=== PATIENT | female | born 1960 | race American Indian/Alaskan Native ===

== ENCOUNTER 2018-12-03 19:56 | Emergency (ER) | payer MEDICAID ==
--- NOTE | 2018-12-03 20:32 | Emergency Department Report ---
ED General Adult HPI - General Chief complaint: Wound/Laceration Stated complaint: RT BIG TOE INFECTION Time Seen by Provider: 12/03/18 20:26 Source: patient, EMS (ems notes not available at time of chart dictation), RN notes reviewed Mode of arrival: Stretcher Limitations: Physical Limitation - History of Present Illness Initial comments: This is a pleasant 58-year-old female, not known to this provider previously, history of postoperative stroke, functional lower extremity paraplegia, bedbound, on home hospice, with a home visiting nurse, presented to the emergency room with discoloration, bloody discharge to the right great toe. This has been present for a few months. It is slightly worsening. Symptoms are constant, do not radiate anywhere, discomfort worsens with palpation, and decreases with rest. Patient does not complain of headache, neck pain, chest pain, abdominal pain, shortness of breath, or urinary symptoms. \ The patient has no other complaints at this time. -: Gradual, month(s) Location: right, lower extremity Radiation: non-radiation Severity scale (0 -10): 4 Quality: aching Consistency: constant Improves with: rest Worsens with: movement - Related Data Previous Rx's Medication Instructions Recorded Last Taken Type Doxycycline [Vibramycin CAP] 100 mg PO Q12HR #14 capsule 12/03/18 Unknown Rx Allergies Allergy/AdvReac Type Severity Reaction Status Date / Time Penicillins Allergy Hives Verified 12/03/18 20:53 meperidine [From Demerol] AdvReac Anaphylaxis Verified 12/03/18 20:53 morphine AdvReac Unknown Verified 12/03/18 20:53 ED Review of Systems ROS: Stated complaint: RT BIG TOE INFECTION Other details as noted in HPI Constitutional: denies: fever, malaise Eyes: denies: vision change ENT: denies: epistaxis Respiratory: denies: cough Cardiovascular: denies: chest pain Gastrointestinal: denies: abdominal pain Genitourinary: denies: urgency, dysuria Musculoskeletal: arthralgia, myalgia Skin: other (right great toe discoloration, bloody) Neurological: weakness (chronic lower extremity weakness) ED Past Medical Hx - Past Medical History Previous Medical History?: Yes Hx Hypertension: Yes Hx CVA: Yes (1 year ago) Hx Diabetes: Yes Additional medical history: 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 - Social History Smoking Status: Unknown if ever smoked Substance Use Type: None - Medications Home Medications: Home Medications Medication Instructions Recorded Confirmed Last Taken Type Doxycycline [Vibramycin CAP] 100 mg PO Q12HR #14 capsule 12/03/18 Unknown Rx ED Physical Exam - General Limitations: Physical Limitation General appearance: alert, in no apparent distress, obese - Head Head exam: Present: atraumatic, normocephalic - Eye Eye exam: Present: normal appearance, EOMI. Absent: nystagmus - ENT ENT exam: Present: normal exam, normal orophraynx, mucous membranes moist, normal external ear exam - Neck Neck exam: Present: normal inspection, full ROM. Absent: tenderness, meningismus - Respiratory Respiratory exam: Present: normal lung sounds bilaterally. Absent: respiratory distress - Cardiovascular Cardiovascular Exam: Present: regular rate, normal rhythm, normal heart sounds. Absent: bradycardia, tachycardia, irregular rhythm, systolic murmur, diastolic murmur, rubs, gallop - GI/Abdominal GI/Abdominal exam: Present: soft. Absent: distended, tenderness, guarding, rebound, rigid, pulsatile mass - Extremities Exam Extremities exam: Present: normal inspection (moving the bilateral upper extremities. No redness, pus or streaking in the bilateral upper extremities or left lower extremity), tenderness (right great toe shows minimal medial distal dorsal erythema, bloody discharge, ingrown toenail is noted.), pedal edema, other (2+ pulses noted in the bilateral upper, lower extremities. Compartments soft. No long bony tenderness. The pelvis is stable.). Absent: calf tenderness - Back Exam Back exam: Present: normal inspection. Absent: tenderness, CVA tenderness (R), paraspinal tenderness, vertebral tenderness - Neurological Exam Neurological exam: Present: alert, motor sensory deficit (chronic weakness in the bilateral lower extremities. Moving the bilateral upper extremities spontaneously.), other (there is no facial droop. The tongue is midline. Extraocular movements are intact bilaterally. Speaking in full sentences.) - Psychiatric Psychiatric exam: Present: normal affect, normal mood - Skin Skin exam: Present: warm ED Course Vital Signs 12/03/18 12/03/18 20:08 20:36 Temperature 98.7 F 98.3 F Pulse Rate 87 87 Respiratory 14 18 Rate Blood Pressure 138/85 [Right] O2 Sat by Pulse 100 99 Oximetry ED Medical Decision Making - Lab Data Vital Signs 12/03/18 12/03/18 20:08 20:36 Temperature 98.7 F 98.3 F Pulse Rate 87 87 Respiratory 14 18 Rate Blood Pressure 138/85 [Right] O2 Sat by Pulse 100 99 Oximetry - Medical Decision Making Differential diagnosis, including but not limited to: Ingrown toenail, cellulitis Assessment and plan: 58-year-old female with right great toe ingrown toenail, minimal discharge, no evidence of systemic toxicity or illness, she and family indicate that discoloration present for a few months. The patient is afebrile, with reassuring vital signs, without evidence of systemic or toxic illness. The patient is suitable for a trial of oral outpatient antibiotics, and she is counseled to follow up with an outpatient estate planner. Patient and family verbalized understanding. Critical care attestation.: If time is entered above; I have spent that time in minutes in the direct care of this critically ill patient, excluding procedure time. ED Disposition Clinical Impression: Ingrown toenail of right foot with infection Disposition: TO HOME OR SELFCARE Is pt being admited?: No Does the pt Need Aspirin: No Condition: Stable Additional Instructions: Apply warm compresses to the right great toe every 12-24 hours. Otherwise, keep the toe dry. Inspect the toe at least once a day to determine how the infection is progressing. Follow up with a estate planner, within the next 5-7 days. For the patient's convenience, numerous podiatry specialists have been listed in the discharge paperwork. Please return to the emergency room right away with fevers, chills, lethargy, irritability, projectile vomiting, change in mental status, confusion, new, worsening or different symptoms. [facility] [Primary Care Provider] - 3-5 Days ARIE JAMES DPM [Staff Physician] - 3-5 Days JOSE ARMANDO LANDRY DPM [Referring] - 3-5 Days PATRICIA CHAVIS DPM [Referring] - 3-5 Days YASIR PAULINO DPM [Referring] - 3-5 Days LASHAY PANG DPM [Referring] - 3-5 Days ILSA SHOOK DPM [Referring] - 3-5 Days DEL VALLE,ADOLPH, DPM [Referring] - 3-5 Days JAYESH VAN I, DPM [Referring] - 3-5 Days COLON,LALITO Garcia, DPM [Referring] - 3-5 Days COLON,SAW Land, DPM [Referring] - 3-5 Days SERGIO VICTORIA, DPM [Referring] - 3-5 Days NYLA,YOLANDA Danielle, DPM [Referring] - 3-5 Days IRON SCOTT, DPM [Referring] - 3-5 Days
[2018-12-03 21:44] VITALS: BP 131/70
== END 2018-12-04 01:39 | disposition home or self-care (01) ==
LOC: ED 19:56
DX: L60.0 Ingrowing nail (principal); I10 Essential (primary) hypertension; E11.9 Type 2 diabetes mellitus without complications; Z88.0 Allergy status to penicillin; Z88.5 Allergy status to narcotic agent
CPT/HCPCS: 82962; 99284

== ENCOUNTER 2020-11-29 19:00 | Emergency (ER) | payer MEDICAID ==
--- NOTE | 2020-11-29 19:25 | Emergency Department Report ---
ED General Adult HPI - General Chief complaint: Pain General Stated complaint: SACRAL WOUND PUI?: No Time Seen by Provider: 11/29/20 19:20 Source: patient, EMS Mode of arrival: Stretcher Limitations: Physical Limitation - History of Present Illness Initial comments: Patient is a 60-year-old female that presents emergency room with complaints of sacral pain. Patient states her sacral pain started this morning. Patient states her sickle pain is worsening. Patient states her pain is severe. Patient states she believes she has an open wound to the area. Patient states that her family called her primary care and sent her to the emergency room for evaluation of the wound. Patient states the pain is better with rest and worse with movement and palpation. Patient denies recent travel. Patient denies recent international travel. Patient denies exposure to the novel coronavirus. Patient denies sick contacts. Patient denies fever and chills. Patient denies cough. Patient denies diarrhea. Patient denies coming in contact with anybody with symptoms of the novel coronavirus. Patient is answering questions appropriately. -: Gradual Quality: aching Consistency: constant Improves with: rest Worsens with: movement Associated Symptoms: denies other symptoms Treatments Prior to Arrival: other (Description medications) - Related Data Previous Rx's Medication Instructions Recorded Last Taken Type DOXYCYCLINE Hyclate [Vibramycin 100 mg PO Q12HR #14 capsule 12/03/18 Unknown Rx CAP] Allergies Allergy/AdvReac Type Severity Reaction Status Date / Time Penicillins Allergy Hives Verified 12/03/18 20:53 meperidine [From Demerol] AdvReac Anaphylaxis Verified 12/03/18 20:53 morphine AdvReac Unknown Verified 12/03/18 20:53 ED Review of Systems ROS: Stated complaint: SACRAL WOUND Other details as noted in HPI Constitutional: denies: chills, fever Eyes: denies: eye pain, eye discharge, vision change ENT: denies: ear pain, throat pain Respiratory: denies: cough, shortness of breath, wheezing Cardiovascular: denies: chest pain, palpitations Endocrine: no symptoms reported Gastrointestinal: denies: abdominal pain, nausea, diarrhea Genitourinary: denies: urgency, dysuria, discharge Musculoskeletal: denies: back pain, joint swelling, arthralgia Skin: denies: rash, lesions Neurological: denies: headache, weakness, paresthesias Psychiatric: denies: anxiety, depression Hematological/Lymphatic: denies: easy bleeding, easy bruising ED Past Medical Hx - Past Medical History Previous Medical History?: Yes Hx Hypertension: Yes Hx CVA: Yes (1 year ago) Hx Diabetes: Yes Additional medical history: 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 - Surgical History Past Surgical History?: No - Family History Family history: no significant - Social History Smoking Status: Current Some Day Smoker Substance Use Type: None - Medications Home Medications: Home Medications Medication Instructions Recorded Confirmed Last Taken Type DOXYCYCLINE Hyclate [Vibramycin 100 mg PO Q12HR #14 capsule 12/03/18 Unknown Rx CAP] ED Physical Exam - General Limitations: Physical Limitation General appearance: alert, in no apparent distress - Head Head exam: Present: atraumatic, normocephalic - Eye Eye exam: Present: normal appearance - ENT ENT exam: Present: mucous membranes moist - Neck Neck exam: Present: normal inspection - Respiratory Respiratory exam: Present: normal lung sounds bilaterally. Absent: respiratory distress - Cardiovascular Cardiovascular Exam: Present: regular rate, normal rhythm. Absent: systolic murmur, diastolic murmur, rubs, gallop - GI/Abdominal GI/Abdominal exam: Present: soft, normal bowel sounds - Extremities Exam Extremities exam: Present: normal inspection - Back Exam Back exam: Present: normal inspection - Neurological Exam Neurological exam: Present: alert, oriented X3 - Psychiatric Psychiatric exam: Present: normal affect, normal mood - Skin Skin exam: Present: warm, dry, normal color, other (Stage I sacral decubitus ulcer noted. Minimal skin breakdown. No signs of infection. No redness noted. No purulent discharge noted.). Absent: rash ED Course Vital Signs 11/29/20 19:15 Temperature 98 F Pulse Rate 72 Respiratory 19 Rate Blood Pressure 134/80 [Right] O2 Sat by Pulse 100 Oximetry - Reevaluation(s) Reevaluation #1: I discussed all clinical findings with patient. I discussed plan of care with patient. Patient agrees with plan of care. Patient is stable for discharge. Patient will be discharged home. Patient given discharge instructions. Patient voiced understanding of discharge instructions. 11/29/20 19:29 ED Medical Decision Making - Medical Decision Making Patient is a 60-year-old female who presents for a wound check. Patient was sent here to have an evaluation done of her sacral region. Patient's exam done. Patient is medically clear for discharge. Patient's physical exam was positive for a minimal breakdown in the sacral region consistent with a decubitus ulcer at stage I. No signs of infection noted at the site. No redness noted at the site. Patient is stable and can be followed as an outpatient with outpatient wound care or even home health. Patient will be referred back to her primary care for management of this minimal decubitus ulcer noted. - Differential Diagnosis Wound check, decubitus ulcer, cellulitis, Critical care attestation.: If time is entered above; I have spent that time in minutes in the direct care of this critically ill patient, excluding procedure time. ED Disposition Clinical Impression: Sacral decubitus ulcer Qualifiers: Pressure injury stage: stage 1 Qualified Code(s): L89.151 - Pressure ulcer of sacral region, stage 1 Disposition: TO HOME OR SELFCARE Is pt being admited?: No Does the pt Need Aspirin: No Condition: Stable Instructions: Preventing Pressure Injuries, Negative Pressure Wound Therapy Home Guide, Pressure Injury Additional Instructions: Patient to follow-up with primary care in 2 to 3 days. Patient to follow-up with wound care in 2 to 3 days. Patient to be turned from side to side to offload the pressure areas. Patient to be turned every hour. Patient to rest. Patient to increase water. . Patient to take Tylenol as needed for pain. Patient to continue all medications.. Patient to return to the ER if condition worsens, changes or new symptoms arise. Referrals: PRIMARY CARE [Primary Care Provider] - 2-3 Days Time of Disposition: 19:31
[2020-11-29 22:52] VITALS: BP 130/72
== END 2020-11-29 23:59 | disposition home or self-care (01) ==
LOC: ED 19:00
DX: L89.151 Pressure ulcer of sacral region, stage 1 (principal); I10 Essential (primary) hypertension; E11.9 Type 2 diabetes mellitus without complications; F17.200 Nicotine dependence, unspecified, uncomplicated; Z86.73 Personal history of transient ischemic attack (TIA), and cerebral infarction without residual deficits; Z79.899 Other long term (current) drug therapy; Z88.0 Allergy status to penicillin; Z88.6 Allergy status to analgesic agent; Z88.8 Allergy status to other drugs, medicaments and biological substances
CPT/HCPCS: 99283

== ENCOUNTER 2021-04-20 07:37 | Inpatient (IN) | payer MEDICAID ==
[2021-04-20] MEDS ORDERED: SODIUM CHLORIDE 0.9% 500 ML 500 ML IV ONE (08:42)
[2021-04-20] MEDS ORDERED: CEFEPIME/NS 2 GM/100 ML 2 GM/100 ML BAG IV ONE (08:52)
[2021-04-20] MEDS ORDERED: SODIUM CHLORIDE 0.9% 1000 ML IV SOLN IV ONE (08:52)
[2021-04-20] MEDS ORDERED: VANCOMYCIN PHARMACY TO DOSE IV SCH (09:00)
[2021-04-20] MEDS ORDERED: ACETAMINOPHEN 650 MG RECT SUPP PR ONE ×2 (09:00→09:25)
[2021-04-20] MEDS ORDERED: VANCOMYCIN 1,000 MG in SODIUM CHLORIDE 0.9% 500 ML 500 ML IV ONE (09:30)
[2021-04-20] MEDS ORDERED: VANCOMYCIN/NS 1 GM/250 ML 1 GM/250 ML BAG IV ONE (09:30)
--- NOTE | 2021-04-20 09:32 | Emergency Department Report ---
ED Altered Mental Status HPI - General Chief Complaint: Altered Mental Status Stated Complaint: AMS Time Seen by Provider: 04/20/21 08:50 Source: EMS Mode of arrival: Stretcher Limitations: Altered Mental Status - History of Present Illness Initial Comments: Chief complaint: Altered mental status, low oxygen, fever HPI: This is a 60-year-old female with history of CVA, CHF, hypertension, type 2 diabetes mellitus, sacral decubitus ulcer who presents with fever decreased responsiveness for the last 2 days. Caregiver reported fever 103 the hospice [facility]. Patient was not eating or drinking. Had been treated with Tylenol suppositories. Caregiver called 911 today because it appeared that she was not breathing. Oxygen 65% room air according to EMS report. Required nonrebreather. I spoke with Alana Castro on-call hospice nurse Jesusita in [facility] who came to the department to assist with medical care. Phone #[phone]. I obtain additional history from daughter per phone. Patient received 1 dose either COVID-19 vaccine on Friday. Health appeared to have declined since that time. No reported falls or trauma. Daughter stated that home oxygen saturation was 50% on nasal cannula. She normally is conversant. She normally is clearh eaded. Today she was not responsive. Daughter is the very more phone #[phone] Home medications include aspirin biscodyl cyproheptadine Docusate Lantus Lorazepam Metformin Metoprolol Torsemide Zofran Spironolactone Oxycodone Maira ARZOLA Complaint: altered mental status, decreased responsiveness -: Gradual, days(s) (2 days) Severity: severe Consistency of Symptoms: constant Context: recent fever - Related Data Previous Rx's Medication Instructions Recorded Last Taken Type DOXYCYCLINE Hyclate [Vibramycin 100 mg PO Q12HR #14 capsule 12/03/18 Unknown Rx CAP] Allergies Allergy/AdvReac Type Severity Reaction Status Date / Time Penicillins Allergy Hives Verified 12/03/18 20:53 meperidine [From Demerol] AdvReac Anaphylaxis Verified 12/03/18 20:53 morphine AdvReac Unknown Verified 12/03/18 20:53 ED Review of Systems ROS: Stated complaint: AMS Other details as noted in HPI Comment: Unobtainable due to pts medical conditions (Altered mental status) ED Past Medical Hx - Past Medical History Previous Medical History?: Yes Hx Hypertension: Yes Hx CVA: Yes (1 year ago) Hx Congestive Heart Failure: Yes Hx Diabetes: Yes Additional medical history: 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 - Surgical History Past Surgical History?: Yes Hx Open Heart Surgery: Yes (CABG x3) - Family History Family history: other (Family history noncontributory to today's presentation) - Social History Smoking Status: Unknown if ever smoked Substance Use Type: None - Medications Home Medications: Home Medications Medication Instructions Recorded Confirmed Last Taken Type DOXYCYCLINE Hyclate [Vibramycin 100 mg PO Q12HR #14 capsule 12/03/18 Unknown Rx CAP] ED Physical Exam - General Limitations: Altered Mental Status General appearance: lethargic, cachectic, other (Protecting airway) - Head Head exam: Present: atraumatic, normocephalic - Eye Eye exam: Present: normal appearance - ENT ENT exam: Present: mucous membranes dry - Neck Neck exam: Present: normal inspection, tenderness. Absent: meningismus - Respiratory Respiratory exam: Present: rales, rhonchi, decreased breath sounds, other (Increased respiratory rate with loud rales rhonchi throughout thorax) - Cardiovascular Cardiovascular Exam: Present: normal rhythm, tachycardia, normal heart sounds. Absent: systolic murmur, diastolic murmur, rubs, gallop - GI/Abdominal GI/Abdominal exam: Present: soft. Absent: distended, tenderness, guarding, rebound - Extremities Exam Extremities exam: Present: other (Cachectic extremities) - Neurological Exam Neurological exam: Present: altered - Psychiatric Psychiatric exam: Present: flat affect - Skin Skin exam: Present: other (Large sacral decubitus ulcer with subcutaneous tissue exposed areas of necrosis, purulent malodorous drainage) ED Course Vital Signs 04/20/21 04/20/21 04/20/21 08:00 08:36 08:42 Temperature 99.7 F H 104 F H Pulse Rate 134 H Respiratory 31 H Rate Blood Pressure 114/74 O2 Sat by Pulse 95 95 Oximetry 04/20/21 04/20/21 04/20/21 08:45 09:01 09:15 Temperature Pulse Rate 134 H 137 H 132 H Respiratory 31 H 33 H 30 H Rate Blood Pressure 114/74 116/77 116/77 O2 Sat by Pulse 96 96 95 Oximetry 04/20/21 04/20/21 04/20/21 09:31 09:42 09:45 Temperature Pulse Rate 136 H 124 H Respiratory 35 H 33 H Rate Blood Pressure 97/62 116/77 O2 Sat by Pulse 93 91 Oximetry 04/20/21 04/20/21 04/20/21 09:51 10:01 10:15 Temperature Pulse Rate 124 H 122 H Respiratory 31 H 29 H Rate Blood Pressure 123/74 123/74 O2 Sat by Pulse 93 90 92 Oximetry 04/20/21 04/20/21 04/20/21 10:31 10:45 11:01 Temperature Pulse Rate 120 H 118 H 117 H Respiratory 23 23 20 Rate Blood Pressure 130/70 130/70 120/64 O2 Sat by Pulse 92 89 91 Oximetry 04/20/21 04/20/21 04/20/21 11:15 11:31 11:45 Temperature Pulse Rate 115 H 116 H 113 H Respiratory 25 H 27 H 20 Rate Blood Pressure 120/64 138/56 138/56 O2 Sat by Pulse 85 93 97 Oximetry 04/20/21 04/20/21 04/20/21 12:01 12:15 12:31 Temperature Pulse Rate 112 H 108 H 107 H Respiratory 19 20 18 Rate Blood Pressure 111/63 111/63 125/67 O2 Sat by Pulse 98 99 99 Oximetry 04/20/21 04/20/21 12:45 13:01 Temperature Pulse Rate 108 H 110 H Respiratory 18 20 Rate Blood Pressure 125/67 130/69 O2 Sat by Pulse 98 99 Oximetry - Chest Tube Chest Tube Location: Fifth interspace Chest Tube Procedure: betadine prep Anesthesia: 1% Lidocaine Volume Anesthetic (ccs): 5 Estrella of Air [place]: No Number of Attempts: 1 Tube Sutured to Skin: Yes Post Procedure CXR?: Yes Progress: Smallbore catheter inserted. RN witness phone consent obtained from caregiver Ms. Corado. - Lab Data Result diagrams: 04/20/21 08:54 04/20/21 08:54 Lab Results 04/20/21 04/20/21 04/20/21 Range/Units 08:54 08:54 08:54 WBC 6.6 (4.5-11.0) K/mm3 RBC 4.42 (3.65-5.03) M/mm3 Hgb 11.0 (10.1-14.3) gm/dl Hct 34.8 (30.3-42.9) % MCV 79 (79-97) fl MCH 25 L (28-32) pg MCHC 32 (30-34) % RDW 18.2 H (13.2-15.2) % Plt Count 309 (140-440) K/mm3 Add Manual Diff Complete Total Counted 100 Seg Neuts % (Manual) 81.0 H (40.0-70.0) % Band Neutrophils % 2.0 % Lymphocytes % (Manual) 12.0 L (13.4-35.0) % Monocytes % (Manual) 5.0 (0.0-7.3) % Nucleated RBC % Not Reportable Seg Neutrophils # Man 5.3 (1.8-7.7) K/mm3 Band Neutrophils # 0.1 K/mm3 Lymphocytes # (Manual) 0.8 L (1.2-5.4) K/mm3 Abs React Lymphs (Man) 0.0 K/mm3 Monocytes # (Manual) 0.3 (0.0-0.8) K/mm3 Eosinophils # (Manual) 0.0 (0.0-0.4) K/mm3 Basophils # (Manual) 0.0 (0.0-0.1) K/mm3 Metamyelocytes # 0.0 K/mm3 Myelocytes # 0.0 K/mm3 Promyelocytes # 0.0 K/mm3 Blast Cells # 0.0 K/mm3 WBC Morphology Not Reportable Hypersegmented Neuts Not Reportable Hyposegmented Neuts Not Reportable Hypogranular Neuts Not Reportable Smudge Cells Not Reportable Toxic Granulation Not Reportable Toxic Vacuolation Not Reportable Dohle Bodies Not Reportable Pelger-Huet Anomaly Not Reportable Gabe Rods Not Reportable Platelet Estimate Consistent w auto Clumped Platelets Not Reportable Plt Clumps, EDTA Not Reportable Large Platelets Not Reportable Giant Platelets Not Reportable Platelet Satelliting Not Reportable Plt Morphology Comment Not Reportable RBC Morphology Not Reportable Dimorphic RBCs Not Reportable Polychromasia Not Reportable Hypochromasia 1+ Poikilocytosis Not Reportable Anisocytosis 1+ Microcytosis Not Reportable Macrocytosis Not Reportable Spherocytes Not Reportable Pappenheimer Bodies Not Reportable Sickle Cells Not Reportable Target Cells Not Reportable Tear Drop Cells Not Reportable Ovalocytes Not Reportable Helmet Cells Not Reportable [place] Bodies Not Reportable [place] Rings Not Reportable [place] Cells Not Reportable Bite Cells Not Reportable Crenated Cell Not Reportable Elliptocytes Not Reportable Acanthocytes (Spur) Not Reportable Rouleaux Not Reportable Hemoglobin C Crystals Not Reportable Schistocytes Not Reportable Malaria parasites Not Reportable Chris Bodies Not Reportable Hem Pathologist Commnt No PT 15.6 H (12.2-14.9) Sec. INR 1.19 H (0.87-1.13) VBG pH (7.320-7.420) Sodium 163 H* (137-145) mmol/L Potassium 2.8 L* (3.6-5.0) mmol/L Chloride 118.6 H (98-107) mmol/L Carbon Dioxide 25 (22-30) mmol/L Anion Gap 21 mmol/L BUN 152 H (7-17) mg/dL Creatinine 2.0 H (0.6-1.2) mg/dL Estimated GFR 31 ml/min BUN/Creatinine Ratio 76 % Glucose 147 H (65-100) mg/dL Lactic Acid (0.7-2.0) mmol/L Calcium 10.8 H (8.4-10.2) mg/dL Total Bilirubin 0.40 (0.1-1.2) mg/dL AST 12 (5-40) units/L ALT 9 (7-56) units/L Alkaline Phosphatase 61 (35-129) units/L Total Protein 8.5 H (6.3-8.2) g/dL Albumin 3.4 L (3.9-5) g/dL Albumin/Globulin Ratio 0.7 % 04/20/21 04/20/21 04/20/21 Range/Units 08:54 08:54 10:25 WBC (4.5-11.0) K/mm3 RBC (3.65-5.03) M/mm3 Hgb (10.1-14.3) gm/dl Hct (30.3-42.9) % MCV (79-97) fl MCH (28-32) pg MCHC (30-34) % RDW (13.2-15.2) % Plt Count (140-440) K/mm3 Add Manual Diff Total Counted Seg Neuts % (Manual) (40.0-70.0) % Band Neutrophils % % Lymphocytes % (Manual) (13.4-35.0) % Monocytes % (Manual) (0.0-7.3) % Nucleated RBC % Seg Neutrophils # Man (1.8-7.7) K/mm3 Band Neutrophils # K/mm3 Lymphocytes # (Manual) (1.2-5.4) K/mm3 Abs React Lymphs (Man) K/mm3 Monocytes # (Manual) (0.0-0.8) K/mm3 Eosinophils # (Manual) (0.0-0.4) K/mm3 Basophils # (Manual) (0.0-0.1) K/mm3 Metamyelocytes # K/mm3 Myelocytes # K/mm3 Promyelocytes # K/mm3 Blast Cells # K/mm3 WBC Morphology Hypersegmented Neuts Hyposegmented Neuts Hypogranular Neuts Smudge Cells Toxic Granulation Toxic Vacuolation Dohle Bodies Pelger-Huet Anomaly Gabe Rods Platelet Estimate Clumped Platelets Plt Clumps, EDTA Large Platelets Giant Platelets Platelet Satelliting Plt Morphology Comment RBC Morphology Dimorphic RBCs Polychromasia Hypochromasia Poikilocytosis Anisocytosis Microcytosis Macrocytosis Spherocytes Pappenheimer Bodies Sickle Cells Target Cells Tear Drop Cells Ovalocytes Helmet Cells Downing-[place] Bodies [place] Rings [place] Cells Bite Cells Crenated Cell Elliptocytes Acanthocytes (Spur) Rouleaux Hemoglobin C Crystals Schistocytes Malaria parasites Chris Bodies Hem Pathologist Commnt PT (12.2-14.9) Sec. INR (0.87-1.13) VBG pH 7.382 (7.320-7.420) Sodium (137-145) mmol/L Potassium (3.6-5.0) mmol/L Chloride (98-107) mmol/L Carbon Dioxide (22-30) mmol/L Anion Gap mmol/L BUN (7-17) mg/dL Creatinine (0.6-1.2) mg/dL Estimated GFR ml/min BUN/Creatinine Ratio % Glucose (65-100) mg/dL Lactic Acid 2.60 H* 2.00 (0.7-2.0) mmol/L Calcium (8.4-10.2) mg/dL Total Bilirubin (0.1-1.2) mg/dL AST (5-40) units/L ALT (7-56) units/L Alkaline Phosphatase (35-129) units/L Total Protein (6.3-8.2) g/dL Albumin (3.9-5) g/dL Albumin/Globulin Ratio % - Radiology Data Radiology results: report reviewed Patient Name: LONG CABA Gender: Female Date of : 1960 Referring Provider: MARY PARRY Organization: [facility] Accession Number: [id number] Requested Date: April 20, 2021 08:42 Report Status: Final Requested Procedure: 1 Procedure Description: XR chest 1V ap Modality: XR Findings Reporting MD: King Cruz Dictation Time: April 20, 2021 08:42 School Health Assistant: Not available Ballet Soloist Date: XR chest 1V ap INDICATION / CLINICAL INFORMATION: possible Sepsis. COMPARISON: None available. FINDINGS: SUPPORT DEVICES: None HEART /PULMONARY VASCULATURE: No significant abnormality LUNGS / PLEURA: Moderate left pneumothorax. No evidence of tension. Right basilar airspace opacity. Additional findings: No acute displaced rib fracture seen. IMPRESSION: 1. Moderate left pneumothorax without evidence of tension. 2. Right basilar airspace opacity, suspicious for infiltrate. Findings were discussed with Dr. Parry by phone on 04/20/2021 8:41 AM Signer Name: King Cruz MD Signed: 04/20/2021 8:42 AM Workstation Name: [id number] Patient: LONG CABA MR#: [id number] : 1960 Acct:[id number] Age/Sex: 60 / F ADM Date: 04/20/21 Loc: ED Attending Dr: Ordering Physician: Mary Jerez MD Date of Service: 04/20/21 Procedure(s): XR chest 1V ap Accession Number(s): [id number] cc: Mary Jerez MD Fluoro Time In Minutes: CHEST 1 VIEW 04/20/2021 11:46 AM INDICATION / CLINICAL INFORMATION: thoracostomy pneumothorax. COMPARISON: Chest radiograph from earlier in the day FINDINGS: SUPPORT DEVICES: There is a pleural drain catheter noted within the left chest. HEART / MEDIASTINUM: No significant abnormality. LUNGS / PLEURA: Redemonstrated right basilar opacities. Previously seen pneumothorax is redemonstrated and less prominent ADDITIONAL FINDINGS: No significant additional findings. IMPRESSION: 1. Status post pleural catheter placement with decreased prominence of a left- sided pneumothorax. 2. Right basilar opacity concerning for infectious process. Signer Name: Santos Dill DO Signed: 04/20/2021 11:56 AM Workstation Name: [id number] Transcribed By: VIRGIL Dictated By: SANTOS DILL DO Electronically Authenticated By: SANTOS DILL DO Signed Date/Time: 04/20/21 1156 - Medical Decision Making 1. Sepsis: right-sided pneumonia, infected sacral decubitus ulcer. Broad- spectrum antibiotics, 30 mil/kg normal saline bolus initiated. 2. Acute kidney injury: Vasomotor nephropathy due to volume contraction and sepsis, With corresponding metabolic derangement, hypovolemic hyponatremia. 3. spontaneous Left-sided pneumothorax with small bore catheter in place, oxy gen saturation increased to 90% from 88% on Ventimask after thoracostomy, I have consulted surgeon Dr. Keane who recommended suction pressure increased to 40 cm from 30 cm of H2O. 4. suspected COVID-19 infection: CBC normal WBC with lymphopenia. IV Decadron initiated in the emergency department. Contact droplet precautions. Critical Care Time: Yes Critical care time in (mins) excluding proc time.: 40 Critical care attestation.: If time is entered above; I have spent that time in minutes in the direct care of this critically ill patient, excluding procedure time. 40 minutes of critical care time excluding procedures were used in the care of the patient. I came immediately to the bedside upon patient's arrival. I obtained history from EMS at the bedside. I discussed treatment plan with the nursing team members. I reviewed electronic record. I kept the family member informed. Patient required multiple interventions and reassessments. I obtained history from hospice nurse at the bedside. Spoke with radiologist who gave him verbal report of left moderate sized pneumothorax. ED Disposition Clinical Impression: Sepsis, Infected decubitus ulcer, Healthcare-associated pneumonia, Acute kidney injury, Suspected COVID-19 virus infection, Spontaneous pneumothorax Disposition: OP ADMIT IP TO THIS HOSP Is pt being admited?: Yes Does the pt Need Aspirin: No Condition: Fair Instructions: Bacterial Pneumonia (ED)
[2021-04-20 09:46] LABS: Hematocrit 34.8 % (30.3-42.9); Mean Corpuscular HGB Conc 32 % (30-34); Mean Corpuscular Volume 79 fl (79-97); Platelet Count 309 K/mm3 (140-440); Red Blood Count 4.42 M/mm3 (3.65-5.03); Red Cell Distribution Width 18.2 % (13.2-15.2)
--- NOTE | 2021-04-20 09:46 | XRay Report ---
XR chest 1V ap INDICATION / CLINICAL INFORMATION: possible Sepsis. COMPARISON: None available. FINDINGS: SUPPORT DEVICES: None HEART /PULMONARY VASCULATURE: No significant abnormality LUNGS / PLEURA: Moderate left pneumothorax. No evidence of tension. Right basilar airspace opacity. Additional findings: No acute displaced rib fracture seen. IMPRESSION: 1. Moderate left pneumothorax without evidence of tension. 2. Right basilar airspace opacity, suspicious for infiltrate. Findings were discussed with Dr. Mancini by phone on 04/20/2021 8:41 AM Signer Name: King Cruz MD Signed: 04/20/2021 9:42 AM Workstation Name: [id number]
[2021-04-20 10:01] LABS: INR 1.19 (0.87-1.13)
[2021-04-20 10:09] LABS: Albumin 3.4 g/dL (3.9-5); Calcium 10.8 mg/dL (8.4-10.2)
[2021-04-20 10:20] LABS: Anisocytosis 1+; Band Neutrophils # (Manual) 0.1 K/mm3; Hypochromasia 1+; Platelet Estimate Consistent w Auto; Total Cells Counted 100
[2021-04-20] MEDS ORDERED: LIDOCAINE (1%) 10 MG/1 ML VIAL 20 ML MDV INFILTRATI ONE (10:25)
--- NOTE | 2021-04-20 12:01 | XRay Report ---
CHEST 1 VIEW 04/20/2021 11:46 AM INDICATION / CLINICAL INFORMATION: thoracostomy pneumothorax. COMPARISON: Chest radiograph from earlier in the day FINDINGS: SUPPORT DEVICES: There is a pleural drain catheter noted within the left chest. HEART / MEDIASTINUM: No significant abnormality. LUNGS / PLEURA: Redemonstrated right basilar opacities. Previously seen pneumothorax is redemonstrate d and less prominent ADDITIONAL FINDINGS: No significant additional findings. IMPRESSION: 1. Status post pleural catheter placement with decreased prominence of a left-sided pneumothorax. 2. Right basilar opacity concerning for infectious process. Signer Name: Santos Gibson DO Signed: 04/20/2021 11:56 AM Workstation Name: [email or web address]
[2021-04-20] MEDS ORDERED: dexAMETHasone 20 MG/5 ML VIAL IV ONE (13:10)
[2021-04-20] MEDS ORDERED: ONDANSETRON 4 MG/2 ML INJ IV PRN (14:09)
[2021-04-20] MEDS ORDERED: ALBUTEROL 2.5 MG/3 ML NEBU IH PRN (14:09)
--- NOTE | 2021-04-20 14:18 | History and Physical Report ---
History of Present Illness Chief complaint: She is confused and weak History of present illness: 60 YO Female with 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 Patient is confused and lethargic the time my evaluation and is unable to provide history. Patient also has diminished cognition which is her baseline. Patient is unable to provide history. Patient history provided by EMS staff, ED staff, as well as the patient's daughter who was contacted via telephone for interview. As per daughter the patient is currently a patient receiving hospice care from [facility]. Patient daughter elects to revoke hospice benefit and seek aggressive medical therapy. [facility] notified and acknowledge patient revocation. Patient daughter reports that patient experience fever 103 F today, and has experienced decreased oral intake and decreased responsiveness over the past 2 days with progressively worsening symptoms over the same timeframe. EMS was notified and upon arrival the patient was found to be in distress with a pulse oximetry of 65% on room air. The patient was placed on submental oxygen and transported to [facility] for further care and evaluation of the aforementioned symptoms. The patient was seen and evaluated in the emergency department. All lab and imaging studies reviewed. The patient was found to have a pulse oximetry of 82% on submental oxygen which is consistent with acute hypoxemic respiratory failure. Chest x-ray revealed pneumonia as well as left pneumothorax. The patient was also found to have acute kidney injury, systemic inflammatory response syndrome, hypokalemia. The patient underwent chest tube placement in the emergency department with improvement in symptoms. Surgery team consulted in ED. Patient admitted to medical floor due to increased risk of worsening symptoms. Patient initiated on pneumonia protocol as well as coronavirus protocol. The patient has diminished cognition but has a positive gag reflex and is able to protect her airway without difficulty at this time. No reported history of chest pain, palpitation, productive cough, skin rash, recent ill contacts, or known exposure to COVID-19. No prior admission for review. No medication listed at time of admission for reconciliation. Advanced care planning conducted in ED. Past History Past Medical History: CAD, diabetes, heart failure, hypertension, other (See HPI) Past Surgical History: CABG Social history: single. denies: smoking, alcohol abuse Family history: diabetes, hypertension Medications and Allergies Allergies Allergy/AdvReac Type Severity Reaction Status Date / Time Penicillins Allergy Hives Verified 12/03/18 20:53 meperidine [From Demerol] AdvReac Anaphylaxis Verified 12/03/18 20:53 morphine AdvReac Unknown Verified 12/03/18 20:53 Home Medications Medication Instructions Recorded Confirmed Last Taken Type DOXYCYCLINE Hyclate [Vibramycin 100 mg PO Q12HR #14 capsule 12/03/18 Unknown Rx CAP] Active Meds: Active Medications Acetaminophen (Acetaminophen 325 Mg Tab) 650 mg PO Q4H PRN PRN Reason: Pain MILD(1-3)/Fever >100.5/WEST Albuterol (Albuterol 2.5 Mg/3 Ml Nebu) 2.5 mg IH Q4HRT PRN PRN Reason: Shortness Of Breath Hydromorphone HCl (Hydromorphone 1 Mg/1 Ml Inj) 0.5 mg IV Q3H PRN PRN Reason: Pain , Severe (7-10) Ondansetron HCl (Ondansetron 4 Mg/2 Ml Inj) 4 mg IV Q8H PRN PRN Reason: Nausea And Vomiting Oxycodone/Acetaminophen (Oxycodone /Acetaminophen 5-325mg Tab) 1 tab PO Q12H PRN PRN Reason: Pain, Moderate (4-6) Sodium Chloride (Sodium Chloride 0.9% 10 Ml Flush Syringe) 10 ml IV BID [facility] Sodium Chloride (Sodium Chloride 0.9% 10 Ml Flush Syringe) 10 ml IV PRN PRN PRN Reason: LINE FLUSH Review of Systems ROS unobtainable: due to mental status Exam - Constitutional Vitals: Temp Pulse Resp BP Pulse Ox 104 F H 110 H 20 130/69 99 04/20/21 08:42 04/20/21 13:01 04/20/21 13:01 04/20/21 13:01 04/20/21 13:01 General appearance: Present: mild distress, cachectic - EENT Eyes: Present: PERRL ENT: clear oral mucosa, hearing decreased - Neck Neck: Present: supple - Respiratory Respiratory effort: labored, accessory muscle use Respiratory: bilateral: diminished, rhonchi - Cardiovascular Heart Sounds: Present: S1 & S2. Absent: rub, click - Extremities Extremities: abnormal (Sacral decubitus ulcer) Peripheral Pulses: within normal limits - Abdominal General gastrointestinal: Present: soft, non-tender, non-distended, normal bowel sounds Female genitourinary: Present: normal - Integumentary Integumentary: Present: clear, dry, clammy, decreased turgor - Musculoskeletal Musculoskeletal: generalized weakness - Psychiatric Psychiatric: no appropriate mood/affect, no intact judgment & insight, no memory intact - Neurologic Neurologic: CNII-XII intact, focal deficits, no moves all extremities, no gait normal Results - Labs CBC & Chem 7: 04/20/21 08:54 04/20/21 15:17 Labs: Abnormal lab results 04/20/21 04/20/21 04/20/21 Range/Units 08:54 08:54 08:54 MCH 25 L (28-32) pg RDW 18.2 H (13.2-15.2) % Seg Neuts % (Manual) 81.0 H (40.0-70.0) % Lymphocytes % (Manual) 12.0 L (13.4-35.0) % Lymphocytes # (Manual) 0.8 L (1.2-5.4) K/mm3 PT 15.6 H (12.2-14.9) Sec. INR 1.19 H (0.87-1.13) Sodium 163 H* (137-145) mmol/L Potassium 2.8 L* (3.6-5.0) mmol/L Chloride 118.6 H (98-107) mmol/L BUN 152 H (7-17) mg/dL Creatinine 2.0 H (0.6-1.2) mg/dL Glucose 147 H (65-100) mg/dL Lactic Acid (0.7-2.0) mmol/L Calcium 10.8 H (8.4-10.2) mg/dL Total Protein 8.5 H (6.3-8.2) g/dL Albumin 3.4 L (3.9-5) g/dL 04/20/21 Range/Units 08:54 MCH (28-32) pg RDW (13.2-15.2) % Seg Neuts % (Manual) (40.0-70.0) % Lymphocytes % (Manual) (13.4-35.0) % Lymphocytes # (Manual) (1.2-5.4) K/mm3 PT (12.2-14.9) Sec. INR (0.87-1.13) Sodium (137-145) mmol/L Potassium (3.6-5.0) mmol/L Chloride (98-107) mmol/L BUN (7-17) mg/dL Creatinine (0.6-1.2) mg/dL Glucose (65-100) mg/dL Lactic Acid 2.60 H* (0.7-2.0) mmol/L Calcium (8.4-10.2) mg/dL Total Protein (6.3-8.2) g/dL Albumin (3.9-5) g/dL Assessment and Plan - Patient Problems (1) Acute hypoxemic respiratory failure Current Visit: Yes Status: Acute Plan to address problem: Chest x-ray, supplemental oxygen, pulse oximetry, chest tube placed in the emergency department. Repeat chest x-ray in a.m. (2) Pneumonia Current Visit: Yes Status: Acute Plan to address problem: Pneumonia protocol: Chest x-ray, CBC, CMP, supplemental oxygen, pulse oximetry, nebulizer therapy, blood culture. (3) Acute kidney injury (ODILON) with acute tubular necrosis (ATN) Current Visit: Yes Status: Acute Plan to address problem: BMP, IV fluid resuscitation therapy, repeat BMP in a.m. to monitor serum creatinine as well as GFR (4) Hypokalemia Current Visit: Yes Status: Acute Plan to address problem: Repleted in ED, repeat BMP (5) Vascular dementia Current Visit: Yes Status: Acute Qualifiers: Dementia behavioral disturbance: without behavioral disturbance Qualified Code(s): F01.50 - Vascular dementia without behavioral disturbance Plan to address problem: Verbal prompting, verbal redirection, benzodiazepine therapy as clinically indicated (6) Cerebral atherosclerosis Current Visit: Yes Status: Acute Plan to address problem: Antiplatelet therapy, supportive care, risk factor reduction. (7) Dysphagia as late effect of cerebrovascular accident (CVA) Current Visit: Yes Status: Acute Plan to address problem: Pured diet, assistance with meals, supportive care. (8) Spontaneous pneumothorax Current Visit: Yes Status: Acute Plan to address problem: Chest tube placed in the emergency department, chest x-ray, postoperative chest x-ray, surgery team consulted, repeat chest x-ray in a.m. (9) Suspected COVID-19 virus infection Current Visit: Yes Status: Acute Plan to address problem: Coronavirus protocol: IV steroid therapy, IV antibiotic therapy, supplemental oxygen,, pulse oximetry, vitamin C therapy, vitamin D therapy, zinc therapy, prophylactic anticoagulation, coronavirus PCR ordered and is pending at time of admission. (10) DVT prophylaxis Current Visit: Yes Status: Acute Plan to address problem: SCD to bilateral lower extremities while in bed, prophylactic anticoagulation (11) Advance care planning Current Visit: Yes Status: Acute Plan to address problem: Disease education conducted, care plan discussed, diagnoses discussed, prognosis discussed, patient daughter knowledges understanding and agreement with care plan. Patient daughter elects to revoke hospice benefit and treat patient with aggressive medical therapy. Patient daughter knowledges understanding of prognosis. Patient is full code, +30 minutes.
[2021-04-20] MEDS ORDERED: LACTATED RINGERS 2,000 ML IV ONE (14:30)
[2021-04-20 14:49] LABS: Bilirubin,Urine NEG (Negative); Blood,Urine MOD (Negative); Color,Urine Yellow (Yellow); Urobilinogen,Urine < 2.0 mg/dL (<2.0)
[2021-04-20 14:51] LABS: RBC,Urine > 182.0 /HPF (0.0-6.0); WBC,Urine > 182.0 /HPF (0.0-6.0)
[2021-04-20] MEDS ORDERED: SODIUM CHLORIDE 0.45% 500 ML IV SCH (15:00)
[2021-04-20] MEDS ORDERED: ACETAMINOPHEN 325 MG TAB PO PRN (15:30)
[2021-04-20 15:56] LABS: C-Reactive Protein 19.1 mg/dL (0.00-1.30)
[2021-04-20] MEDS ORDERED: dexAMETHasone 20 MG/5 ML VIAL IV SCH (16:00)
[2021-04-20] MEDS: AZITHROMYCIN/NS 500 MG/250 ML 500 MG/250 ML BAG IV SCH (16:08)
--- NOTE | 2021-04-20 17:08 | Cat Scan Report ---
CT head without contrast HISTORY: altered mental status. TECHNIQUE: Axial imaging performed from the skull apex through the skull base without the use of con trast. All CT scans at this location are performed using CT dose reduction for ALARA by means of aut omated exposure control. COMPARISON: None FINDINGS: Parenchyma: No acute intracranial hemorrhage or parenchymal abnormality. Periventricular and deep wh ite matter hypodensities are most likely in keeping with microangiopathy. Ventricles: There is mild diffuse brain atrophy with commensurate ventricular enlargement which is l ikely age appropriate. Soft tissues: Soft tissues including the orbits appear normal. Bones: No acute osseous abnormality. Sinuses: Sinuses and mastoid air cells are clear. IMPRESSION: No acute abnormality. Signer Name: Chandrakant Medina MD Signed: 04/20/2021 5:04 PM Workstation Name: [id number]
[2021-04-20] MEDS: POTASSIUM CHLORIDE 10 MEQ 10 MEQ/100 ML BAG IV SCH ×2 (21:16→23:23)
[2021-04-20] MEDS: ASCORBIC ACID 500 MG TAB PO SCH (23:20)
[2021-04-20] MEDS: HEPARIN 5,000 UNIT/1 ML VIAL SUB-Q SCH (23:20)
[2021-04-20] MEDS: methylPREDNISolone Sod Succinate 40 MG/1 ML INJ IV SCH (23:20)
[2021-04-20] MEDS: ZINC SULFATE 220 MG CAP PO SCH (23:21)
[2021-04-21] MEDS: POTASSIUM CHLORIDE 10 MEQ 10 MEQ/100 ML BAG IV SCH ×5 (00:19→19:03)
[2021-04-21] MEDS: ZINC SULFATE 220 MG CAP PO SCH ×3 (00:20→22:45)
[2021-04-21] MEDS: ASCORBIC ACID 500 MG TAB PO SCH ×3 (00:21→22:45)
[2021-04-21] MEDS: methylPREDNISolone Sod Succinate 40 MG/1 ML INJ IV SCH ×3 (05:47→22:45)
[2021-04-21 06:46] LABS: Basophils % (Auto) 0.4 % (0.0-1.8); Hematocrit 29.1 % (30.3-42.9); Lymphocytes # (Auto) 1.5 K/mm3 (1.2-5.4); Mean Corpuscular HGB Conc 31 % (30-34); Mean Corpuscular Volume 81 fl (79-97); Monocytes # (Auto) 0.2 K/mm3 (0.0-0.8); Monocytes % (Auto) 2.7 % (0.0-7.3); Platelet Count 224 K/mm3 (140-440); Red Blood Count 3.59 M/mm3 (3.65-5.03); Red Cell Distribution Width 18.6 % (13.2-15.2)
[2021-04-21 06:54] LABS: Hemolysis Index 221
[2021-04-21 06:58] LABS: BUN/Creatinine Ratio TNR; Blood Urea Nitrogen TNR mg/dL (7-17); Calcium TNR mg/dL (8.4-10.2)
--- NOTE | 2021-04-21 07:36 | XRay Report ---
CHEST - 1 VIEW INDICATION: pneumothorax COMPARISON: Yesterday FINDINGS: SUPPORT DEVICES: Stable support device positioning. HEART: Stable cardiomediastinal silhouette. LUNGS/PLEURA: Persistent mild patchy multifocal airspace disease. No appreciable pneumothorax identi fied ADDITIONAL FINDINGS: None. IMPRESSION: No appreciable pneumothorax identified. Unchanged lung findings otherwise. Signer Name: Chandrakant Medina MD Signed: 04/21/2021 7:31 AM Workstation Name: [id number]
--- NOTE | 2021-04-21 09:21 | Consultation ---
History of Present Illness Reason for consult: COPD, pneumothorax History of present illness: This is a 60 yo AAF w hx of cva,copd decubitus ulcer who was on hospice now not as per daughter's request. She had recently recd covid 19 vaccination. She has had decreased responsiveness, w resultant decreased oral intake. She was noted to be hypoxic at home. EMS called started on supplemental o2 noted be be inlow 80s in ER. She had cxr done that showed evidence of infiltrate and PTX. She is sp ct placement. She is awake and responsive. Appears to be oriented to person. She is in no distress Past History Past Medical History: CAD, diabetes, heart failure, hypertension, other (de cubitus ulcer) Past Surgical History: CABG Social history: single. denies: smoking, alcohol abuse Family history: diabetes, hypertension Medications and Allergies Allergies Allergy/AdvReac Type Severity Reaction Status Date / Time Penicillins Allergy Hives Verified 12/03/18 20:53 meperidine [From Demerol] AdvReac Anaphylaxis Verified 12/03/18 20:53 morphine AdvReac Unknown Verified 12/03/18 20:53 Home Medications Medication Instructions Recorded Confirmed Last Taken Type DOXYCYCLINE Hyclate [Vibramycin 100 mg PO Q12HR #14 capsule 12/03/18 Unknown Rx CAP] Active Meds: Active Medications Acetaminophen (Acetaminophen 325 Mg Tab) 650 mg PO Q4H PRN PRN Reason: Pain MILD(1-3)/Fever >100.5/WEST Albuterol (Albuterol 2.5 Mg/3 Ml Nebu) 2.5 mg IH Q4HRT PRN PRN Reason: Shortness Of Breath Ascorbic Acid (Ascorbic Acid 500 Mg Tab) 500 mg PO BID [facility] Last Admin: 04/21/21 00:21 Dose: Not Given Documented by: Cholecalciferol (Cholecalciferol (Vit D3) 1000 Unit (25 Mcg) Tab) 1,000 unit PO DAILY [facility] Heparin Sodium (Porcine) (Heparin 5,000 Unit/1 Ml Vial) 5,000 unit SUB-Q Q12HR [facility] Last Admin: 04/20/21 23:20 Dose: 5,000 unit Documented by: Hydromorphone HCl (Hydromorphone 1 Mg/1 Ml Inj) 0.5 mg IV Q3H PRN PRN Reason: Pain , Severe (7-10) Azithromycin (Zithromax/Ns) 500 mg in 250 mls @ 250 mls/hr IV Q24H [facility] Stop: 04/24/21 16:59 Last Admin: 04/20/21 16:08 Dose: 250 mls/hr Documented by: Sodium Chloride (Nacl 0.45%) 500 mls @ 50 mls/hr IV DIRECT [facility] Last Admin: 04/20/21 19:00 Dose: 50 mls/hr Documented by: Cefepime HCl (Cefepime/Ns 2 Gm/100 Ml) 2 gm in 100 mls @ 200 mls/hr IV Q24HR [facility]; Protocol Stop: 04/27/21 09:59 Methylprednisolone Sodium Succinate (Methylprednisolone Sod Succinate 40 Mg/1 Ml Inj) 40 mg IV Q8HR [facility] Last Admin: 04/21/21 05:47 Dose: 40 mg Documented by: Ondansetron HCl (Ondansetron 4 Mg/2 Ml Inj) 4 mg IV Q8H PRN PRN Reason: Nausea And Vomiting Oxycodone/Acetaminophen (Oxycodone /Acetaminophen 5-325mg Tab) 1 tab PO Q12H PRN PRN Reason: Pain, Moderate (4-6) Sodium Chloride (Sodium Chloride 0.9% 10 Ml Flush Syringe) 10 ml IV BID [facility] Last Admin: 04/20/21 23:21 Dose: 10 ml Documented by: Sodium Chloride (Sodium Chloride 0.9% 10 Ml Flush Syringe) 10 ml IV PRN PRN PRN Reason: LINE FLUSH Zinc Sulfate (Zinc Sulfate 220 Mg Cap) 220 mg PO BID [facility] Last Admin: 04/21/21 00:20 Dose: Not Given Documented by: Review of Systems Constitutional: poor appetite, chronic pain Respiratory: shortness of breath Integumentary: other (decubitus ulcer as per hx) Neurological: other (hx of cva) Physical Examination Vital signs: Vital Signs Temp Pulse Resp BP Pulse Ox 99.7 F H 134 H 31 H 114/74 95 04/20/21 08:00 04/20/21 08:00 04/20/21 08:00 04/20/21 08:00 04/20/21 08:00 General appearance: no acute distress, alert Eyes: non-icteric ENT: oropharynx dry Neck: supple Effort: normal Ascultation: Bilateral: diminished breath sounds Cardiovascular: regular rate and rhythm Gastrointestinal: normoactive bowel sounds, soft, non-tender Results - Laboratory Findings CBC and BMP: 04/21/21 06:12 04/21/21 06:12 PT/INR, D-dimer PT 15.6 Sec. (12.2-14.9) H 04/20/21 08:54 INR 1.19 (0.87-1.13) H 04/20/21 08:54 D-Dimer 840.47 ng/mlDDU (0-234) H 04/20/21 15:17 Abnormal lab findings: Abnormal Labs 04/20/21 04/20/21 04/20/21 08:54 08:54 08:54 RBC Hgb Hct MCH 25 L RDW 18.2 H Seg Neutrophils % Seg Neuts % (Manual) 81.0 H Lymphocytes % (Manual) 12.0 L Lymphocytes # (Manual) 0.8 L PT 15.6 H INR 1.19 H D-Dimer Sodium 163 H* Potassium 2.8 L* Chloride 118.6 H BUN 152 H Creatinine 2.0 H Glucose 147 H POC Glucose Lactic Acid Calcium 10.8 H Ferritin Lactate Dehydrogenase C-Reactive Protein Total Protein 8.5 H Albumin 3.4 L Urine WBC (Auto) 04/20/21 04/20/21 04/20/21 08:54 14:29 15:17 RBC Hgb Hct MCH RDW Seg Neutrophils % Seg Neuts % (Manual) Lymphocytes % (Manual) Lymphocytes # (Manual) PT INR D-Dimer Sodium Potassium Chloride BUN Creatinine Glucose POC Glucose Lactic Acid 2.60 H* 2.60 H* Calcium Ferritin Lactate Dehydrogenase C-Reactive Protein Total Protein Albumin Urine WBC (Auto) > 182.0 H 04/20/21 04/20/21 04/20/21 15:17 15:17 15:17 RBC Hgb Hct MCH RDW Seg Neutrophils % Seg Neuts % (Manual) Lymphocytes % (Manual) Lymphocytes # (Manual) PT INR D-Dimer 840.47 H Sodium Potassium Chloride BUN Creatinine Glucose 135 H POC Glucose Lactic Acid Calcium Ferritin 508.5 H Lactate Dehydrogenase 189 H C-Reactive Protein 19.10 H Total Protein Albumin Urine WBC (Auto) 04/21/21 04/21/21 06:12 07:51 RBC 3.59 L Hgb 9.0 L Hct 29.1 L MCH 25 L RDW 18.6 H Seg Neutrophils % 75.9 H Seg Neuts % (Manual) Lymphocytes % (Manual) Lymphocytes # (Manual) PT INR D-Dimer Sodium Potassium Chloride BUN Creatinine Glucose POC Glucose 166 H Lactic Acid Calcium Ferritin Lactate Dehydrogenase C-Reactive Protein Total Protein Albumin Urine WBC (Auto) - Diagnostic Findings Chest x-ray: report reviewed, image reviewed Assessment and Plan - Patient Problems (1) Acute hypoxemic respiratory failure Current Visit: Yes Status: Acute (2) Acute kidney injury Current Visit: Yes Status: Acute (3) Acute kidney injury (ODILON) with acute tubular necrosis (ATN) Current Visit: Yes Status: Acute (4) Infected decubitus ulcer Current Visit: Yes Status: Acute (5) Pneumonia Current Visit: Yes Status: Acute (6) Sepsis Current Visit: Yes Status: Acute (7) Spontaneous pneumothorax Current Visit: Yes Status: Acute (8) Suspected COVID-19 virus infection Current Visit: Yes Status: Acute
[2021-04-21] MEDS ORDERED: CHOLECALCIFEROL (VIT D3) 400 UNIT TAB PO SCH (10:00)
--- NOTE | 2021-04-21 10:25 | Consultation ---
History of Present Illness Consult date: 04/21/21 Reason for consult: chest tube - History of present illness History of present illness: This is a 60 year old female with a hx of DM,previously in Hospice care, with a hx of CVA/strokes in the past who become less responsive at home and was brouht to the [facility] and found to have deranged electrolytes and a large left pneumothorax, CT placed by ER physician in ER, CXR this am reveals re-expansion of right lung with good chest tube placement. The pleurovac at bedside does not demonstrate any air leak. The patient is unable to give any reliable hx and the hx is taken from the chart. She has an active decubitus ulcer which was present at the time of admission. She is hemodyn stable and afebrile. Her covid test has been ordered but is still pending.She has a hx of CAD and HTN. Past History Past Medical History: CAD, diabetes, heart failure, hypertension, other (decubitus ulcer) Past Surgical History: CABG Social history: single. denies: smoking, alcohol abuse Family history: diabetes, hypertension Medications and Allergies Allergies Allergy/AdvReac Type Severity Reaction Status Date / Time Penicillins Allergy Hives Verified 12/03/18 20:53 meperidine [From Demerol] AdvReac Anaphylaxis Verified 12/03/18 20:53 morphine AdvReac Unknown Verified 12/03/18 20:53 Home Medications Medication Instructions Recorded Confirmed Last Taken Type DOXYCYCLINE Hyclate [Vibramycin 100 mg PO Q12HR #14 capsule 12/03/18 Unknown Rx CAP] Active Meds: Active Medications Acetaminophen (Acetaminophen 325 Mg Tab) 650 mg PO Q4H PRN PRN Reason: Pain MILD(1-3)/Fever >100.5/WEST Albuterol (Albuterol 2.5 Mg/3 Ml Nebu) 2.5 mg IH Q4HRT PRN PRN Reason: Shortness Of Breath Ascorbic Acid (Ascorbic Acid 500 Mg Tab) 500 mg PO BID COUNTS INCLUDE 234 BEDS AT THE [facility] Last Admin: 04/21/21 00:21 Dose: Not Given Documented by: Cholecalciferol (Cholecalciferol (Vit D3) 1000 Unit (25 Mcg) Tab) 1,000 unit PO DAILY COUNTS INCLUDE 234 BEDS AT THE [facility] Heparin Sodium (Porcine) (Heparin 5,000 Unit/1 Ml Vial) 5,000 unit SUB-Q Q12HR WENDY Last Admin: 04/20/21 23:20 Dose: 5,000 unit Documented by: Hydromorphone HCl (Hydromorphone 1 Mg/1 Ml Inj) 0.5 mg IV Q3H PRN PRN Reason: Pain , Severe (7-10) Azithromycin (Zithromax/Ns) 500 mg in 250 mls @ 250 mls/hr IV Q24H COUNTS INCLUDE 234 BEDS AT THE [facility] Stop: 04/24/21 16:59 Last Admin: 04/20/21 16:08 Dose: 250 mls/hr Documented by: Sodium Chloride (Nacl 0.45%) 500 mls @ 50 mls/hr IV DIRECT COUNTS INCLUDE 234 BEDS AT THE [facility] Last Admin: 04/20/21 19:00 Dose: 50 mls/hr Documented by: Cefepime HCl (Cefepime/Ns 2 Gm/100 Ml) 2 gm in 100 mls @ 200 mls/hr IV Q24HR COUNTS INCLUDE 234 BEDS AT THE [facility]; Protocol Stop: 04/27/21 09:59 Methylprednisolone Sodium Succinate (Methylprednisolone Sod Succinate 40 Mg/1 Ml Inj) 40 mg IV Q8HR COUNTS INCLUDE 234 BEDS AT THE [facility] Last Admin: 04/21/21 05:47 Dose: 40 mg Documented by: Ondansetron HCl (Ondansetron 4 Mg/2 Ml Inj) 4 mg IV Q8H PRN PRN Reason: Nausea And Vomiting Oxycodone/Acetaminophen (Oxycodone /Acetaminophen 5-325mg Tab) 1 tab PO Q12H PRN PRN Reason: Pain, Moderate (4-6) Sodium Chloride (Sodium Chloride 0.9% 10 Ml Flush Syringe) 10 ml IV BID COUNTS INCLUDE 234 BEDS AT THE [facility] Last Admin: 04/20/21 23:21 Dose: 10 ml Documented by: Sodium Chloride (Sodium Chloride 0.9% 10 Ml Flush Syringe) 10 ml IV PRN PRN PRN Reason: LINE FLUSH Zinc Sulfate (Zinc Sulfate 220 Mg Cap) 220 mg PO BID COUNTS INCLUDE 234 BEDS AT THE [facility] Last Admin: 04/21/21 00:20 Dose: Not Given Documented by: Review of Systems ROS unobtainable: due to mental status Exam Vital Signs Temp Pulse Resp BP Pulse Ox 99.7 F H 134 H 31 H 114/74 95 04/20/21 08:00 04/20/21 08:00 04/20/21 08:00 04/20/21 08:00 04/20/21 08:00 - General physical appearance Positive: no distress - Eyes Positive: PERRL, normal occular movement - ENT Positive: normal pinna - Neck Positive: no masses, no bruits, trachea midline, no venous distension - Respiratory Positive: normal expansion, other (left CT in position, no air leak in p leurovac, minimal drainage.) - Cardiovascular Rhythm: regular Heart Sounds: Present: S1 & S2. Absent: rub, click - Extremities Extremities: no ischemia - Breasts Breasts: deferred - Abdomen Abdomen: Present: soft, bowel sounds normal. Absent: tender, distended Hernia: none - Musculoskeletal other (bedridden) - Additional Findings unstageable decubitus ulcer Results - Labs 04/21/21 06:12 04/21/21 06:12 Abnormal lab results 04/20/21 04/20/21 04/20/21 Range/Units 08:54 08:54 14:29 RBC (3.65-5.03) M/mm3 Hgb (10.1-14.3) gm/dl Hct (30.3-42.9) % MCH (28-32) pg RDW (13.2-15.2) % Seg Neutrophils % (40.0-70.0) % Seg Neuts % (Manual) 81.0 H (40.0-70.0) % Lymphocytes % (Manual) 12.0 L (13.4-35.0) % Lymphocytes # (Manual) 0.8 L (1.2-5.4) K/mm3 D-Dimer (0-234) ng/mlDDU Sodium 163 H* (137-145) mmol/L Potassium 2.8 L* (3.6-5.0) mmol/L BUN 152 H (7-17) mg/dL Glucose (65-100) mg/dL POC Glucose (70-105) mg/dL Lactic Acid (0.7-2.0) mmol/L Ferritin (10.0-200.0) ng/mL Lactate Dehydrogenase (91-180) units/L C-Reactive Protein (0.00-1.30) mg/dL Urine WBC (Auto) > 182.0 H (0.0-6.0) /HPF 04/20/21 04/20/21 04/20/21 Range/Units 15:17 15:17 15:17 RBC (3.65-5.03) M/mm3 Hgb (10.1-14.3) gm/dl Hct (30.3-42.9) % MCH (28-32) pg RDW (13.2-15.2) % Seg Neutrophils % (40.0-70.0) % Seg Neuts % (Manual) (40.0-70.0) % Lymphocytes % (Manual) (13.4-35.0) % Lymphocytes # (Manual) (1.2-5.4) K/mm3 D-Dimer 840.47 H (0-234) ng/mlDDU Sodium (137-145) mmol/L Potassium (3.6-5.0) mmol/L BUN (7-17) mg/dL Glucose 135 H (65-100) mg/dL POC Glucose (70-105) mg/dL Lactic Acid 2.60 H* (0.7-2.0) mmol/L Ferritin (10.0-200.0) ng/mL Lactate Dehydrogenase 189 H (91-180) units/L C-Reactive Protein 19.10 H (0.00-1.30) mg/dL Urine WBC (Auto) (0.0-6.0) /HPF 04/20/21 04/21/21 04/21/21 Range/Units 15:17 06:12 07:51 RBC 3.59 L (3.65-5.03) M/mm3 Hgb 9.0 L (10.1-14.3) gm/dl Hct 29.1 L (30.3-42.9) % MCH 25 L (28-32) pg RDW 18.6 H (13.2-15.2) % Seg Neutrophils % 75.9 H (40.0-70.0) % Seg Neuts % (Manual) (40.0-70.0) % Lymphocytes % (Manual) (13.4-35.0) % Lymphocytes # (Manual) (1.2-5.4) K/mm3 D-Dimer (0-234) ng/mlDDU Sodium (137-145) mmol/L Potassium (3.6-5.0) mmol/L BUN (7-17) mg/dL Glucose (65-100) mg/dL POC Glucose 166 H (70-105) mg/dL Lactic Acid (0.7-2.0) mmol/L Ferritin 508.5 H (10.0-200.0) ng/mL Lactate Dehydrogenase (91-180) units/L C-Reactive Protein (0.00-1.30) mg/dL Urine WBC (Auto) (0.0-6.0) /HPF Diabetes panel 04/20/21 04/20/21 04/21/21 Range/Units 08:54 15:17 06:12 Sodium 163 H* TNR (137-145) mmol/L Potassium 2.8 L* TNR (3.6-5.0) mmol/L Chloride TNR Carbon Dioxide TNR BUN 152 H TNR (7-17) mg/dL Creatinine TNR Glucose 135 H TNR (65-100) mg/dL Calcium TNR Calcium panel 04/21/21 Range/Units 06:12 Calcium TNR Pituitary panel 04/20/21 04/20/21 04/21/21 Range/Units 08:54 15:17 06:12 Sodium 163 H* TNR (137-145) mmol/L Potassium 2.8 L* TNR (3.6-5.0) mmol/L Chloride TNR Carbon Dioxide TNR BUN 152 H TNR (7-17) mg/dL Creatinine TNR Glucose 135 H TNR (65-100) mg/dL Calcium TNR Adrenal panel 04/20/21 04/20/21 04/21/21 Range/Units 08:54 15:17 06:12 Sodium 163 H* TNR (137-145) mmol/L Potassium 2.8 L* TNR (3.6-5.0) mmol/L Chloride TNR Carbon Dioxide TNR BUN 152 H TNR (7-17) mg/dL Creatinine TNR Glucose 135 H TNR (65-100) mg/dL Calcium TNR Assessment and Plan Complex case, recc chest tube to suction x 24 hours then trial of water seal. Rule out Covid Wound nurse on board. Will follow chest tube.
[2021-04-21 11:20] LABS: Calcium 9.7 mg/dL (8.4-10.2)
[2021-04-21] MEDS: HEPARIN 5,000 UNIT/1 ML VIAL SUB-Q SCH ×2 (11:27→22:45)
[2021-04-21] MEDS: CEFEPIME/NS 2 GM/100 ML 2 GM/100 ML BAG IV SCH (11:27)
--- NOTE | 2021-04-21 11:27 | Progress Note ---
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 Patient is confused and lethargic the time my evaluation and is unable to provide history. Patient also has diminished cognition which is her baseline. Patient is unable to provide history. Patient history provided by EMS staff, ED staff, as well as the patient's daughter who was contacted via telephone for interview. As per daughter the patient is currently a patient receiving hospice care from [facility]. Patient daughter elects to revoke hospice benefit and seek aggressive medical therapy. [facility] notified and acknowledge patient revocation. Patient daughter reports that patient experience fever 103 F today, and has experienced decreased oral intake and decreased responsiveness over the past 2 days with progressively worsening symptoms over the same time frame. EMS was notified and upon arrival the patient was found to be in distress with a pulse oximetry of 65% on room air. The patient was placed on submental oxygen and transported to [facility] for further care and evaluation of the aforementioned symptoms. The patient was seen and evaluated in the emergency department. All lab and imaging studies reviewed. The patient was found to have a pulse oximetry of 82% on submental oxygen which is consistent with acute hypoxemic respiratory failure. Chest x-ray revealed pneumonia as well as left pneumothorax. The patient was also found to have acute kidney injury, systemic inflammatory response syndrome, hypokalemia. The patient underwent chest tube placement in the emergency department with improvement in symptoms. Surgery team consulted in ED. Patient admitted to medical floor due to increased risk of worsening symptoms. Patient initiated on pneumonia protocol as well as coronavirus protocol. The patient has diminished cognition but has a positive gag reflex and is able to protect her airway without difficulty at this time. No reported history of chest pain, palpitation, productive cough, skin rash, recent ill contacts, or known exposure to COVID-19. No prior admission for review. No medication listed at time of admission for reconciliation. Advanced care planning conducted in ED. CT HEAD: Negative CT chest: Chest tube in place, noted opacities 04/21: Patient lethargic, chest tube remains in place, Wound care consult, asp iration precautions. Wean as tolerated. Await COVID 19. Monitor Sodium level, awaiting labs, check q8hr. (1) Acute hypoxemic respiratory failure Current Visit: Yes Status: Acute Plan to address problem: Chest x-ray, supplemental oxygen, pulse oximetry, chest tube placed in the emergency department. Repeat chest x-ray in a.m. (2) Pneumonia Current Visit: Yes Status: Acute Plan to address problem: Pneumonia protocol: Chest x-ray, CBC, CMP, supplemental oxygen, pulse oximetry, nebulizer therapy, blood culture. (3) Acute kidney injury (ODILON) with acute tubular necrosis (ATN) Current Visit: Yes Status: Acute Plan to address problem: BMP, IV fluid resuscitation therapy, repeat BMP in a.m. to monitor serum creat inine as well as GFR (4) Hypokalemia Current Visit: Yes Status: Acute Plan to address problem: Repleted in ED, repeat BMP (5) Vascular dementia Current Visit: Yes Status: Acute Qualifiers: Dementia behavioral disturbance: without behavioral disturbance Qualified Code(s): F01.50 - Vascular dementia without behavioral disturbance Plan to address problem: Verbal prompting, verbal redirection, benzodiazepine therapy as clinically indicated (6) Cerebral atherosclerosis Current Visit: Yes Status: Acute Plan to address problem: Antiplatelet therapy, supportive care, risk factor reduction. (7) Dysphagia as late effect of cerebrovascular accident (CVA) Current Visit: Yes Status: Acute Plan to address problem: Pured diet, assistance with meals, supportive care. (8) Spontaneous pneumothorax Current Visit: Yes Status: Acute Plan to address problem: Chest tube placed in the emergency department, chest x-ray, postoperative chest x-ray, surgery team consulted, repeat chest x-ray in a.m. (9) Suspected COVID-19 virus infection Current Visit: Yes Status: Acute Plan to address problem: Coronavirus protocol: IV steroid therapy, IV antibiotic therapy, supplemental oxygen,, pulse oximetry, vitamin C therapy, vitamin D therapy, zinc therapy, prophylactic anticoagulation, coronavirus PCR ordered and is pending at time of admission. (10) DVT prophylaxis Current Visit: Yes Status: Acute Plan to address problem: SCD to bilateral lower extremities while in bed, prophylactic anticoagulation (11) Advance care planning Current Visit: Yes Status: Acute Plan to address problem: Disease education conducted, care plan discussed, diagnoses discussed, prognosis discussed, patient daughter knowledges understanding and agreement with care plan. Patient daughter elects to revoke hospice benefit and treat patient with aggressive medical therapy. Patient daughter knowledges understanding of prognosis. Patient is full code, +30 minutes. The high probability of a clinically significant, sudden or life threatening deterioration of the [pulmonary, nephrology] system(s) required my full and direct attention, intervention and personal management. The aggregate critical care time was [35] minutes. This time is in addition to time spent performing reported procedures but includes the following: [x] Data Review and interpretation [x] Patient assessment and monitoring of vital signs [x] Documentation [x] Medication orders and management History Interval history: Patient seen and examined, still lethargic but in a weak voice, said she is doing better Hospitalist Physical - Physical exam Narrative exam: General appearance: Present: mild distress, chronically illl appearing, ventimask on cachectic - EENT Eyes: Present: PERRL ENT: clear oral mucosa, hearing decreased - Neck Neck: Present: supple - Respiratory Respiratory effort: labored, accessory muscle use Respiratory: bilateral: diminished, rhonchi Chest tube in place - Cardiovascular Heart Sounds: Present: S1 & S2. Absent: rub, click - Extremities Extremities: abnormal (Sacral decubitus ulcer) Peripheral Pulses: within normal limits - Abdominal General gastrointestinal: Present: soft, non-tender, non-distended, normal bowel sounds Female genitourinary: Present: normal - Integumentary Integumentary: Present: dry, clammy, decreased turgor - Musculoskeletal Musculoskeletal: generalized weakness - Psychiatric Psychiatric: no appropriate mood/affect, no intact judgment & insight, no memory intact - Neurologic Neurologic: CNII-XII intact, focal deficits, no moves all extremities, no gait sita - Constitutional Vitals: Temp Pulse Resp BP Pulse Ox 97.5 F L 83 18 134/69 100 04/21/21 09:09 04/21/21 09:09 04/21/21 09:09 04/21/21 09:09 04/21/21 09:09 General appearance: Present: mild distress, cachectic Results - Labs CBC & Chem 7: 04/21/21 06:12 04/21/21 10:34 Labs: Laboratory Last Values WBC 7.3 K/mm3 (4.5-11.0) 04/21/21 06:12 RBC 3.59 M/mm3 (3.65-5.03) L 04/21/21 06:12 Hgb 9.0 gm/dl (10.1-14.3) L 04/21/21 06:12 Hct 29.1 % (30.3-42.9) L 04/21/21 06:12 MCV 81 fl (79-97) 04/21/21 06:12 MCH 25 pg (28-32) L 04/21/21 06:12 MCHC 31 % (30-34) 04/21/21 06:12 RDW 18.6 % (13.2-15.2) H 04/21/21 06:12 Plt Count 224 K/mm3 (140-440) 04/21/21 06:12 Lymph % (Auto) 21.0 % (13.4-35.0) 04/21/21 06:12 [place] % (Auto) 2.7 % (0.0-7.3) 04/21/21 06:12 Eos % (Auto) 0.0 % (0.0-4.3) 04/21/21 06:12 Baso % (Auto) 0.4 % (0.0-1.8) 04/21/21 06:12 Lymph # (Auto) 1.5 K/mm3 (1.2-5.4) 04/21/21 06:12 [place] # (Auto) 0.2 K/mm3 (0.0-0.8) 04/21/21 06:12 Eos # (Auto) 0.0 K/mm3 (0.0-0.4) 04/21/21 06:12 Baso # (Auto) 0.0 K/mm3 (0.0-0.1) 04/21/21 06:12 Add Manual Diff Complete 04/20/21 08:54 Total Counted 100 04/20/21 08:54 Seg Neutrophils % 75.9 % (40.0-70.0) H 04/21/21 06:12 Seg Neuts % (Manual) 81.0 % (40.0-70.0) H 04/20/21 08:54 Band Neutrophils % 2.0 % 04/20/21 08:54 Lymphocytes % (Manual) 12.0 % (13.4-35.0) L 04/20/21 08:54 Monocytes % (Manual) 5.0 % (0.0-7.3) 04/20/21 08:54 Nucleated RBC % Not Reportable 04/20/21 08:54 Seg Neutrophils # 5.5 K/mm3 (1.8-7.7) 04/21/21 06:12 Seg Neutrophils # Man 5.3 K/mm3 (1.8-7.7) 04/20/21 08:54 Band Neutrophils # 0.1 K/mm3 04/20/21 08:54 Lymphocytes # (Manual) 0.8 K/mm3 (1.2-5.4) L 04/20/21 08:54 Abs React Lymphs (Man) 0.0 K/mm3 04/20/21 08:54 Monocytes # (Manual) 0.3 K/mm3 (0.0-0.8) 04/20/21 08:54 Eosinophils # (Manual) 0.0 K/mm3 (0.0-0.4) 04/20/21 08:54 Basophils # (Manual) 0.0 K/mm3 (0.0-0.1) 04/20/21 08:54 Metamyelocytes # 0.0 K/mm3 04/20/21 08:54 Myelocytes # 0.0 K/mm3 04/20/21 08:54 Promyelocytes # 0.0 K/mm3 04/20/21 08:54 Blast Cells # 0.0 K/mm3 04/20/21 08:54 WBC Morphology Not Reportable 04/20/21 08:54 Hypersegmented Neuts Not Reportable 04/20/21 08:54 Hyposegmented Neuts Not Reportable 04/20/21 08:54 Hypogranular Neuts Not Reportable 04/20/21 08:54 Smudge Cells Not Reportable 04/20/21 08:54 Toxic Granulation Not Reportable 04/20/21 08:54 Toxic Vacuolation Not Reportable 04/20/21 08:54 Dohle Bodies Not Reportable 04/20/21 08:54 Pelger-Huet Anomaly Not Reportable 04/20/21 08:54 Gabe Rods Not Reportable 04/20/21 08:54 Platelet Estimate Consistent w auto 04/20/21 08:54 Clumped Platelets Not Reportable 04/20/21 08:54 Plt Clumps, EDTA Not Reportable 04/20/21 08:54 Large Platelets Not Reportable 04/20/21 08:54 Giant Platelets Not Reportable 04/20/21 08:54 Platelet Satelliting Not Reportable 04/20/21 08:54 Plt Morphology Comment Not Reportable 04/20/21 08:54 RBC Morphology Not Reportable 04/20/21 08:54 Dimorphic RBCs Not Reportable 04/20/21 08:54 Polychromasia Not Reportable 04/20/21 08:54 Hypochromasia 1+ 04/20/21 08:54 Poikilocytosis Not Reportable 04/20/21 08:54 Anisocytosis 1+ 04/20/21 08:54 Microcytosis Not Reportable 04/20/21 08:54 Macrocytosis Not Reportable 04/20/21 08:54 Spherocytes Not Reportable 04/20/21 08:54 Pappenheimer Bodies Not Reportable 04/20/21 08:54 Sickle Cells Not Reportable 04/20/21 08:54 Target Cells Not Reportable 04/20/21 08:54 Tear Drop Cells Not Reportable 04/20/21 08:54 Ovalocytes Not Reportable 04/20/21 08:54 Helmet Cells Not Reportable 04/20/21 08:54 [place] Bodies Not Reportable 04/20/21 08:54 Hugo Rings Not Reportable 04/20/21 08:54 [place] Cells Not Reportable 04/20/21 08:54 Bite Cells Not Reportable 04/20/21 08:54 Crenated Cell Not Reportable 04/20/21 08:54 Elliptocytes Not Reportable 04/20/21 08:54 Acanthocytes (Spur) Not Reportable 04/20/21 08:54 Rouleaux Not Reportable 04/20/21 08:54 Hemoglobin C Crystals Not Reportable 04/20/21 08:54 Schistocytes Not Reportable 04/20/21 08:54 Malaria parasites Not Reportable 04/20/21 08:54 Chris Bodies Not Reportable 04/20/21 08:54 Hem Pathologist Commnt No 04/20/21 08:54 PT 15.6 Sec. (12.2-14.9) H 04/20/21 08:54 INR 1.19 (0.87-1.13) H 04/20/21 08:54 D-Dimer 840.47 ng/mlDDU (0-234) H 04/20/21 15:17 VBG pH 7.382 (7.320-7.420) 04/20/21 08:54 Sodium TNR 04/21/21 06:12 Potassium TNR 04/21/21 06:12 Chloride 124.9 mmol/L (98-107) H 04/21/21 10:34 Carbon Dioxide 21 mmol/L (22-30) L 04/21/21 10:34 Anion Gap 19 mmol/L 04/21/21 10:34 BUN TNR 04/21/21 06:12 Creatinine 1.4 mg/dL (0.6-1.2) H 04/21/21 10:34 Estimated GFR 46 ml/min 04/21/21 10:34 BUN/Creatinine Ratio TNR 04/21/21 06:12 Glucose 194 mg/dL (65-100) H 04/21/21 10:34 POC Glucose 166 mg/dL (70-105) H 04/21/21 07:51 Lactic Acid 2.60 mmol/L (0.7-2.0) H* 04/20/21 15:17 Calcium 9.7 mg/dL (8.4-10.2) 04/21/21 10:34 Ferritin 508.5 ng/mL (10.0-200.0) H 04/20/21 15:17 Total Bilirubin 0.40 mg/dL (0.1-1.2) 04/20/21 08:54 AST 12 units/L (5-40) 04/20/21 08:54 ALT 9 units/L (7-56) 04/20/21 08:54 Alkaline Phosphatase 61 units/L (35-129) 04/20/21 08:54 Lactate Dehydrogenase 189 units/L (91-180) H 04/20/21 15:17 C-Reactive Protein 19.10 mg/dL (0.00-1.30) H 04/20/21 15:17 Total Protein 8.5 g/dL (6.3-8.2) H 04/20/21 08:54 Albumin 3.4 g/dL (3.9-5) L 04/20/21 08:54 Albumin/Globulin Ratio 0.7 % 04/20/21 08:54 Procalcitonin 2.70 ng/mL (<0.15) 04/20/21 15:17 Urine Color Yellow (Yellow) 04/20/21 14:29 Urine Turbidity Turbid (Clear) 04/20/21 14:29 Urine pH 5.0 (5.0-7.0) 04/20/21 14:29 Ur Specific [place] 1.017 (1.003-1.030) 04/20/21 14:29 Urine Protein 100 mg/dl mg/dL (Negative) 04/20/21 14:29 Urine Glucose (UA) Neg mg/dL (Negative) 04/20/21 14:29 Urine Ketones Neg mg/dL (Negative) 04/20/21 14:29 Urine Blood Mod (Negative) 04/20/21 14:29 Urine Nitrite Neg (Negative) 04/20/21 14:29 Urine Bilirubin Neg (Negative) 04/20/21 14:29 Urine Urobilinogen < 2.0 mg/dL (<2.0) 04/20/21 14:29 Ur Leukocyte Esterase Lg (Negative) 04/20/21 14:29 Urine WBC (Auto) > 182.0 /HPF (0.0-6.0) H 04/20/21 14:29 Urine RBC (Auto) > 182.0 /HPF (0.0-6.0) 04/20/21 14:29 U Epithel Cells (Auto) 2.0 /HPF (0-13.0) 04/20/21 14:29 Urine WBC Clumps 2+ /HPF 04/20/21 14:29 Microbiology: Microbiology 04/20/21 08:54 Peripheral/Venous Blood Culture - Preliminary NO GROWTH AFTER 24 HOURS 04/20/21 08:54 Peripheral/Venous Blood Culture - Preliminary NO GROWTH AFTER 24 HOURS Nuno/IV: Voiding Method Incontinent Active Medications - Current Medications Current Medications: Generic Name Dose Route Start Last Admin Trade Name Freq PRN Reason Stop Dose Admin Acetaminophen 650 mg 04/20/21 15:30 Acetaminophen 325 Mg Tab PO Q4H PRN Pain MILD(1-3)/Fever >100.5/WEST Albuterol 2.5 mg 04/20/21 14:09 Albuterol 2.5 Mg/3 Ml Nebu IH Q4HRT PRN Shortness Of Breath Ascorbic Acid 500 mg 04/20/21 22:00 04/21/21 00:21 Ascorbic Acid 500 Mg Tab PO Not Given BID [facility] Cholecalciferol 1,000 unit 04/21/21 10:00 Cholecalciferol (Vit D3) 1000 Unit (25 Mcg) Tab PO DAILY WENDY Heparin Sodium (Porcine) 5,000 unit 04/20/21 22:00 04/20/21 23:20 Heparin 5,000 Unit/1 Ml Vial SUB-Q 5,000 unit Q12HR WENDY Administration Hydromorphone HCl 0.5 mg 04/20/21 14:09 Hydromorphone 1 Mg/1 Ml Inj IV Q3H PRN Pain , Severe (7-10) Azithromycin 500 mg in 250 mls @ 250 mls/hr 04/20/21 16:00 04/20/21 16:08 Zithromax/Ns IV 04/24/21 16:59 250 mls/hr Q24H WENDY Administration Sodium Chloride 500 mls @ 50 mls/hr 04/20/21 15:00 04/20/21 19:00 Nacl 0.45% IV 50 mls/hr DIRECT WENDY Administration Cefepime HCl 2 gm in 100 mls @ 200 mls/hr 04/21/21 10:00 Cefepime/Ns 2 Gm/100 Ml IV 04/27/21 09:59 Q24HR [facility] Protocol Methylprednisolone Sodium Succinate 40 mg 04/20/21 22:00 04/21/21 05:47 Methylprednisolone Sod Succinate 40 Mg/1 Ml Inj IV 40 mg Q8HR WENDY Administration Ondansetron HCl 4 mg 04/20/21 14:09 Ondansetron 4 Mg/2 Ml Inj IV Q8H PRN Nausea And Vomiting Oxycodone/Acetaminophen 1 tab 04/20/21 14:09 Oxycodone /Acetaminophen 5-325mg Tab PO Q12H PRN Pain, Moderate (4-6) Sodium Chloride 10 ml 04/20/21 22:00 04/20/21 23:21 Sodium Chloride 0.9% 10 Ml Flush Syringe IV 10 ml BID WENDY Administration Sodium Chloride 10 ml 04/20/21 14:09 Sodium Chloride 0.9% 10 Ml Flush Syringe IV PRN PRN LINE FLUSH Zinc Sulfate 220 mg 04/20/21 22:00 04/21/21 00:20 Zinc Sulfate 220 Mg Cap PO Not Given BID WENDY
--- NOTE | 2021-04-21 13:08 | Consultation ---
History of Present Illness - Reason for Consult Consult date: 04/21/21 acute renal failure, hypernatremia - History of Present Illness The patient is a 60 YO female with history significant for DM-2, HTN, CVA complicated by Dysphagia and Dysarthria, Sacral Decubitus Ulcer, CHF and CAD S/P CABG who presented to [facility] ED 04/20 for evaluation of AMS. Patient was unable to provide any history and there was no family member at the bedside. Patient was receiving hospice care from [facility] hospice at the time admission. Patient daughter elected to revoke hospice benefit and seek aggressive medical therapy. Patient daughter reported that patient experienced fever of 103 F, and has experienced decreased oral intake and decreased responsiveness of 2 days duration. EMS patient patient with a pulse oximetry of 65% on room air. In the ED her pulse oximetry was 82% on [place] oxygen. Chest x-ray revealed pneumonia as well as left pneumothorax. Labs significant for Creat 2, BUN 152, Sodium 163, K 2.8, Calcium 10.8 and Lactate 2.6. The patient underwent chest tube placement in the emergency department with improvement in symptoms. Nephrology was consulted for further evaluation and treatment of ODILON & hyeprnatremia. Past History Past Medical History: CAD, diabetes, heart failure, hypertension, other (decubitus ulcer) Past Surgical History: CABG Social history: single. denies: smoking, alcohol abuse Family history: diabetes, hypertension Medications and Allergies Allergies Allergy/AdvReac Type Severity Reaction Status Date / Time Penicillins Allergy Hives Verified 12/03/18 20:53 meperidine [From Demerol] AdvReac Anaphylaxis Verified 12/03/18 20:53 morphine AdvReac Unknown Verified 12/03/18 20:53 Home Medications Medication Instructions Recorded Confirmed Last Taken Type DOXYCYCLINE Hyclate [Vibramycin 100 mg PO Q12HR #14 capsule 12/03/18 Unknown Rx CAP] Active Meds: Active Medications Acetaminophen (Acetaminophen 325 Mg Tab) 650 mg PO Q4H PRN PRN Reason: Pain MILD(1-3)/Fever >100.5/WEST Albuterol (Albuterol 2.5 Mg/3 Ml Nebu) 2.5 mg IH Q4HRT PRN PRN Reason: Shortness Of Breath Ascorbic Acid (Ascorbic Acid 500 Mg Tab) 500 mg PO BID WENDY Last Admin: 04/21/21 00:21 Dose: Not Given Documented by: Cholecalciferol (Cholecalciferol (Vit D3) 1000 Unit (25 Mcg) Tab) 1,000 unit PO DAILY [facility] Heparin Sodium (Porcine) (Heparin 5,000 Unit/1 Ml Vial) 5,000 unit SUB-Q Q12HR [facility] Last Admin: 04/21/21 11:27 Dose: 5,000 unit Documented by: Hydromorphone HCl (Hydromorphone 1 Mg/1 Ml Inj) 0.5 mg IV Q3H PRN PRN Reason: Pain , Severe (7-10) Azithromycin (Zithromax/Ns) 500 mg in 250 mls @ 250 mls/hr IV Q24H [facility] Stop: 04/24/21 16:59 Last Admin: 04/20/21 16:08 Dose: 250 mls/hr Documented by: Cefepime HCl (Cefepime/Ns 2 Gm/100 Ml) 2 gm in 100 mls @ 200 mls/hr IV Q24HR [facility]; Protocol Stop: 04/27/21 09:59 Last Admin: 04/21/21 11:27 Dose: 200 mls/hr Documented by: Dextrose (D5w) 1,000 mls @ 75 mls/hr IV DIRECT [facility] Methylprednisolone Sodium Succinate (Methylprednisolone Sod Succinate 40 Mg/1 Ml Inj) 40 mg IV Q8HR [facility] Last Admin: 04/21/21 05:47 Dose: 40 mg Documented by: Ondansetron HCl (Ondansetron 4 Mg/2 Ml Inj) 4 mg IV Q8H PRN PRN Reason: Nausea And Vomiting Oxycodone/Acetaminophen (Oxycodone /Acetaminophen 5-325mg Tab) 1 tab PO Q12H PRN PRN Reason: Pain, Moderate (4-6) Sodium Chloride (Sodium Chloride 0.9% 10 Ml Flush Syringe) 10 ml IV BID [facility] Last Admin: 04/21/21 11:27 Dose: 10 ml Documented by: Sodium Chloride (Sodium Chloride 0.9% 10 Ml Flush Syringe) 10 ml IV PRN PRN PRN Reason: LINE FLUSH Zinc Sulfate (Zinc Sulfate 220 Mg Cap) 220 mg PO BID [facility] Last Admin: 04/21/21 00:20 Dose: Not Given Documented by: Review of Systems ROS unobtainable: due to mental status Exam - Vital Signs Vital signs: Vital Signs Temp Pulse Resp BP Pulse Ox 99.7 F H 134 H 31 H 114/74 95 04/20/21 08:00 04/20/21 08:00 04/20/21 08:00 04/20/21 08:00 04/20/21 08:00 Results - Lab Results 04/21/21 06:12 04/21/21 19:35 Most recent lab results Calcium 9.7 mg/dL (8.4-10.2) 04/21/21 10:34 Assessment and Plan 1. Acute kidney injury: Vasomotor ODILON in the setting of volume depletion +/- hypotension. Urine studies ordered. Continue IV fluids. Monitor renal function. Creatinine leveled off. Avoid nephrotoxic agents. Meds dosage based on GFR. 2. FEN: Hypernatremia, 2/2 dehydration, started on IV D5W, monitor. Hyperchloremic metabolic acidosis, monitor. Hypokalemia, replete K. Monitor lytes and volume status. 3. Bilateral Pneumonia, POA: Covid test negative. Continue Abx. 4. L Pneumothorax, POA: S/p chest tube. 5. Acute hypoxemic respiratory failure, POA: 2/2 PNA and pneumothorax. Supplemental oxygen. Monitor. 6. DM type 2, uncontrolled: Monitor. 7. Anemia, not POA: Monitor. 8. Hypertension. Follow BP. 9. Dementia. Subjective: Patient was seen and examined at the bedside. Examination: General appearance: well-developed, appears stated age, emaciated, not in distress, appears chronically ill HEENT: atraumatic, SHAR Neck: trachea midline Respiratory: bilateral decreased breath sounds, L sided chest tube noted Heart: S1S2, regular, no murmur Abdomen: soft, bowel sounds heard, NT Integumentary: no obvious rash Neurologic: somnolent, barely able to move extremities Ext: no edema
[2021-04-21] MEDS: CHOLECALCIFEROL (VIT D3) 1000 UNIT (25 mcg) TAB PO SCH (13:36)
[2021-04-21] MEDS: DEXTROSE 5% IN WATER 1,000 ML IV SCH (14:36)
[2021-04-21 15:28] LABS: Calcium 8.9 mg/dL (8.4-10.2)
[2021-04-21] MEDS: AZITHROMYCIN/NS 500 MG/250 ML 500 MG/250 ML BAG IV SCH (16:05)
[2021-04-21 20:06] LABS: Calcium 8.9 mg/dL (8.4-10.2)
[2021-04-21] MEDS: HYDROmorphone 1 MG/1 ML INJ IV PRN (22:56)
[2021-04-22] MEDS: methylPREDNISolone Sod Succinate 40 MG/1 ML INJ IV SCH ×3 (05:05→22:49)
--- NOTE | 2021-04-22 09:32 | Progress Note ---
Assessment and Plan - Patient Problems (1) Acute hypoxemic respiratory failure Current Visit: Yes Status: Acute (2) Acute kidney injury Current Visit: Yes Status: Acute (3) Acute kidney injury (ODILON) with acute tubular necrosis (ATN) Current Visit: Yes Status: Acute (4) Infected decubitus ulcer Current Visit: Yes Status: Acute (5) Pneumonia Current Visit: Yes Status: Acute (6) Sepsis Current Visit: Yes Status: Acute (7) Spontaneous pneumothorax Current Visit: Yes Status: Acute (8) Suspected COVID-19 virus infection Current Visit: Yes Status: Acute (9) Hypernatremia Current Visit: Yes Status: Acute Subjective Interval history: awake. more responsive Objective Vital Signs - 12hr 04/21/21 04/22/21 04/22/21 22:19 03:00 05:22 Temperature 98.0 F 98.3 F Pulse Rate 79 69 Pulse Rate [ 79 Right Brachial] Respiratory 18 18 18 Rate Blood Pressure 129/55 118/52 O2 Sat by Pulse 100 100 100 Oximetry 04/22/21 08:48 Temperature Pulse Rate Pulse Rate [ Right Brachial] Respiratory Rate Blood Pressure O2 Sat by Pulse 99 Oximetry Constitutional: no acute distress, alert Eyes: non-icteric ENT: oropharynx moist Neck: supple Effort: normal Ascultation: Bilateral: diminished breath sounds Cardiovascular: regular rate and rhythm Gastrointestinal: normoactive bowel sounds, soft, non-tender CBC and BMP: 04/21/21 06:12 04/21/21 19:35 ABG, PT/INR, D-dimer: PT/INR, D-dimer PT 15.6 Sec. (12.2-14.9) H 04/20/21 08:54 INR 1.19 (0.87-1.13) H 04/20/21 08:54 D-Dimer 840.47 ng/mlDDU (0-234) H 04/20/21 15:17 Abnormal lab findings: Abnormal Labs 04/20/21 04/20/21 04/20/21 08:54 08:54 08:54 RBC Hgb Hct MCH 25 L RDW 18.2 H Seg Neutrophils % Seg Neuts % (Manual) 81.0 H Lymphocytes % (Manual) 12.0 L Lymphocytes # (Manual) 0.8 L PT 15.6 H INR 1.19 H D-Dimer Sodium 163 H* Potassium 2.8 L* Chloride 118.6 H Carbon Dioxide BUN 152 H Creatinine 2.0 H Glucose 147 H POC Glucose Lactic Acid Calcium 10.8 H Ferritin Lactate Dehydrogenase C-Reactive Protein Total Protein 8.5 H Albumin 3.4 L Urine WBC (Auto) 04/20/21 04/20/21 04/20/21 08:54 14:29 15:17 RBC Hgb Hct MCH RDW Seg Neutrophils % Seg Neuts % (Manual) Lymphocytes % (Manual) Lymphocytes # (Manual) PT INR D-Dimer Sodium Potassium Chloride Carbon Dioxide BUN Creatinine Glucose POC Glucose Lactic Acid 2.60 H* 2.60 H* Calcium Ferritin Lactate Dehydrogenase C-Reactive Protein Total Protein Albumin Urine WBC (Auto) > 182.0 H 04/20/21 04/20/21 04/20/21 15:17 15:17 15:17 RBC Hgb Hct MCH RDW Seg Neutrophils % Seg Neuts % (Manual) Lymphocytes % (Manual) Lymphocytes # (Manual) PT INR D-Dimer 840.47 H Sodium Potassium Chloride Carbon Dioxide BUN Creatinine Glucose 135 H POC Glucose Lactic Acid Calcium Ferritin 508.5 H Lactate Dehydrogenase 189 H C-Reactive Protein 19.10 H Total Protein Albumin Urine WBC (Auto) 04/21/21 04/21/21 04/21/21 06:12 07:51 10:34 RBC 3.59 L Hgb 9.0 L Hct 29.1 L MCH 25 L RDW 18.6 H Seg Neutrophils % 75.9 H Seg Neuts % (Manual) Lymphocytes % (Manual) Lymphocytes # (Manual) PT INR D-Dimer Sodium 161 H* Potassium 3.4 L D Chloride 124.9 H Carbon Dioxide 21 L BUN 123 H Creatinine 1.4 H Glucose 194 H POC Glucose 166 H Lactic Acid Calcium Ferritin Lactate Dehydrogenase C-Reactive Protein Total Protein Albumin Urine WBC (Auto) 04/21/21 04/21/21 04/21/21 12:32 14:57 16:25 RBC Hgb Hct MCH RDW Seg Neutrophils % Seg Neuts % (Manual) Lymphocytes % (Manual) Lymphocytes # (Manual) PT INR D-Dimer Sodium 160 H Potassium 3.0 L Chloride 127.1 H Carbon Dioxide 18 L BUN 121 H Creatinine 1.6 H Glucose 199 H POC Glucose 178 H 187 H Lactic Acid Calcium Ferritin Lactate Dehydrogenase C-Reactive Protein Total Protein Albumin Urine WBC (Auto) 04/21/21 04/21/2121 19:35 22:17 08:33 RBC Hgb Hct MCH RDW Seg Neutrophils % Seg Neuts % (Manual) Lymphocytes % (Manual) Lymphocytes # (Manual) PT INR D-Dimer Sodium 157 H Potassium 5.3 H D Chloride 127.2 H Carbon Dioxide 15 L BUN 121 H Creatinine 1.5 H Glucose 221 H POC Glucose 205 H 312 H Lactic Acid Calcium Ferritin Lactate Dehydrogenase C-Reactive Protein Total Protein Albumin Urine WBC (Auto)
[2021-04-22] MEDS ORDERED: INSULIN REGULAR, HUMAN 100 UNITS/1 ML SUB-Q ONE (10:20)
--- NOTE | 2021-04-22 11:05 | XRay Report ---
CHEST 1 VIEW 04/22/2021 10:27 AM INDICATION / CLINICAL INFORMATION: ptx ct in place. COMPARISON: Previous day. FINDINGS: SUPPORT DEVICES: Unchanged. No pneumothorax. HEART / MEDIASTINUM: No significant abnormality. LUNGS / PLEURA: Increased interstitial markings with mild patchy opacity remains with mild improvemen t. No significant pleural fluid. ADDITIONAL FINDINGS: No significant additional findings. IMPRESSION: Mild improvement. Signer Name: Luis Mobley MD Signed: 04/22/2021 11:01 AM Workstation Name: [id number]
--- NOTE | 2021-04-22 11:11 | Progress Note ---
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 Patient is confused and lethargic the time my evaluation and is unable to provide history. Patient also has diminished cognition which is her baseline. Patient is unable to provide history. Patient history provided by EMS staff, ED staff, as well as the patient's daughter who was contacted via telephone for interview. As per daughter the patient is currently a patient receiving hospice care from [facility]. Patient daughter elects to revoke hospice benefit and seek aggressive medical therapy. [facility] notified and acknowledge patient revocation. Patient daughter reports that patient experience fever 103 F today, and has experienced decreased oral intake and decreased responsiveness over the past 2 days with progressively worsening symptoms over the same time frame. EMS was notified and upon arrival the patient was found to be in distress with a pulse oximetry of 65% on room air. The patient was placed on submental oxygen and transported to [facility] for further care and evaluation of the aforementioned symptoms. The patient was seen and evaluated in the emergency department. All lab and imaging studies reviewed. The patient was found to have a pulse oximetry of 82% on submental oxygen which is consistent with acute hypoxemic respiratory failure. Chest x-ray revealed pneumonia as well as left pneumothorax. The patient was also found to have acute kidney injury, systemic inflammatory response syndrome, hypokalemia. The patient underwent chest tube placement in the emergency department with improvement in symptoms. Surgery team consulted in ED. Patient admitted to medical floor due to increased risk of worsening symptoms. Patient initiated on pneumonia protocol as well as coronavirus protocol. The patient has diminished cognition but has a positive gag reflex and is able to protect her airway without difficulty at this time. No reported history of chest pain, palpitation, productive cough, skin rash, recent ill contacts, or known exposure to COVID-19. No prior admission for review. No medication listed at time of admission for reconciliation. Advanced care planning conducted in ED. CT HEAD: Negative CT chest: Chest tube in place, noted opacities 04/21: Patient lethargic, chest tube remains in place, Wound care consult, asp iration precautions. Wean as tolerated. Await COVID 19. Monitor Sodium level, awaiting labs, check q8hr. 04/22: Chest tube still positive air leak. Patient still hypoxic, while sodium level is improving metabolic acidosis has been noted. Patient's Covid test was negative. We will continue current management and adjust insulin for better blood sugar management. May require some Kayexalate due to hyper kalemia but considering severe hypokalemia just the day before we will monitor closely. Renal function showing some improvement continue management pulmonary and nephrology input noted. Urine culture positive for fungal Judith will monitor closely.. (1) Acute hypoxemic respiratory failure Current Visit: Yes Status: Acute Plan to address problem: Chest x-ray, supplemental oxygen, pulse oximetry, chest tube placed in the emergency department. Repeat chest x-ray in a.m. (2) Pneumonia Current Visit: Yes Status: Acute Plan to address problem: Pneumonia protocol: Chest x-ray, CBC, CMP, supplemental oxygen, pulse oximetry, nebulizer therapy, blood culture. (3) Acute kidney injury (ODILON) with acute tubular necrosis (ATN) Current Visit: Yes Status: Acute Plan to address problem: BMP, IV fluid resuscitation therapy, repeat BMP in a.m. to monitor serum creatinine as well as GFR (4) Hypokalemia Current Visit: Yes Status: Acute Plan to address problem: Repleted in ED, repeat BMP (5) Vascular dementia Current Visit: Yes Status: Acute Qualifiers: Dementia behavioral disturbance: without behavioral disturbance Qualified Code(s): F01.50 - Vascular dementia without behavioral disturbance Plan to address problem: Verbal prompting, verbal redirection, benzodiazepine therapy as clinically indicated (6) Cerebral atherosclerosis Current Visit: Yes Status: Acute Plan to address problem: Antiplatelet therapy, supportive care, risk factor reduction. (7) Dysphagia as late effect of cerebrovascular accident (CVA) Current Visit: Yes Status: Acute Plan to address problem: Pured diet, assistance with meals, supportive care. (8) Spontaneous pneumothorax Current Visit: Yes Status: Acute Plan to address problem: Chest tube placed in the emergency department, chest x-ray, postoperative chest x-ray, surgery team consulted, repeat chest x-ray in a.m. (9) Suspected COVID-19 virus infection Current Visit: Yes Status: Acute Plan to address problem: Coronavirus protocol: IV steroid therapy, IV antibiotic therapy, supplemental oxygen,, pulse oximetry, vitamin C therapy, vitamin D therapy, zinc therapy, prophylactic anticoagulation, coronavirus PCR ordered and is pending at time of admission. (10) DVT prophylaxis Current Visit: Yes Status: Acute Plan to address problem: SCD to bilateral lower extremities while in bed, prophylactic anticoagulation (11) Advance care planning Current Visit: Yes Status: Acute Plan to address problem: Disease education conducted, care plan discussed, diagnoses discussed, prognosis discussed, patient daughter knowledges understanding and agreement with care plan. Patient daughter elects to revoke hospice benefit and treat patient with aggressive medical therapy. Patient daughter knowledges understanding of prognosis. Patient is full code, +30 minutes. The high probability of a clinically significant, sudden or life threatening deterioration of the [pulmonary, nephrology] system(s) required my full and direct attention, intervention and personal management. The aggregate critical care time was [35] minutes. This time is in addition to time spent performing reported procedures but includes the following: [x] Data Review and interpretation [x] Patient assessment and monitoring of vital signs [x] Documentation [x] Medication orders and management History Interval history: Patient seen and examined, still lethargic but in a weak voice, remains on Venturi mask Hospitalist Physical - Physical exam Narrative exam: General appearance: Present: mild distress, chronically illl appearing, ventimask on cachectic - EENT Eyes: Present: PERRL ENT: clear oral mucosa, hearing decreased - Neck Neck: Present: supple - Respiratory Respiratory effort: labored, accessory muscle use Respiratory: bilateral: diminished, rhonchi Chest tube in place - Cardiovascular Heart Sounds: Present: S1 & S2. Absent: rub, click - Extremities Extremities: abnormal (Sacral decubitus ulcer) Peripheral Pulses: within normal limits - Abdominal General gastrointestinal: Present: soft, non-tender, non-distended, normal bowel sounds Female genitourinary: Present: normal - Integumentary Integumentary: Present: dry, clammy, decreased turgor - Musculoskeletal Musculoskeletal: generalized weakness - Psychiatric Psychiatric: no appropriate mood/affect, no intact judgment & insight, no memory intact - Neurologic Neurologic: CNII-XII intact, focal deficits, no moves all extremities, no gait sita - Constitutional Vitals: Temp Pulse Resp BP Pulse Ox 98.3 F 69 18 118/52 99 04/22/21 05:22 04/22/21 05:22 04/22/21 05:22 04/22/21 05:22 04/22/21 08:48 General appearance: Present: mild distress, cachectic Results - Labs CBC & Chem 7: 04/21/21 06:12 04/21/21 19:35 Labs: Laboratory Last Values WBC 7.3 K/mm3 (4.5-11.0) 04/21/21 06:12 RBC 3.59 M/mm3 (3.65-5.03) L 04/21/21 06:12 Hgb 9.0 gm/dl (10.1-14.3) L 04/21/21 06:12 Hct 29.1 % (30.3-42.9) L 04/21/21 06:12 MCV 81 fl (79-97) 04/21/21 06:12 MCH 25 pg (28-32) L 04/21/21 06:12 MCHC 31 % (30-34) 04/21/21 06:12 RDW 18.6 % (13.2-15.2) H 04/21/21 06:12 Plt Count 224 K/mm3 (140-440) 04/21/21 06:12 Lymph % (Auto) 21.0 % (13.4-35.0) 04/21/21 06:12 [place]ion % (Auto) 2.7 % (0.0-7.3) 04/21/21 06:12 Eos % (Auto) 0.0 % (0.0-4.3) 04/21/21 06:12 Baso % (Auto) 0.4 % (0.0-1.8) 04/21/21 06:12 Lymph # (Auto) 1.5 K/mm3 (1.2-5.4) 04/21/21 06:12 [place] # (Auto) 0.2 K/mm3 (0.0-0.8) 04/21/21 06:12 Eos # (Auto) 0.0 K/mm3 (0.0-0.4) 04/21/21 06:12 Baso # (Auto) 0.0 K/mm3 (0.0-0.1) 04/21/21 06:12 Add Manual Diff Complete 04/20/21 08:54 Total Counted 100 04/20/21 08:54 Seg Neutrophils % 75.9 % (40.0-70.0) H 04/21/21 06:12 Seg Neuts % (Manual) 81.0 % (40.0-70.0) H 04/20/21 08:54 Band Neutrophils % 2.0 % 04/20/21 08:54 Lymphocytes % (Manual) 12.0 % (13.4-35.0) L 04/20/21 08:54 Monocytes % (Manual) 5.0 % (0.0-7.3) 04/20/21 08:54 Nucleated RBC % Not Reportable 04/20/21 08:54 Seg Neutrophils # 5.5 K/mm3 (1.8-7.7) 04/21/21 06:12 Seg Neutrophils # Man 5.3 K/mm3 (1.8-7.7) 04/20/21 08:54 Band Neutrophils # 0.1 K/mm3 04/20/21 08:54 Lymphocytes # (Manual) 0.8 K/mm3 (1.2-5.4) L 04/20/21 08:54 Abs React Lymphs (Man) 0.0 K/mm3 04/20/21 08:54 Monocytes # (Manual) 0.3 K/mm3 (0.0-0.8) 04/20/21 08:54 Eosinophils # (Manual) 0.0 K/mm3 (0.0-0.4) 04/20/21 08:54 Basophils # (Manual) 0.0 K/mm3 (0.0-0.1) 04/20/21 08:54 Metamyelocytes # 0.0 K/mm3 04/20/21 08:54 Myelocytes # 0.0 K/mm3 04/20/21 08:54 Promyelocytes # 0.0 K/mm3 04/20/21 08:54 Blast Cells # 0.0 K/mm3 04/20/21 08:54 WBC Morphology Not Reportable 04/20/21 08:54 Hypersegmented Neuts Not Reportable 04/20/21 08:54 Hyposegmented Neuts Not Reportable 04/20/21 08:54 Hypogranular Neuts Not Reportable 04/20/21 08:54 Smudge Cells Not Reportable 04/20/21 08:54 Toxic Granulation Not Reportable 04/20/21 08:54 Toxic Vacuolation Not Reportable 04/20/21 08:54 Dohle Bodies Not Reportable 04/20/21 08:54 Pelger-Huet Anomaly Not Reportable 04/20/21 08:54 Gabe Rods Not Reportable 04/20/21 08:54 Platelet Estimate Consistent w auto 04/20/21 08:54 Clumped Platelets Not Reportable 04/20/21 08:54 Plt Clumps, EDTA Not Reportable 04/20/21 08:54 Large Platelets Not Reportable 04/20/21 08:54 Giant Platelets Not Reportable 04/20/21 08:54 Platelet Satelliting Not Reportable 04/20/21 08:54 Plt Morphology Comment Not Reportable 04/20/21 08:54 RBC Morphology Not Reportable 04/20/21 08:54 Dimorphic RBCs Not Reportable 04/20/21 08:54 Polychromasia Not Reportable 04/20/21 08:54 Hypochromasia 1+ 04/20/21 08:54 Poikilocytosis Not Reportable 04/20/21 08:54 Anisocytosis 1+ 04/20/21 08:54 Microcytosis Not Reportable 04/20/21 08:54 Macrocytosis Not Reportable 04/20/21 08:54 Spherocytes Not Reportable 04/20/21 08:54 Pappenheimer Bodies Not Reportable 04/20/21 08:54 Sickle Cells Not Reportable 04/20/21 08:54 Target Cells Not Reportable 04/20/21 08:54 Tear Drop Cells Not Reportable 04/20/21 08:54 Ovalocytes Not Reportable 04/20/21 08:54 Helmet Cells Not Reportable 04/20/21 08:54 [place] Bodies Not Reportable 04/20/21 08:54 [place] Rings Not Reportable 04/20/21 08:54 [place] Cells Not Reportable 04/20/21 08:54 Bite Cells Not Reportable 04/20/21 08:54 Crenated Cell Not Reportable 04/20/21 08:54 Elliptocytes Not Reportable 04/20/21 08:54 Acanthocytes (Spur) Not Reportable 04/20/21 08:54 Rouleaux Not Reportable 04/20/21 08:54 Hemoglobin C Crystals Not Reportable 04/20/21 08:54 Schistocytes Not Reportable 04/20/21 08:54 Malaria parasites Not Reportable 04/20/21 08:54 Chris Bodies Not Reportable 04/20/21 08:54 Hem Pathologist Commnt No 04/20/21 08:54 PT 15.6 Sec. (12.2-14.9) H 04/20/21 08:54 INR 1.19 (0.87-1.13) H 04/20/21 08:54 D-Dimer 840.47 ng/mlDDU (0-234) H 04/20/21 15:17 VBG pH 7.382 (7.320-7.420) 04/20/21 08:54 Sodium 157 mmol/L (137-145) H 04/21/21 19:35 Potassium 5.3 mmol/L (3.6-5.0) H D 04/21/21 19:35 Chloride 127.2 mmol/L (98-107) H 04/21/21 19:35 Carbon Dioxide 15 mmol/L (22-30) L 04/21/21 19:35 Anion Gap 20 mmol/L 04/21/21 19:35 BUN 121 mg/dL (7-17) H 04/21/21 19:35 Creatinine 1.5 mg/dL (0.6-1.2) H 04/21/21 19:35 Estimated GFR 43 ml/min 04/21/21 19:35 BUN/Creatinine Ratio 81 % 04/21/21 19:35 Glucose 221 mg/dL (65-100) H 04/21/21 19:35 POC Glucose 312 mg/dL (70-105) H 04/22/21 08:33 Lactic Acid 2.60 mmol/L (0.7-2.0) H* 04/20/21 15:17 Calcium 8.9 mg/dL (8.4-10.2) 04/21/21 19:35 Ferritin 508.5 ng/mL (10.0-200.0) H 04/20/21 15:17 Total Bilirubin 0.40 mg/dL (0.1-1.2) 04/20/21 08:54 AST 12 units/L (5-40) 04/20/21 08:54 ALT 9 units/L (7-56) 04/20/21 08:54 Alkaline Phosphatase 61 units/L (35-129) 04/20/21 08:54 Lactate Dehydrogenase 189 units/L (91-180) H 04/20/21 15:17 C-Reactive Protein 19.10 mg/dL (0.00-1.30) H 04/20/21 15:17 Total Protein 8.5 g/dL (6.3-8.2) H 04/20/21 08:54 Albumin 3.4 g/dL (3.9-5) L 04/20/21 08:54 Albumin/Globulin Ratio 0.7 % 04/20/21 08:54 Procalcitonin 2.70 ng/mL (<0.15) 04/20/21 15:17 Urine Color Yellow (Yellow) 04/20/21 14:29 Urine Turbidity Turbid (Clear) 04/20/21 14:29 Urine pH 5.0 (5.0-7.0) 04/20/21 14:29 Ur Specific [place] 1.017 (1.003-1.030) 04/20/21 14:29 Urine Protein 100 mg/dl mg/dL (Negative) 04/20/21 14:29 Urine Glucose (UA) Neg mg/dL (Negative) 04/20/21 14:29 Urine Ketones Neg mg/dL (Negative) 04/20/21 14:29 Urine Blood Mod (Negative) 04/20/21 14:29 Urine Nitrite Neg (Negative) 04/20/21 14:29 Urine Bilirubin Neg (Negative) 04/20/21 14:29 Urine Urobilinogen < 2.0 mg/dL (<2.0) 04/20/21 14:29 Ur Leukocyte Esterase Lg (Negative) 04/20/21 14:29 Urine WBC (Auto) > 182.0 /HPF (0.0-6.0) H 04/20/21 14:29 Urine RBC (Auto) > 182.0 /HPF (0.0-6.0) 04/20/21 14:29 U Epithel Cells (Auto) 2.0 /HPF (0-13.0) 04/20/21 14:29 Urine WBC Clumps 2+ /HPF 04/20/21 14:29 Nasal Screen MRSA (PCR) Positive (Negative) 04/21/21 Unknown Coronavirus (PCR) Negative (Negative) 04/20/21 09:30 Microbiology: Microbiology 04/20/21 14:54 Urine,Catheterized - Straight Catheter Urine Culture - Final Judith Albicans 04/20/21 08:54 Peripheral/Venous Blood Culture - Preliminary NO GROWTH AFTER 48 HOURS 04/20/21 08:54 Peripheral/Venous Blood Culture - Preliminary NO GROWTH AFTER 48 HOURS Nuno/IV: Voiding Method Incontinent Active Medications - Current Medications Current Medications: Generic Name Dose Route Start Last Admin Trade Name Freq PRN Reason Stop Dose Admin Acetaminophen 650 mg 04/20/21 15:30 Acetaminophen 325 Mg Tab PO Q4H PRN Pain MILD(1-3)/Fever >100.5/WEST Albuterol 2.5 mg 04/20/21 14:09 Albuterol 2.5 Mg/3 Ml Nebu IH Q4HRT PRN Shortness Of Breath Ascorbic Acid 500 mg 04/20/21 22:00 04/21/21 22:45 Ascorbic Acid 500 Mg Tab PO Not Given BID WENDY Cholecalciferol 1,000 unit 04/21/21 10:00 04/21/21 13:36 Cholecalciferol (Vit D3) 1000 Unit (25 Mcg) Tab PO Not Given DAILY WENYD Heparin Sodium (Porcine) 5,000 unit 04/20/21 22:00 04/21/21 22:45 Heparin 5,000 Unit/1 Ml Vial SUB-Q 5,000 unit Q12HR WENDY Administration Hydromorphone HCl 0.5 mg 04/20/21 14:09 04/21/21 22:56 Hydromorphone 1 Mg/1 Ml Inj IV 0.5 mg Q3H PRN Administration Pain , Severe (7-10) Azithromycin 500 mg in 250 mls @ 250 mls/hr 04/20/21 16:00 04/21/21 16:05 Zithromax/Ns IV 04/24/21 16:59 250 mls/hr Q24H WENDY Administration Cefepime HCl 2 gm in 100 mls @ 200 mls/hr 04/21/21 10:00 04/21/21 11:27 Cefepime/Ns 2 Gm/100 Ml IV 04/27/21 09:59 200 mls/hr Q24HR WENDY Administration Protocol Dextrose 1,000 mls @ 75 mls/hr 04/21/21 13:00 04/21/21 14:36 D5w IV 75 mls/hr DIRECT WENDY Administration Insulin Human Lispro 0 unit 04/22/21 11:00 Insulin Lispro 100 Unit/Ml SUB-Q Q6H [facility] Protocol Methylprednisolone Sodium Succinate 40 mg 04/20/21 22:00 04/22/21 05:05 Methylprednisolone Sod Succinate 40 Mg/1 Ml Inj IV 40 mg Q8HR WENDY Administration Ondansetron HCl 4 mg 04/20/21 14:09 Ondansetron 4 Mg/2 Ml Inj IV Q8H PRN Nausea And Vomiting Oxycodone/Acetaminophen 1 tab 04/20/21 14:09 Oxycodone /Acetaminophen 5-325mg Tab PO Q12H PRN Pain, Moderate (4-6) Sodium Chloride 10 ml 04/20/21 22:00 04/21/21 22:45 Sodium Chloride 0.9% 10 Ml Flush Syringe IV 10 ml BID WENDY Administration Sodium Chloride 10 ml 04/20/21 14:09 Sodium Chloride 0.9% 10 Ml Flush Syringe IV PRN PRN LINE FLUSH Zinc Sulfate 220 mg 04/20/21 22:00 04/21/21 22:45 Zinc Sulfate 220 Mg Cap PO Not Given BID WENDY Nutrition/Malnutrition Assess - Dietary Evaluation Nutrition/Malnutrition Findings: Nutrition Notes Start: 04/21/21 13:58 Freq: Status: Active Protocol: Document 04/21/21 13:58 CW (Rec: 04/21/21 14:11 CW [id number]) Nutrition Notes Need for Assessment generated from: MD Order,rate engineer,MST Initial or Follow up Assessment Current Diagnosis Acute Kidney Injury,Decubitus( Pressure Ulcer),Diabetes, Sepsis,Hypertension,Heart Failure,Respiratory Failure Other Pertinent Diagnosis PNA, r/o Covid19, dementia, dysphagia Current Diet NPO Labs/Tests Na 161 K 3.4 BUN 123 Cr 1.4 BG 194 Pertinent Medications sOLUMEDROL kcl 10 mEq 1/2NS - 50 ml Decadron LR - 1L Height 5 ft 5 in Weight 56.7 kg [place] Body Weight (kg) 56.81 BMI 20.7 Weight Status Appropriate Subjective/Other Information MD consult and RN screen for MST 3, hx chewing difficulty, skin risk, poor PO intake, and supplement. Pt previously a hospice pt. Pt evaluated by MANAGER SUPPORT and deemed to be NPO at this time. MANAGER SUPPORT places to reassess in 24 - 28 hours. If pt unabel to pass swallow eval after reassessment, recommend nutrition support. Pt unable to provide nutrition hx. Syed score of 10. Unstagable pressure ulcer present at sacrum. Burn Absent Trauma Absent GI Symptoms None Difficulty In Swallowing,Chewing Skin Integrity/Comment unstagable pressure wound present Current % PO Negligible Minimum of two criteria No Reduced Manager Appointment Strength Measurably Reduced (severe) #1 Nutrition Diagnosis Inadequate oral intake Etiology dysphagia As Evidenced by Signs and Symptoms Pt failed swallow eval by MANAGER SUPPORT Is patient on ventilator? No Is Patient Ambulatory and/or Out of Bed No REE-([facility]-confined to bed) 1364.994 Calculation Used for Recommendations [facility] Additional Notes protein needs:71 - 85g (1.25 - 1.5g/kgBW) fluid needs: 1 ml/kcal Nutrition Intervention Change Diet Order: Initiate nutrition support of PO diet per MANAGER SUPPORT Nutrition Support: Consider: Promote at 60 ml/hr. Free water flush of 175 q4h for hypernatremia Resume free water flush of 50 ml q4h once hypernatremia resolved Kcal 1,440 Protein (gm) 90 Fluid (mL) 1,208 Goal #1 diet advancement as medically feasible Goal #2 Meet at least 75% of EER whem medically feasible Anticipated Discharge Needs: unable to determine at this time Follow-Up By: 04/23/21 Additional Comments F/U diet per MANAGER SUPPORT
[2021-04-22] MEDS: CHOLECALCIFEROL (VIT D3) 1000 UNIT (25 mcg) TAB PO SCH ×2 (11:12→11:16)
[2021-04-22] MEDS: ASCORBIC ACID 500 MG TAB PO SCH ×3 (11:12→22:50)
[2021-04-22] MEDS: CEFEPIME/NS 2 GM/100 ML 2 GM/100 ML BAG IV SCH ×2 (11:12→19:14)
[2021-04-22] MEDS: HEPARIN 5,000 UNIT/1 ML VIAL SUB-Q SCH ×2 (11:12→22:49)
[2021-04-22] MEDS: ZINC SULFATE 220 MG CAP PO SCH ×2 (11:15→22:50)
[2021-04-22] MEDS ORDERED: INSULIN LISPRO 100 UNIT/ML SUB-Q SCH (11:30)
--- NOTE | 2021-04-22 11:48 | Progress Note ---
Assessment and Plan 1. Acute kidney injury: Vasomotor ODILON in the setting of volume depletion +/- hypotension. Urine studies ordered. Continue IV fluids. Monitor renal function. Creatinine leveled off. Avoid nephrotoxic agents. Meds dosage based on GFR. Labs not done today yet, spoke to RN. 2. FEN: Hypernatremia, 2/2 dehydration, on IV D5W, monitor. Hyperchloremic metabolic acidosis, monitor. Hyperkalemia, monitor. Monitor lytes and volume status. 3. Bilateral Pneumonia, POA: Covid test negative. Continue Abx. 4. L Pneumothorax, POA: S/p chest tube. 5. Acute hypoxemic respiratory failure, POA: 2/2 PNA and pneumothorax. Supplemental oxygen. Monitor. 6. DM type 2, uncontrolled: Monitor. 7. Anemia, not POA: Monitor. 8. Hypertension. Follow BP. 9. Dementia. Subjective: Patient was seen and examined at the bedside. Examination: General appearance: well-developed, appears stated age, emaciated, not in distress, appears chronically ill HEENT: atraumatic, SHAR Neck: trachea midline Respiratory: bilateral decreased breath sounds, L sided chest tube noted Heart: S1S2, regular, no murmur Abdomen: soft, bowel sounds heard, NT Integumentary: no obvious rash Neurologic: lethargic, opens eyes Ext: no edema Subjective Date of service: 04/22/21 Objective - Vital Signs Vital signs: Vital Signs - 12hr 04/22/21 04/22/21 04/22/21 03:00 05:22 08:48 Temperature 98.3 F Pulse Rate 69 Pulse Rate [ 79 Right Brachial] Respiratory 18 18 Rate Blood Pressure 118/52 O2 Sat by Pulse 100 100 99 Oximetry - Lab 04/21/21 06:12 04/21/21 19:35 Most recent lab results Calcium 8.9 mg/dL (8.4-10.2) 04/21/21 19:35 Medications & Allergies - Medications Allergies/Adverse Reactions: Allergies Penicillins Allergy (Verified 12/03/18 20:53) Hives meperidine [From Demerol] Adverse Reaction (Verified 12/03/18 20:53) Anaphylaxis morphine Adverse Reaction (Verified 12/03/18 20:53) Unknown Home Medications: Home Medications Medication Instructions Recorded Confirmed Last Taken Type DOXYCYCLINE Hyclate [Vibramycin 100 mg PO Q12HR #14 capsule 03/21/19 Unknown Rx CAP] Active Medications: Generic Name Dose Route Start Last Admin Trade Name Freq PRN Reason Stop Dose Admin Acetaminophen 650 mg 04/20/21 15:30 Acetaminophen 325 Mg Tab PO Q4H PRN Pain MILD(1-3)/Fever >100.5/WEST Albuterol 2.5 mg 04/20/21 14:09 Albuterol 2.5 Mg/3 Ml Nebu IH Q4HRT PRN Shortness Of Breath Ascorbic Acid 500 mg 04/20/21 22:00 04/22/21 11:16 Ascorbic Acid 500 Mg Tab PO Not Given BID WENDY Cholecalciferol 1,000 unit 04/21/21 10:00 04/22/21 11:16 Cholecalciferol (Vit D3) 1000 Unit (25 Mcg) Tab PO Not Given DAILY WENDY Heparin Sodium (Porcine) 5,000 unit 04/20/21 22:00 04/22/21 11:12 Heparin 5,000 Unit/1 Ml Vial SUB-Q 5,000 unit Q12HR WENDY Administration Hydromorphone HCl 0.5 mg 04/20/21 14:09 04/21/21 22:56 Hydromorphone 1 Mg/1 Ml Inj IV 0.5 mg Q3H PRN Administration Pain , Severe (7-10) Azithromycin 500 mg in 250 mls @ 250 mls/hr 04/20/21 16:00 04/21/21 16:05 Zithromax/Ns IV 04/24/21 16:59 250 mls/hr Q24H WENDY Administration Cefepime HCl 2 gm in 100 mls @ 200 mls/hr 04/21/21 10:00 04/22/21 11:12 Cefepime/Ns 2 Gm/100 Ml IV 04/27/21 09:59 200 mls/hr Q24HR WENDY Administration Protocol Dextrose 1,000 mls @ 75 mls/hr 04/21/21 13:00 04/21/21 14:36 D5w IV 75 mls/hr DIRECT WENDY Administration Insulin Human Lispro 0 unit 04/22/21 11:00 Insulin Lispro 100 Unit/Ml SUB-Q Q6H WENDY Protocol Methylprednisolone Sodium Succinate 40 mg 04/20/21 22:00 04/22/21 05:05 Methylprednisolone Sod Succinate 40 Mg/1 Ml Inj IV 40 mg Q8HR WENDY Administration Ondansetron HCl 4 mg 04/20/21 14:09 Ondansetron 4 Mg/2 Ml Inj IV Q8H PRN Nausea And Vomiting Oxycodone/Acetaminophen 1 tab 04/20/21 14:09 Oxycodone /Acetaminophen 5-325mg Tab PO Q12H PRN Pain, Moderate (4-6) Sodium Chloride 10 ml 04/20/21 22:00 04/22/21 11:12 Sodium Chloride 0.9% 10 Ml Flush Syringe IV Not Given BID WENDY Sodium Chloride 10 ml 04/20/21 14:09 Sodium Chloride 0.9% 10 Ml Flush Syringe IV PRN PRN LINE FLUSH Zinc Sulfate 220 mg 04/20/21 22:00 04/22/21 11:15 Zinc Sulfate 220 Mg Cap PO Not Given BID WENDY
[2021-04-22] MEDS: INSULIN LISPRO 100 UNIT/ML SUB-Q SCH ×3 (14:27→22:50)
[2021-04-22 17:12] LABS: Calcium 9.5 mg/dL (8.4-10.2)
[2021-04-22] MEDS: DEXTROSE 5% IN WATER 1,000 ML IV SCH (20:34)
[2021-04-22] MEDS: AZITHROMYCIN/NS 500 MG/250 ML 500 MG/250 ML BAG IV SCH (20:36)
[2021-04-22] MEDS: INSULIN GLARGINE 100 UNITS/ML SUB-Q SCH (22:49)
[2021-04-23] MEDS: methylPREDNISolone Sod Succinate 40 MG/1 ML INJ IV SCH ×3 (06:42→21:05)
[2021-04-23] MEDS: INSULIN LISPRO 100 UNIT/ML SUB-Q SCH ×3 (06:42→17:00)
--- NOTE | 2021-04-23 08:03 | Progress Note ---
Assessment and Plan - Patient Problems (1) Acute hypoxemic respiratory failure Current Visit: Yes Status: Acute (2) Acute kidney injury Current Visit: Yes Status: Acute (3) Acute kidney injury (ODILON) with acute tubular necrosis (ATN) Current Visit: Yes Status: Acute (4) Infected decubitus ulcer Current Visit: Yes Status: Acute (5) Pneumonia Current Visit: Yes Status: Acute (6) Sepsis Current Visit: Yes Status: Acute (7) Spontaneous pneumothorax Current Visit: Yes Status: Acute (8) Suspected COVID-19 virus infection Current Visit: Yes Status: Acute (9) Hypernatremia Current Visit: Yes Status: Acute Subjective Interval history: no change Objective Vital Signs - 12hr 04/22/21 04/22/21 04/23/21 20:18 22:16 03:00 Temperature 97.9 F Pulse Rate 85 Respiratory 18 Rate Blood Pressure 128/66 O2 Sat by Pulse 96 92 92 Oximetry 04/23/21 04:29 Temperature 97.9 F Pulse Rate 79 Respiratory 20 Rate Blood Pressure 124/59 O2 Sat by Pulse 97 Oximetry Constitutional: no acute distress Eyes: non-icteric ENT: oropharynx moist Neck: supple Effort: normal Ascultation: Bilateral: diminished breath sounds Cardiovascular: regular rate and rhythm Gastrointestinal: normoactive bowel sounds, soft, non-tender CBC and BMP: 04/21/21 06:12 04/22/21 16:44 ABG, PT/INR, D-dimer: PT/INR, D-dimer PT 15.6 Sec. (12.2-14.9) H 04/20/21 08:54 INR 1.19 (0.87-1.13) H 04/20/21 08:54 D-Dimer 840.47 ng/mlDDU (0-234) H 04/20/21 15:17 Abnormal lab findings: Abnormal Labs 04/20/21 04/20/21 04/20/21 08:54 08:54 08:54 RBC Hgb Hct MCH 25 L RDW 18.2 H Seg Neutrophils % Seg Neuts % (Manual) 81.0 H Lymphocytes % (Manual) 12.0 L Lymphocytes # (Manual) 0.8 L PT 15.6 H INR 1.19 H D-Dimer Sodium 163 H* Potassium 2.8 L* Chloride 118.6 H Carbon Dioxide BUN 152 H Creatinine 2.0 H Glucose 147 H POC Glucose Lactic Acid Calcium 10.8 H Magnesium Ferritin Lactate Dehydrogenase C-Reactive Protein Total Protein 8.5 H Albumin 3.4 L Urine WBC (Auto) 04/20/21 04/20/21 04/20/21 08:54 14:29 15:17 RBC Hgb Hct MCH RDW Seg Neutrophils % Seg Neuts % (Manual) Lymphocytes % (Manual) Lymphocytes # (Manual) PT INR D-Dimer Sodium Potassium Chloride Carbon Dioxide BUN Creatinine Glucose POC Glucose Lactic Acid 2.60 H* 2.60 H* Calcium Magnesium Ferritin Lactate Dehydrogenase C-Reactive Protein Total Protein Albumin Urine WBC (Auto) > 182.0 H 04/20/21 04/20/21 04/20/21 15:17 15:17 15:17 RBC Hgb Hct MCH RDW Seg Neutrophils % Seg Neuts % (Manual) Lymphocytes % (Manual) Lymphocytes # (Manual) PT INR D-Dimer 840.47 H Sodium Potassium Chloride Carbon Dioxide BUN Creatinine Glucose 135 H POC Glucose Lactic Acid Calcium Magnesium Ferritin 508.5 H Lactate Dehydrogenase 189 H C-Reactive Protein 19.10 H Total Protein Albumin Urine WBC (Auto) 04/21/21 04/21/21 04/21/21 06:12 07:51 10:34 RBC 3.59 L Hgb 9.0 L Hct 29.1 L MCH 25 L RDW 18.6 H Seg Neutrophils % 75.9 H Seg Neuts % (Manual) Lymphocytes % (Manual) Lymphocytes # (Manual) PT INR D-Dimer Sodium 161 H* Potassium 3.4 L D Chloride 124.9 H Carbon Dioxide 21 L BUN 123 H Creatinine 1.4 H Glucose 194 H POC Glucose 166 H Lactic Acid Calcium Magnesium Ferritin Lactate Dehydrogenase C-Reactive Protein Total Protein Albumin Urine WBC (Auto) 04/21/21 04/21/21 04/21/21 12:32 14:57 16:25 RBC Hgb Hct MCH RDW Seg Neutrophils % Seg Neuts % (Manual) Lymphocytes % (Manual) Lymphocytes # (Manual) PT INR D-Dimer Sodium 160 H Potassium 3.0 L Chloride 127.1 H Carbon Dioxide 18 L BUN 121 H Creatinine 1.6 H Glucose 199 H POC Glucose 178 H 187 H Lactic Acid Calcium Magnesium Ferritin Lactate Dehydrogenase C-Reactive Protein Total Protein Albumin Urine WBC (Auto) 04/21/21 04/21/21 04/22/21 19:35 22:17 08:33 RBC Hgb Hct MCH RDW Seg Neutrophils % Seg Neuts % (Manual) Lymphocytes % (Manual) Lymphocytes # (Manual) PT INR D-Dimer Sodium 157 H Potassium 5.3 H D Chloride 127.2 H Carbon Dioxide 15 L BUN 121 H Creatinine 1.5 H Glucose 221 H POC Glucose 205 H 312 H Lactic Acid Calcium Magnesium Ferritin Lactate Dehydrogenase C-Reactive Protein Total Protein Albumin Urine WBC (Auto) 04/22/21 04/22/21 04/22/21 13:26 16:44 16:44 RBC Hgb Hct MCH RDW Seg Neutrophils % Seg Neuts % (Manual) Lymphocytes % (Manual) Lymphocytes # (Manual) PT INR D-Dimer Sodium 158 H Potassium Chloride 126.9 H Carbon Dioxide 19 L BUN 112 H Creatinine 1.4 H Glucose 317 H POC Glucose 315 H Lactic Acid Calcium Magnesium 2.70 H Ferritin Lactate Dehydrogenase C-Reactive Protein Total Protein Albumin Urine WBC (Auto) 04/22/21 04/22/21 04/23/21 18:05 22:14 06:35 RBC Hgb Hct MCH RDW Seg Neutrophils % Seg Neuts % (Manual) Lymphocytes % (Manual) Lymphocytes # (Manual) PT INR D-Dimer Sodium Potassium Chloride Carbon Dioxide BUN Creatinine Glucose POC Glucose 236 H 153 H 170 H Lactic Acid Calcium Magnesium Ferritin Lactate Dehydrogenase C-Reactive Protein Total Protein Albumin Urine WBC (Auto)
[2021-04-23] MEDS ORDERED: SIMPLE SYRUP 15 ML FEEDTUBE PRN ×2 (08:37)
[2021-04-23] MEDS ORDERED: SODIUM BICARBONATE 325 MG TAB FEEDTUBE PRN (08:37)
[2021-04-23] MEDS ORDERED: LIPASE 10,500/PROTEASE 25,000/AMYLASE 43,750 (UNITS) DR CAP FEEDTUBE PRN (08:37)
[2021-04-23] MEDS: DEXTROSE 5% IN WATER 1,000 ML IV SCH (10:31)
[2021-04-23] MEDS: CEFEPIME/NS 2 GM/100 ML 2 GM/100 ML BAG IV SCH (10:33)
[2021-04-23] MEDS: HEPARIN 5,000 UNIT/1 ML VIAL SUB-Q SCH ×2 (10:36→21:04)
[2021-04-23] MEDS: CHOLECALCIFEROL (VIT D3) 1000 UNIT (25 mcg) TAB PO SCH (10:53)
[2021-04-23] MEDS: ZINC SULFATE 220 MG CAP PO SCH ×2 (10:53→21:06)
[2021-04-23] MEDS: ASCORBIC ACID 500 MG TAB PO SCH ×2 (10:53→21:06)
--- NOTE | 2021-04-23 12:44 | Progress Note ---
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 Patient is confused and lethargic the time my evaluation and is unable to provide history. Patient also has diminished cognition which is her baseline. Patient is unable to provide history. Patient history provided by EMS staff, ED staff, as well as the patient's daughter who was contacted via telephone for interview. As per daughter the patient is currently a patient receiving hospice care from [facility]. Patient daughter elects to revoke hospice benefit and seek aggressive medical therapy. [facility] notified and acknowledge patient revocation. Patient daughter reports that patient experience fever 103 F today, and has experienced decreased oral intake and decreased responsiveness over the past 2 days with progressively worsening symptoms over the same time frame. EMS was notified and upon arrival the patient was found to be in distress with a pulse oximetry of 65% on room air. The patient was placed on submental oxygen and transported to [facility] for further care and evaluation of the aforementioned symptoms. The patient was seen and evaluated in the emergency department. All lab and imaging studies reviewed. The patient was found to have a pulse oximetry of 82% on submental oxygen which is consistent with acute hypoxemic respiratory failure. Chest x-ray revealed pneumonia as well as left pneumothorax. The patient was also found to have acute kidney injury, systemic inflammatory response syndrome, hypokalemia. The patient underwent chest tube placement in the emergency department with improvement in symptoms. Surgery team consulted in ED. Patient admitted to medical floor due to increased risk of worsening symptoms. Patient initiated on pneumonia protocol as well as coronavirus protocol. The patient has diminished cognition but has a positive gag reflex and is able to protect her airway without difficulty at this time. No reported history of chest pain, palpitation, productive cough, skin rash, recent ill contacts, or known exposure to COVID-19. No prior admission for review. No medication listed at time of admission for reconciliation. Advanced care planning conducted in ED. CT HEAD: Negative CT chest: Chest tube in place, noted opacities 04/21: Patient lethargic, chest tube remains in place, Wound care consult, asp iration precautions. Wean as tolerated. Await COVID 19. Monitor Sodium level, awaiting labs, check q8hr. 04/22: Chest tube still positive air leak. Patient still hypoxic, while sodium level is improving metabolic acidosis has been noted. Patient's Covid test was negative. We will continue current management and adjust insulin for better blood sugar management. May require some Kayexalate due to hyper kalemia but considering severe hypokalemia just the day before we will monitor closely. Renal function showing some improvement continue management pulmonary and nephrology input noted. Urine culture positive for fungal Judiht will monitor closely. 04/23: Penumonthorax appears to have resolved, patient down to 3 liters of Oxygen via NC, tolerating. she is still very lethargic, failed swallow eval. awaiting to hear from family if to progress with PEG placement. Patient was recently on Hospice but that was rescinded. Overall poor prognosis. Continue monitoring Hypernatremia. Surgeon re-evaluating Chest tube today (1) Acute hypoxemic respiratory failure Current Visit: Yes Status: Acute Plan to address problem: Chest x-ray, supplemental oxygen, pulse oximetry, chest tube placed in the emergency department. Repeat chest x-ray in a.m. (2) Pneumonia Current Visit: Yes Status: Acute Plan to address problem: Pneumonia protocol: Chest x-ray, CBC, CMP, supplemental oxygen, pulse oximetry, nebulizer therapy, blood culture. (3) Acute kidney injury (ODILON) with acute tubular necrosis (ATN) Current Visit: Yes Status: Acute Plan to address problem: BMP, IV fluid resuscitation therapy, repeat BMP in a.m. to monitor serum creatinine as well as GFR (4) Hypokalemia Current Visit: Yes Status: Acute Plan to address problem: Repleted in ED, repeat BMP (5) Vascular dementia Current Visit: Yes Status: Acute Qualifiers: Dementia behavioral disturbance: without behavioral disturbance Qualified Code(s): F01.50 - Vascular dementia without behavioral disturbance Plan to address problem: Verbal prompting, verbal redirection, benzodiazepine therapy as clinically indic ated (6) Cerebral atherosclerosis Current Visit: Yes Status: Acute Plan to address problem: Antiplatelet therapy, supportive care, risk factor reduction. (7) Dysphagia as late effect of cerebrovascular accident (CVA) Current Visit: Yes Status: Acute Plan to address problem: Pured diet, assistance with meals, supportive care. (8) Spontaneous pneumothorax Current Visit: Yes Status: Acute Plan to address problem: Chest tube placed in the emergency department, chest x-ray, postoperative chest x-ray, surgery team consulted, repeat chest x-ray in a.m. (9) Suspected COVID-19 virus infection Current Visit: Yes Status: Acute Plan to address problem: Coronavirus protocol: IV steroid therapy, IV antibiotic therapy, supplemental oxygen,, pulse oximetry, vitamin C therapy, vitamin D therapy, zinc therapy, prophylactic anticoagulation, coronavirus PCR ordered and is pending at time of admission. (10) DVT prophylaxis Current Visit: Yes Status: Acute Plan to address problem: SCD to bilateral lower extremities while in bed, prophylactic anticoagulation (11) Advance care planning Current Visit: Yes Status: Acute Plan to address problem: Disease education conducted, care plan discussed, diagnoses discussed, prognosis discussed, patient daughter knowledges understanding and agreement with care plan. Patient daughter elects to revoke hospice benefit and treat patient with aggressive medical therapy. Patient daughter knowledges understanding of prognosis. Patient is full code, +30 minutes. History Interval history: Patient seen and examined, still lethargic but in a weak voice, Down to 3 liters NC Hospitalist Physical - Physical exam Narrative exam: General appearance: Present: mild distress, chronically illl appearing, ventimask on cachectic - EENT Eyes: Present: PERRL ENT: clear oral mucosa, hearing decreased - Neck Neck: Present: supple - Respiratory Respiratory effort: labored, accessory muscle use Respiratory: bilateral: diminished, rhonchi Chest tube in place - Cardiovascular Heart Sounds: Present: S1 & S2. Absent: rub, click - Extremities Extremities: abnormal (Sacral decubitus ulcer) Peripheral Pulses: within normal limits - Abdominal General gastrointestinal: Present: soft, non-tender, non-distended, normal bowel sounds Female genitourinary: Present: normal - Integumentary Integumentary: Present: dry, clammy, decreased turgor - Musculoskeletal Musculoskeletal: generalized weakness - Psychiatric Psychiatric: no appropriate mood/affect, no intact judgment & insight, no memory intact - Neurologic Neurologic: CNII-XII intact, focal deficits, no moves all extremities, no gait sita - Constitutional Vitals: Temp Pulse Resp BP Pulse Ox 97.9 F 79 20 124/59 97 04/23/21 04:29 04/23/21 04:29 04/23/21 04:29 04/23/21 04:29 04/23/21 04:29 General appearance: Present: mild distress, cachectic Results - Labs CBC & Chem 7: 04/21/21 06:12 04/22/21 16:44 Labs: Laboratory Last Values WBC 7.3 K/mm3 (4.5-11.0) 04/21/21 06:12 RBC 3.59 M/mm3 (3.65-5.03) L 04/21/21 06:12 Hgb 9.0 gm/dl (10.1-14.3) L 04/21/21 06:12 Hct 29.1 % (30.3-42.9) L 04/21/21 06:12 MCV 81 fl (79-97) 04/21/21 06:12 MCH 25 pg (28-32) L 04/21/21 06:12 MCHC 31 % (30-34) 04/21/21 06:12 RDW 18.6 % (13.2-15.2) H 04/21/21 06:12 Plt Count 224 K/mm3 (140-440) 04/21/21 06:12 Lymph % (Auto) 21.0 % (13.4-35.0) 04/21/21 06:12 [place] % (Auto) 2.7 % (0.0-7.3) 04/21/21 06:12 Eos % (Auto) 0.0 % (0.0-4.3) 04/21/21 06:12 Baso % (Auto) 0.4 % (0.0-1.8) 04/21/21 06:12 Lymph # (Auto) 1.5 K/mm3 (1.2-5.4) 04/21/21 06:12 [place] # (Auto) 0.2 K/mm3 (0.0-0.8) 04/21/21 06:12 Eos # (Auto) 0.0 K/mm3 (0.0-0.4) 04/21/21 06:12 Baso # (Auto) 0.0 K/mm3 (0.0-0.1) 04/21/21 06:12 Add Manual Diff Complete 04/20/21 08:54 Total Counted 100 04/20/21 08:54 Seg Neutrophils % 75.9 % (40.0-70.0) H 04/21/21 06:12 Seg Neuts % (Manual) 81.0 % (40.0-70.0) H 04/20/21 08:54 Band Neutrophils % 2.0 % 04/20/21 08:54 Lymphocytes % (Manual) 12.0 % (13.4-35.0) L 04/20/21 08:54 Monocytes % (Manual) 5.0 % (0.0-7.3) 04/20/21 08:54 Nucleated RBC % Not Reportable 04/20/21 08:54 Seg Neutrophils # 5.5 K/mm3 (1.8-7.7) 04/21/21 06:12 Seg Neutrophils # Man 5.3 K/mm3 (1.8-7.7) 04/20/21 08:54 Band Neutrophils # 0.1 K/mm3 04/20/21 08:54 Lymphocytes # (Manual) 0.8 K/mm3 (1.2-5.4) L 04/20/21 08:54 Abs React Lymphs (Man) 0.0 K/mm3 04/20/21 08:54 Monocytes # (Manual) 0.3 K/mm3 (0.0-0.8) 04/20/21 08:54 Eosinophils # (Manual) 0.0 K/mm3 (0.0-0.4) 04/20/21 08:54 Basophils # (Manual) 0.0 K/mm3 (0.0-0.1) 04/20/21 08:54 Metamyelocytes # 0.0 K/mm3 04/20/21 08:54 Myelocytes # 0.0 K/mm3 04/20/21 08:54 Promyelocytes # 0.0 K/mm3 04/20/21 08:54 Blast Cells # 0.0 K/mm3 04/20/21 08:54 WBC Morphology Not Reportable 04/20/21 08:54 Hypersegmented Neuts Not Reportable 04/20/21 08:54 Hyposegmented Neuts Not Reportable 04/20/21 08:54 Hypogranular Neuts Not Reportable 04/20/21 08:54 Smudge Cells Not Reportable 04/20/21 08:54 Toxic Granulation Not Reportable 04/20/21 08:54 Toxic Vacuolation Not Reportable 04/20/21 08:54 Dohle Bodies Not Reportable 04/20/21 08:54 Pelger-Huet Anomaly Not Reportable 04/20/21 08:54 Gabe Rods Not Reportable 04/20/21 08:54 Platelet Estimate Consistent w auto 04/20/21 08:54 Clumped Platelets Not Reportable 04/20/21 08:54 Plt Clumps, EDTA Not Reportable 04/20/21 08:54 Large Platelets Not Reportable 04/20/21 08:54 Giant Platelets Not Reportable 04/20/21 08:54 Platelet Satelliting Not Reportable 04/20/21 08:54 Plt Morphology Comment Not Reportable 04/20/21 08:54 RBC Morphology Not Reportable 04/20/21 08:54 Dimorphic RBCs Not Reportable 04/20/21 08:54 Polychromasia Not Reportable 04/20/21 08:54 Hypochromasia 1+ 04/20/21 08:54 Poikilocytosis Not Reportable 04/20/21 08:54 Anisocytosis 1+ 04/20/21 08:54 Microcytosis Not Reportable 04/20/21 08:54 Macrocytosis Not Reportable 04/20/21 08:54 Spherocytes Not Reportable 04/20/21 08:54 Pappenheimer Bodies Not Reportable 04/20/21 08:54 Sickle Cells Not Reportable 04/20/21 08:54 Target Cells Not Reportable 04/20/21 08:54 Tear Drop Cells Not Reportable 04/20/21 08:54 Ovalocytes Not Reportable 04/20/21 08:54 Helmet Cells Not Reportable 04/20/21 08:54 [place] Bodies Not Reportable 04/20/21 08:54 [place] Rings Not Reportable 04/20/21 08:54 [place] Cells Not Reportable 04/20/21 08:54 Bite Cells Not Reportable 04/20/21 08:54 Crenated Cell Not Reportable 04/20/21 08:54 Elliptocytes Not Reportable 04/20/21 08:54 Acanthocytes (Spur) Not Reportable 04/20/21 08:54 Rouleaux Not Reportable 04/20/21 08:54 Hemoglobin C Crystals Not Reportable 04/20/21 08:54 Schistocytes Not Reportable 04/20/21 08:54 Malaria parasites Not Reportable 04/20/21 08:54 Chris Bodies Not Reportable 04/20/21 08:54 Hem Pathologist Commnt No 04/20/21 08:54 PT 15.6 Sec. (12.2-14.9) H 04/20/21 08:54 INR 1.19 (0.87-1.13) H 04/20/21 08:54 D-Dimer 840.47 ng/mlDDU (0-234) H 04/20/21 15:17 VBG pH 7.382 (7.320-7.420) 04/20/21 08:54 Sodium 158 mmol/L (137-145) H 04/22/21 16:44 Potassium 3.8 mmol/L (3.6-5.0) D 04/22/21 16:44 Chloride 126.9 mmol/L (98-107) H 04/22/21 16:44 Carbon Dioxide 19 mmol/L (22-30) L 04/22/21 16:44 Anion Gap 16 mmol/L 04/22/21 16:44 BUN 112 mg/dL (7-17) H 04/22/21 16:44 Creatinine 1.4 mg/dL (0.6-1.2) H 04/22/21 16:44 Estimated GFR 46 ml/min 04/22/21 16:44 BUN/Creatinine Ratio 80 % 04/22/21 16:44 Glucose 317 mg/dL (65-100) H 04/22/21 16:44 POC Glucose 179 mg/dL (70-105) H 04/23/21 12:26 Lactic Acid 2.60 mmol/L (0.7-2.0) H* 04/20/21 15:17 Calcium 9.5 mg/dL (8.4-10.2) 04/22/21 16:44 Phosphorus 2.80 mg/dL (2.5-4.5) 04/22/21 16:44 Magnesium 2.70 mg/dL (1.7-2.3) H 04/22/21 16:44 Ferritin 508.5 ng/mL (10.0-200.0) H 04/20/21 15:17 Total Bilirubin 0.40 mg/dL (0.1-1.2) 04/20/21 08:54 AST 12 units/L (5-40) 04/20/21 08:54 ALT 9 units/L (7-56) 04/20/21 08:54 Alkaline Phosphatase 61 units/L (35-129) 04/20/21 08:54 Lactate Dehydrogenase 189 units/L (91-180) H 04/20/21 15:17 C-Reactive Protein 19.10 mg/dL (0.00-1.30) H 04/20/21 15:17 Total Protein 8.5 g/dL (6.3-8.2) H 04/20/21 08:54 Albumin 3.4 g/dL (3.9-5) L 04/20/21 08:54 Albumin/Globulin Ratio 0.7 % 04/20/21 08:54 Procalcitonin 2.70 ng/mL (<0.15) 04/20/21 15:17 PTH Intact 20.03 pg/mL (15-65) 04/22/21 16:44 Urine Color Yellow (Yellow) 04/20/21 14:29 Urine Turbidity Turbid (Clear) 04/20/21 14:29 Urine pH 5.0 (5.0-7.0) 04/20/21 14:29 Ur Specific [place] 1.017 (1.003-1.030) 04/20/21 14:29 Urine Protein 100 mg/dl mg/dL (Negative) 04/20/21 14:29 Urine Glucose (UA) Neg mg/dL (Negative) 04/20/21 14:29 Urine Ketones Neg mg/dL (Negative) 04/20/21 14:29 Urine Blood Mod (Negative) 04/20/21 14:29 Urine Nitrite Neg (Negative) 04/20/21 14:29 Urine Bilirubin Neg (Negative) 04/20/21 14:29 Urine Urobilinogen < 2.0 mg/dL (<2.0) 04/20/21 14:29 Ur Leukocyte Esterase Lg (Negative) 04/20/21 14:29 Urine WBC (Auto) > 182.0 /HPF (0.0-6.0) H 04/20/21 14:29 Urine RBC (Auto) > 182.0 /HPF (0.0-6.0) 04/20/21 14:29 U Epithel Cells (Auto) 2.0 /HPF (0-13.0) 04/20/21 14:29 Urine WBC Clumps 2+ /HPF 04/20/21 14:29 Nasal Screen MRSA (PCR) Positive (Negative) 04/21/21 Unknown Coronavirus (PCR) Negative (Negative) 04/20/21 09:30 Microbiology: Microbiology 04/20/21 08:54 Peripheral/Venous Blood Culture - Preliminary NO GROWTH AFTER 72 HOURS 04/20/21 08:54 Peripheral/Venous Blood Culture - Preliminary NO GROWTH AFTER 72 HOURS 04/20/21 14:54 Urine,Catheterized - Straight Catheter Urine Culture - Final Judith Albicans Nuno/IV: Voiding Method Incontinent Active Medications - Current Medications Current Medications: Generic Name Dose Route Start Last Admin Trade Name Freq PRN Reason Stop Dose Admin Acetaminophen 650 mg 04/20/21 15:30 Acetaminophen 325 Mg Tab PO Q4H PRN Pain MILD(1-3)/Fever >100.5/WEST Albuterol 2.5 mg 04/20/21 14:09 Albuterol 2.5 Mg/3 Ml Nebu IH Q4HRT PRN Shortness Of Breath Lipase/Protease/Amylase 1 each 04/23/21 08:37 Lipase 10,500/Protease 25,000/Amylase 43,750 (Units) Dr Cap FEEDTUBE PRN PRN For Clogged Feeding Tube Ascorbic Acid 500 mg 04/20/21 22:00 04/23/21 10:53 Ascorbic Acid 500 Mg Tab PO Not Given BID WENDY Cholecalciferol 1,000 unit 04/21/21 10:00 04/23/21 10:53 Cholecalciferol (Vit D3) 1000 Unit (25 Mcg) Tab PO Not Given DAILY WENDY Heparin Sodium (Porcine) 5,000 unit 04/20/21 22:00 04/23/21 10:36 Heparin 5,000 Unit/1 Ml Vial SUB-Q 5,000 unit Q12HR WENDY Administration Hydromorphone HCl 0.5 mg 04/20/21 14:09 04/21/21 22:56 Hydromorphone 1 Mg/1 Ml Inj IV 0.5 mg Q3H PRN Administration Pain , Severe (7-10) Azithromycin 500 mg in 250 mls @ 250 mls/hr 04/20/21 16:00 04/22/21 20:36 Zithromax/Ns IV 04/24/21 16:59 250 mls/hr Q24H WENDY Administration Cefepime HCl 2 gm in 100 mls @ 200 mls/hr 04/21/21 10:00 04/23/21 10:33 Cefepime/Ns 2 Gm/100 Ml IV 04/27/21 09:59 200 mls/hr Q24HR WENDY Administration Protocol Dextrose 1,000 mls @ 100 mls/hr 04/21/21 13:00 04/23/21 10:31 D5w IV 100 mls/hr DIRECT WENDY Administration Insulin Glargine 25 units 04/22/21 22:00 04/22/21 22:49 Insulin Glargine 100 Units/Ml SUB-Q 25 units QHS WENDY Administration Insulin Human Lispro 0 unit 04/22/21 11:00 04/23/21 06:42 Insulin Lispro 100 Unit/Ml SUB-Q 3 unit Q6H WENDY Administration Protocol Methylprednisolone Sodium Succinate 40 mg 04/20/21 22:00 04/23/21 06:42 Methylprednisolone Sod Succinate 40 Mg/1 Ml Inj IV 40 mg Q8HR WENDY Administration Ondansetron HCl 4 mg 04/20/21 14:09 Ondansetron 4 Mg/2 Ml Inj IV Q8H PRN Nausea And Vomiting Oxycodone/Acetaminophen 1 tab 04/20/21 14:09 Oxycodone /Acetaminophen 5-325mg Tab PO Q12H PRN Pain, Moderate (4-6) Simple Syrup 15 ml 04/23/21 08:37 Simple Syrup 15 Ml FEEDTUBE PRN PRN Hypoglycemia Simple Syrup 30 ml 04/23/21 08:37 Simple Syrup 15 Ml FEEDTUBE PRN PRN Hypoglycemia Sodium Bicarbonate 325 mg 04/23/21 08:37 Sodium Bicarbonate 325 Mg Tab FEEDTUBE PRN PRN For Clogged Feeding Tube Sodium Chloride 10 ml 04/20/21 22:00 04/23/21 10:37 Sodium Chloride 0.9% 10 Ml Flush Syringe IV 10 ml BID WENDY Administration Sodium Chloride 10 ml 04/20/21 14:09 Sodium Chloride 0.9% 10 Ml Flush Syringe IV PRN PRN LINE FLUSH Zinc Sulfate 220 mg 04/20/21 22:00 04/23/21 10:53 Zinc Sulfate 220 Mg Cap PO Not Given BID WENDY Nutrition/Malnutrition Assess - Dietary Evaluation Nutrition/Malnutrition Findings: Nutrition Notes Start: 04/21/21 13:58 Freq: Status: Active Protocol: Document 04/23/21 08:31 HOWIE (Rec: 04/23/21 08:37 HOWIE [id number]) Nutrition Notes Need for Assessment generated from: MD Order Initial or Follow up Reassessment Current Diagnosis Acute Kidney Injury,Decubitus( Pressure Ulcer),Diabetes, Sepsis,Hypertension,Heart Failure,Respiratory Failure Other Pertinent Diagnosis PNA, r/o Covid19, dementia, dysphagia Current Diet NPO Labs/Tests POC BG 153-315 Pertinent Medications Solu-Medrol Insulin Height 5 ft 5 in Weight 56.3 kg [place] Body Weight (kg) 56.81 BMI 20.6 Weight Status Appropriate Subjective/Other Information MD consult for TF. AUTO SERVICE ADVISOR has not yet reassessed pt. Burn Absent Trauma Absent GI Symptoms None Difficulty In Swallowing,Chewing Skin Integrity/Comment unstagable pressure wound present Current % PO Negligible Minimum of two criteria No Reduced Insole Bottom Filler Strength Measurably Reduced (severe) #1 Nutrition Diagnosis Inadequate oral intake Diagnosis Progress(for reassessment Continues documentation) Is patient on ventilator? No Is Patient Ambulatory and/or Out of Bed No REE-([facility]-confined to bed) 1359.828 Calculation Used for Recommendations [facility] Additional Notes protein needs:71 - 85g (1.25 - 1.5g/kgBW) fluid needs: 1 ml/kcal Nutrition Intervention Change Diet Order: Start TF as able or diet per AUTO SERVICE ADVISOR Nutrition Support: Glucerna 1.2 at 50 ml/hr Flush 200 ml q4h for hypernatremia. Resume free water flush of 100 ml q4h once hypernatremia resolved Kcal 1,440 Protein (gm) 72 Fluid (mL) 966 Goal #1 Meet at least 80% of protein and kcal needs via TF Anticipated Discharge Needs: unable to determine at this time Follow-Up By: 04/25/21 Additional Comments F/u: AUTO SERVICE ADVISOR recommendations, TF start and tolerance
--- NOTE | 2021-04-23 12:48 | Progress Note ---
Assessment and Plan CXR OK yesterday, CT patent, no air leak, CT removed, will order CXR.IF CXR ok patient can be discharged from my standpoint. Subjective Date of service: 04/23/21 Patient Reports: Positive: no new complaints Objective Vital Signs - 12hr 04/23/21 04/23/21 03:00 04:29 Temperature 97.9 F Pulse Rate 79 Respiratory 20 Rate Blood Pressure 124/59 O2 Sat by Pulse 92 97 Oximetry - General physical appearance no distress - Respiratory normal expansion, other (CT with no air leak, minimal drainage) - Labs 04/21/21 06:12 04/22/21 16:44 Diabetes panel 04/22/21 Range/Units 16:44 Sodium 158 H (137-145) mmol/L Potassium 3.8 D (3.6-5.0) mmol/L Chloride 126.9 H (98-107) mmol/L Carbon Dioxide 19 L (22-30) mmol/L BUN 112 H (7-17) mg/dL Creatinine 1.4 H (0.6-1.2) mg/dL Glucose 317 H (65-100) mg/dL Calcium 9.5 (8.4-10.2) mg/dL Calcium panel 04/22/21 04/22/21 Range/Units 16:44 16:44 Calcium 9.5 (8.4-10.2) mg/dL Phosphorus 2.80 (2.5-4.5) mg/dL Pituitary panel 04/22/21 Range/Units 16:44 Sodium 158 H (137-145) mmol/L Potassium 3.8 D (3.6-5.0) mmol/L Chloride 126.9 H (98-107) mmol/L Carbon Dioxide 19 L (22-30) mmol/L BUN 112 H (7-17) mg/dL Creatinine 1.4 H (0.6-1.2) mg/dL Glucose 317 H (65-100) mg/dL Calcium 9.5 (8.4-10.2) mg/dL Adrenal panel 04/22/21 Range/Units 16:44 Sodium 158 H (137-145) mmol/L Potassium 3.8 D (3.6-5.0) mmol/L Chloride 126.9 H (98-107) mmol/L Carbon Dioxide 19 L (22-30) mmol/L BUN 112 H (7-17) mg/dL Creatinine 1.4 H (0.6-1.2) mg/dL Glucose 317 H (65-100) mg/dL Calcium 9.5 (8.4-10.2) mg/dL
--- NOTE | 2021-04-23 13:04 | Progress Note ---
Assessment and Plan 1. Acute kidney injury: Vasomotor ODILON in the setting of volume depletion +/- hypotension. Urine studies ordered. Continue IV fluids. Monitor renal function. Creatinine level is improving. Avoid nephrotoxic agents. Meds dosage based on GFR. 2. FEN: Hypernatremia, 2/2 dehydration, on IV D5W, monitor. Hyperchloremic metabolic acidosis, monitor. Hypokalemia, replete K, monitor. Monitor lytes and volume status. 3. Bilateral Pneumonia, POA: Covid test negative. On Abx. 4. L Pneumothorax, POA: S/p chest tube removed. 5. Acute hypoxemic respiratory failure, POA: 2/2 PNA and pneumothorax. Supplemental oxygen. Monitor. 6. DM type 2, uncontrolled: Monitor. 7. Sacral decub. 8. Anemia, not POA: Monitor. 9. Hypertension. Follow BP. 10. Dementia. Subjective: Patient was seen and examined at the bedside. Examination: General appearance: well-developed, appears stated age, emaciated, not in distress, appears chronically ill HEENT: atraumatic, SHAR Neck: trachea midline Respiratory: bilateral decreased breath sounds Heart: S1S2, regular, no murmur Abdomen: soft, bowel sounds heard, NT Integumentary: no obvious rash Neurologic: lethargic, opens eyes Ext: no edema Subjective Date of service: 04/23/21 Objective - Vital Signs Vital signs: Vital Signs - 12hr 04/23/21 04/23/21 03:00 04:29 Temperature 97.9 F Pulse Rate 79 Respiratory 20 Rate Blood Pressure 124/59 O2 Sat by Pulse 92 97 Oximetry - Lab 04/23/21 14:47 04/23/21 14:47 Most recent lab results Calcium 9.5 mg/dL (8.4-10.2) 04/22/21 16:44 Phosphorus 2.80 mg/dL (2.5-4.5) 04/22/21 16:44 Magnesium 2.70 mg/dL (1.7-2.3) H 04/22/21 16:44 Medications & Allergies - Medications Allergies/Adverse Reactions: Allergies Penicillins Allergy (Verified 12/03/18 20:53) Hives meperidine [From Demerol] Adverse Reaction (Verified 12/03/18 20:53) Anaphylaxis morphine Adverse Reaction (Verified 12/03/18 20:53) Unknown Home Medications: Home Medications Medication Instructions Recorded Confirmed Last Taken Type DOXYCYCLINE Hyclate [Vibramycin 100 mg PO Q12HR #14 capsule 12/03/18 04/23/21 Unknown Rx CAP] Active Medications: Generic Name Dose Route Start Last Admin Trade Name Freq PRN Reason Stop Dose Admin Acetaminophen 650 mg 04/20/21 15:30 Acetaminophen 325 Mg Tab PO Q4H PRN Pain MILD(1-3)/Fever >100.5/WEST Albuterol 2.5 mg 04/20/21 14:09 Albuterol 2.5 Mg/3 Ml Nebu IH Q4HRT PRN Shortness Of Breath Lipase/Protease/Amylase 1 each 04/23/21 08:37 Lipase 10,500/Protease 25,000/Amylase 43,750 (Units) Dr Yates FEEDTUBE PRN PRN For Clogged Feeding Tube Ascorbic Acid 500 mg 04/20/21 22:00 04/23/21 10:53 Ascorbic Acid 500 Mg Tab PO Not Given BID WENDY Cholecalciferol 1,000 unit 04/21/21 10:00 04/23/21 10:53 Cholecalciferol (Vit D3) 1000 Unit (25 Mcg) Tab PO Not Given DAILY WENDY Heparin Sodium (Porcine) 5,000 unit 04/20/21 22:00 04/23/21 10:36 Heparin 5,000 Unit/1 Ml Vial SUB-Q 5,000 unit Q12HR WENDY Administration Hydromorphone HCl 0.5 mg 04/20/21 14:09 04/21/21 22:56 Hydromorphone 1 Mg/1 Ml Inj IV 0.5 mg Q3H PRN Administration Pain , Severe (7-10) Azithromycin 500 mg in 250 mls @ 250 mls/hr 04/20/21 16:00 04/22/21 20:36 Zithromax/Ns IV 04/24/21 16:59 250 mls/hr Q24H WENDY Administration Cefepime HCl 2 gm in 100 mls @ 200 mls/hr 04/21/21 10:00 04/23/21 10:33 Cefepime/Ns 2 Gm/100 Ml IV 04/27/21 09:59 200 mls/hr Q24HR WENDY Administration Protocol Dextrose 1,000 mls @ 100 mls/hr 04/21/21 13:00 04/23/21 10:31 D5w IV 100 mls/hr DIRECT WENDY Administration Insulin Glargine 25 units 04/22/21 22:00 04/22/21 22:49 Insulin Glargine 100 Units/Ml SUB-Q 25 units QHS WENDY Administration Insulin Human Lispro 0 unit 04/22/21 11:00 04/23/21 11:30 Insulin Lispro 100 Unit/Ml SUB-Q Not Given Q6H [facility] Protocol Methylprednisolone Sodium Succinate 40 mg 04/20/21 22:00 04/23/21 06:42 Methylprednisolone Sod Succinate 40 Mg/1 Ml Inj IV 40 mg Q8HR WENDY Administration Ondansetron HCl 4 mg 04/20/21 14:09 Ondansetron 4 Mg/2 Ml Inj IV Q8H PRN Nausea And Vomiting Oxycodone/Acetaminophen 1 tab 04/20/21 14:09 Oxycodone /Acetaminophen 5-325mg Tab PO Q12H PRN Pain, Moderate (4-6) Simple Syrup 15 ml 04/23/21 08:37 Simple Syrup 15 Ml FEEDTUBE PRN PRN Hypoglycemia Simple Syrup 30 ml 04/23/21 08:37 Simple Syrup 15 Ml FEEDTUBE PRN PRN Hypoglycemia Sodium Bicarbonate 325 mg 04/23/21 08:37 Sodium Bicarbonate 325 Mg Tab FEEDTUBE PRN PRN For Clogged Feeding Tube Sodium Chloride 10 ml 04/20/21 22:00 04/23/21 10:37 Sodium Chloride 0.9% 10 Ml Flush Syringe IV 10 ml BID WENDY Administration Sodium Chloride 10 ml 04/20/21 14:09 Sodium Chloride 0.9% 10 Ml Flush Syringe IV PRN PRN LINE FLUSH Zinc Sulfate 220 mg 04/20/21 22:00 04/23/21 10:53 Zinc Sulfate 220 Mg Cap PO Not Given BID [facility]
--- NOTE | 2021-04-23 14:16 | XRay Report ---
CHEST 1 VIEW INDICATION: chest tube removal. COMPARISON: None FINDINGS: Support devices: None. Left Heimlich chest tube has been removed. Heart: Within normal limits. CABG changes are noted. Lungs/Pleura: A large left pneumothorax has developed after left chest tube removal measuring up to 2 .7 cm in thickness from the left lateral wall. The right lung is clear. Additional findings: None. IMPRESSION: Large left pneumothorax after left chest tube removal. Left pneumothorax is estimated at 30-40%. CRITICAL RESULT: Time of Discovery (FISHER PURSE SEINE/CDT): 1307 Time of Communication (FISHER PURSE SEINE/CDT): 1309 Licensed Practitioner Receiving Report: EDMOND Galvez Read-Back Performed: Yes. Signer Name: Jose Dorman Jr, MD Signed: 04/23/2021 2:12 PM Workstation Name: [id number]
--- NOTE | 2021-04-23 14:23 | Event Note ---
CXR reveals ptx on left side following CT removal, no crepitance on chest wall, will repeat CXR in 2 hours, patient on oxygen.
--- NOTE | 2021-04-23 14:27 | Electrocardiograph Report ---
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
--- NOTE | 2021-04-23 15:23 | XRay Report ---
CHEST 1 VIEW, 1442 hours INDICATION / CLINICAL INFORMATION: follow up on pneumothorax. COMPARISON: 04/23/2021 at 1318 hours FINDINGS: SUPPORT DEVICES: Feeding tube has been placed. The tip is projecting within the mid to distal aspect of the stomach and appears to be in satisfactory position. HEART / MEDIASTINUM: No significant abnormality. LUNGS / PLEURA: Right lung remains grossly clear. A large pneumothorax persists on the left not appre ciably changed since the earlier chest radiograph. The transverse diameter is measuring 3 cm. There i s mild shift of the mediastinum to the right suggesting this pneumothorax may be entered some degree of tension. ADDITIONAL FINDINGS: Subcutaneous emphysema seen in the soft tissues of the lateral left chest wall. IMPRESSION: 1. Stable appearance of large left pneumothorax. However, I am concerned this may represent a tension pneumothorax based on minimal shift to the mediastinum to the right. 2. Satisfactory position of newly placed feeding tube. Signer Name: Krissy Ch MD Signed: 04/23/2021 3:18 PM Workstation Name: [id number]
[2021-04-23 15:31] LABS: Basophils # (Auto) 0.1 K/mm3 (0.0-0.1); Basophils % (Auto) 0.9 % (0.0-1.8); Eosinophils % (Auto) 0.1 % (0.0-4.3); Hematocrit 27.1 % (30.3-42.9); Hemoglobin 8.6 gm/dl (10.1-14.3); Lymphocytes # (Auto) 0.7 K/mm3 (1.2-5.4); Mean Corpuscular HGB Conc 32 % (30-34); Mean Corpuscular Volume 78 fl (79-97); Monocytes # (Auto) 0.2 K/mm3 (0.0-0.8); Monocytes % (Auto) 2.7 % (0.0-7.3); Platelet Count 251 K/mm3 (140-440); Red Blood Count 3.47 M/mm3 (3.65-5.03); Red Cell Distribution Width 18.7 % (13.2-15.2)
[2021-04-23] MEDS: AZITHROMYCIN/NS 500 MG/250 ML 500 MG/250 ML BAG IV SCH (15:35)
[2021-04-23 15:41] LABS: BUN/Creatinine Ratio 81; Blood Urea Nitrogen 81 mg/dL (7-17); Calcium 10.2 mg/dL (8.4-10.2); Hemolysis Index 8
--- NOTE | 2021-04-23 15:57 | Post Operative Note ---
Pre-op diagnosis: left ptx Post-op diagnosis: same Procedure: Left Chest tube insertion/ Heimlich CT Anesthesia: local Surgeon: TYLER VALENZUELA Estimated blood loss: none Pathology: none Condition: stable Disposition: floor
--- NOTE | 2021-04-23 16:04 | Event Note ---
Date: 04/23/21 I have been asked to evaluate patient's sacral decubitus for debridement, patient should have CT pelvis with iv contrast to fully evaluate sacral decubitus, nutritional indices are poor, wound present on admission. Pt was in Hospice care. I will need to discuss options with the patient's family.
--- NOTE | 2021-04-23 16:29 | XRay Report ---
CHEST 1 VIEW 04/23/2021 3:22 PM INDICATION / CLINICAL INFORMATION: left chest tube placement. COMPARISON: 04/23/2021 FINDINGS: SUPPORT DEVICES: Left pleural catheter has been placed. Feeding tube appears unchanged. HEART / MEDIASTINUM: Unchanged LUNGS / PLEURA: Significant reduction in size in left pneumothorax following pleural catheter placeme nt. There is a small residual left pneumothorax. No pneumothorax. ADDITIONAL FINDINGS: No significant additional findings. IMPRESSION: 1. Significant reduction in size in left pneumothorax following catheter placement. There is a small residual left pneumothorax. Signer Name: Aldair Dodson MD Signed: 04/23/2021 4:24 PM Workstation Name: [id number]
--- NOTE | 2021-04-23 16:47 | Event Note ---
Date: 04/23/21 CXR demonstrates good left CT placement, I spoke with JARRETT / oldest daughter and caregiver about all aspects of her Mom's care, she is interested in her mom being evaluated for MCC placement. The family wants to discuss possible debridement of sacral decubitus. I spoke with Dr. Pennington / Hospitalist about all of this.
--- NOTE | 2021-04-23 16:58 | XRay Report ---
CHEST 1 VIEW, 1628 hours INDICATION / CLINICAL INFORMATION: Interval chest tube placement for pneumothorax.. COMPARISON: 04/23/2021 at 1602 hours FINDINGS: SUPPORT DEVICES: Positioning of left chest tube and previously placed feeding tube are stable. HEART / MEDIASTINUM: No significant abnormality. LUNGS / PLEURA: Unfortunately there are several skin folds overlying the left lung. The previously no sujata left pneumothorax appears grossly unchanged compared with the chest radiograph obtained 30 minute s earlier. ADDITIONAL FINDINGS: No significant additional findings. IMPRESSION: 1. Stable appearance of small residual left pneumothorax. 2. No significant interval change in the appearance the chest radiograph since most recent prior exam . Signer Name: Krissy Ch MD Signed: 04/23/2021 4:53 PM Workstation Name: [id number]
--- NOTE | 2021-04-23 17:22 | Gastroenterology Consultation ---
History of Present Illness - Reason for Consult Consult date: 04/23/21 PEG tube Requesting physician: CLARA HARO - History of Present Illness This is a 60 yo female with pmh of CVA, vascular dementia, HTN, DM, sacral ulcer, CAD s/p CABG, [facility] admitted for worsening AMS and respiratory distress. She was on hospice but it has been revoked. Found to have pneumothorax and pneumonia s/p chest tube placement. GI consulted for PEG tube placement. Patient is nonverbal and confused. Unable to give history. Unclear if she has been eating much prior to admission. Speech evaluated swallow and failed swallow test. her initial chest tube was removed but had new chest tube placed on left for pneumothorax. Medication list reviewed. Past History Past Medical History: CAD, diabetes, heart failure, hypertension, other (decubitus ulcer) Past Surgical History: CABG Social history: single. denies: smoking, alcohol abuse Family history: diabetes, hypertension Medications and Allergies Allergies Allergy/AdvReac Type Severity Reaction Status Date / Time Penicillins Allergy Hives Verified 12/03/18 20:53 meperidine [From Demerol] AdvReac Anaphylaxis Verified 12/03/18 20:53 morphine AdvReac Unknown Verified 12/03/18 20:53 Home Medications Medication Instructions Recorded Confirmed Last Taken Type DOXYCYCLINE Hyclate [Vibramycin 100 mg PO Q12HR #14 capsule 12/03/18 04/23/21 Unknown Rx CAP] Active Meds: Active Medications Acetaminophen (Acetaminophen 325 Mg Tab) 650 mg PO Q4H PRN PRN Reason: Pain MILD(1-3)/Fever >100.5/WEST Albuterol (Albuterol 2.5 Mg/3 Ml Nebu) 2.5 mg IH Q4HRT PRN PRN Reason: Shortness Of Breath Lipase/Protease/Amylase (Lipase 10,500/Protease 25,000/Amylase 43,750 (Units) Dr Yates) 1 each FEEDTUBE PRN PRN PRN Reason: For Clogged Feeding Tube Ascorbic Acid (Ascorbic Acid 500 Mg Tab) 500 mg PO BID [facility] Last Admin: 04/23/21 10:53 Dose: Not Given Documented by: Cholecalciferol (Cholecalciferol (Vit D3) 1000 Unit (25 Mcg) Tab) 1,000 unit PO DAILY [facility] Last Admin: 04/23/21 10:53 Dose: Not Given Documented by: Heparin Sodium (Porcine) (Heparin 5,000 Unit/1 Ml Vial) 5,000 unit SUB-Q Q12HR [facility] Last Admin: 04/23/21 10:36 Dose: 5,000 unit Documented by: Hydromorphone HCl (Hydromorphone 1 Mg/1 Ml Inj) 0.5 mg IV Q3H PRN PRN Reason: Pain , Severe (7-10) Last Admin: 04/21/21 22:56 Dose: 0.5 mg Documented by: Azithromycin (Zithromax/Ns) 500 mg in 250 mls @ 250 mls/hr IV Q24H [facility] Stop: 04/24/21 16:59 Last Admin: 04/23/21 15:35 Dose: 250 mls/hr Documented by: Cefepime HCl (Cefepime/Ns 2 Gm/100 Ml) 2 gm in 100 mls @ 200 mls/hr IV Q24HR WENDY; Protocol Stop: 04/27/21 09:59 Last Admin: 04/23/21 10:33 Dose: 200 mls/hr Documented by: Dextrose (D5w) 1,000 mls @ 100 mls/hr IV DIRECT WENDY Last Admin: 04/23/21 10:31 Dose: 100 mls/hr Documented by: Insulin Glargine (Insulin Glargine 100 Units/Ml) 25 units SUB-Q QHS WENDY Last Admin: 04/22/21 22:49 Dose: 25 units Documented by: Insulin Human Lispro (Insulin Lispro 100 Unit/Ml) 0 unit SUB-Q Q6H WENDY; Protocol Last Admin: 04/23/21 11:30 Dose: Not Given Documented by: Methylprednisolone Sodium Succinate (Methylprednisolone Sod Succinate 40 Mg/1 Ml Inj) 40 mg IV Q8HR [facility] Last Admin: 04/23/21 14:00 Dose: 40 mg Documented by: Ondansetron HCl (Ondansetron 4 Mg/2 Ml Inj) 4 mg IV Q8H PRN PRN Reason: Nausea And Vomiting Oxycodone/Acetaminophen (Oxycodone /Acetaminophen 5-325mg Tab) 1 tab PO Q12H PRN PRN Reason: Pain, Moderate (4-6) Simple Syrup (Simple Syrup 15 Ml) 15 ml FEEDTUBE PRN PRN PRN Reason: Hypoglycemia Simple Syrup (Simple Syrup 15 Ml) 30 ml FEEDTUBE PRN PRN PRN Reason: Hypoglycemia Sodium Bicarbonate (Sodium Bicarbonate 325 Mg Tab) 325 mg FEEDTUBE PRN PRN PRN Reason: For Clogged Feeding Tube Sodium Chloride (Sodium Chloride 0.9% 10 Ml Flush Syringe) 10 ml IV BID [facility] Last Admin: 04/23/21 10:37 Dose: 10 ml Documented by: Sodium Chloride (Sodium Chloride 0.9% 10 Ml Flush Syringe) 10 ml IV PRN PRN PRN Reason: LINE FLUSH Zinc Sulfate (Zinc Sulfate 220 Mg Cap) 220 mg PO BID [facility] Last Admin: 04/23/21 10:53 Dose: Not Given Documented by: Review of Systems - Review of Systems ROS unobtainable: due to mental status Exam - Constitutional Vital Signs: Temp Pulse Resp BP Pulse Ox 97.9 F 79 20 124/59 97 04/23/21 04:29 04/23/21 04:29 04/23/21 04:29 04/23/21 04:29 04/23/21 10:00 General appearance: no acute distress - Cardiovascular Rhythm: regular Heart Sounds: Present: S1 & S2 - Gastrointestinal General gastrointestinal: Present: soft, non-tender, non-distended, other (surgical scar) - Integumentary Integumentary: Present: warm - Neurologic Neurological: other (nonverbal) - Labs CBC & Chem 7: 04/23/21 14:47 04/23/21 14:47 Lab Results: Laboratory Results - last 24 hr 04/22/21 04/22/21 04/22/21 16:44 16:44 16:44 WBC RBC Hgb Hct MCV MCH MCHC RDW Plt Count Lymph % (Auto) [place] % (Auto) Eos % (Auto) Baso % (Auto) Lymph # (Auto) [place] # (Auto) Eos # (Auto) Baso # (Auto) Seg Neutrophils % Seg Neutrophils # Sodium 158 H Potassium 3.8 D Chloride 126.9 H Carbon Dioxide 19 L Anion Gap 16 BUN 112 H Creatinine 1.4 H Estimated GFR BUN/Creatinine Ratio Glucose 317 H POC Glucose Calcium 9.5 Phosphorus 2.80 Magnesium 2.70 H PTH Intact 20.03 04/22/21 04/22/21 04/23/21 18:05 22:14 06:35 WBC RBC Hgb Hct MCV MCH MCHC RDW Plt Count Lymph % (Auto) [place] % (Auto) Eos % (Auto) Baso % (Auto) Lymph # (Auto) [place] # (Auto) Eos # (Auto) Baso # (Auto) Seg Neutrophils % Seg Neutrophils # Sodium Potassium Chloride Carbon Dioxide Anion Gap BUN Creatinine Estimated GFR BUN/Creatinine Ratio Glucose POC Glucose 236 H 153 H 170 H Calcium Phosphorus Magnesium PTH Intact 04/23/21 04/23/21 04/23/21 12:26 14:47 14:47 WBC 7.4 RBC 3.47 L Hgb 8.6 L Hct 27.1 L MCV 78 L MCH 25 L MCHC 32 RDW 18.7 H Plt Count 251 Lymph % (Auto) 10.0 L [place] % (Auto) 2.7 Eos % (Auto) 0.1 Baso % (Auto) 0.9 Lymph # (Auto) 0.7 L [place] # (Auto) 0.2 Eos # (Auto) 0.0 Baso # (Auto) 0.1 Seg Neutrophils % 86.3 H Seg Neutrophils # 6.4 Sodium 154 H Potassium 3.5 L Chloride 122.5 H Carbon Dioxide 20 L Anion Gap 15 BUN 81 H Creatinine 1.0 Estimated GFR > 60 BUN/Creatinine Ratio 81 Glucose 241 H POC Glucose 179 H Calcium 10.2 Phosphorus Magnesium PTH Intact Assessment and Plan This is a 60 yo female with pmh of CVA, vascular dementia, HTN, DM, sacral ulcer, CAD s/p CABG, [facility] admitted for worsening AMS and respiratory distress. She was on hospice but it has been revoked. Found to have pneumothorax and pneumonia s/p chest tube placement. GI consulted for PEG tube placement. # Dysphagia # Encephalopathy - spoke with Ms. Peraza, patient's daughter. patient has been taken care of at home with her and had recent decline in health over the past few months. Hospitalized 1 month ago at [facility] for pneumonia and since then, her mental status has been declining. Has not been eating much at all. - discussed PEG tube placement including nature and risks of potential complications. Also that PEG tube feeding may not reverse any underlying process. Patient had PEG tube in the past for about 2 years after her initial CVA post CABG. She is full code. She would like to proceed with PEG tube placement when clinically more stable to do so. - patient is not clinically stable for EGD/PEG at this time with respiratory status. new chest tube placed today. - please call us back when patient's more stable. Will also need cardiology evaluation given h/o CAD s/p CABG and CHF but no records or cardiac evaluation available. - recommend NG/dobhoff for feeding in the meantime. - management for sepsis/pneumonia per primary. - Patient Problems (1) Dysphagia as late effect of cerebrovascular accident (CVA) Current Visit: Yes Status: Acute
[2021-04-23] MEDS: POTASSIUM CHLORIDE 10 MEQ 10 MEQ/100 ML BAG IV SCH ×2 (20:54→23:31)
[2021-04-24] MEDS: POTASSIUM CHLORIDE 10 MEQ 10 MEQ/100 ML BAG IV SCH (00:56)
[2021-04-24] MEDS: INSULIN LISPRO 100 UNIT/ML SUB-Q SCH ×5 (00:59→23:47)
[2021-04-24] MEDS: INSULIN GLARGINE 100 UNITS/ML SUB-Q SCH ×2 (01:01→23:47)
[2021-04-24] MEDS: DEXTROSE 5% IN WATER 1,000 ML IV SCH ×3 (01:02→17:53)
[2021-04-24] MEDS: methylPREDNISolone Sod Succinate 40 MG/1 ML INJ IV SCH ×3 (06:24→23:46)
--- NOTE | 2021-04-24 08:48 | Event Note ---
Date: 04/24/21 Hemodyn stable, GI consult noted and appreciated. Continue CT to suction a minimum of 48 hours, will order CT pelvis to evaluate sacral decubitus. The family is still consideration whether to consent for possible debridement of sacral decubitus. This patient has advanced comorbid conditions following stroke after Open Heart surgery in remote past. Her baseline function is very poor.
--- NOTE | 2021-04-24 09:16 | Progress Note ---
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 Patient is confused and lethargic the time my evaluation and is unable to provide history. Patient also has diminished cognition which is her baseline. Patient is unable to provide history. Patient history provided by EMS staff, ED staff, as well as the patient's daughter who was contacted via telephone for interview. As per daughter the patient is currently a patient receiving hospice care from [facility]. Patient daughter elects to revoke hospice benefit and seek aggressive medical therapy. [facility] notified and acknowledge patient revocation. Patient daughter reports that patient experience fever 103 F today, and has experienced decreased oral intake and decreased responsiveness over the past 2 days with progressively worsening symptoms over the same alejo eframe. EMS was notified and upon arrival the patient was found to be in distress with a pulse oximetry of 65% on room air. The patient was placed on submental oxygen and transported to [facility] for further care and evaluation of the aforementioned symptoms. The patient was seen and evaluated in the emergency department. All lab and imaging studies reviewed. The patient was found to have a pulse oximetry of 82% on submental oxygen which is consistent with acute hypoxemic respiratory failure. Chest x-ray revealed pneumonia as well as left pneumothorax. The patient was also found to have acute kidney injury, systemic inflammatory response syndrome, hypokalemia. The patient underwent chest tube placement in the emergency department with improvement in symptoms. Surgery team consulted in ED. Patient admitted to medical floor due to increased risk of worsening symptoms. Patient initiated on pneumonia protocol as well as coronavirus protocol. The patient has diminished cognition but has a positive gag reflex and is able to protect her airway without difficulty at this time. No reported history of chest pain, palpitation, productive cough, skin rash, recent ill contacts, or known exposure to COVID-19. No prior admission for review. No medication listed at time of admission for reconciliation. Advanced care planning conducted in ED. CT HEAD: Negative CT chest: Chest tube in place, noted opacities 04/21: Patient lethargic, chest tube remains in place, Wound care consult, as piration precautions. Wean as tolerated. Await COVID 19. Monitor Sodium level, awaiting labs, check q8hr. 04/22: Chest tube still positive air leak. Patient still hypoxic, while sodium level is improving metabolic acidosis has been noted. Patient's Covid test was negative. We will continue current management and adjust insulin for better blood sugar management. May require some Kayexalate due to hyper kalemia but considering severe hypokalemia just the day before we will monitor closely. Renal function showing some improvement continue management pulmonary and nephrology input noted. Urine culture positive for fungal Judith will monitor closely. 04/23: Penumonthorax appears to have resolved, patient down to 3 liters of Oxygen via NC, tolerating. she is still very lethargic, failed swallow eval. awaiting to hear from family if to progress with PEG placement. Patient was recently on Hospice but that was rescinded. Overall poor prognosis. Continue monitoring Hypernatremia. Surgeon re-evaluating Chest tube today 04/24 -Patient is on chest tube for pnuemothorax. Surgery is following. Sacral decubitus ulcer. Patient was evaluated by GI for PEG tube placement and will place PEG tube once patient is stable. Wants to be reconsulted once stable. Patient was on 2 L of oxygen. (1) Acute hypoxemic respiratory failure Current Visit: Yes Status: Acute Plan to address problem: Chest x-ray, supplemental oxygen, pulse oximetry, chest tube placed in the emergency department. Repeat chest x-ray in a.m. (2) Pneumonia Current Visit: Yes Status: Acute Plan to address problem: Pneumonia protocol: Chest x-ray, CBC, CMP, supplemental oxygen, pulse oximetry, nebulizer therapy, blood culture. (3) Acute kidney injury (ODILON) with acute tubular necrosis (ATN) Current Visit: Yes Status: Acute Plan to address problem: BMP, IV fluid resuscitation therapy, repeat BMP in a.m. to monitor serum creatinine as well as GFR (4) Hypokalemia Current Visit: Yes Status: Acute Plan to address problem: Repleted in ED, repeat BMP (5) Vascular dementia Current Visit: Yes Status: Acute Qualifiers: Dementia behavioral disturbance: without behavioral disturbance Qualified Code(s): F01.50 - Vascular dementia without behavioral disturbance Plan to address problem: Verbal prompting, verbal redirection, benzodiazepine therapy as clinically indicated (6) Cerebral atherosclerosis Current Visit: Yes Status: Acute Plan to address problem: Antiplatelet therapy, supportive care, risk factor reduction. (7) Dysphagia as late effect of cerebrovascular accident (CVA) Current Visit: Yes Status: Acute Plan to address problem: Pured diet, assistance with meals, supportive care. (8) Spontaneous pneumothorax Current Visit: Yes Status: Acute Plan to address problem: Chest tube placed in the emergency department, chest x-ray, postoperative chest x-ray, surgery team consulted, repeat chest x-ray in a.m. (9) Suspected COVID-19 virus infection Current Visit: Yes Status: Acute Plan to address problem: Coronavirus protocol: IV steroid therapy, IV antibiotic therapy, supplemental oxygen,, pulse oximetry, vitamin C therapy, vitamin D therapy, zinc therapy, prophylactic anticoagulation, coronavirus PCR ordered and is pending at time of admission. (10) DVT prophylaxis Current Visit: Yes Status: Acute Plan to address problem: SCD to bilateral lower extremities while in bed, prophylactic anticoagulation (11) Advance care planning Current Visit: Yes Status: Acute Plan to address problem: Disease education conducted, care plan discussed, diagnoses discussed, prognosis discussed, patient daughter knowledges understanding and agreement with care plan. Patient daughter elects to revoke hospice benefit and treat patient with aggressive medical therapy. Patient daughter knowledges understanding of prognosis. Patient is full code, +30 minutes. History Interval history: Patient was seen and evaluated this morning Patient was weak, she was not communicative Hospitalist Physical - Physical exam Narrative exam: Not in cardiopulmonary distress. The patient appeared well nourished and normally developed. Vital signs as documented. Head exam is unremarkable. No scleral icterus . Neck is without jugular venous distension, thyromegaly, or carotid bruits. Lungs are clear to auscultation. Cardiac exam reveals regular rate and Rhythm. Abdominal exam reveals normal bowel sounds, nontender, no organomegaly. Extremities are nonedematous and both femoral and pedal pulses are normal. CARBURETOR SPECIALIST: confused, very weak and not talking. No focal weakness. - Constitutional Vitals: Temp Pulse Resp BP Pulse Ox 97.9 F 97 H 12 152/86 96 04/24/21 04:13 04/24/21 04:13 04/24/21 04:13 04/24/21 04:13 04/24/21 08:42 General appearance: Present: mild distress, cachectic Results - Labs CBC & Chem 7: 04/23/21 14:47 04/23/21 14:47 Labs: Laboratory Last Values WBC 7.4 K/mm3 (4.5-11.0) 04/23/21 14:47 RBC 3.47 M/mm3 (3.65-5.03) L 04/23/21 14:47 Hgb 8.6 gm/dl (10.1-14.3) L 04/23/21 14:47 Hct 27.1 % (30.3-42.9) L 04/23/21 14:47 MCV 78 fl (79-97) L 04/23/21 14:47 MCH 25 pg (28-32) L 04/23/21 14:47 MCHC 32 % (30-34) 04/23/21 14:47 RDW 18.7 % (13.2-15.2) H 04/23/21 14:47 Plt Count 251 K/mm3 (140-440) 04/23/21 14:47 Lymph % (Auto) 10.0 % (13.4-35.0) L 04/23/21 14:47 [place] % (Auto) 2.7 % (0.0-7.3) 04/23/21 14:47 Eos % (Auto) 0.1 % (0.0-4.3) 04/23/21 14:47 Baso % (Auto) 0.9 % (0.0-1.8) 04/23/21 14:47 Lymph # (Auto) 0.7 K/mm3 (1.2-5.4) L 04/23/21 14:47 [place] # (Auto) 0.2 K/mm3 (0.0-0.8) 04/23/21 14:47 Eos # (Auto) 0.0 K/mm3 (0.0-0.4) 04/23/21 14:47 Baso # (Auto) 0.1 K/mm3 (0.0-0.1) 04/23/21 14:47 Add Manual Diff Complete 04/20/21 08:54 Total Counted 100 04/20/21 08:54 Seg Neutrophils % 86.3 % (40.0-70.0) H 04/23/21 14:47 Seg Neuts % (Manual) 81.0 % (40.0-70.0) H 04/20/21 08:54 Band Neutrophils % 2.0 % 08/06/21 08:54 Lymphocytes % (Manual) 12.0 % (13.4-35.0) L 04/20/21 08:54 Monocytes % (Manual) 5.0 % (0.0-7.3) 04/20/21 08:54 Nucleated RBC % Not Reportable 04/20/21 08:54 Seg Neutrophils # 6.4 K/mm3 (1.8-7.7) 04/23/21 14:47 Seg Neutrophils # Man 5.3 K/mm3 (1.8-7.7) 04/20/21 08:54 Band Neutrophils # 0.1 K/mm3 04/20/21 08:54 Lymphocytes # (Manual) 0.8 K/mm3 (1.2-5.4) L 04/20/21 08:54 Abs React Lymphs (Man) 0.0 K/mm3 04/20/21 08:54 Monocytes # (Manual) 0.3 K/mm3 (0.0-0.8) 04/20/21 08:54 Eosinophils # (Manual) 0.0 K/mm3 (0.0-0.4) 04/20/21 08:54 Basophils # (Manual) 0.0 K/mm3 (0.0-0.1) 04/20/21 08:54 Metamyelocytes # 0.0 K/mm3 04/20/21 08:54 Myelocytes # 0.0 K/mm3 04/20/21 08:54 Promyelocytes # 0.0 K/mm3 04/20/21 08:54 Blast Cells # 0.0 K/mm3 04/20/21 08:54 WBC Morphology Not Reportable 04/20/21 08:54 Hypersegmented Neuts Not Reportable 04/20/21 08:54 Hyposegmented Neuts Not Reportable 04/20/21 08:54 Hypogranular Neuts Not Reportable 04/20/21 08:54 Smudge Cells Not Reportable 04/20/21 08:54 Toxic Granulation Not Reportable 04/20/21 08:54 Toxic Vacuolation Not Reportable 04/20/21 08:54 Dohle Bodies Not Reportable 04/20/21 08:54 Pelger-Huet Anomaly Not Reportable 04/20/21 08:54 Gabe Rods Not Reportable 04/20/21 08:54 Platelet Estimate Consistent w auto 04/20/21 08:54 Clumped Platelets Not Reportable 04/20/21 08:54 Plt Clumps, EDTA Not Reportable 04/20/21 08:54 Large Platelets Not Reportable 04/20/21 08:54 Giant Platelets Not Reportable 04/20/21 08:54 Platelet Satelliting Not Reportable 04/20/21 08:54 Plt Morphology Comment Not Reportable 04/20/21 08:54 RBC Morphology Not Reportable 04/20/21 08:54 Dimorphic RBCs Not Reportable 04/20/21 08:54 Polychromasia Not Reportable 04/20/21 08:54 Hypochromasia 1+ 04/20/21 08:54 Poikilocytosis Not Reportable 04/20/21 08:54 Anisocytosis 1+ 04/20/21 08:54 Microcytosis Not Reportable 04/20/21 08:54 Macrocytosis Not Reportable 04/20/21 08:54 Spherocytes Not Reportable 04/20/21 08:54 Pappenheimer Bodies Not Reportable 04/20/21 08:54 Sickle Cells Not Reportable 04/20/21 08:54 Target Cells Not Reportable 04/20/21 08:54 Tear Drop Cells Not Reportable 04/20/21 08:54 Ovalocytes Not Reportable 04/20/21 08:54 Helmet Cells Not Reportable 04/20/21 08:54 [place] Bodies Not Reportable 04/20/21 08:54 [place] Rings Not Reportable 04/20/21 08:54 [place] Cells Not Reportable 04/20/21 08:54 Bite Cells Not Reportable 04/20/21 08:54 Crenated Cell Not Reportable 04/20/21 08:54 Elliptocytes Not Reportable 04/20/21 08:54 Acanthocytes (Spur) Not Reportable 04/20/21 08:54 Rouleaux Not Reportable 04/20/21 08:54 Hemoglobin C Crystals Not Reportable 04/20/21 08:54 Schistocytes Not Reportable 04/20/21 08:54 Malaria parasites Not Reportable 04/20/21 08:54 Chris Bodies Not Reportable 04/20/21 08:54 Hem Pathologist Commnt No 04/20/21 08:54 PT 15.6 Sec. (12.2-14.9) H 04/20/21 08:54 INR 1.19 (0.87-1.13) H 04/20/21 08:54 D-Dimer 840.47 ng/mlDDU (0-234) H 04/20/21 15:17 VBG pH 7.382 (7.320-7.420) 04/20/21 08:54 Sodium 154 mmol/L (137-145) H 04/23/21 14:47 Potassium 3.5 mmol/L (3.6-5.0) L 04/23/21 14:47 Chloride 122.5 mmol/L (98-107) H 04/23/21 14:47 Carbon Dioxide 20 mmol/L (22-30) L 04/23/21 14:47 Anion Gap 15 mmol/L 04/23/21 14:47 BUN 81 mg/dL (7-17) H 04/23/21 14:47 Creatinine 1.0 mg/dL (0.6-1.2) 04/23/21 14:47 Estimated GFR > 60 ml/min 04/23/21 14:47 BUN/Creatinine Ratio 81 % 04/23/21 14:47 Glucose 241 mg/dL (65-100) H 04/23/21 14:47 POC Glucose 252 mg/dL (70-105) H 04/24/21 06:13 Lactic Acid 2.60 mmol/L (0.7-2.0) H* 04/20/21 15:17 Calcium 10.2 mg/dL (8.4-10.2) 04/23/21 14:47 Phosphorus 2.80 mg/dL (2.5-4.5) 04/22/21 16:44 Magnesium 2.70 mg/dL (1.7-2.3) H 04/22/21 16:44 Ferritin 508.5 ng/mL (10.0-200.0) H 04/20/21 15:17 Total Bilirubin 0.40 mg/dL (0.1-1.2) 04/20/21 08:54 AST 12 units/L (5-40) 04/20/21 08:54 ALT 9 units/L (7-56) 04/20/21 08:54 Alkaline Phosphatase 61 units/L (35-129) 04/20/21 08:54 Lactate Dehydrogenase 189 units/L (91-180) H 04/20/21 15:17 C-Reactive Protein 19.10 mg/dL (0.00-1.30) H 04/20/21 15:17 Total Protein 8.5 g/dL (6.3-8.2) H 04/20/21 08:54 Albumin 3.4 g/dL (3.9-5) L 04/20/21 08:54 Albumin/Globulin Ratio 0.7 % 04/20/21 08:54 Procalcitonin 2.70 ng/mL (<0.15) 04/20/21 15:17 PTH Intact 20.03 pg/mL (15-65) 04/22/21 16:44 Urine Color Yellow (Yellow) 04/20/21 14:29 Urine Turbidity Turbid (Clear) 04/20/21 14:29 Urine pH 5.0 (5.0-7.0) 04/20/21 14:29 Ur Specific [place] 1.017 (1.003-1.030) 04/20/21 14:29 Urine Protein 100 mg/dl mg/dL (Negative) 04/20/21 14:29 Urine Glucose (UA) Neg mg/dL (Negative) 04/20/21 14:29 Urine Ketones Neg mg/dL (Negative) 04/20/21 14:29 Urine Blood Mod (Negative) 04/20/21 14:29 Urine Nitrite Neg (Negative) 04/20/21 14:29 Urine Bilirubin Neg (Negative) 04/20/21 14:29 Urine Urobilinogen < 2.0 mg/dL (<2.0) 04/20/21 14:29 Ur Leukocyte Esterase Lg (Negative) 04/20/21 14:29 Urine WBC (Auto) > 182.0 /HPF (0.0-6.0) H 04/20/21 14:29 Urine RBC (Auto) > 182.0 /HPF (0.0-6.0) 04/20/21 14:29 U Epithel Cells (Auto) 2.0 /HPF (0-13.0) 04/20/21 14:29 Urine WBC Clumps 2+ /HPF 04/20/21 14:29 Nasal Screen MRSA (PCR) Positive (Negative) 04/21/21 Unknown Coronavirus (PCR) Negative (Negative) 04/20/21 09:30 Microbiology: Microbiology 04/20/21 08:54 Peripheral/Venous Blood Culture - Preliminary NO GROWTH AFTER 72 HOURS 04/20/21 08:54 Peripheral/Venous Blood Culture - Preliminary NO GROWTH AFTER 72 HOURS Nuno/IV: Voiding Method Incontinent Active Medications - Current Medications Current Medications: Generic Name Dose Route Start Last Admin Trade Name Freq PRN Reason Stop Dose Admin Acetaminophen 650 mg 04/20/21 15:30 Acetaminophen 325 Mg Tab PO Q4H PRN Pain MILD(1-3)/Fever >100.5/WEST Albuterol 2.5 mg 04/20/21 14:09 Albuterol 2.5 Mg/3 Ml Nebu IH Q4HRT PRN Shortness Of Breath Lipase/Protease/Amylase 1 each 04/23/21 08:37 Lipase 10,500/Protease 25,000/Amylase 43,750 (Units) Dr Yates FEEDTUBE PRN PRN For Clogged Feeding Tube Ascorbic Acid 500 mg 04/20/21 22:00 04/23/21 21:06 Ascorbic Acid 500 Mg Tab PO 500 mg BID WENDY Administration Cholecalciferol 1,000 unit 04/21/21 10:00 04/23/21 10:53 Cholecalciferol (Vit D3) 1000 Unit (25 Mcg) Tab PO Not Given DAILY WENDY Heparin Sodium (Porcine) 5,000 unit 04/20/21 22:00 04/23/21 21:04 Heparin 5,000 Unit/1 Ml Vial SUB-Q 5,000 unit Q12HR WENDY Administration Hydromorphone HCl 0.5 mg 04/20/21 14:09 04/21/21 22:56 Hydromorphone 1 Mg/1 Ml Inj IV 0.5 mg Q3H PRN Administration Pain , Severe (7-10) Azithromycin 500 mg in 250 mls @ 250 mls/hr 04/20/21 16:00 04/23/21 15:35 Zithromax/Ns IV 04/24/21 16:59 250 mls/hr Q24H WENDY Administration Cefepime HCl 2 gm in 100 mls @ 200 mls/hr 04/21/21 10:00 04/23/21 10:33 Cefepime/Ns 2 Gm/100 Ml IV 04/27/21 09:59 200 mls/hr Q24HR WENDY Administration Protocol Dextrose 1,000 mls @ 100 mls/hr 04/21/21 13:00 04/24/21 01:06 D5w IV 100 mls/hr DIRECT WENDY Administration Insulin Glargine 25 units 04/22/21 22:00 04/24/21 01:01 Insulin Glargine 100 Units/Ml SUB-Q 25 units QHS WENDY Administration Insulin Human Lispro 0 unit 04/22/21 11:00 04/24/21 06:23 Insulin Lispro 100 Unit/Ml SUB-Q 6 unit Q6H WENDY Administration Protocol Methylprednisolone Sodium Succinate 40 mg 04/20/21 22:00 04/24/21 06:24 Methylprednisolone Sod Succinate 40 Mg/1 Ml Inj IV 40 mg Q8HR WENDY Administration Ondansetron HCl 4 mg 04/20/21 14:09 Ondansetron 4 Mg/2 Ml Inj IV Q8H PRN Nausea And Vomiting Oxycodone/Acetaminophen 1 tab 04/20/21 14:09 Oxycodone /Acetaminophen 5-325mg Tab PO Q12H PRN Pain, Moderate (4-6) Potassium Chloride 40 meq 04/24/21 09:10 Potassium Chloride 20 Meq Packet FEEDTUBE 04/24/21 09:11 ONCE ONE Simple Syrup 15 ml 04/23/21 08:37 Simple Syrup 15 Ml FEEDTUBE PRN PRN Hypoglycemia Simple Syrup 30 ml 04/23/21 08:37 Simple Syrup 15 Ml FEEDTUBE PRN PRN Hypoglycemia Sodium Bicarbonate 325 mg 04/23/21 08:37 Sodium Bicarbonate 325 Mg Tab FEEDTUBE PRN PRN For Clogged Feeding Tube Sodium Chloride 10 ml 04/20/21 22:00 04/23/21 21:05 Sodium Chloride 0.9% 10 Ml Flush Syringe IV 10 ml BID WENDY Administration Sodium Chloride 10 ml 04/20/21 14:09 Sodium Chloride 0.9% 10 Ml Flush Syringe IV PRN PRN LINE FLUSH Zinc Sulfate 220 mg 04/20/21 22:00 04/23/21 21:06 Zinc Sulfate 220 Mg Cap PO 220 mg BID WENDY Administration Nutrition/Malnutrition Assess - Dietary Evaluation Nutrition/Malnutrition Findings: Nutrition Notes Start: 04/21/21 13:58 Freq: Status: Active Protocol: Document 04/23/21 08:31 HOWIE (Rec: 04/23/21 08:37 HOWIE [email or web address]) Nutrition Notes Need for Assessment generated from: MD Order Initial or Follow up Reassessment Current Diagnosis Acute Kidney Injury,Decubitus( Pressure Ulcer),Diabetes, Sepsis,Hypertension,Heart Failure,Respiratory Failure Other Pertinent Diagnosis PNA, r/o Covid19, dementia, dysphagia Current Diet NPO Labs/Tests POC BG 153-315 Pertinent Medications Solu-Medrol Insulin Height 5 ft 5 in Weight 56.3 kg [place] Body Weight (kg) 56.81 BMI 20.6 Weight Status Appropriate Subjective/Other Information MD consult for TF. ZONE SUPERVISOR FIREARMS has not yet reassessed pt. Burn Absent Trauma Absent GI Symptoms None Difficulty In Swallowing,Chewing Skin Integrity/Comment unstagable pressure wound present Current % PO Negligible Minimum of two criteria No Reduced Assembly Supervisor Strength Measurably Reduced (severe) #1 Nutrition Diagnosis Inadequate oral intake Diagnosis Progress(for reassessment Continues documentation) Is patient on ventilator? No Is Patient Ambulatory and/or Out of Bed No REE-([facility]-confined to bed) 1359.828 Calculation Used for Recommendations [facility] Additional Notes protein needs:71 - 85g (1.25 - 1.5g/kgBW) fluid needs: 1 ml/kcal Nutrition Intervention Change Diet Order: Start TF as able or diet per ZONE SUPERVISOR FIREARMS Nutrition Support: Glucerna 1.2 at 50 ml/hr Flush 200 ml q4h for hypernatremia. Resume free water flush of 100 ml q4h once hypernatremia resolved Kcal 1,440 Protein (gm) 72 Fluid (mL) 966 Goal #1 Meet at least 80% of protein and kcal needs via TF Anticipated Discharge Needs: unable to determine at this time Follow-Up By: 04/25/21 Additional Comments F/u: ZONE SUPERVISOR FIREARMS recommendations, TF start and tolerance
[2021-04-24] MEDS ORDERED: POTASSIUM CHLORIDE 20 MEQ PACKET FEEDTUBE NR (09:30)
[2021-04-24] MEDS: CEFEPIME/NS 2 GM/100 ML 2 GM/100 ML BAG IV SCH (10:00)
[2021-04-24] MEDS: ZINC SULFATE 220 MG CAP PO SCH ×2 (10:00→23:45)
[2021-04-24] MEDS: CHOLECALCIFEROL (VIT D3) 1000 UNIT (25 mcg) TAB PO SCH (10:00)
[2021-04-24] MEDS: ASCORBIC ACID 500 MG TAB PO SCH ×2 (10:00→23:48)
[2021-04-24] MEDS: HEPARIN 5,000 UNIT/1 ML VIAL SUB-Q SCH ×2 (11:06→23:46)
--- NOTE | 2021-04-24 11:53 | Progress Note ---
Assessment and Plan 60 y/o female with Recurrent PTX this admission, admitted with PTX s/p chest tube now times 2 and hypoxic respiraotry secondary to PTX 1. Chest tube per surgery 2. Would continue supplemental oxygen and should be discharged to home on this if she does not have it already. Subjective Date of service: 04/24/21 Interval history: Chest tube in place,managed by surgery. Remains on NC. Objective Vital Signs - 12hr 04/24/21 04/24/21 04/24/21 04:13 08:42 10:37 Temperature 97.9 F Pulse Rate 97 H Respiratory 12 Rate Blood Pressure 152/86 O2 Sat by Pulse 99 96 98 Oximetry Constitutional: no acute distress Eyes: non-icteric ENT: oropharynx moist Neck: supple Effort: normal Ascultation: Bilateral: diminished breath sounds Cardiovascular: regular rate and rhythm Gastrointestinal: normoactive bowel sounds, soft, non-tender CBC and BMP: 04/23/21 14:47 04/23/21 14:47 ABG, PT/INR, D-dimer: PT/INR, D-dimer PT 15.6 Sec. (12.2-14.9) H 04/20/21 08:54 INR 1.19 (0.87-1.13) H 04/20/21 08:54 D-Dimer 840.47 ng/mlDDU (0-234) H 04/20/21 15:17 Abnormal lab findings: Abnormal Labs 04/20/21 04/20/21 04/20/21 08:54 08:54 08:54 RBC Hgb Hct MCV MCH 25 L RDW 18.2 H Lymph % (Auto) Lymph # (Auto) Seg Neutrophils % Seg Neuts % (Manual) 81.0 H Lymphocytes % (Manual) 12.0 L Lymphocytes # (Manual) 0.8 L PT 15.6 H INR 1.19 H D-Dimer Sodium 163 H* Potassium 2.8 L* Chloride 118.6 H Carbon Dioxide BUN 152 H Creatinine 2.0 H Glucose 147 H POC Glucose Lactic Acid Calcium 10.8 H Magnesium Ferritin Lactate Dehydrogenase C-Reactive Protein Total Protein 8.5 H Albumin 3.4 L Urine WBC (Auto) 04/20/21 04/20/21 04/20/21 08:54 14:29 15:17 RBC Hgb Hct MCV MCH RDW Lymph % (Auto) Lymph # (Auto) Seg Neutrophils % Seg Neuts % (Manual) Lymphocytes % (Manual) Lymphocytes # (Manual) PT INR D-Dimer Sodium Potassium Chloride Carbon Dioxide BUN Creatinine Glucose POC Glucose Lactic Acid 2.60 H* 2.60 H* Calcium Magnesium Ferritin Lactate Dehydrogenase C-Reactive Protein Total Protein Albumin Urine WBC (Auto) > 182.0 H 04/20/21 04/20/21 04/20/21 15:17 15:17 15:17 RBC Hgb Hct MCV MCH RDW Lymph % (Auto) Lymph # (Auto) Seg Neutrophils % Seg Neuts % (Manual) Lymphocytes % (Manual) Lymphocytes # (Manual) PT INR D-Dimer 840.47 H Sodium Potassium Chloride Carbon Dioxide BUN Creatinine Glucose 135 H POC Glucose Lactic Acid Calcium Magnesium Ferritin 508.5 H Lactate Dehydrogenase 189 H C-Reactive Protein 19.10 H Total Protein Albumin Urine WBC (Auto) 04/21/21 04/21/21 04/21/21 06:12 07:51 10:34 RBC 3.59 L Hgb 9.0 L Hct 29.1 L MCV MCH 25 L RDW 18.6 H Lymph % (Auto) Lymph # (Auto) Seg Neutrophils % 75.9 H Seg Neuts % (Manual) Lymphocytes % (Manual) Lymphocytes # (Manual) PT INR D-Dimer Sodium 161 H* Potassium 3.4 L D Chloride 124.9 H Carbon Dioxide 21 L BUN 123 H Creatinine 1.4 H Glucose 194 H POC Glucose 166 H Lactic Acid Calcium Magnesium Ferritin Lactate Dehydrogenase C-Reactive Protein Total Protein Albumin Urine WBC (Auto) 04/21/21 04/21/21 04/21/21 12:32 14:57 16:25 RBC Hgb Hct MCV MCH RDW Lymph % (Auto) Lymph # (Auto) Seg Neutrophils % Seg Neuts % (Manual) Lymphocytes % (Manual) Lymphocytes # (Manual) PT INR D-Dimer Sodium 160 H Potassium 3.0 L Chloride 127.1 H Carbon Dioxide 18 L BUN 121 H Creatinine 1.6 H Glucose 199 H POC Glucose 178 H 187 H Lactic Acid Calcium Magnesium Ferritin Lactate Dehydrogenase C-Reactive Protein Total Protein Albumin Urine WBC (Auto) 04/21/21 04/21/21 04/22/21 19:35 22:17 08:33 RBC Hgb Hct MCV MCH RDW Lymph % (Auto) Lymph # (Auto) Seg Neutrophils % Seg Neuts % (Manual) Lymphocytes % (Manual) Lymphocytes # (Manual) PT INR D-Dimer Sodium 157 H Potassium 5.3 H D Chloride 127.2 H Carbon Dioxide 15 L BUN 121 H Creatinine 1.5 H Glucose 221 H POC Glucose 205 H 312 H Lactic Acid Calcium Magnesium Ferritin Lactate Dehydrogenase C-Reactive Protein Total Protein Albumin Urine WBC (Auto) 04/22/21 04/22/21 04/22/21 13:26 16:44 16:44 RBC Hgb Hct MCV MCH RDW Lymph % (Auto) Lymph # (Auto) Seg Neutrophils % Seg Neuts % (Manual) Lymphocytes % (Manual) Lymphocytes # (Manual) PT INR D-Dimer Sodium 158 H Potassium Chloride 126.9 H Carbon Dioxide 19 L BUN 112 H Creatinine 1.4 H Glucose 317 H POC Glucose 315 H Lactic Acid Calcium Magnesium 2.70 H Ferritin Lactate Dehydrogenase C-Reactive Protein Total Protein Albumin Urine WBC (Auto) 04/22/21 04/22/21 04/23/21 18:05 22:14 06:35 RBC Hgb Hct MCV MCH RDW Lymph % (Auto) Lymph # (Auto) Seg Neutrophils % Seg Neuts % (Manual) Lymphocytes % (Manual) Lymphocytes # (Manual) PT INR D-Dimer Sodium Potassium Chloride Carbon Dioxide BUN Creatinine Glucose POC Glucose 236 H 153 H 170 H Lactic Acid Calcium Magnesium Ferritin Lactate Dehydrogenase C-Reactive Protein Total Protein Albumin Urine WBC (Auto) 04/23/21 04/23/21 04/23/21 12:26 14:47 14:47 RBC 3.47 L Hgb 8.6 L Hct 27.1 L MCV 78 L MCH 25 L RDW 18.7 H Lymph % (Auto) 10.0 L Lymph # (Auto) 0.7 L Seg Neutrophils % 86.3 H Seg Neuts % (Manual) Lymphocytes % (Manual) Lymphocytes # (Manual) PT INR D-Dimer Sodium 154 H Potassium 3.5 L Chloride 122.5 H Carbon Dioxide 20 L BUN 81 H Creatinine Glucose 241 H POC Glucose 179 H Lactic Acid Calcium Magnesium Ferritin Lactate Dehydrogenase C-Reactive Protein Total Protein Albumin Urine WBC (Auto) 04/23/21 04/23/21 04/24/21 18:28 23:34 06:13 RBC Hgb Hct MCV MCH RDW Lymph % (Auto) Lymph # (Auto) Seg Neutrophils % Seg Neuts % (Manual) Lymphocytes % (Manual) Lymphocytes # (Manual) PT INR D-Dimer Sodium Potassium Chloride Carbon Dioxide BUN Creatinine Glucose POC Glucose 222 H 257 H 252 H Lactic Acid Calcium Magnesium Ferritin Lactate Dehydrogenase C-Reactive Protein Total Protein Albumin Urine WBC (Auto)
--- NOTE | 2021-04-24 13:32 | Gastroenterology Progress Note ---
Assessment and Plan This is a 60 yo female with pmh of CVA, vascular dementia, HTN, DM, sacral ulcer, CAD s/p CABG, [facility] admitted for worsening AMS and respiratory distress. She was on hospice but it has been revoked. Found to have pneumothorax and pneumonia s/p chest tube placement. GI consulted for PEG tube placement. # Dysphagia # Encephalopathy - spoke with Ms. Peraza, patient's daughter. patient has been taken care of at home with her and had recent decline in health over the past few months. Hospitalized 1 month ago at [place] for pneumonia and since then, her mental status has been declining. Has not been eating much at all. - discussed PEG tube placement including nature and risks of potential complications. Also that PEG tube feeding may not reverse any underlying process. Patient had PEG tube in the past for about 2 years after her initial CVA post CABG. She is full code. She would like to proceed with PEG tube placement when clinically more stable to do so. - patient is not clinically stable for EGD/PEG at this time with respiratory status and with chest tube in place. - please call us back when patient's more stable. Will also need cardiology evaluation given h/o CAD s/p CABG and CHF but no records or cardiac evaluation available. - recommend NG/dobhoff for feeding in the meantime. - management for sepsis/pneumonia per primary. - GI will sign off but call us back when patient's more clinically stable for EGD/PEG. - Patient Problems (1) Dysphagia as late effect of cerebrovascular accident (CVA) Current Visit: Yes Status: Acute Subjective Date of service: 04/24/21 Interval history: Patient alert but not able to follow commands. Tube feeds via NG tube. Chest tub e in place Objective - Constitutional Vitals: Temp Pulse Resp BP Pulse Ox 97.9 F 97 H 12 152/86 98 04/24/21 04:13 04/24/21 04:13 04/24/21 04:13 04/24/21 04:13 04/24/21 10:37 General appearance: no acute distress - Respiratory Respiratory effort: normal, other (on NC, chest tube in place) - Cardiovascular Rhythm: regular Heart Sounds: Present: S1 & S2 - Gastrointestinal General gastrointestinal: Present: soft, non-tender, non-distended - Neurologic Neurological: disoriented - Labs CBC & Chem 7: 04/23/21 14:47 08/09/21 14:47 Labs: Laboratory Results - last 24 hr 04/23/21 04/23/21 04/23/21 14:47 14:47 18:28 WBC 7.4 RBC 3.47 L Hgb 8.6 L Hct 27.1 L MCV 78 L MCH 25 L MCHC 32 RDW 18.7 H Plt Count 251 Lymph % (Auto) 10.0 L Mcminn % (Auto) 2.7 Eos % (Auto) 0.1 Baso % (Auto) 0.9 Lymph # (Auto) 0.7 L Mcminn # (Auto) 0.2 Eos # (Auto) 0.0 Baso # (Auto) 0.1 Seg Neutrophils % 86.3 H Seg Neutrophils # 6.4 Sodium 154 H Potassium 3.5 L Chloride 122.5 H Carbon Dioxide 20 L Anion Gap 15 BUN 81 H Creatinine 1.0 Estimated GFR > 60 BUN/Creatinine Ratio 81 Glucose 241 H POC Glucose 222 H Calcium 10.2 04/23/21 04/24/21 04/24/21 23:34 06:13 13:12 WBC RBC Hgb Hct MCV MCH MCHC RDW Plt Count Lymph % (Auto) Mcminn % (Auto) Eos % (Auto) Baso % (Auto) Lymph # (Auto) Mcminn # (Auto) Eos # (Auto) Baso # (Auto) Seg Neutrophils % Seg Neutrophils # Sodium Potassium Chloride Carbon Dioxide Anion Gap BUN Creatinine Estimated GFR BUN/Creatinine Ratio Glucose POC Glucose 257 H 252 H 300 H Calcium
--- NOTE | 2021-04-24 13:41 | Progress Note ---
Assessment and Plan 1. Acute kidney injury: Vasomotor ODILON in the setting of volume depletion +/- hypotension. Urine studies ordered. Continue IV fluids. Monitor renal function. Creatinine level is improving. Avoid nephrotoxic agents. Meds dosage based on GFR. Labs pending from today. 2. FEN: Hypernatremia, 2/2 dehydration, on IV D5W, monitor. Hyperchloremic metabolic acidosis, monitor. Hypokalemia, replete K as needed, monitor. Monitor lytes and volume status. 3. Bilateral Pneumonia, POA: Covid test negative. On Abx. 4. L Pneumothorax, POA: S/p chest tube re-inserted 04/23. 5. Acute hypoxemic respiratory failure, POA: 2/2 PNA and pneumothorax. Supplemental oxygen. Monitor. 6. DM type 2, uncontrolled: Monitor. 7. Sacral decub. 8. Anemia, not POA: Monitor. 9. Hypertension. Follow BP. 10. Dementia. Subjective: Patient was seen and examined at the bedside. Examination: General appearance: well-developed, appears stated age, emaciated, not in distress, appears chronically ill, NC oe, NG tube, on restrains HEENT: atraumatic, SHAR Neck: trachea midline Respiratory: bilateral decreased breath sounds, L chest tube noted Heart: S1S2, regular, no murmur Abdomen: soft, bowel sounds heard, NT Integumentary: no obvious rash Neurologic: lethargic, opens eyes Ext: no edema Subjective Date of service: 04/24/21 Objective - Vital Signs Vital signs: Vital Signs - 12hr 04/24/21 04/24/21 04/24/21 04:13 08:42 10:37 Temperature 97.9 F Pulse Rate 97 H Respiratory 12 Rate Blood Pressure 152/86 O2 Sat by Pulse 99 96 98 Oximetry - Lab 04/23/21 14:47 04/23/21 14:47 Most recent lab results Calcium 10.2 mg/dL (8.4-10.2) 04/23/21 14:47 Phosphorus 2.80 mg/dL (2.5-4.5) 04/22/21 16:44 Magnesium 2.70 mg/dL (1.7-2.3) H 04/22/21 16:44 Medications & Allergies - Medications Allergies/Adverse Reactions: Allergies Penicillins Allergy (Verified 12/03/18 20:53) Hives meperidine [From Demerol] Adverse Reaction (Verified 12/03/18 20:53) Anaphylaxis morphine Adverse Reaction (Verified 12/03/18 20:53) Unknown Home Medications: Home Medications Medication Instructions Recorded Confirmed Last Taken Type DOXYCYCLINE Hyclate [Vibramycin 100 mg PO Q12HR #14 capsule 12/03/18 04/23/21 Unknown Rx CAP] Active Medications: Generic Name Dose Route Start Last Admin Trade Name Freq PRN Reason Stop Dose Admin Acetaminophen 650 mg 04/20/21 15:30 Acetaminophen 325 Mg Tab PO Q4H PRN Pain MILD(1-3)/Fever >100.5/WEST Albuterol 2.5 mg 04/20/21 14:09 Albuterol 2.5 Mg/3 Ml Nebu IH Q4HRT PRN Shortness Of Breath Lipase/Protease/Amylase 1 each 04/23/21 08:37 Lipase 10,500/Protease 25,000/Amylase 43,750 (Units) Dr Yates FEEDTUBE PRN PRN For Clogged Feeding Tube Ascorbic Acid 500 mg 04/20/21 22:00 04/24/21 10:00 Ascorbic Acid 500 Mg Tab PO 500 mg BID WENDY Administration Cholecalciferol 1,000 unit 04/21/21 10:00 04/24/21 10:00 Cholecalciferol (Vit D3) 1000 Unit (25 Mcg) Tab PO 1,000 unit DAILY WENDY Administration Heparin Sodium (Porcine) 5,000 unit 04/20/21 22:00 04/24/21 11:06 Heparin 5,000 Unit/1 Ml Vial SUB-Q 5,000 unit Q12HR WENDY Administration Hydromorphone HCl 0.5 mg 04/20/21 14:09 04/21/21 22:56 Hydromorphone 1 Mg/1 Ml Inj IV 0.5 mg Q3H PRN Administration Pain , Severe (7-10) Azithromycin 500 mg in 250 mls @ 250 mls/hr 04/20/21 16:00 04/23/21 15:35 Zithromax/Ns IV 04/24/21 16:59 250 mls/hr Q24H WENDY Administration Cefepime HCl 2 gm in 100 mls @ 200 mls/hr 04/21/21 10:00 04/24/21 10:00 Cefepime/Ns 2 Gm/100 Ml IV 04/27/21 09:59 200 mls/hr Q24HR WENDY Administration Protocol Dextrose 1,000 mls @ 100 mls/hr 04/21/21 13:00 04/24/21 01:06 D5w IV 100 mls/hr DIRECT WENDY Administration Insulin Glargine 25 units 04/22/21 22:00 04/24/21 01:01 Insulin Glargine 100 Units/Ml SUB-Q 25 units QHS WENDY Administration Insulin Human Lispro 0 unit 04/22/21 11:00 04/24/21 06:23 Insulin Lispro 100 Unit/Ml SUB-Q 6 unit Q6H WENDY Administration Protocol Methylprednisolone Sodium Succinate 40 mg 04/20/21 22:00 04/24/21 06:24 Methylprednisolone Sod Succinate 40 Mg/1 Ml Inj IV 40 mg Q8HR WENDY Administration Ondansetron HCl 4 mg 04/20/21 14:09 Ondansetron 4 Mg/2 Ml Inj IV Q8H PRN Nausea And Vomiting Oxycodone/Acetaminophen 1 tab 04/20/21 14:09 Oxycodone /Acetaminophen 5-325mg Tab PO Q12H PRN Pain, Moderate (4-6) Simple Syrup 15 ml 04/23/21 08:37 Simple Syrup 15 Ml FEEDTUBE PRN PRN Hypoglycemia Simple Syrup 30 ml 04/23/21 08:37 Simple Syrup 15 Ml FEEDTUBE PRN PRN Hypoglycemia Sodium Bicarbonate 325 mg 04/23/21 08:37 Sodium Bicarbonate 325 Mg Tab FEEDTUBE PRN PRN For Clogged Feeding Tube Sodium Chloride 10 ml 04/20/21 22:00 04/24/21 10:05 Sodium Chloride 0.9% 10 Ml Flush Syringe IV 10 ml BID WENDY Administration Sodium Chloride 10 ml 04/20/21 14:09 Sodium Chloride 0.9% 10 Ml Flush Syringe IV PRN PRN LINE FLUSH Zinc Sulfate 220 mg 04/20/21 22:00 04/24/21 10:00 Zinc Sulfate 220 Mg Cap PO 220 mg BID WENDY Administration
[2021-04-24] MEDS: AZITHROMYCIN/NS 500 MG/250 ML 500 MG/250 ML BAG IV SCH (16:33)
[2021-04-24] MEDS: oxyCODONE /ACETAMINOPHEN 5-325MG TAB PO PRN (23:45)
[2021-04-25 00:27] LABS: BUN/Creatinine Ratio 59; Blood Urea Nitrogen 59 mg/dL (7-17); Calcium 9.4 mg/dL (8.4-10.2); Hemolysis Index 33
[2021-04-25] MEDS: DEXTROSE 5% IN WATER 1,000 ML IV SCH ×2 (05:43→16:43)
[2021-04-25 06:31] LABS: BUN/Creatinine Ratio 61; Blood Urea Nitrogen 55 mg/dL (7-17); Calcium 10.1 mg/dL (8.4-10.2); Hemolysis Index 29
[2021-04-25] MEDS: methylPREDNISolone Sod Succinate 40 MG/1 ML INJ IV SCH ×3 (06:31→23:34)
[2021-04-25] MEDS: INSULIN LISPRO 100 UNIT/ML SUB-Q SCH ×4 (06:31→23:44)
[2021-04-25] MEDS ORDERED: INSULIN REGULAR, HUMAN 100 UNITS/1 ML IV ONE (08:15)
--- NOTE | 2021-04-25 08:44 | Progress Note ---
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 Patient is confused and lethargic the time my evaluation and is unable to provide history. Patient also has diminished cognition which is her baseline. Patient is unable to provide history. Patient history provided by EMS staff, ED staff, as well as the patient's daughter who was contacted via telephone for interview. As per daughter the patient is currently a patient receiving hospice care from [facility]. Patient daughter elects to revoke hospice benefit and seek aggressive medical therapy. [facility] notified and acknowledge patient revocation. Patient daughter reports that patient experience fever 103 F today, and has experienced decreased oral intake and decreased responsiveness over the past 2 days with progressively worsening symptoms over the same alejo eframe. EMS was notified and upon arrival the patient was found to be in distress with a pulse oximetry of 65% on room air. The patient was placed on submental oxygen and transported to [facility] for further care and evaluation of the aforementioned symptoms. The patient was seen and evaluated in the emergency department. All lab and imaging studies reviewed. The patient was found to have a pulse oximetry of 82% on submental oxygen which is consistent with acute hypoxemic respiratory failure. Chest x-ray revealed pneumonia as well as left pneumothorax. The patient was also found to have acute kidney injury, systemic inflammatory response syndrome, hypokalemia. The patient underwent chest tube placement in the emergency department with improvement in symptoms. Surgery team consulted in ED. Patient admitted to medical floor due to increased risk of worsening symptoms. Patient initiated on pneumonia protocol as well as coronavirus protocol. The patient has diminished cognition but has a positive gag reflex and is able to protect her airway without difficulty at this time. No reported history of chest pain, palpitation, productive cough, skin rash, recent ill contacts, or known exposure to COVID-19. No prior admission for review. No medication listed at time of admission for reconciliation. Advanced care planning conducted in ED. CT HEAD: Negative CT chest: Chest tube in place, noted opacities 04/21: Patient lethargic, chest tube remains in place, Wound care consult, as piration precautions. Wean as tolerated. Await COVID 19. Monitor Sodium level, awaiting labs, check q8hr. 04/22: Chest tube still positive air leak. Patient still hypoxic, while sodium level is improving metabolic acidosis has been noted. Patient's Covid test was negative. We will continue current management and adjust insulin for better blood sugar management. May require some Kayexalate due to hyper kalemia but considering severe hypokalemia just the day before we will monitor closely. Renal function showing some improvement continue management pulmonary and nephrology input noted. Urine culture positive for fungal Judith will monitor closely. 04/23: Penumonthorax appears to have resolved, patient down to 3 liters of Oxygen via NC, tolerating. she is still very lethargic, failed swallow eval. awaiting to hear from family if to progress with PEG placement. Patient was recently on Hospice but that was rescinded. Overall poor prognosis. Continue monitoring Hypernatremia. Surgeon re-evaluating Chest tube today 04/24 -Patient is on chest tube for pnuemothorax. Surgery is following. Sacral decubitus ulcer. Patient was evaluated by GI for PEG tube placement and will place PEG tube once patient is stable. Wants to be reconsulted once stable. Patient was on 2 L of oxygen. 04/25; patient is being followed by surgery for chest tube. Sacral decubitus ulcer followed by surgery for possible debridement. Patient is on OG tube feeding, evaluated by GI for PEG tube placement and recommend to be reconsulted after patient is stable. (1) Acute hypoxemic respiratory failure Current Visit: Yes Status: Acute Plan to address problem: Chest x-ray, supplemental oxygen, pulse oximetry, chest tube placed in the emergency department. Repeat chest x-ray in a.m. (2) Pneumonia Current Visit: Yes Status: Acute Plan to address problem: Pneumonia protocol: Chest x-ray, CBC, CMP, supplemental oxygen, pulse oximetry, nebulizer therapy, blood culture. (3) Acute kidney injury (ODILON) with acute tubular necrosis (ATN) Current Visit: Yes Status: Acute Plan to address problem: BMP, IV fluid resuscitation therapy, repeat BMP in a.m. to monitor serum creatinine as well as GFR (4) Hypokalemia Current Visit: Yes Status: Acute Plan to address problem: Repleted in ED, repeat BMP (5) Vascular dementia Current Visit: Yes Status: Acute Qualifiers: Dementia behavioral disturbance: without behavioral disturbance Qualified Code(s): F01.50 - Vascular dementia without behavioral disturbance Plan to address problem: Verbal prompting, verbal redirection, benzodiazepine therapy as clinically indicated (6) Cerebral atherosclerosis Current Visit: Yes Status: Acute Plan to address problem: Antiplatelet therapy, supportive care, risk factor reduction. (7) Dysphagia as late effect of cerebrovascular accident (CVA) Current Visit: Yes Status: Acute Plan to address problem: Pured diet, assistance with meals, supportive care. (8) Spontaneous pneumothorax Current Visit: Yes Status: Acute Plan to address problem: Chest tube placed in the emergency department, chest x-ray, postoperative chest x-ray, surgery team consulted, repeat chest x-ray in a.m. (9) Suspected COVID-19 virus infection Current Visit: Yes Status: Acute Plan to address problem: Coronavirus protocol: IV steroid therapy, IV antibiotic therapy, supplemental oxygen,, pulse oximetry, vitamin C therapy, vitamin D therapy, zinc therapy, prophylactic anticoagulation, coronavirus PCR ordered and is pending at time of admission. (10) DVT prophylaxis Current Visit: Yes Status: Acute Plan to address problem: SCD to bilateral lower extremities while in bed, prophylactic anticoagulation (11) Advance care planning Current Visit: Yes Status: Acute Plan to address problem: Disease education conducted, care plan discussed, diagnoses discussed, prognosis discussed, patient daughter knowledges understanding and agreement with care plan. Patient daughter elects to revoke hospice benefit and treat patient with aggressive medical therapy. Patient daughter knowledges understanding of prognosis. Patient is full code, +30 minutes. History Interval history: Patient was seen and evaluated this morning Patient was weak, she was not communicative Hospitalist Physical - Physical exam Narrative exam: Not in cardiopulmonary distress. The patient appeared well nourished and normally developed. Vital signs as documented. Head exam is unremarkable. No scleral icterus . Neck is without jugular venous distension, thyromegaly, or carotid bruits. Lungs are clear to auscultation. Cardiac exam reveals regular rate and Rhythm. Abdominal exam reveals normal bowel sounds, nontender, no organomegaly. Extremities are nonedematous and both femoral and pedal pulses are normal. PRIMARY EDUCATION PROFESSOR: confused, very weak and not talking. No focal weakness. - Constitutional Vitals: Temp Pulse Resp BP Pulse Ox 99.0 F 86 16 148/77 99 04/25/21 04:55 04/25/21 04:55 04/25/21 04:55 04/25/21 04:55 04/25/21 04:55 General appearance: Present: mild distress, cachectic Results - Labs CBC & Chem 7: 04/23/21 14:47 04/25/21 05:50 Labs: Laboratory Last Values WBC 7.4 K/mm3 (4.5-11.0) 04/23/21 14:47 RBC 3.47 M/mm3 (3.65-5.03) L 04/23/21 14:47 Hgb 8.6 gm/dl (10.1-14.3) L 04/23/21 14:47 Hct 27.1 % (30.3-42.9) L 04/23/21 14:47 MCV 78 fl (79-97) L 04/23/21 14:47 MCH 25 pg (28-32) L 04/23/21 14:47 MCHC 32 % (30-34) 04/23/21 14:47 RDW 18.7 % (13.2-15.2) H 04/23/21 14:47 Plt Count 251 K/mm3 (140-440) 04/23/21 14:47 Lymph % (Auto) 10.0 % (13.4-35.0) L 04/23/21 14:47 [place] % (Auto) 2.7 % (0.0-7.3) 04/23/21 14:47 Eos % (Auto) 0.1 % (0.0-4.3) 04/23/21 14:47 Baso % (Auto) 0.9 % (0.0-1.8) 04/23/21 14:47 Lymph # (Auto) 0.7 K/mm3 (1.2-5.4) L 04/23/21 14:47 [place] # (Auto) 0.2 K/mm3 (0.0-0.8) 04/23/21 14:47 Eos # (Auto) 0.0 K/mm3 (0.0-0.4) 04/23/21 14:47 Baso # (Auto) 0.1 K/mm3 (0.0-0.1) 04/23/21 14:47 Add Manual Diff Complete 04/20/21 08:54 Total Counted 100 04/20/21 08:54 Seg Neutrophils % 86.3 % (40.0-70.0) H 04/23/21 14:47 Seg Neuts % (Manual) 81.0 % (40.0-70.0) H 04/20/21 08:54 Band Neutrophils % 2.0 % 04/20/21 08:54 Lymphocytes % (Manual) 12.0 % (13.4-35.0) L 04/20/21 08:54 Monocytes % (Manual) 5.0 % (0.0-7.3) 04/20/21 08:54 Nucleated RBC % Not Reportable 04/20/21 08:54 Seg Neutrophils # 6.4 K/mm3 (1.8-7.7) 04/23/21 14:47 Seg Neutrophils # Man 5.3 K/mm3 (1.8-7.7) 04/20/21 08:54 Band Neutrophils # 0.1 K/mm3 04/20/21 08:54 Lymphocytes # (Manual) 0.8 K/mm3 (1.2-5.4) L 04/20/21 08:54 Abs React Lymphs (Man) 0.0 K/mm3 04/20/21 08:54 Monocytes # (Manual) 0.3 K/mm3 (0.0-0.8) 04/20/21 08:54 Eosinophils # (Manual) 0.0 K/mm3 (0.0-0.4) 04/20/21 08:54 Basophils # (Manual) 0.0 K/mm3 (0.0-0.1) 04/20/21 08:54 Metamyelocytes # 0.0 K/mm3 04/20/21 08:54 Myelocytes # 0.0 K/mm3 04/20/21 08:54 Promyelocytes # 0.0 K/mm3 04/20/21 08:54 Blast Cells # 0.0 K/mm3 04/20/21 08:54 WBC Morphology Not Reportable 04/20/21 08:54 Hypersegmented Neuts Not Reportable 04/20/21 08:54 Hyposegmented Neuts Not Reportable 04/20/21 08:54 Hypogranular Neuts Not Reportable 04/20/21 08:54 Smudge Cells Not Reportable 04/20/21 08:54 Toxic Granulation Not Reportable 04/20/21 08:54 Toxic Vacuolation Not Reportable 04/20/21 08:54 Dohle Bodies Not Reportable 04/20/21 08:54 Pelger-Huet Anomaly Not Reportable 04/20/21 08:54 Gabe Rods Not Reportable 04/20/21 08:54 Platelet Estimate Consistent w auto 04/20/21 08:54 Clumped Platelets Not Reportable 04/20/21 08:54 Plt Clumps, EDTA Not Reportable 04/20/21 08:54 Large Platelets Not Reportable 04/20/21 08:54 Giant Platelets Not Reportable 04/20/21 08:54 Platelet Satelliting Not Reportable 04/20/21 08:54 Plt Morphology Comment Not Reportable 04/20/21 08:54 RBC Morphology Not Reportable 04/20/21 08:54 Dimorphic RBCs Not Reportable 04/20/21 08:54 Polychromasia Not Reportable 04/20/21 08:54 Hypochromasia 1+ 04/20/21 08:54 Poikilocytosis Not Reportable 04/20/21 08:54 Anisocytosis 1+ 04/20/21 08:54 Microcytosis Not Reportable 04/20/21 08:54 Macrocytosis Not Reportable 04/20/21 08:54 Spherocytes Not Reportable 04/20/21 08:54 Pappenheimer Bodies Not Reportable 04/20/21 08:54 Sickle Cells Not Reportable 04/20/21 08:54 Target Cells Not Reportable 04/20/21 08:54 Tear Drop Cells Not Reportable 04/20/21 08:54 Ovalocytes Not Reportable 04/20/21 08:54 Helmet Cells Not Reportable 04/20/21 08:54 [place] Bodies Not Reportable 04/20/21 08:54 [place] Rings Not Reportable 04/20/21 08:54 Geismar Cells Not Reportable 04/20/21 08:54 Bite Cells Not Reportable 04/20/21 08:54 Crenated Cell Not Reportable 04/20/21 08:54 Elliptocytes Not Reportable 04/20/21 08:54 Acanthocytes (Spur) Not Reportable 04/20/21 08:54 Rouleaux Not Reportable 04/20/21 08:54 Hemoglobin C Crystals Not Reportable 04/20/21 08:54 Schistocytes Not Reportable 04/20/21 08:54 Malaria parasites Not Reportable 04/20/21 08:54 Chris Bodies Not Reportable 04/20/21 08:54 Hem Pathologist Commnt No 04/20/21 08:54 PT 15.6 Sec. (12.2-14.9) H 04/20/21 08:54 INR 1.19 (0.87-1.13) H 04/20/21 08:54 D-Dimer 840.47 ng/mlDDU (0-234) H 04/20/21 15:17 VBG pH 7.382 (7.320-7.420) 04/20/21 08:54 Sodium 149 mmol/L (137-145) H 04/25/21 05:50 Potassium 5.1 mmol/L (3.6-5.0) H 04/25/21 05:50 Chloride 118.1 mmol/L (98-107) H 04/25/21 05:50 Carbon Dioxide 22 mmol/L (22-30) 04/25/21 05:50 Anion Gap 14 mmol/L 04/25/21 05:50 BUN 55 mg/dL (7-17) H 04/25/21 05:50 Creatinine 0.9 mg/dL (0.6-1.2) 04/25/21 05:50 Estimated GFR > 60 ml/min 04/25/21 05:50 BUN/Creatinine Ratio 61 % 04/25/21 05:50 Glucose 347 mg/dL (65-100) H 04/25/21 05:50 POC Glucose 311 mg/dL (70-105) H 04/25/21 05:48 Lactic Acid 2.60 mmol/L (0.7-2.0) H* 04/20/21 15:17 Calcium 10.1 mg/dL (8.4-10.2) 04/25/21 05:50 Phosphorus 1.90 mg/dL (2.5-4.5) L 04/25/21 05:50 Magnesium 2.70 mg/dL (1.7-2.3) H 04/22/21 16:44 Ferritin 508.5 ng/mL (10.0-200.0) H 04/20/21 15:17 Total Bilirubin 0.40 mg/dL (0.1-1.2) 04/20/21 08:54 AST 12 units/L (5-40) 04/20/21 08:54 ALT 9 units/L (7-56) 04/20/21 08:54 Alkaline Phosphatase 61 units/L (35-129) 04/20/21 08:54 Lactate Dehydrogenase 189 units/L (91-180) H 04/20/21 15:17 C-Reactive Protein 19.10 mg/dL (0.00-1.30) H 04/20/21 15:17 Total Protein 8.5 g/dL (6.3-8.2) H 04/20/21 08:54 Albumin 3.4 g/dL (3.9-5) L 04/20/21 08:54 Albumin/Globulin Ratio 0.7 % 04/20/21 08:54 Procalcitonin 2.70 ng/mL (<0.15) 04/20/21 15:17 PTH Intact 20.03 pg/mL (15-65) 04/22/21 16:44 Urine Color Yellow (Yellow) 04/20/21 14:29 Urine Turbidity Turbid (Clear) 04/20/21 14:29 Urine pH 5.0 (5.0-7.0) 04/20/21 14:29 Ur Specific Maud 1.017 (1.003-1.030) 04/20/21 14:29 Urine Protein 100 mg/dl mg/dL (Negative) 04/20/21 14:29 Urine Glucose (UA) Neg mg/dL (Negative) 04/20/21 14:29 Urine Ketones Neg mg/dL (Negative) 04/20/21 14:29 Urine Blood Mod (Negative) 04/20/21 14:29 Urine Nitrite Neg (Negative) 04/20/21 14:29 Urine Bilirubin Neg (Negative) 04/20/21 14:29 Urine Urobilinogen < 2.0 mg/dL (<2.0) 04/20/21 14:29 Ur Leukocyte Esterase Lg (Negative) 04/20/21 14:29 Urine WBC (Auto) > 182.0 /HPF (0.0-6.0) H 04/20/21 14:29 Urine RBC (Auto) > 182.0 /HPF (0.0-6.0) 04/20/21 14:29 U Epithel Cells (Auto) 2.0 /HPF (0-13.0) 04/20/21 14:29 Urine WBC Clumps 2+ /HPF 04/20/21 14:29 Nasal Screen MRSA (PCR) Positive (Negative) 04/21/21 Unknown Coronavirus (PCR) Negative (Negative) 04/20/21 09:30 Microbiology: Microbiology 04/20/21 08:54 Peripheral/Venous Blood Culture - Preliminary NO GROWTH AFTER 4 DAYS 04/20/21 08:54 Peripheral/Venous Blood Culture - Preliminary NO GROWTH AFTER 4 DAYS Nuno/IV: Voiding Method Incontinent Active Medications - Current Medications Current Medications: Generic Name Dose Route Start Last Admin Trade Name Freq PRN Reason Stop Dose Admin Acetaminophen 650 mg 04/20/21 15:30 Acetaminophen 325 Mg Tab PO Q4H PRN Pain MILD(1-3)/Fever >100.5/WEST Albuterol 2.5 mg 04/20/21 14:09 Albuterol 2.5 Mg/3 Ml Nebu IH Q4HRT PRN Shortness Of Breath Lipase/Protease/Amylase 1 each 04/23/21 08:37 Lipase 10,500/Protease 25,000/Amylase 43,750 (Units) Dr Yates FEEDTUBE PRN PRN For Clogged Feeding Tube Ascorbic Acid 500 mg 04/20/21 22:00 04/24/21 23:48 Ascorbic Acid 500 Mg Tab PO 500 mg BID WENDY Administration Cholecalciferol 1,000 unit 04/21/21 10:00 04/24/21 10:00 Cholecalciferol (Vit D3) 1000 Unit (25 Mcg) Tab PO 1,000 unit DAILY WENDY Administration Heparin Sodium (Porcine) 5,000 unit 04/20/21 22:00 04/24/21 23:46 Heparin 5,000 Unit/1 Ml Vial SUB-Q 5,000 unit Q12HR WENDY Administration Hydromorphone HCl 0.5 mg 04/20/21 14:09 04/21/21 22:56 Hydromorphone 1 Mg/1 Ml Inj IV 0.5 mg Q3H PRN Administration Pain , Severe (7-10) Cefepime HCl 2 gm in 100 mls @ 200 mls/hr 04/21/21 10:00 04/24/21 10:00 Cefepime/Ns 2 Gm/100 Ml IV 04/27/21 09:59 200 mls/hr Q24HR WENDY Administration Protocol Dextrose 1,000 mls @ 100 mls/hr 04/21/21 13:00 04/25/21 05:43 D5w IV 100 mls/hr DIRECT WENDY Administration Insulin Glargine 25 units 04/22/21 22:00 04/24/21 23:47 Insulin Glargine 100 Units/Ml SUB-Q 25 units QHS WENDY Administration Insulin Human Lispro 0 unit 04/22/21 11:00 04/25/21 06:31 Insulin Lispro 100 Unit/Ml SUB-Q 8 unit Q6H WENDY Administration Protocol Methylprednisolone Sodium Succinate 40 mg 04/20/21 22:00 04/25/21 06:31 Methylprednisolone Sod Succinate 40 Mg/1 Ml Inj IV 40 mg Q8HR WENDY Administration Ondansetron HCl 4 mg 04/20/21 14:09 Ondansetron 4 Mg/2 Ml Inj IV Q8H PRN Nausea And Vomiting Oxycodone/Acetaminophen 1 tab 04/20/21 14:09 04/24/21 23:45 Oxycodone /Acetaminophen 5-325mg Tab PO 1 tab Q12H PRN Administration Pain, Moderate (4-6) Simple Syrup 15 ml 04/23/21 08:37 Simple Syrup 15 Ml FEEDTUBE PRN PRN Hypoglycemia Simple Syrup 30 ml 04/23/21 08:37 Simple Syrup 15 Ml FEEDTUBE PRN PRN Hypoglycemia Sodium Bicarbonate 325 mg 04/23/21 08:37 Sodium Bicarbonate 325 Mg Tab FEEDTUBE PRN PRN For Clogged Feeding Tube Sodium Chloride 10 ml 04/20/21 22:00 04/24/21 23:49 Sodium Chloride 0.9% 10 Ml Flush Syringe IV 10 ml BID WENDY Administration Sodium Chloride 10 ml 04/20/21 14:09 Sodium Chloride 0.9% 10 Ml Flush Syringe IV PRN PRN LINE FLUSH Zinc Sulfate 220 mg 04/20/21 22:00 04/24/21 23:45 Zinc Sulfate 220 Mg Cap PO 220 mg BID WENDY Administration Nutrition/Malnutrition Assess - Dietary Evaluation Nutrition/Malnutrition Findings: Nutrition Notes Start: 04/21/21 13:58 Freq: Status: Active Protocol: Document 04/23/21 08:31 HOWIE (Rec: 04/23/21 08:37 HOWIE [id number]) Nutrition Notes Need for Assessment generated from: MD Order Initial or Follow up Reassessment Current Diagnosis Acute Kidney Injury,Decubitus( Pressure Ulcer),Diabetes, Sepsis,Hypertension,Heart Failure,Respiratory Failure Other Pertinent Diagnosis PNA, r/o Covid19, dementia, dysphagia Current Diet NPO Labs/Tests POC BG 153-315 Pertinent Medications Solu-Medrol Insulin Height 5 ft 5 in Weight 56.3 kg [place] Body Weight (kg) 56.81 BMI 20.6 Weight Status Appropriate Subjective/Other Information MD consult for TF. AG SERVICE MANAGER has not yet reassessed pt. Burn Absent Trauma Absent GI Symptoms None Difficulty In Swallowing,Chewing Skin Integrity/Comment unstagable pressure wound present Current % PO Negligible Minimum of two criteria No Reduced Managed Care Director Strength Measurably Reduced (severe) #1 Nutrition Diagnosis Inadequate oral intake Diagnosis Progress(for reassessment Continues documentation) Is patient on ventilator? No Is Patient Ambulatory and/or Out of Bed No REE-([facility]-confined to bed) 1359.828 Calculation Used for Recommendations [facility] Additional Notes protein needs:71 - 85g (1.25 - 1.5g/kgBW) fluid needs: 1 ml/kcal Nutrition Intervention Change Diet Order: Start TF as able or diet per AG SERVICE MANAGER Nutrition Support: Glucerna 1.2 at 50 ml/hr Flush 200 ml q4h for hypernatremia. Resume free water flush of 100 ml q4h once hypernatremia resolved Kcal 1,440 Protein (gm) 72 Fluid (mL) 966 Goal #1 Meet at least 80% of protein and kcal needs via TF Anticipated Discharge Needs: unable to determine at this time Follow-Up By: 04/25/21 Additional Comments F/u: AG SERVICE MANAGER recommendations, TF start and tolerance
[2021-04-25] MEDS: HEPARIN 5,000 UNIT/1 ML VIAL SUB-Q SCH ×2 (10:03→23:33)
[2021-04-25] MEDS: ASCORBIC ACID 500 MG TAB PO SCH ×2 (10:04→23:43)
[2021-04-25] MEDS: ZINC SULFATE 220 MG CAP PO SCH ×2 (10:04→23:44)
[2021-04-25] MEDS: CHOLECALCIFEROL (VIT D3) 1000 UNIT (25 mcg) TAB PO SCH (10:04)
[2021-04-25] MEDS: CEFEPIME/NS 2 GM/100 ML 2 GM/100 ML BAG IV SCH (10:07)
--- NOTE | 2021-04-25 11:33 | Progress Note ---
Assessment and Plan 1. Acute kidney injury: Vasomotor ODILON in the setting of volume depletion +/- hypotension. Urine studies ordered. Continue IV fluids. Monitor renal function. Creatinine level is improving. Avoid nephrotoxic agents. Meds dosage based on GFR. 2. FEN: Hypernatremia, 2/2 dehydration, on IV D5W, monitor. Hyperchloremic metabolic acidosis, monitor. Hyperkalemia, associated with hyperglycemia, additional dose of Insulin ordered, monitor. Monitor lytes and volume status. 3. Bilateral Pneumonia, POA: Covid test negative. On Abx. 4. L Pneumothorax, POA: S/p chest tube re-inserted 04/23. 5. Acute hypoxemic respiratory failure, POA: 2/2 PNA and pneumothorax. Supplemental oxygen. Monitor. 6. DM type 2, uncontrolled: Monitor. 7. Sacral decub. 8. Anemia, not POA: Monitor. 9. Hypertension. Follow BP. 10. Dementia. Subjective: Patient was seen and examined at the bedside. Examination: General appearance: well-developed, appears stated age, emaciated, not in distress, appears chronically ill, NC O2, NG tube, on restrains HEENT: atraumatic, SHAR Neck: trachea midline Respiratory: bilateral decreased breath sounds, L chest tube noted Heart: S1S2, regular, no murmur Abdomen: soft, bowel sounds heard, NT Integumentary: no obvious rash Neurologic: lethargic, opens eyes Ext: no edema Subjective Date of service: 04/25/21 Objective - Vital Signs Vital signs: Vital Signs - 12hr 04/25/21 04/25/21 04:55 09:42 Temperature 99.0 F Pulse Rate 86 Respiratory 16 Rate Blood Pressure 148/77 O2 Sat by Pulse 99 96 Oximetry - Lab 04/23/21 14:47 04/25/21 05:50 Most recent lab results Calcium 10.1 mg/dL (8.4-10.2) 04/25/21 05:50 Phosphorus 1.90 mg/dL (2.5-4.5) L 04/25/21 05:50 Magnesium 2.70 mg/dL (1.7-2.3) H 04/22/21 16:44 Medications & Allergies - Medications Allergies/Adverse Reactions: Allergies Penicillins Allergy (Verified 12/03/18 20:53) Hives meperidine [From Demerol] Adverse Reaction (Verified 12/03/18 20:53) Anaphylaxis morphine Adverse Reaction (Verified 12/03/18 20:53) Unknown Home Medications: Home Medications Medication Instructions Recorded Confirmed Last Taken Type DOXYCYCLINE Hyclate [Vibramycin 100 mg PO Q12HR #14 capsule 12/03/18 04/23/21 Unknown Rx CAP] Active Medications: Generic Name Dose Route Start Last Admin Trade Name Freq PRN Reason Stop Dose Admin Acetaminophen 650 mg 04/20/21 15:30 Acetaminophen 325 Mg Tab PO Q4H PRN Pain MILD(1-3)/Fever >100.5/WEST Albuterol 2.5 mg 04/20/21 14:09 Albuterol 2.5 Mg/3 Ml Nebu IH Q4HRT PRN Shortness Of Breath Lipase/Protease/Amylase 1 each 04/23/21 08:37 Lipase 10,500/Protease 25,000/Amylase 43,750 (Units) Dr Yates FEEDTUBE PRN PRN For Clogged Feeding Tube Ascorbic Acid 500 mg 04/20/21 22:00 04/25/21 10:04 Ascorbic Acid 500 Mg Tab PO 500 mg BID WENDY Administration Cholecalciferol 1,000 unit 04/21/21 10:00 04/25/21 10:04 Cholecalciferol (Vit D3) 1000 Unit (25 Mcg) Tab PO 1,000 unit DAILY WENDY Administration Heparin Sodium (Porcine) 5,000 unit 04/20/21 22:00 04/25/21 10:03 Heparin 5,000 Unit/1 Ml Vial SUB-Q 5,000 unit Q12HR WENDY Administration Hydromorphone HCl 0.5 mg 04/20/21 14:09 04/21/21 22:56 Hydromorphone 1 Mg/1 Ml Inj IV 0.5 mg Q3H PRN Administration Pain , Severe (7-10) Cefepime HCl 2 gm in 100 mls @ 200 mls/hr 04/21/21 10:00 04/25/21 10:07 Cefepime/Ns 2 Gm/100 Ml IV 04/27/21 09:59 200 mls/hr Q24HR WENDY Administration Protocol Dextrose 1,000 mls @ 100 mls/hr 04/21/21 13:00 04/25/21 05:43 D5w IV 100 mls/hr DIRECT WENDY Administration Insulin Glargine 25 units 04/22/21 22:00 04/24/21 23:47 Insulin Glargine 100 Units/Ml SUB-Q 25 units QHS WENDY Administration Insulin Human Lispro 0 unit 04/22/21 11:00 04/25/21 06:31 Insulin Lispro 100 Unit/Ml SUB-Q 8 unit Q6H WENDY Administration Protocol Methylprednisolone Sodium Succinate 40 mg 04/20/21 22:00 04/25/21 06:31 Methylprednisolone Sod Succinate 40 Mg/1 Ml Inj IV 40 mg Q8HR WENDY Administration Ondansetron HCl 4 mg 04/20/21 14:09 Ondansetron 4 Mg/2 Ml Inj IV Q8H PRN Nausea And Vomiting Oxycodone/Acetaminophen 1 tab 04/20/21 14:09 04/24/21 23:45 Oxycodone /Acetaminophen 5-325mg Tab PO 1 tab Q12H PRN Administration Pain, Moderate (4-6) Simple Syrup 15 ml 04/23/21 08:37 Simple Syrup 15 Ml FEEDTUBE PRN PRN Hypoglycemia Simple Syrup 30 ml 04/23/21 08:37 Simple Syrup 15 Ml FEEDTUBE PRN PRN Hypoglycemia Sodium Bicarbonate 325 mg 04/23/21 08:37 Sodium Bicarbonate 325 Mg Tab FEEDTUBE PRN PRN For Clogged Feeding Tube Sodium Chloride 10 ml 04/20/21 22:00 04/25/21 10:04 Sodium Chloride 0.9% 10 Ml Flush Syringe IV 10 ml BID WENDY Administration Sodium Chloride 10 ml 04/20/21 14:09 Sodium Chloride 0.9% 10 Ml Flush Syringe IV PRN PRN LINE FLUSH Zinc Sulfate 220 mg 04/20/21 22:00 04/25/21 10:04 Zinc Sulfate 220 Mg Cap PO 220 mg BID WENDY Administration
--- NOTE | 2021-04-25 13:23 | Progress Note ---
Assessment and Plan 60 y/o female with Recurrent PTX this admission, admitted with PTX s/p chest tube now times 2 and hypoxic respiraotry secondary to PTX 04/25/21: No new recs. Please see below. 1. Chest tube per surgery 2. Would continue supplemental oxygen and should be discharged to home on this if she does not have it already. Subjective Date of service: 04/25/21 Interval history: No acute events. Objective Vital Signs - 12hr 04/25/21 04/25/21 04:55 09:42 Temperature 99.0 F Pulse Rate 86 Respiratory 16 Rate Blood Pressure 148/77 O2 Sat by Pulse 99 96 Oximetry Constitutional: no acute distress Eyes: non-icteric ENT: oropharynx moist Neck: supple Effort: normal Ascultation: Bilateral: diminished breath sounds Cardiovascular: regular rate and rhythm Gastrointestinal: normoactive bowel sounds, soft, non-tender CBC and BMP: 04/23/21 14:47 04/25/21 05:50 ABG, PT/INR, D-dimer: PT/INR, D-dimer PT 15.6 Sec. (12.2-14.9) H 04/20/21 08:54 INR 1.19 (0.87-1.13) H 04/20/21 08:54 D-Dimer 840.47 ng/mlDDU (0-234) H 04/20/21 15:17 Abnormal lab findings: Abnormal Labs 04/20/21 04/20/21 04/20/21 08:54 08:54 08:54 RBC Hgb Hct MCV MCH 25 L RDW 18.2 H Lymph % (Auto) Lymph # (Auto) Seg Neutrophils % Seg Neuts % (Manual) 81.0 H Lymphocytes % (Manual) 12.0 L Lymphocytes # (Manual) 0.8 L PT 15.6 H INR 1.19 H D-Dimer Sodium 163 H* Potassium 2.8 L* Chloride 118.6 H Carbon Dioxide BUN 152 H Creatinine 2.0 H Glucose 147 H POC Glucose Lactic Acid Calcium 10.8 H Phosphorus Magnesium Ferritin Lactate Dehydrogenase C-Reactive Protein Total Protein 8.5 H Albumin 3.4 L Urine WBC (Auto) 04/20/21 04/20/21 04/20/21 08:54 14:29 15:17 RBC Hgb Hct MCV MCH RDW Lymph % (Auto) Lymph # (Auto) Seg Neutrophils % Seg Neuts % (Manual) Lymphocytes % (Manual) Lymphocytes # (Manual) PT INR D-Dimer Sodium Potassium Chloride Carbon Dioxide BUN Creatinine Glucose POC Glucose Lactic Acid 2.60 H* 2.60 H* Calcium Phosphorus Magnesium Ferritin Lactate Dehydrogenase C-Reactive Protein Total Protein Albumin Urine WBC (Auto) > 182.0 H 04/20/21 04/20/21 04/20/21 15:17 15:17 15:17 RBC Hgb Hct MCV MCH RDW Lymph % (Auto) Lymph # (Auto) Seg Neutrophils % Seg Neuts % (Manual) Lymphocytes % (Manual) Lymphocytes # (Manual) PT INR D-Dimer 840.47 H Sodium Potassium Chloride Carbon Dioxide BUN Creatinine Glucose 135 H POC Glucose Lactic Acid Calcium Phosphorus Magnesium Ferritin 508.5 H Lactate Dehydrogenase 189 H C-Reactive Protein 19.10 H Total Protein Albumin Urine WBC (Auto) 04/21/21 04/21/21 04/21/21 06:12 07:51 10:34 RBC 3.59 L Hgb 9.0 L Hct 29.1 L MCV MCH 25 L RDW 18.6 H Lymph % (Auto) Lymph # (Auto) Seg Neutrophils % 75.9 H Seg Neuts % (Manual) Lymphocytes % (Manual) Lymphocytes # (Manual) PT INR D-Dimer Sodium 161 H* Potassium 3.4 L D Chloride 124.9 H Carbon Dioxide 21 L BUN 123 H Creatinine 1.4 H Glucose 194 H POC Glucose 166 H Lactic Acid Calcium Phosphorus Magnesium Ferritin Lactate Dehydrogenase C-Reactive Protein Total Protein Albumin Urine WBC (Auto) 04/21/21 04/21/21 04/21/21 12:32 14:57 16:25 RBC Hgb Hct MCV MCH RDW Lymph % (Auto) Lymph # (Auto) Seg Neutrophils % Seg Neuts % (Manual) Lymphocytes % (Manual) Lymphocytes # (Manual) PT INR D-Dimer Sodium 160 H Potassium 3.0 L Chloride 127.1 H Carbon Dioxide 18 L BUN 121 H Creatinine 1.6 H Glucose 199 H POC Glucose 178 H 187 H Lactic Acid Calcium Phosphorus Magnesium Ferritin Lactate Dehydrogenase C-Reactive Protein Total Protein Albumin Urine WBC (Auto) 04/21/21 04/21/21 04/22/21 19:35 22:17 08:33 RBC Hgb Hct MCV MCH RDW Lymph % (Auto) Lymph # (Auto) Seg Neutrophils % Seg Neuts % (Manual) Lymphocytes % (Manual) Lymphocytes # (Manual) PT INR D-Dimer Sodium 157 H Potassium 5.3 H D Chloride 127.2 H Carbon Dioxide 15 L BUN 121 H Creatinine 1.5 H Glucose 221 H POC Glucose 205 H 312 H Lactic Acid Calcium Phosphorus Magnesium Ferritin Lactate Dehydrogenase C-Reactive Protein Total Protein Albumin Urine WBC (Auto) 04/22/21 04/22/21 04/22/21 13:26 16:44 16:44 RBC Hgb Hct MCV MCH RDW Lymph % (Auto) Lymph # (Auto) Seg Neutrophils % Seg Neuts % (Manual) Lymphocytes % (Manual) Lymphocytes # (Manual) PT INR D-Dimer Sodium 158 H Potassium Chloride 126.9 H Carbon Dioxide 19 L BUN 112 H Creatinine 1.4 H Glucose 317 H POC Glucose 315 H Lactic Acid Calcium Phosphorus Magnesium 2.70 H Ferritin Lactate Dehydrogenase C-Reactive Protein Total Protein Albumin Urine WBC (Auto) 04/22/21 04/22/21 04/23/21 18:05 22:14 06:35 RBC Hgb Hct MCV MCH RDW Lymph % (Auto) Lymph # (Auto) Seg Neutrophils % Seg Neuts % (Manual) Lymphocytes % (Manual) Lymphocytes # (Manual) PT INR D-Dimer Sodium Potassium Chloride Carbon Dioxide BUN Creatinine Glucose POC Glucose 236 H 153 H 170 H Lactic Acid Calcium Phosphorus Magnesium Ferritin Lactate Dehydrogenase C-Reactive Protein Total Protein Albumin Urine WBC (Auto) 04/23/21 04/23/21 04/23/21 12:26 14:47 14:47 RBC 3.47 L Hgb 8.6 L Hct 27.1 L MCV 78 L MCH 25 L RDW 18.7 H Lymph % (Auto) 10.0 L Lymph # (Auto) 0.7 L Seg Neutrophils % 86.3 H Seg Neuts % (Manual) Lymphocytes % (Manual) Lymphocytes # (Manual) PT INR D-Dimer Sodium 154 H Potassium 3.5 L Chloride 122.5 H Carbon Dioxide 20 L BUN 81 H Creatinine Glucose 241 H POC Glucose 179 H Lactic Acid Calcium Phosphorus Magnesium Ferritin Lactate Dehydrogenase C-Reactive Protein Total Protein Albumin Urine WBC (Auto) 04/23/21 04/23/21 04/24/21 18:28 23:34 06:13 RBC Hgb Hct MCV MCH RDW Lymph % (Auto) Lymph # (Auto) Seg Neutrophils % Seg Neuts % (Manual) Lymphocytes % (Manual) Lymphocytes # (Manual) PT INR D-Dimer Sodium Potassium Chloride Carbon Dioxide BUN Creatinine Glucose POC Glucose 222 H 257 H 252 H Lactic Acid Calcium Phosphorus Magnesium Ferritin Lactate Dehydrogenase C-Reactive Protein Total Protein Albumin Urine WBC (Auto) 04/24/21 04/24/21 04/24/21 13:12 18:10 23:29 RBC Hgb Hct MCV MCH RDW Lymph % (Auto) Lymph # (Auto) Seg Neutrophils % Seg Neuts % (Manual) Lymphocytes % (Manual) Lymphocytes # (Manual) PT INR D-Dimer Sodium 154 H Potassium 5.2 H D Chloride 123.9 H Carbon Dioxide 21 L BUN 59 H Creatinine Glucose 320 H POC Glucose 300 H 212 H Lactic Acid Calcium Phosphorus Magnesium Ferritin Lactate Dehydrogenase C-Reactive Protein Total Protein Albumin Urine WBC (Auto) 04/24/21 04/25/21 04/25/21 23:29 05:48 05:50 RBC Hgb Hct MCV MCH RDW Lymph % (Auto) Lymph # (Auto) Seg Neutrophils % Seg Neuts % (Manual) Lymphocytes % (Manual) Lymphocytes # (Manual) PT INR D-Dimer Sodium 149 H Potassium 5.1 H Chloride 118.1 H Carbon Dioxide BUN 55 H Creatinine Glucose 347 H POC Glucose 301 H 311 H Lactic Acid Calcium Phosphorus 1.90 L Magnesium Ferritin Lactate Dehydrogenase C-Reactive Protein Total Protein Albumin Urine WBC (Auto) 04/25/21 13:16 RBC Hgb Hct MCV MCH RDW Lymph % (Auto) Lymph # (Auto) Seg Neutrophils % Seg Neuts % (Manual) Lymphocytes % (Manual) Lymphocytes # (Manual) PT INR D-Dimer Sodium Potassium Chloride Carbon Dioxide BUN Creatinine Glucose POC Glucose 270 H Lactic Acid Calcium Phosphorus Magnesium Ferritin Lactate Dehydrogenase C-Reactive Protein Total Protein Albumin Urine WBC (Auto)
[2021-04-25] MEDS: HYDROmorphone 1 MG/1 ML INJ IV PRN (23:41)
[2021-04-25] MEDS: INSULIN GLARGINE 100 UNITS/ML SUB-Q SCH (23:43)
[2021-04-26] MEDS: methylPREDNISolone Sod Succinate 40 MG/1 ML INJ IV SCH (06:16)
[2021-04-26] MEDS: INSULIN LISPRO 100 UNIT/ML SUB-Q SCH ×3 (06:27→17:39)
--- NOTE | 2021-04-26 07:23 | Event Note ---
Date: 04/26/21 VSS Afebrile, CT of pelvis never done, can go downstairs of suction on chest tube, have scan without contrast to assess decubitus ulcer/ present on admission. Pt needs to have electrolytes corrected before taken downstairs in OR to debride decubitus and family will have to consent for it. Also, will repeat CXR today. Overall patient's rehab potential is very poor and given her multiple comorbidities her oysterman prognosis is guarded. I order the CT pelvis again today with no contrast.
--- NOTE | 2021-04-26 07:25 | Event Note ---
Date: 04/26/21 Once again, patient can have CT downstairs with chest tube off suction, do NOT clamp chest tube.
--- NOTE | 2021-04-26 08:43 | Progress Note ---
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 Patient is confused and lethargic the time my evaluation and is unable to provide history. Patient also has diminished cognition which is her baseline. Patient is unable to provide history. Patient history provided by EMS staff, ED staff, as well as the patient's daughter who was contacted via telephone for interview. As per daughter the patient is currently a patient receiving hospice care from [facility]. Patient daughter elects to revoke hospice benefit and seek aggressive medical therapy. [facility] notified and acknowledge patient revocation. Patient daughter reports that patient experience fever 103 F today, and has experienced decreased oral intake and decreased responsiveness over the past 2 days with progressively worsening symptoms over the same alejo eframe. EMS was notified and upon arrival the patient was found to be in distress with a pulse oximetry of 65% on room air. The patient was placed on submental oxygen and transported to [facility] for further care and evaluation of the aforementioned symptoms. The patient was seen and evaluated in the emergency department. All lab and imaging studies reviewed. The patient was found to have a pulse oximetry of 82% on submental oxygen which is consistent with acute hypoxemic respiratory failure. Chest x-ray revealed pneumonia as well as left pneumothorax. The patient was also found to have acute kidney injury, systemic inflammatory response syndrome, hypokalemia. The patient underwent chest tube placement in the emergency department with improvement in symptoms. Surgery team consulted in ED. Patient admitted to medical floor due to increased risk of worsening symptoms. Patient initiated on pneumonia protocol as well as coronavirus protocol. The patient has diminished cognition but has a positive gag reflex and is able to protect her airway without difficulty at this time. No reported history of chest pain, palpitation, productive cough, skin rash, recent ill contacts, or known exposure to COVID-19. No prior admission for review. No medication listed at time of admission for reconciliation. Advanced care planning conducted in ED. CT HEAD: Negative CT chest: Chest tube in place, noted opacities 04/21: Patient lethargic, chest tube remains in place, Wound care consult, as piration precautions. Wean as tolerated. Await COVID 19. Monitor Sodium level, awaiting labs, check q8hr. 04/22: Chest tube still positive air leak. Patient still hypoxic, while sodium level is improving metabolic acidosis has been noted. Patient's Covid test was negative. We will continue current management and adjust insulin for better blood sugar management. May require some Kayexalate due to hyper kalemia but considering severe hypokalemia just the day before we will monitor closely. Renal function showing some improvement continue management pulmonary and nephrology input noted. Urine culture positive for fungal Judith will monitor closely. 04/23: Penumonthorax appears to have resolved, patient down to 3 liters of Oxygen via NC, tolerating. she is still very lethargic, failed swallow eval. awaiting to hear from family if to progress with PEG placement. Patient was recently on Hospice but that was rescinded. Overall poor prognosis. Continue monitoring Hypernatremia. Surgeon re-evaluating Chest tube today 04/24 -Patient is on chest tube for pnuemothorax. Surgery is following. Sacral decubitus ulcer. Patient was evaluated by GI for PEG tube placement and will place PEG tube once patient is stable. Wants to be reconsulted once stable. Patient was on 2 L of oxygen. 04/25; patient is being followed by surgery for chest tube. Sacral decubitus ulcer followed by surgery for possible debridement. Patient is on OG tube feeding, evaluated by GI for PEG tube placement and recommend to be reconsulted after patient is stable. 04/26; patient was seen by general surgery and chest x-ray ordered for follow-up of her pneumothorax status post chest tube. CT pelvis was done and reading is pending, general surgery is evaluating for debridement. Patient is on OG tube feeding and will increase free water intake for hyperkalemia. Discussed with GI yesterday and they state reconsult once chest tube is taken out for PEG tube placement. Gross this is guarded. (1) Acute hypoxemic respiratory failure Current Visit: Yes Status: Acute Plan to address problem: Chest x-ray, supplemental oxygen, pulse oximetry, chest tube placed in the emergency department. Repeat chest x-ray in a.m. (2) Pneumonia Current Visit: Yes Status: Acute Plan to address problem: Pneumonia protocol: Chest x-ray, CBC, CMP, supplemental oxygen, pulse oximetry, nebulizer therapy, blood culture. (3) Acute kidney injury (ODILON) with acute tubular necrosis (ATN) Current Visit: Yes Status: Acute Plan to address problem: BMP, IV fluid resuscitation therapy, repeat BMP in a.m. to monitor serum creatinine as well as GFR (4) Hypokalemia Current Visit: Yes Status: Acute Plan to address problem: Repleted in ED, repeat BMP (5) Vascular dementia Current Visit: Yes Status: Acute Qualifiers: Dementia behavioral disturbance: without behavioral disturbance Qualified Code(s): F01.50 - Vascular dementia without behavioral disturbance Plan to address problem: Verbal prompting, verbal redirection, benzodiazepine therapy as clinically indicated (6) Cerebral atherosclerosis Current Visit: Yes Status: Acute Plan to address problem: Antiplatelet therapy, supportive care, risk factor reduction. (7) Dysphagia as late effect of cerebrovascular accident (CVA) Current Visit: Yes Status: Acute Plan to address problem: Pured diet, assistance with meals, supportive care. (8) Spontaneous pneumothorax Current Visit: Yes Status: Acute Plan to address problem: Chest tube placed in the emergency department, chest x-ray, postoperative chest x-ray, surgery team consulted, repeat chest x-ray in a.m. (9) Suspected COVID-19 virus infection Current Visit: Yes Status: Acute Plan to address problem: Coronavirus protocol: IV steroid therapy, IV antibiotic therapy, supplemental oxygen,, pulse oximetry, vitamin C therapy, vitamin D therapy, zinc therapy, prophylactic anticoagulation, coronavirus PCR ordered and is pending at time of admission. (10) DVT prophylaxis Current Visit: Yes Status: Acute Plan to address problem: SCD to bilateral lower extremities while in bed, prophylactic anticoagulation (11) Advance care planning Current Visit: Yes Status: Acute Plan to address problem: Disease education conducted, care plan discussed, diagnoses discussed, prognosis discussed, patient daughter knowledges understanding and agreement with care plan. Patient daughter elects to revoke hospice benefit and treat patient with aggressive medical therapy. Patient daughter knowledges understanding of prognosis. Patient is full code, +30 minutes. History Interval history: Patient was seen and evaluated this morning Patient was weak, she was not communicative Hospitalist Physical - Physical exam Narrative exam: Not in cardiopulmonary distress. The patient appeared well nourished and normally developed. Vital signs as documented. Head exam is unremarkable. No scleral icterus . Neck is without jugular venous distension, thyromegaly, or carotid bruits. Lungs are clear to auscultation. Cardiac exam reveals regular rate and Rhythm. Abdominal exam reveals normal bowel sounds, nontender, no organomegaly. Extremities are nonedematous and both femoral and pedal pulses are normal. [employer]: confused, very weak and not talking. No focal weakness. - Constitutional Vitals: Temp Pulse Resp BP Pulse Ox 99.0 F 86 16 148/77 99 04/25/21 04:55 04/25/21 04:55 04/25/21 04:55 04/25/21 04:55 04/25/21 22:00 General appearance: Present: mild distress, cachectic Results - Labs CBC & Chem 7: 04/23/21 14:47 04/25/21 05:50 Labs: Laboratory Last Values WBC 7.4 K/mm3 (4.5-11.0) 04/23/21 14:47 RBC 3.47 M/mm3 (3.65-5.03) L 04/23/21 14:47 Hgb 8.6 gm/dl (10.1-14.3) L 04/23/21 14:47 Hct 27.1 % (30.3-42.9) L 04/23/21 14:47 MCV 78 fl (79-97) L 04/23/21 14:47 MCH 25 pg (28-32) L 04/23/21 14:47 MCHC 32 % (30-34) 04/23/21 14:47 RDW 18.7 % (13.2-15.2) H 04/23/21 14:47 Plt Count 251 K/mm3 (140-440) 04/23/21 14:47 Lymph % (Auto) 10.0 % (13.4-35.0) L 04/23/21 14:47 Sandoval % (Auto) 2.7 % (0.0-7.3) 04/23/21 14:47 Eos % (Auto) 0.1 % (0.0-4.3) 04/23/21 14:47 Baso % (Auto) 0.9 % (0.0-1.8) 04/23/21 14:47 Lymph # (Auto) 0.7 K/mm3 (1.2-5.4) L 04/23/21 14:47 Sandoval # (Auto) 0.2 K/mm3 (0.0-0.8) 04/23/21 14:47 Eos # (Auto) 0.0 K/mm3 (0.0-0.4) 04/23/21 14:47 Baso # (Auto) 0.1 K/mm3 (0.0-0.1) 04/23/21 14:47 Add Manual Diff Complete 04/20/21 08:54 Total Counted 100 04/20/21 08:54 Seg Neutrophils % 86.3 % (40.0-70.0) H 04/23/21 14:47 Seg Neuts % (Manual) 81.0 % (40.0-70.0) H 04/20/21 08:54 Band Neutrophils % 2.0 % 04/20/21 08:54 Lymphocytes % (Manual) 12.0 % (13.4-35.0) L 04/20/21 08:54 Monocytes % (Manual) 5.0 % (0.0-7.3) 04/20/21 08:54 Nucleated RBC % Not Reportable 04/20/21 08:54 Seg Neutrophils # 6.4 K/mm3 (1.8-7.7) 04/23/21 14:47 Seg Neutrophils # Man 5.3 K/mm3 (1.8-7.7) 04/20/21 08:54 Band Neutrophils # 0.1 K/mm3 04/20/21 08:54 Lymphocytes # (Manual) 0.8 K/mm3 (1.2-5.4) L 04/20/21 08:54 Abs React Lymphs (Man) 0.0 K/mm3 04/20/21 08:54 Monocytes # (Manual) 0.3 K/mm3 (0.0-0.8) 04/20/21 08:54 Eosinophils # (Manual) 0.0 K/mm3 (0.0-0.4) 04/20/21 08:54 Basophils # (Manual) 0.0 K/mm3 (0.0-0.1) 04/20/21 08:54 Metamyelocytes # 0.0 K/mm3 04/20/21 08:54 Myelocytes # 0.0 K/mm3 04/20/21 08:54 Promyelocytes # 0.0 K/mm3 04/20/21 08:54 Blast Cells # 0.0 K/mm3 04/20/21 08:54 WBC Morphology Not Reportable 04/20/21 08:54 Hypersegmented Neuts Not Reportable 04/20/21 08:54 Hyposegmented Neuts Not Reportable 04/20/21 08:54 Hypogranular Neuts Not Reportable 04/20/21 08:54 Smudge Cells Not Reportable 04/20/21 08:54 Toxic Granulation Not Reportable 04/20/21 08:54 Toxic Vacuolation Not Reportable 04/20/21 08:54 Dohle Bodies Not Reportable 04/20/21 08:54 Pelger-Huet Anomaly Not Reportable 04/20/21 08:54 Gabe Rods Not Reportable 04/20/21 08:54 Platelet Estimate Consistent w auto 04/20/21 08:54 Clumped Platelets Not Reportable 04/20/21 08:54 Plt Clumps, EDTA Not Reportable 04/20/21 08:54 Large Platelets Not Reportable 04/20/21 08:54 Giant Platelets Not Reportable 04/20/21 08:54 Platelet Satelliting Not Reportable 04/20/21 08:54 Plt Morphology Comment Not Reportable 04/20/21 08:54 RBC Morphology Not Reportable 04/20/21 08:54 Dimorphic RBCs Not Reportable 04/20/21 08:54 Polychromasia Not Reportable 04/20/21 08:54 Hypochromasia 1+ 04/20/21 08:54 Poikilocytosis Not Reportable 04/20/21 08:54 Anisocytosis 1+ 04/20/21 08:54 Microcytosis Not Reportable 04/20/21 08:54 Macrocytosis Not Reportable 04/20/21 08:54 Spherocytes Not Reportable 04/20/21 08:54 Pappenheimer Bodies Not Reportable 04/20/21 08:54 Sickle Cells Not Reportable 04/20/21 08:54 Target Cells Not Reportable 04/20/21 08:54 Tear Drop Cells Not Reportable 04/20/21 08:54 Ovalocytes Not Reportable 04/20/21 08:54 Helmet Cells Not Reportable 04/20/21 08:54 [place] Bodies Not Reportable 04/20/21 08:54 [place] Rings Not Reportable 04/20/21 08:54 Beeler Cells Not Reportable 04/20/21 08:54 Bite Cells Not Reportable 04/20/21 08:54 Crenated Cell Not Reportable 04/20/21 08:54 Elliptocytes Not Reportable 04/20/21 08:54 Acanthocytes (Spur) Not Reportable 04/20/21 08:54 Rouleaux Not Reportable 04/20/21 08:54 Hemoglobin C Crystals Not Reportable 04/20/21 08:54 Schistocytes Not Reportable 04/20/21 08:54 Malaria parasites Not Reportable 04/20/21 08:54 Chris Bodies Not Reportable 04/20/21 08:54 Hem Pathologist Commnt No 04/20/21 08:54 PT 15.6 Sec. (12.2-14.9) H 04/20/21 08:54 INR 1.19 (0.87-1.13) H 04/20/21 08:54 D-Dimer 840.47 ng/mlDDU (0-234) H 04/20/21 15:17 VBG pH 7.382 (7.320-7.420) 04/20/21 08:54 Sodium 149 mmol/L (137-145) H 04/25/21 05:50 Potassium 5.1 mmol/L (3.6-5.0) H 04/25/21 05:50 Chloride 118.1 mmol/L (98-107) H 04/25/21 05:50 Carbon Dioxide 22 mmol/L (22-30) 04/25/21 05:50 Anion Gap 14 mmol/L 04/25/21 05:50 BUN 55 mg/dL (7-17) H 04/25/21 05:50 Creatinine 0.9 mg/dL (0.6-1.2) 04/25/21 05:50 Estimated GFR > 60 ml/min 04/25/21 05:50 BUN/Creatinine Ratio 61 % 04/25/21 05:50 Glucose 347 mg/dL (65-100) H 04/25/21 05:50 POC Glucose 269 mg/dL (70-105) H 04/26/21 06:15 Lactic Acid 2.60 mmol/L (0.7-2.0) H* 04/20/21 15:17 Calcium 10.1 mg/dL (8.4-10.2) 04/25/21 05:50 Phosphorus 1.90 mg/dL (2.5-4.5) L 04/25/21 05:50 Magnesium 2.70 mg/dL (1.7-2.3) H 04/22/21 16:44 Ferritin 508.5 ng/mL (10.0-200.0) H 04/20/21 15:17 Total Bilirubin 0.40 mg/dL (0.1-1.2) 04/20/21 08:54 AST 12 units/L (5-40) 04/20/21 08:54 ALT 9 units/L (7-56) 04/20/21 08:54 Alkaline Phosphatase 61 units/L (35-129) 04/20/21 08:54 Lactate Dehydrogenase 189 units/L (91-180) H 04/20/21 15:17 C-Reactive Protein 19.10 mg/dL (0.00-1.30) H 04/20/21 15:17 Total Protein 8.5 g/dL (6.3-8.2) H 04/20/21 08:54 Albumin 3.4 g/dL (3.9-5) L 04/20/21 08:54 Albumin/Globulin Ratio 0.7 % 04/20/21 08:54 Procalcitonin 2.70 ng/mL (<0.15) 04/20/21 15:17 PTH Intact 20.03 pg/mL (15-65) 04/22/21 16:44 Urine Color Yellow (Yellow) 04/20/21 14:29 Urine Turbidity Turbid (Clear) 04/20/21 14:29 Urine pH 5.0 (5.0-7.0) 04/20/21 14:29 Ur Specific [place] 1.017 (1.003-1.030) 04/20/21 14:29 Urine Protein 100 mg/dl mg/dL (Negative) 04/20/21 14:29 Urine Glucose (UA) Neg mg/dL (Negative) 04/20/21 14:29 Urine Ketones Neg mg/dL (Negative) 04/20/21 14:29 Urine Blood Mod (Negative) 04/20/21 14:29 Urine Nitrite Neg (Negative) 04/20/21 14:29 Urine Bilirubin Neg (Negative) 04/20/21 14:29 Urine Urobilinogen < 2.0 mg/dL (<2.0) 04/20/21 14:29 Ur Leukocyte Esterase Lg (Negative) 04/20/21 14:29 Urine WBC (Auto) > 182.0 /HPF (0.0-6.0) H 04/20/21 14:29 Urine RBC (Auto) > 182.0 /HPF (0.0-6.0) 04/20/21 14:29 U Epithel Cells (Auto) 2.0 /HPF (0-13.0) 04/20/21 14:29 Urine WBC Clumps 2+ /HPF 04/20/21 14:29 Nasal Screen MRSA (PCR) Positive (Negative) 04/21/21 Unknown Coronavirus (PCR) Negative (Negative) 04/20/21 09:30 Microbiology: Microbiology 04/20/21 08:54 Peripheral/Venous Blood Culture - Final NO GROWTH AFTER 5 DAYS 04/20/21 08:54 Peripheral/Venous Blood Culture - Final NO GROWTH AFTER 5 DAYS Nuno/IV: Voiding Method Incontinent Active Medications - Current Medications Current Medications: Generic Name Dose Route Start Last Admin Trade Name Freq PRN Reason Stop Dose Admin Acetaminophen 650 mg 04/20/21 15:30 Acetaminophen 325 Mg Tab PO Q4H PRN Pain MILD(1-3)/Fever >100.5/WEST Albuterol 2.5 mg 04/20/21 14:09 Albuterol 2.5 Mg/3 Ml Nebu IH Q4HRT PRN Shortness Of Breath Lipase/Protease/Amylase 1 each 04/23/21 08:37 Lipase 10,500/Protease 25,000/Amylase 43,750 (Units) Dr Yates FEEDTUBE PRN PRN For Clogged Feeding Tube Ascorbic Acid 500 mg 04/20/21 22:00 04/25/21 23:43 Ascorbic Acid 500 Mg Tab PO 500 mg BID WENDY Administration Cholecalciferol 1,000 unit 04/21/21 10:00 04/25/21 10:04 Cholecalciferol (Vit D3) 1000 Unit (25 Mcg) Tab PO 1,000 unit DAILY WENDY Administration Heparin Sodium (Porcine) 5,000 unit 04/20/21 22:00 04/25/21 23:33 Heparin 5,000 Unit/1 Ml Vial SUB-Q 5,000 unit Q12HR WENDY Administration Hydromorphone HCl 0.5 mg 04/20/21 14:09 04/25/21 23:41 Hydromorphone 1 Mg/1 Ml Inj IV 0.5 mg Q3H PRN Administration Pain , Severe (7-10) Cefepime HCl 2 gm in 100 mls @ 200 mls/hr 04/21/21 10:00 04/25/21 10:07 Cefepime/Ns 2 Gm/100 Ml IV 04/27/21 09:59 200 mls/hr Q24HR WENDY Administration Protocol Dextrose 1,000 mls @ 100 mls/hr 04/21/21 13:00 04/26/21 06:28 D5w IV Infused DIRECT WENDY Infusion Insulin Glargine 25 units 04/22/21 22:00 04/25/21 23:43 Insulin Glargine 100 Units/Ml SUB-Q 25 units QHS WENDY Administration Insulin Human Lispro 0 unit 04/22/21 11:00 04/26/21 06:27 Insulin Lispro 100 Unit/Ml SUB-Q 6 unit Q6H WENDY Administration Protocol Methylprednisolone Sodium Succinate 40 mg 04/20/21 22:00 04/26/21 06:16 Methylprednisolone Sod Succinate 40 Mg/1 Ml Inj IV 40 mg Q8HR WENDY Administration Ondansetron HCl 4 mg 04/20/21 14:09 Ondansetron 4 Mg/2 Ml Inj IV Q8H PRN Nausea And Vomiting Oxycodone/Acetaminophen 1 tab 04/20/21 14:09 04/24/21 23:45 Oxycodone /Acetaminophen 5-325mg Tab PO 1 tab Q12H PRN Administration Pain, Moderate (4-6) Simple Syrup 15 ml 04/23/21 08:37 Simple Syrup 15 Ml FEEDTUBE PRN PRN Hypoglycemia Simple Syrup 30 ml 04/23/21 08:37 Simple Syrup 15 Ml FEEDTUBE PRN PRN Hypoglycemia Sodium Bicarbonate 325 mg 04/23/21 08:37 Sodium Bicarbonate 325 Mg Tab FEEDTUBE PRN PRN For Clogged Feeding Tube Sodium Chloride 10 ml 04/20/21 22:00 04/25/21 23:34 Sodium Chloride 0.9% 10 Ml Flush Syringe IV 10 ml BID WENDY Administration Sodium Chloride 10 ml 04/20/21 14:09 Sodium Chloride 0.9% 10 Ml Flush Syringe IV PRN PRN LINE FLUSH Zinc Sulfate 220 mg 04/20/21 22:00 04/25/21 23:44 Zinc Sulfate 220 Mg Cap PO 220 mg BID WENDY Administration Nutrition/Malnutrition Assess - Dietary Evaluation Nutrition/Malnutrition Findings: Nutrition Notes Start: 04/21/21 13:58 Freq: Status: Active Protocol: Document 04/25/21 12:41 (Rec: 04/25/21 12:47 [id number]) Nutrition Notes Initial or Follow up Reassessment Current Diagnosis Acute Kidney Injury,Decubitus( Pressure Ulcer),Diabetes, Sepsis,Hypertension,Heart Failure,Respiratory Failure Other Pertinent Diagnosis PNA, r/o Covid19, dementia, dysphagia Current Diet Glucerna 1.2 at 50 ml/hr Labs/Tests Na 149 K 5.1 BUN 55 BG 347 Phos 1.9 Pertinent Medications D5w at 100ml/hr Insulin Solu Medrol 04/24: KCl 40 mEq Height 5 ft 5 in Weight 57 kg [place] Body Weight (kg) 56.81 BMI 20.9 Weight Status Appropriate Subjective/Other Information TF at goal rate and currently no signs of intolerance. Percent of energy/protein needs met: 100%/100% Burn Absent Trauma Absent GI Symptoms None Difficulty In Swallowing,Chewing Skin Integrity/Comment unstagable pressure wound present Current % PO Negligible Minimum of two criteria No Reduced Client Liaison Strength Measurably Reduced (severe) #2 Nutrition Diagnosis Increased nutrient needs ( specify in comment below) Diagnosis Progress(for reassessment Continues documentation) #1 Nutrition Diagnosis Inadequate oral intake Diagnosis Progress(for reassessment Continues documentation) Is patient on ventilator? No Is Patient Ambulatory and/or Out of Bed No REE-([facility]-confined to bed) 1368.228 Calculation Used for Recommendations [facility] Additional Notes protein needs:71 - 85g (1.25 - 1.5g/kgBW) fluid needs: 1 ml/kcal Nutrition Intervention Change Diet Order: continue Nutrition Support: Glucerna 1.2 at 50 ml/hr Flush 200 ml q4h for hypernatremia. Resume free water flush of 100 ml q4h once hypernatremia resolved Kcal 1,440 Protein (gm) 72 Fluid (mL) 966 Goal #1 Meet at least 80% of protein and kcal needs via TF Goal #2 Wound healing Anticipated Discharge Needs: Glucerna 1.2 at 50 ml/hr. Flush 100 ml q4h for Follow-Up By: 04/27/21 Additional Comments F/u: TF tolerance, Na labs
--- NOTE | 2021-04-26 08:45 | Cat Scan Report ---
CT PELVIS WITHOUT CONTRAST HISTORY: Evaluate sacral decubitus ulcer TECHNIQUE: Helical CT without contrast. Sagittal and coronal reformatted images. All CT scans at this location are performed using CT dose reduction for ALARA by means of automated exposure control.. COMPARISON: No relevant comparison. FINDINGS: Soft tissue ulceration overlying the sacrococcygeal junction measures 2.7 cm transverse and 4 cm craniocaudal. This area of ulceration nearly extends to underlying bone. Subtle cortical destru ction is suspected in the lower sacrum on the left side which is best demonstrated on axial image 45 which is concerning for very early osteomyelitis. There is certainly no advanced bony destruction. No abscess or large amount of soft tissue gas is identified. The uterus, adnexa, bladder and visualized bowel loops in the pelvis are unremarkable. No pelvic flui d collection or mass. Moderate to severe atherosclerotic disease is noted throughout the vascular str uctures. No mass or adenopathy. IMPRESSION: Sacral decubitus ulcer as outlined above which nearly extends to underlying bone subtle findings are suspicious for very early osteomyelitis as described. MRI preferably with IV contrast would provide m ore information if clinically needed. No abscess is appreciated. Signer Name: Jose Dorman Jr, MD Signed: 04/26/2021 8:40 AM Workstation Name: [id number]
[2021-04-26 09:02] LABS: BUN/Creatinine Ratio 59; Blood Urea Nitrogen 47 mg/dL (7-17); Calcium 9.7 mg/dL (8.4-10.2); Hemolysis Index 53
--- NOTE | 2021-04-26 09:17 | Progress Note ---
Assessment and Plan 60 y/o female with Recurrent PTX this admission, admitted with PTX s/p chest tube now times 2 and hypoxic respiraotry secondary to PTX 04/26/21: Follow up CXR read. Possible osteo on CT, rads recommending MRI. Will continue to follow with you. 04/25/21: No new recs. Please see below. 1. Chest tube per surgery 2. Would continue supplemental oxygen and should be discharged to home on this if she does not have it already. Subjective Date of service: 04/26/21 Interval history: Patient off floor for CT and cXR. Reviewed CXR imaging and to me, there appears to be a small PTX just in front of the chest tube on the left side but imaging has not been officially read yet. Patient was on waterseal. oxygenation per documentation is stable. Objective Vital Signs - 12hr 04/25/21 22:00 O2 Sat by Pulse 99 Oximetry Constitutional: no acute distress Eyes: non-icteric ENT: oropharynx moist Neck: supple Effort: normal Ascultation: Bilateral: diminished breath sounds Cardiovascular: regular rate and rhythm Gastrointestinal: normoactive bowel sounds, soft, non-tender CBC and BMP: 04/23/21 14:47 04/26/21 07:44 ABG, PT/INR, D-dimer: PT/INR, D-dimer PT 15.6 Sec. (12.2-14.9) H 04/20/21 08:54 INR 1.19 (0.87-1.13) H 04/20/21 08:54 D-Dimer 840.47 ng/mlDDU (0-234) H 04/20/21 15:17 Abnormal lab findings: Abnormal Labs 04/20/21 04/20/21 04/20/21 08:54 08:54 08:54 RBC Hgb Hct MCV MCH 25 L RDW 18.2 H Lymph % (Auto) Lymph # (Auto) Seg Neutrophils % Seg Neuts % (Manual) 81.0 H Lymphocytes % (Manual) 12.0 L Lymphocytes # (Manual) 0.8 L PT 15.6 H INR 1.19 H D-Dimer Sodium 163 H* Potassium 2.8 L* Chloride 118.6 H Carbon Dioxide BUN 152 H Creatinine 2.0 H Glucose 147 H POC Glucose Lactic Acid Calcium 10.8 H Phosphorus Magnesium Ferritin Lactate Dehydrogenase C-Reactive Protein Total Protein 8.5 H Albumin 3.4 L Urine WBC (Auto) 04/20/21 04/20/21 04/20/21 08:54 14:29 15:17 RBC Hgb Hct MCV MCH RDW Lymph % (Auto) Lymph # (Auto) Seg Neutrophils % Seg Neuts % (Manual) Lymphocytes % (Manual) Lymphocytes # (Manual) PT INR D-Dimer Sodium Potassium Chloride Carbon Dioxide BUN Creatinine Glucose POC Glucose Lactic Acid 2.60 H* 2.60 H* Calcium Phosphorus Magnesium Ferritin Lactate Dehydrogenase C-Reactive Protein Total Protein Albumin Urine WBC (Auto) > 182.0 H 04/20/21 04/20/21 04/20/21 15:17 15:17 15:17 RBC Hgb Hct MCV MCH RDW Lymph % (Auto) Lymph # (Auto) Seg Neutrophils % Seg Neuts % (Manual) Lymphocytes % (Manual) Lymphocytes # (Manual) PT INR D-Dimer 840.47 H Sodium Potassium Chloride Carbon Dioxide BUN Creatinine Glucose 135 H POC Glucose Lactic Acid Calcium Phosphorus Magnesium Ferritin 508.5 H Lactate Dehydrogenase 189 H C-Reactive Protein 19.10 H Total Protein Albumin Urine WBC (Auto) 04/21/21 04/21/21 04/21/21 06:12 07:51 10:34 RBC 3.59 L Hgb 9.0 L Hct 29.1 L MCV MCH 25 L RDW 18.6 H Lymph % (Auto) Lymph # (Auto) Seg Neutrophils % 75.9 H Seg Neuts % (Manual) Lymphocytes % (Manual) Lymphocytes # (Manual) PT INR D-Dimer Sodium 161 H* Potassium 3.4 L D Chloride 124.9 H Carbon Dioxide 21 L BUN 123 H Creatinine 1.4 H Glucose 194 H POC Glucose 166 H Lactic Acid Calcium Phosphorus Magnesium Ferritin Lactate Dehydrogenase C-Reactive Protein Total Protein Albumin Urine WBC (Auto) 04/21/21 04/21/21 04/21/21 12:32 14:57 16:25 RBC Hgb Hct MCV MCH RDW Lymph % (Auto) Lymph # (Auto) Seg Neutrophils % Seg Neuts % (Manual) Lymphocytes % (Manual) Lymphocytes # (Manual) PT INR D-Dimer Sodium 160 H Potassium 3.0 L Chloride 127.1 H Carbon Dioxide 18 L BUN 121 H Creatinine 1.6 H Glucose 199 H POC Glucose 178 H 187 H Lactic Acid Calcium Phosphorus Magnesium Ferritin Lactate Dehydrogenase C-Reactive Protein Total Protein Albumin Urine WBC (Auto) 04/21/21 04/21/21 04/22/21 19:35 22:17 08:33 RBC Hgb Hct MCV MCH RDW Lymph % (Auto) Lymph # (Auto) Seg Neutrophils % Seg Neuts % (Manual) Lymphocytes % (Manual) Lymphocytes # (Manual) PT INR D-Dimer Sodium 157 H Potassium 5.3 H D Chloride 127.2 H Carbon Dioxide 15 L BUN 121 H Creatinine 1.5 H Glucose 221 H POC Glucose 205 H 312 H Lactic Acid Calcium Phosphorus Magnesium Ferritin Lactate Dehydrogenase C-Reactive Protein Total Protein Albumin Urine WBC (Auto) 04/22/21 04/22/21 04/22/21 13:26 16:44 16:44 RBC Hgb Hct MCV MCH RDW Lymph % (Auto) Lymph # (Auto) Seg Neutrophils % Seg Neuts % (Manual) Lymphocytes % (Manual) Lymphocytes # (Manual) PT INR D-Dimer Sodium 158 H Potassium Chloride 126.9 H Carbon Dioxide 19 L BUN 112 H Creatinine 1.4 H Glucose 317 H POC Glucose 315 H Lactic Acid Calcium Phosphorus Magnesium 2.70 H Ferritin Lactate Dehydrogenase C-Reactive Protein Total Protein Albumin Urine WBC (Auto) 04/22/21 04/22/21 04/23/21 18:05 22:14 06:35 RBC Hgb Hct MCV MCH RDW Lymph % (Auto) Lymph # (Auto) Seg Neutrophils % Seg Neuts % (Manual) Lymphocytes % (Manual) Lymphocytes # (Manual) PT INR D-Dimer Sodium Potassium Chloride Carbon Dioxide BUN Creatinine Glucose POC Glucose 236 H 153 H 170 H Lactic Acid Calcium Phosphorus Magnesium Ferritin Lactate Dehydrogenase C-Reactive Protein Total Protein Albumin Urine WBC (Auto) 04/23/21 04/23/21 04/23/21 12:26 14:47 14:47 RBC 3.47 L Hgb 8.6 L Hct 27.1 L MCV 78 L MCH 25 L RDW 18.7 H Lymph % (Auto) 10.0 L Lymph # (Auto) 0.7 L Seg Neutrophils % 86.3 H Seg Neuts % (Manual) Lymphocytes % (Manual) Lymphocytes # (Manual) PT INR D-Dimer Sodium 154 H Potassium 3.5 L Chloride 122.5 H Carbon Dioxide 20 L BUN 81 H Creatinine Glucose 241 H POC Glucose 179 H Lactic Acid Calcium Phosphorus Magnesium Ferritin Lactate Dehydrogenase C-Reactive Protein Total Protein Albumin Urine WBC (Auto) 04/23/21 04/23/21 04/24/21 18:28 23:34 06:13 RBC Hgb Hct MCV MCH RDW Lymph % (Auto) Lymph # (Auto) Seg Neutrophils % Seg Neuts % (Manual) Lymphocytes % (Manual) Lymphocytes # (Manual) PT INR D-Dimer Sodium Potassium Chloride Carbon Dioxide BUN Creatinine Glucose POC Glucose 222 H 257 H 252 H Lactic Acid Calcium Phosphorus Magnesium Ferritin Lactate Dehydrogenase C-Reactive Protein Total Protein Albumin Urine WBC (Auto) 04/24/21 04/24/21 04/24/21 13:12 18:10 23:29 RBC Hgb Hct MCV MCH RDW Lymph % (Auto) Lymph # (Auto) Seg Neutrophils % Seg Neuts % (Manual) Lymphocytes % (Manual) Lymphocytes # (Manual) PT INR D-Dimer Sodium 154 H Potassium 5.2 H D Chloride 123.9 H Carbon Dioxide 21 L BUN 59 H Creatinine Glucose 320 H POC Glucose 300 H 212 H Lactic Acid Calcium Phosphorus Magnesium Ferritin Lactate Dehydrogenase C-Reactive Protein Total Protein Albumin Urine WBC (Auto) 04/24/21 04/25/21 04/25/21 23:29 05:48 05:50 RBC Hgb Hct MCV MCH RDW Lymph % (Auto) Lymph # (Auto) Seg Neutrophils % Seg Neuts % (Manual) Lymphocytes % (Manual) Lymphocytes # (Manual) PT INR D-Dimer Sodium 149 H Potassium 5.1 H Chloride 118.1 H Carbon Dioxide BUN 55 H Creatinine Glucose 347 H POC Glucose 301 H 311 H Lactic Acid Calcium Phosphorus 1.90 L Magnesium Ferritin Lactate Dehydrogenase C-Reactive Protein Total Protein Albumin Urine WBC (Auto) 04/25/21 04/25/21 04/25/21 13:16 17:16 23:40 RBC Hgb Hct MCV MCH RDW Lymph % (Auto) Lymph # (Auto) Seg Neutrophils % Seg Neuts % (Manual) Lymphocytes % (Manual) Lymphocytes # (Manual) PT INR D-Dimer Sodium Potassium Chloride Carbon Dioxide BUN Creatinine Glucose POC Glucose 270 H 183 H 242 H Lactic Acid Calcium Phosphorus Magnesium Ferritin Lactate Dehydrogenase C-Reactive Protein Total Protein Albumin Urine WBC (Auto) 04/26/21 04/26/21 06:15 07:44 RBC Hgb Hct MCV MCH RDW Lymph % (Auto) Lymph # (Auto) Seg Neutrophils % Seg Neuts % (Manual) Lymphocytes % (Manual) Lymphocytes # (Manual) PT INR D-Dimer Sodium Potassium 5.7 H Chloride 108.7 H Carbon Dioxide 18 L BUN 47 H Creatinine Glucose 305 H POC Glucose 269 H Lactic Acid Calcium Phosphorus 2.20 L Magnesium Ferritin Lactate Dehydrogenase C-Reactive Protein Total Protein Albumin Urine WBC (Auto)
--- NOTE | 2021-04-26 09:27 | XRay Report ---
CHEST 1 VIEW 04/26/2021 8:19 AM INDICATION / CLINICAL INFORMATION: chest tube placement. COMPARISON: 04/23/2021. FINDINGS: SUPPORT DEVICES: Left-sided chest tube and feeding tube unchanged. Small peripheral pneumothorax. Rig ht midline PICC line unchanged. HEART / MEDIASTINUM: No significant abnormality. LUNGS / PLEURA: No significant pulmonary or pleural abnormality. Lung volumes remain mildly diminishe d. ADDITIONAL FINDINGS: No significant additional findings. IMPRESSION: Small peripheral pneumothorax remains on the left. Signer Name: Luis Mobley MD Signed: 04/26/2021 9:22 AM Workstation Name: [id number]
[2021-04-26] MEDS ORDERED: INSULIN REGULAR, HUMAN 100 UNITS/1 ML IV ONE (09:45)
[2021-04-26] MEDS ORDERED: SODIUM POLYSTYRENE 15 GM/60 ML ORAL LIQD PO NR (09:45)
--- NOTE | 2021-04-26 10:23 | Progress Note ---
Assessment and Plan 1. Acute kidney injury: Vasomotor ODILON in the setting of volume depletion +/- hypotension. Urine studies ordered. Continue IV fluids. Monitor renal function. Creatinine level is improving. Avoid nephrotoxic agents. Meds dosage based on GFR. 2. FEN: Hypernatremia, improved, monitor. Hyperchloremic metabolic acidosis, monitor. Hyperkalemia, associated with hyperglycemia, additional dose of Insulin ordered, monitor. Monitor lytes and volume status. 3. Bilateral Pneumonia, POA: Covid test negative. On Abx. 4. L Pneumothorax, POA: S/p chest tube re-inserted 04/23. 5. Acute hypoxemic respiratory failure, POA: 2/2 PNA and pneumothorax. Supplemental oxygen. Monitor. 6. DM type 2, uncontrolled: Lantus dose increased. Monitor. 7. Sacral decub. 8. Anemia, not POA: Monitor. 9. Hypertension. Follow BP. 10. Dementia. Subjective: Patient was seen and examined at the bedside. Examination: General appearance: well-developed, appears stated age, emaciated, not in distress, appears chronically ill, NC O2, NG tube, on restrains HEENT: atraumatic, SHAR Neck: trachea midline Respiratory: bilateral decreased breath sounds, L chest tube noted Heart: S1S2, regular, no murmur Abdomen: soft, bowel sounds heard, NT Integumentary: no obvious rash Neurologic: lethargic, opens eyes Ext: no edema Subjective Date of service: 04/26/21 Objective - Lab 04/23/21 14:47 04/26/21 18:33 Most recent lab results Calcium 9.7 mg/dL (8.4-10.2) 04/26/21 07:44 Phosphorus 2.20 mg/dL (2.5-4.5) L 04/26/21 07:44 Magnesium 2.70 mg/dL (1.7-2.3) H 04/22/21 16:44 Medications & Allergies - Medications Allergies/Adverse Reactions: Allergies Penicillins Allergy (Verified 12/03/18 20:53) Hives meperidine [From Demerol] Adverse Reaction (Verified 12/03/18 20:53) Anaphylaxis morphine Adverse Reaction (Verified 12/03/18 20:53) Unknown Home Medications: Home Medications Medication Instructions Recorded Confirmed Last Taken Type DOXYCYCLINE Hyclate [Vibramycin 100 mg PO Q12HR #14 capsule 12/03/18 04/23/21 Unknown Rx CAP] Active Medications: Generic Name Dose Route Start Last Admin Trade Name Freq PRN Reason Stop Dose Admin Acetaminophen 650 mg 04/20/21 15:30 Acetaminophen 325 Mg Tab PO Q4H PRN Pain MILD(1-3)/Fever >100.5/WEST Albuterol 2.5 mg 04/20/21 14:09 Albuterol 2.5 Mg/3 Ml Nebu IH Q4HRT PRN Shortness Of Breath Lipase/Protease/Amylase 1 each 04/23/21 08:37 Lipase 10,500/Protease 25,000/Amylase 43,750 (Units) Dr Yates FEEDTUBE PRN PRN For Clogged Feeding Tube Ascorbic Acid 500 mg 04/20/21 22:00 04/25/21 23:43 Ascorbic Acid 500 Mg Tab PO 500 mg BID WENDY Administration Cholecalciferol 1,000 unit 04/21/21 10:00 04/25/21 10:04 Cholecalciferol (Vit D3) 1000 Unit (25 Mcg) Tab PO 1,000 unit DAILY WENDY Administration Heparin Sodium (Porcine) 5,000 unit 04/20/21 22:00 04/25/21 23:33 Heparin 5,000 Unit/1 Ml Vial SUB-Q 5,000 unit Q12HR WENDY Administration Hydromorphone HCl 0.5 mg 04/20/21 14:09 04/25/21 23:41 Hydromorphone 1 Mg/1 Ml Inj IV 0.5 mg Q3H PRN Administration Pain , Severe (7-10) Cefepime HCl 2 gm in 100 mls @ 200 mls/hr 04/21/21 10:00 04/25/21 10:07 Cefepime/Ns 2 Gm/100 Ml IV 04/27/21 09:59 200 mls/hr Q24HR WENDY Administration Protocol Dextrose 1,000 mls @ 50 mls/hr 04/21/21 13:00 04/26/21 06:28 D5w IV Infused DIRECT WENDY Infusion Insulin Glargine 25 units 04/22/21 22:00 04/25/21 23:43 Insulin Glargine 100 Units/Ml SUB-Q 25 units QHS WENDY Administration Insulin Human Lispro 0 unit 04/22/21 11:00 04/26/21 06:27 Insulin Lispro 100 Unit/Ml SUB-Q 6 unit Q6H WENDY Administration Protocol Methylprednisolone Sodium Succinate 40 mg 04/20/21 22:00 04/26/21 06:16 Methylprednisolone Sod Succinate 40 Mg/1 Ml Inj IV 40 mg Q8HR WENDY Administration Ondansetron HCl 4 mg 04/20/21 14:09 Ondansetron 4 Mg/2 Ml Inj IV Q8H PRN Nausea And Vomiting Oxycodone/Acetaminophen 1 tab 04/20/21 14:09 04/24/21 23:45 Oxycodone /Acetaminophen 5-325mg Tab PO 1 tab Q12H PRN Administration Pain, Moderate (4-6) Simple Syrup 15 ml 04/23/21 08:37 Simple Syrup 15 Ml FEEDTUBE PRN PRN Hypoglycemia Simple Syrup 30 ml 04/23/21 08:37 Simple Syrup 15 Ml FEEDTUBE PRN PRN Hypoglycemia Sodium Bicarbonate 325 mg 04/23/21 08:37 Sodium Bicarbonate 325 Mg Tab FEEDTUBE PRN PRN For Clogged Feeding Tube Sodium Bicarbonate 650 mg 04/26/21 14:00 Sodium Bicarbonate 650 Mg Tab PO TID WENDY Sodium Chloride 10 ml 04/20/21 22:00 04/25/21 23:34 Sodium Chloride 0.9% 10 Ml Flush Syringe IV 10 ml BID WENDY Administration Sodium Chloride 10 ml 04/20/21 14:09 Sodium Chloride 0.9% 10 Ml Flush Syringe IV PRN PRN LINE FLUSH Sodium Polystyrene Sulfonate 30 gm 04/26/21 09:45 Sodium Polystyrene 15 Gm/60 Ml Oral Liqd PO 04/26/21 13:00 ONCE@0945 NR Zinc Sulfate 220 mg 04/20/21 22:00 04/25/21 23:44 Zinc Sulfate 220 Mg Cap PO 220 mg BID WENDY Administration
[2021-04-26] MEDS: CEFEPIME/NS 2 GM/100 ML 2 GM/100 ML BAG IV SCH (10:29)
[2021-04-26] MEDS: HEPARIN 5,000 UNIT/1 ML VIAL SUB-Q SCH (10:32)
[2021-04-26] MEDS: CHOLECALCIFEROL (VIT D3) 1000 UNIT (25 mcg) TAB PO SCH (10:32)
[2021-04-26] MEDS: ASCORBIC ACID 500 MG TAB PO SCH (10:32)
[2021-04-26] MEDS: ZINC SULFATE 220 MG CAP PO SCH (10:32)
[2021-04-26] MEDS: SODIUM BICARBONATE 650 MG TAB PO SCH (14:32)
[2021-04-26] MEDS: DEXTROSE 5% IN WATER 1,000 ML IV SCH (18:02)
[2021-04-27] MEDS: HEPARIN 5,000 UNIT/1 ML VIAL SUB-Q SCH ×3 (00:12→21:05)
[2021-04-27] MEDS: ZINC SULFATE 220 MG CAP PO SCH ×3 (00:12→21:05)
[2021-04-27] MEDS: CEFEPIME/NS 2 GM/100 ML 2 GM/100 ML BAG IV SCH ×3 (00:13→21:04)
[2021-04-27] MEDS: ASCORBIC ACID 500 MG TAB PO SCH ×3 (00:13→21:05)
[2021-04-27] MEDS: INSULIN LISPRO 100 UNIT/ML SUB-Q SCH ×4 (00:15→18:00)
[2021-04-27] MEDS: SODIUM BICARBONATE 650 MG TAB PO SCH ×4 (00:33→21:05)
[2021-04-27] MEDS: INSULIN GLARGINE 100 UNITS/ML SUB-Q SCH (01:03)
[2021-04-27 07:00] LABS: Blood Urea Nitrogen 38 mg/dL (7-17); Calcium 9.3 mg/dL (8.4-10.2); Hemolysis Index 13
--- NOTE | 2021-04-27 07:06 | Event Note ---
Date: 04/27/21 CT pelvis suspicious for sacral osteomyolitis, will obtain MRI of pelvis, OK to place CT to water seal for study, please DO NOt clamp chest tube, water seal only.
[2021-04-27 07:18] LABS: BUN/Creatinine Ratio 54
--- NOTE | 2021-04-27 09:27 | Progress Note ---
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 Patient is confused and lethargic the time my evaluation and is unable to provide history. Patient also has diminished cognition which is her baseline. Patient is unable to provide history. Patient history provided by EMS staff, ED staff, as well as the patient's daughter who was contacted via telephone for interview. As per daughter the patient is currently a patient receiving hospice care from [facility]. Patient daughter elects to revoke hospice benefit and seek aggressive medical therapy. [facility] notified and acknowledge patient revocation. Patient daughter reports that patient experience fever 103 F today, and has experienced decreased oral intake and decreased responsiveness over the past 2 days with progressively worsening symptoms over the same alejo eframe. EMS was notified and upon arrival the patient was found to be in distress with a pulse oximetry of 65% on room air. The patient was placed on submental oxygen and transported to [facility] for further care and evaluation of the aforementioned symptoms. The patient was seen and evaluated in the emergency department. All lab and imaging studies reviewed. The patient was found to have a pulse oximetry of 82% on submental oxygen which is consistent with acute hypoxemic respiratory failure. Chest x-ray revealed pneumonia as well as left pneumothorax. The patient was also found to have acute kidney injury, systemic inflammatory response syndrome, hypokalemia. The patient underwent chest tube placement in the emergency department with improvement in symptoms. Surgery team consulted in ED. Patient admitted to medical floor due to increased risk of worsening symptoms. Patient initiated on pneumonia protocol as well as coronavirus protocol. The patient has diminished cognition but has a positive gag reflex and is able to protect her airway without difficulty at this time. No reported history of chest pain, palpitation, productive cough, skin rash, recent ill contacts, or known exposure to COVID-19. No prior admission for review. No medication listed at time of admission for reconciliation. Advanced care planning conducted in ED. CT HEAD: Negative CT chest: Chest tube in place, noted opacities 04/21: Patient lethargic, chest tube remains in place, Wound care consult, as piration precautions. Wean as tolerated. Await COVID 19. Monitor Sodium level, awaiting labs, check q8hr. 04/22: Chest tube still positive air leak. Patient still hypoxic, while sodium level is improving metabolic acidosis has been noted. Patient's Covid test was negative. We will continue current management and adjust insulin for better blood sugar management. May require some Kayexalate due to hyper kalemia but considering severe hypokalemia just the day before we will monitor closely. Renal function showing some improvement continue management pulmonary and nephrology input noted. Urine culture positive for fungal Judith will monitor closely. 04/23: Penumonthorax appears to have resolved, patient down to 3 liters of Oxygen via NC, tolerating. she is still very lethargic, failed swallow eval. awaiting to hear from family if to progress with PEG placement. Patient was recently on Hospice but that was rescinded. Overall poor prognosis. Continue monitoring Hypernatremia. Surgeon re-evaluating Chest tube today 04/24 -Patient is on chest tube for pnuemothorax. Surgery is following. Sacral decubitus ulcer. Patient was evaluated by GI for PEG tube placement and will place PEG tube once patient is stable. Wants to be reconsulted once stable. Patient was on 2 L of oxygen. 04/25; patient is being followed by surgery for chest tube. Sacral decubitus ulcer followed by surgery for possible debridement. Patient is on OG tube feeding, evaluated by GI for PEG tube placement and recommend to be reconsulted after patient is stable. 04/26; patient was seen by general surgery and chest x-ray ordered for follow-up of her pneumothorax status post chest tube. CT pelvis was done and reading is pending, general surgery is evaluating for debridement. Patient is on OG tube feeding and will increase free water intake for hyperkalemia. Discussed with GI yesterday and they state reconsult once chest tube is taken out for PEG tube placement. Prognosis this is guarded. 04/27; left-sided chest tube in place, Small pneumothorax on the left. MRI showed osteomyelitis of the sacral area and will have debridement on Friday. Will follow up with case management about hospice care which the daughter requests. I called patient's daughter Ms Corado at [phone], she said she want PEG tube, debridement and she wants the patient be continued full code. He told me that is patient's request. (1) Acute hypoxemic respiratory failure Current Visit: Yes Status: Acute Plan to address problem: Chest x-ray, supplemental oxygen, pulse oximetry, chest tube placed in the emergency department. Repeat chest x-ray in a.m. (2) Pneumonia Current Visit: Yes Status: Acute Plan to address problem: Pneumonia protocol: Chest x-ray, CBC, CMP, supplemental oxygen, pulse oximetry, nebulizer therapy, blood culture. (3) Acute kidney injury (ODILON) with acute tubular necrosis (ATN) Current Visit: Yes Status: Acute Plan to address problem: BMP, IV fluid resuscitation therapy, repeat BMP in a.m. to monitor serum creati nine as well as GFR (4) Hypokalemia Current Visit: Yes Status: Acute Plan to address problem: Repleted in ED, repeat BMP (5) Vascular dementia Current Visit: Yes Status: Acute Qualifiers: Dementia behavioral disturbance: without behavioral disturbance Qualified Code(s): F01.50 - Vascular dementia without behavioral disturbance Plan to address problem: Verbal prompting, verbal redirection, benzodiazepine therapy as clinically indicated (6) Cerebral atherosclerosis Current Visit: Yes Status: Acute Plan to address problem: Antiplatelet therapy, supportive care, risk factor reduction. (7) Dysphagia as late effect of cerebrovascular accident (CVA) Current Visit: Yes Status: Acute Plan to address problem: Pured diet, assistance with meals, supportive care. (8) Spontaneous pneumothorax Current Visit: Yes Status: Acute Plan to address problem: Chest tube placed in the emergency department, chest x-ray, postoperative chest x-ray, surgery team consulted, repeat chest x-ray in a.m. (9) Suspected COVID-19 virus infection Current Visit: Yes Status: Acute Plan to address problem: Coronavirus protocol: IV steroid therapy, IV antibiotic therapy, supplemental oxygen,, pulse oximetry, vitamin C therapy, vitamin D therapy, zinc therapy, prophylactic anticoagulation, coronavirus PCR ordered and is pending at time of admission. (10) DVT prophylaxis Current Visit: Yes Status: Acute Plan to address problem: SCD to bilateral lower extremities while in bed, prophylactic anticoagulation (11) Advance care planning Current Visit: Yes Status: Acute Plan to address problem: Disease education conducted, care plan discussed, diagnoses discussed, prognosis discussed, patient daughter knowledges understanding and agreement with care plan. Patient daughter elects to revoke hospice benefit and treat patient with aggressive medical therapy. Patient daughter knowledges understanding of prognosis. Patient is full code, +30 minutes. History Interval history: Patient was seen and evaluated this morning Patient was weak, she was not communicative Hospitalist Physical - Physical exam Narrative exam: Not in cardiopulmonary distress. The patient appeared well nourished and normally developed. Vital signs as documented. Head exam is unremarkable. No scleral icterus . Neck is without jugular venous distension, thyromegaly, or carotid bruits. Lungs left-sided chest tube in place Cardiac exam reveals regular rate and Rhythm. Abdominal exam reveals normal bowel sounds, nontender, no organomegaly. Extremities are nonedematous and both femoral and pedal pulses are normal. [employer]: confused, very weak and not talking. No focal weakness. - Constitutional Vitals: Temp Pulse Resp BP Pulse Ox 98.5 F 109 H 20 166/61 98 04/27/21 05:31 04/27/21 05:31 04/27/21 05:31 04/27/21 05:31 04/27/21 05:31 General appearance: Present: mild distress, cachectic Results - Labs CBC & Chem 7: 04/23/21 14:47 04/27/21 06:10 Labs: Laboratory Last Values WBC 7.4 K/mm3 (4.5-11.0) 04/23/21 14:47 RBC 3.47 M/mm3 (3.65-5.03) L 04/23/21 14:47 Hgb 8.6 gm/dl (10.1-14.3) L 04/23/21 14:47 Hct 27.1 % (30.3-42.9) L 04/23/21 14:47 MCV 78 fl (79-97) L 04/23/21 14:47 MCH 25 pg (28-32) L 04/23/21 14:47 MCHC 32 % (30-34) 04/23/21 14:47 RDW 18.7 % (13.2-15.2) H 04/23/21 14:47 Plt Count 251 K/mm3 (140-440) 04/23/21 14:47 Lymph % (Auto) 10.0 % (13.4-35.0) L 04/23/21 14:47 Colbert % (Auto) 2.7 % (0.0-7.3) 04/23/21 14:47 Eos % (Auto) 0.1 % (0.0-4.3) 04/23/21 14:47 Baso % (Auto) 0.9 % (0.0-1.8) 04/23/21 14:47 Lymph # (Auto) 0.7 K/mm3 (1.2-5.4) L 04/23/21 14:47 Colbert # (Auto) 0.2 K/mm3 (0.0-0.8) 04/23/21 14:47 Eos # (Auto) 0.0 K/mm3 (0.0-0.4) 04/23/21 14:47 Baso # (Auto) 0.1 K/mm3 (0.0-0.1) 04/23/21 14:47 Add Manual Diff Complete 04/20/21 08:54 Total Counted 100 04/20/21 08:54 Seg Neutrophils % 86.3 % (40.0-70.0) H 04/23/21 14:47 Seg Neuts % (Manual) 81.0 % (40.0-70.0) H 04/20/21 08:54 Band Neutrophils % 2.0 % 04/20/21 08:54 Lymphocytes % (Manual) 12.0 % (13.4-35.0) L 04/20/21 08:54 Monocytes % (Manual) 5.0 % (0.0-7.3) 04/20/21 08:54 Nucleated RBC % Not Reportable 04/20/21 08:54 Seg Neutrophils # 6.4 K/mm3 (1.8-7.7) 04/23/21 14:47 Seg Neutrophils # Man 5.3 K/mm3 (1.8-7.7) 04/20/21 08:54 Band Neutrophils # 0.1 K/mm3 04/20/21 08:54 Lymphocytes # (Manual) 0.8 K/mm3 (1.2-5.4) L 04/20/21 08:54 Abs React Lymphs (Man) 0.0 K/mm3 04/20/21 08:54 Monocytes # (Manual) 0.3 K/mm3 (0.0-0.8) 04/20/21 08:54 Eosinophils # (Manual) 0.0 K/mm3 (0.0-0.4) 04/20/21 08:54 Basophils # (Manual) 0.0 K/mm3 (0.0-0.1) 04/20/21 08:54 Metamyelocytes # 0.0 K/mm3 04/20/21 08:54 Myelocytes # 0.0 K/mm3 04/20/21 08:54 Promyelocytes # 0.0 K/mm3 04/20/21 08:54 Blast Cells # 0.0 K/mm3 04/20/21 08:54 WBC Morphology Not Reportable 04/20/21 08:54 Hypersegmented Neuts Not Reportable 04/20/21 08:54 Hyposegmented Neuts Not Reportable 04/20/21 08:54 Hypogranular Neuts Not Reportable 04/20/21 08:54 Smudge Cells Not Reportable 04/20/21 08:54 Toxic Granulation Not Reportable 04/20/21 08:54 Toxic Vacuolation Not Reportable 04/20/21 08:54 Dohle Bodies Not Reportable 04/20/21 08:54 Pelger-Huet Anomaly Not Reportable 04/20/21 08:54 Gabe Rods Not Reportable 04/20/21 08:54 Platelet Estimate Consistent w auto 04/20/21 08:54 Clumped Platelets Not Reportable 04/20/21 08:54 Plt Clumps, EDTA Not Reportable 04/20/21 08:54 Large Platelets Not Reportable 04/20/21 08:54 Giant Platelets Not Reportable 04/20/21 08:54 Platelet Satelliting Not Reportable 04/20/21 08:54 Plt Morphology Comment Not Reportable 04/20/21 08:54 RBC Morphology Not Reportable 04/20/21 08:54 Dimorphic RBCs Not Reportable 04/20/21 08:54 Polychromasia Not Reportable 04/20/21 08:54 Hypochromasia 1+ 04/20/21 08:54 Poikilocytosis Not Reportable 04/20/21 08:54 Anisocytosis 1+ 04/20/21 08:54 Microcytosis Not Reportable 04/20/21 08:54 Macrocytosis Not Reportable 04/20/21 08:54 Spherocytes Not Reportable 04/20/21 08:54 Pappenheimer Bodies Not Reportable 04/20/21 08:54 Sickle Cells Not Reportable 04/20/21 08:54 Target Cells Not Reportable 04/20/21 08:54 Tear Drop Cells Not Reportable 04/20/21 08:54 Ovalocytes Not Reportable 04/20/21 08:54 Helmet Cells Not Reportable 04/20/21 08:54 [place] Bodies Not Reportable 04/20/21 08:54 [place] Rings Not Reportable 04/20/21 08:54 Duran Cells Not Reportable 04/20/21 08:54 Bite Cells Not Reportable 04/20/21 08:54 Crenated Cell Not Reportable 04/20/21 08:54 Elliptocytes Not Reportable 04/20/21 08:54 Acanthocytes (Spur) Not Reportable 04/20/21 08:54 Rouleaux Not Reportable 04/20/21 08:54 Hemoglobin C Crystals Not Reportable 04/20/21 08:54 Schistocytes Not Reportable 04/20/21 08:54 Malaria parasites Not Reportable 04/20/21 08:54 Chris Bodies Not Reportable 04/20/21 08:54 Hem Pathologist Commnt No 04/20/21 08:54 PT 15.6 Sec. (12.2-14.9) H 04/20/21 08:54 INR 1.19 (0.87-1.13) H 04/20/21 08:54 D-Dimer 840.47 ng/mlDDU (0-234) H 04/20/21 15:17 VBG pH 7.382 (7.320-7.420) 04/20/21 08:54 Sodium 132 mmol/L (137-145) L D 04/27/21 06:10 Potassium 4.2 mmol/L (3.6-5.0) 04/27/21 06:10 Chloride 99.9 mmol/L (98-107) 04/27/21 06:10 Carbon Dioxide 20 mmol/L (22-30) L 04/27/21 06:10 Anion Gap 16 mmol/L 04/27/21 06:10 BUN 38 mg/dL (7-17) H 04/27/21 06:10 Creatinine 0.7 mg/dL (0.6-1.2) 04/27/21 06:10 Estimated GFR > 60 ml/min 04/27/21 06:10 BUN/Creatinine Ratio 54 % 04/27/21 06:10 Glucose 258 mg/dL (65-100) H 04/27/21 06:10 POC Glucose 244 mg/dL (70-105) H 04/27/21 05:31 Lactic Acid 2.60 mmol/L (0.7-2.0) H* 04/20/21 15:17 Calcium 9.3 mg/dL (8.4-10.2) 04/27/21 06:10 Phosphorus 1.80 mg/dL (2.5-4.5) L 04/27/21 06:10 Magnesium 2.70 mg/dL (1.7-2.3) H 04/22/21 16:44 Ferritin 508.5 ng/mL (10.0-200.0) H 04/20/21 15:17 Total Bilirubin 0.40 mg/dL (0.1-1.2) 04/20/21 08:54 AST 12 units/L (5-40) 04/20/21 08:54 ALT 9 units/L (7-56) 04/20/21 08:54 Alkaline Phosphatase 61 units/L (35-129) 04/20/21 08:54 Lactate Dehydrogenase 189 units/L (91-180) H 04/20/21 15:17 C-Reactive Protein 19.10 mg/dL (0.00-1.30) H 04/20/21 15:17 Total Protein 8.5 g/dL (6.3-8.2) H 04/20/21 08:54 Albumin 3.4 g/dL (3.9-5) L 04/20/21 08:54 Albumin/Globulin Ratio 0.7 % 04/20/21 08:54 Procalcitonin 2.70 ng/mL (<0.15) 04/20/21 15:17 PTH Intact 20.03 pg/mL (15-65) 04/22/21 16:44 Urine Color Yellow (Yellow) 04/20/21 14:29 Urine Turbidity Turbid (Clear) 04/20/21 14:29 Urine pH 5.0 (5.0-7.0) 04/20/21 14:29 Ur Specific [place] 1.017 (1.003-1.030) 04/20/21 14:29 Urine Protein 100 mg/dl mg/dL (Negative) 04/20/21 14:29 Urine Glucose (UA) Neg mg/dL (Negative) 04/20/21 14:29 Urine Ketones Neg mg/dL (Negative) 04/20/21 14:29 Urine Blood Mod (Negative) 04/20/21 14:29 Urine Nitrite Neg (Negative) 04/20/21 14:29 Urine Bilirubin Neg (Negative) 04/20/21 14:29 Urine Urobilinogen < 2.0 mg/dL (<2.0) 04/20/21 14:29 Ur Leukocyte Esterase Lg (Negative) 04/20/21 14:29 Urine WBC (Auto) > 182.0 /HPF (0.0-6.0) H 04/20/21 14:29 Urine RBC (Auto) > 182.0 /HPF (0.0-6.0) 04/20/21 14:29 U Epithel Cells (Auto) 2.0 /HPF (0-13.0) 04/20/21 14:29 Urine WBC Clumps 2+ /HPF 04/20/21 14:29 Nasal Screen MRSA (PCR) Positive (Negative) 04/21/21 Unknown Coronavirus (PCR) Negative (Negative) 04/20/21 09:30 Nuno/IV: Voiding Method Diaper Active Medications - Current Medications Current Medications: Generic Name Dose Route Start Last Admin Trade Name Freq PRN Reason Stop Dose Admin Acetaminophen 650 mg 04/20/21 15:30 Acetaminophen 325 Mg Tab PO Q4H PRN Pain MILD(1-3)/Fever >100.5/WEST Albuterol 2.5 mg 04/20/21 14:09 Albuterol 2.5 Mg/3 Ml Nebu IH Q4HRT PRN Shortness Of Breath Lipase/Protease/Amylase 1 each 04/23/21 08:37 Lipase 10,500/Protease 25,000/Amylase 43,750 (Units) Dr Yates FEEDTUBE PRN PRN For Clogged Feeding Tube Ascorbic Acid 500 mg 04/20/21 22:00 04/27/21 00:13 Ascorbic Acid 500 Mg Tab PO 500 mg BID WENDY Administration Cholecalciferol 1,000 unit 04/21/21 10:00 04/26/21 10:32 Cholecalciferol (Vit D3) 1000 Unit (25 Mcg) Tab PO 1,000 unit DAILY WENDY Administration Heparin Sodium (Porcine) 5,000 unit 04/20/21 22:00 04/27/21 00:12 Heparin 5,000 Unit/1 Ml Vial SUB-Q 5,000 unit Q12HR WENDY Administration Hydromorphone HCl 0.5 mg 04/20/21 14:09 04/25/21 23:41 Hydromorphone 1 Mg/1 Ml Inj IV 0.5 mg Q3H PRN Administration Pain , Severe (7-10) Cefepime HCl 2 gm in 100 mls @ 200 mls/hr 04/26/21 22:00 04/27/21 00:13 Cefepime/Ns 2 Gm/100 Ml IV 200 mls/hr Q12HR WENDY Administration Protocol Insulin Glargine 30 units 04/26/21 22:00 04/27/21 01:03 Insulin Glargine 100 Units/Ml SUB-Q 30 units QHS WENDY Administration Insulin Human Lispro 0 unit 04/22/21 11:00 04/27/21 06:13 Insulin Lispro 100 Unit/Ml SUB-Q 4 unit Q6H WENDY Administration Protocol Ondansetron HCl 4 mg 04/20/21 14:09 Ondansetron 4 Mg/2 Ml Inj IV Q8H PRN Nausea And Vomiting Oxycodone/Acetaminophen 1 tab 04/20/21 14:09 04/24/21 23:45 Oxycodone /Acetaminophen 5-325mg Tab PO 1 tab Q12H PRN Administration Pain, Moderate (4-6) Simple Syrup 15 ml 04/23/21 08:37 Simple Syrup 15 Ml FEEDTUBE PRN PRN Hypoglycemia Simple Syrup 30 ml 04/23/21 08:37 Simple Syrup 15 Ml FEEDTUBE PRN PRN Hypoglycemia Sodium Bicarbonate 325 mg 04/23/21 08:37 Sodium Bicarbonate 325 Mg Tab FEEDTUBE PRN PRN For Clogged Feeding Tube Sodium Bicarbonate 650 mg 04/26/21 14:00 04/27/21 00:33 Sodium Bicarbonate 650 Mg Tab PO 650 mg TID WENDY Administration Sodium Chloride 10 ml 04/20/21 22:00 04/27/21 01:29 Sodium Chloride 0.9% 10 Ml Flush Syringe IV 10 ml BID WENDY Administration Sodium Chloride 10 ml 04/20/21 14:09 Sodium Chloride 0.9% 10 Ml Flush Syringe IV PRN PRN LINE FLUSH Zinc Sulfate 220 mg 04/20/21 22:00 04/27/21 00:12 Zinc Sulfate 220 Mg Cap PO 220 mg BID WENDY Administration Nutrition/Malnutrition Assess - Dietary Evaluation Nutrition/Malnutrition Findings: Nutrition Notes Start: 04/21/21 13:58 Freq: Status: Active Protocol: Document 04/25/21 12:41 (Rec: 04/25/21 12:47 [email or web address]) Nutrition Notes Initial or Follow up Reassessment Current Diagnosis Acute Kidney Injury,Decubitus( Pressure Ulcer),Diabetes, Sepsis,Hypertension,Heart Failure,Respiratory Failure Other Pertinent Diagnosis PNA, r/o Covid19, dementia, dysphagia Current Diet Glucerna 1.2 at 50 ml/hr Labs/Tests Na 149 K 5.1 BUN 55 BG 347 Phos 1.9 Pertinent Medications D5w at 100ml/hr Insulin Solu Medrol 04/24: KCl 40 mEq Height 5 ft 5 in Weight 57 kg [place] Body Weight (kg) 56.81 BMI 20.9 Weight Status Appropriate Subjective/Other Information TF at goal rate and currently no signs of intolerance. Percent of energy/protein needs met: 100%/100% Burn Absent Trauma Absent GI Symptoms None Difficulty In Swallowing,Chewing Skin Integrity/Comment unstagable pressure wound present Current % PO Negligible Minimum of two criteria No Reduced Lactation Nurse Strength Measurably Reduced (severe) #2 Nutrition Diagnosis Increased nutrient needs ( specify in comment below) Diagnosis Progress(for reassessment Continues documentation) #1 Nutrition Diagnosis Inadequate oral intake Diagnosis Progress(for reassessment Continues documentation) Is patient on ventilator? No Is Patient Ambulatory and/or Out of Bed No REE-([facility]-confined to bed) 1368.228 Calculation Used for Recommendations [facility] Additional Notes protein needs:71 - 85g (1.25 - 1.5g/kgBW) fluid needs: 1 ml/kcal Nutrition Intervention Change Diet Order: continue Nutrition Support: Glucerna 1.2 at 50 ml/hr Flush 200 ml q4h for hypernatremia. Resume free water flush of 100 ml q4h once hypernatremia resolved Kcal 1,440 Protein (gm) 72 Fluid (mL) 966 Goal #1 Meet at least 80% of protein and kcal needs via TF Goal #2 Wound healing Anticipated Discharge Needs: Glucerna 1.2 at 50 ml/hr. Flush 100 ml q4h for Follow-Up By: 04/27/21 Additional Comments F/u: TF tolerance, Na labs
[2021-04-27] MEDS ORDERED: PHOS-NAK POWDER PACKET PO NR (09:33)
--- NOTE | 2021-04-27 09:33 | Progress Note ---
Assessment and Plan 1. Acute kidney injury: Vasomotor ODILON in the setting of volume depletion +/- hypotension. Urine studies ordered. Continue IV fluids. Monitor renal function. Creatinine level is improving. Avoid nephrotoxic agents. Meds dosage based on GFR. 2. FEN: Hypernatremia, improved, monitor. Hyperchloremic metabolic acidosis, Sod bicarbonate, monitor. Hyperkalemia, improved, monitor. Monitor lytes and volume status. 3. Bilateral Pneumonia, POA: Covid test negative. On Abx. 4. L Pneumothorax, POA: S/p chest tube re-inserted 04/23. 5. Acute hypoxemic respiratory failure, POA: 2/2 PNA and pneumothorax. Supplemental oxygen. Monitor. 6. DM type 2, uncontrolled: Improving. Lantus and SSI. Monitor. 7. Sacral decub. 8. Anemia, not POA: Monitor. 9. Hypertension. Follow BP. 10. Dementia. Subjective: Patient was seen and examined at the bedside. Examination: General appearance: well-developed, appears stated age, emaciated, not in distress, appears chronically ill, NG tube, on restrains HEENT: atraumatic, SHAR Neck: trachea midline Respiratory: bilateral decreased breath sounds, L chest tube noted Heart: S1S2, regular, no murmur Abdomen: soft, bowel sounds heard, NT Integumentary: no obvious rash Neurologic: lethargic, opens eyes Ext: no edema Subjective Date of service: 04/27/21 Objective - Vital Signs Vital signs: Vital Signs - 12hr 04/26/21 04/27/21 04/27/21 22:00 00:00 00:20 Temperature 98.5 F Pulse Rate 102 H Respiratory 18 20 Rate Respiratory 19 Rate [AMAN] Blood Pressure 174/81 Blood Pressure 155/78 [Right] O2 Sat by Pulse 96 99 Oximetry 04/27/21 04/27/21 00:45 05:31 Temperature 98.5 F Pulse Rate 109 H Respiratory 20 Rate Respiratory Rate [AMAN] Blood Pressure 166/61 Blood Pressure [Right] O2 Sat by Pulse 97 98 Oximetry - Lab 04/23/21 14:47 04/27/21 06:10 Most recent lab results Calcium 9.3 mg/dL (8.4-10.2) 04/27/21 06:10 Phosphorus 1.80 mg/dL (2.5-4.5) L 04/27/21 06:10 Magnesium 2.70 mg/dL (1.7-2.3) H 04/22/21 16:44 Medications & Allergies - Medications Allergies/Adverse Reactions: Allergies Penicillins Allergy (Verified 12/03/18 20:53) Hives meperidine [From Demerol] Adverse Reaction (Verified 12/03/18 20:53) Anaphylaxis morphine Adverse Reaction (Verified 12/03/18 20:53) Unknown Home Medications: Home Medications Medication Instructions Recorded Confirmed Last Taken Type DOXYCYCLINE Hyclate [Vibramycin 100 mg PO Q12HR #14 capsule 12/03/18 04/23/21 Unknown Rx CAP] Active Medications: Generic Name Dose Route Start Last Admin Trade Name Freq PRN Reason Stop Dose Admin Acetaminophen 650 mg 04/20/21 15:30 Acetaminophen 325 Mg Tab PO Q4H PRN Pain MILD(1-3)/Fever >100.5/WEST Albuterol 2.5 mg 04/20/21 14:09 Albuterol 2.5 Mg/3 Ml Nebu IH Q4HRT PRN Shortness Of Breath Lipase/Protease/Amylase 1 each 04/23/21 08:37 Lipase 10,500/Protease 25,000/Amylase 43,750 (Units) Dr Yates FEEDTUBE PRN PRN For Clogged Feeding Tube Ascorbic Acid 500 mg 04/20/21 22:00 04/27/21 00:13 Ascorbic Acid 500 Mg Tab PO 500 mg BID WENDY Administration Cholecalciferol 1,000 unit 04/21/21 10:00 04/26/21 10:32 Cholecalciferol (Vit D3) 1000 Unit (25 Mcg) Tab PO 1,000 unit DAILY WENDY Administration Heparin Sodium (Porcine) 5,000 unit 04/20/21 22:00 04/27/21 00:12 Heparin 5,000 Unit/1 Ml Vial SUB-Q 5,000 unit Q12HR WENDY Administration Hydromorphone HCl 0.5 mg 04/20/21 14:09 04/25/21 23:41 Hydromorphone 1 Mg/1 Ml Inj IV 0.5 mg Q3H PRN Administration Pain , Severe (7-10) Cefepime HCl 2 gm in 100 mls @ 200 mls/hr 04/26/21 22:00 04/27/21 00:13 Cefepime/Ns 2 Gm/100 Ml IV 200 mls/hr Q12HR WENDY Administration Protocol Insulin Glargine 30 units 04/26/21 22:00 04/27/21 01:03 Insulin Glargine 100 Units/Ml SUB-Q 30 units QHS WENDY Administration Insulin Human Lispro 0 unit 04/22/21 11:00 04/27/21 06:13 Insulin Lispro 100 Unit/Ml SUB-Q 4 unit Q6H WENDY Administration Protocol Ondansetron HCl 4 mg 04/20/21 14:09 Ondansetron 4 Mg/2 Ml Inj IV Q8H PRN Nausea And Vomiting Oxycodone/Acetaminophen 1 tab 04/20/21 14:09 04/24/21 23:45 Oxycodone /Acetaminophen 5-325mg Tab PO 1 tab Q12H PRN Administration Pain, Moderate (4-6) Simple Syrup 15 ml 04/23/21 08:37 Simple Syrup 15 Ml FEEDTUBE PRN PRN Hypoglycemia Simple Syrup 30 ml 04/23/21 08:37 Simple Syrup 15 Ml FEEDTUBE PRN PRN Hypoglycemia Sodium Bicarbonate 325 mg 04/23/21 08:37 Sodium Bicarbonate 325 Mg Tab FEEDTUBE PRN PRN For Clogged Feeding Tube Sodium Bicarbonate 650 mg 04/26/21 14:00 04/27/21 00:33 Sodium Bicarbonate 650 Mg Tab PO 650 mg TID WENDY Administration Sodium Chloride 10 ml 04/20/21 22:00 04/27/21 01:29 Sodium Chloride 0.9% 10 Ml Flush Syringe IV 10 ml BID WENDY Administration Sodium Chloride 10 ml 04/20/21 14:09 Sodium Chloride 0.9% 10 Ml Flush Syringe IV PRN PRN LINE FLUSH Zinc Sulfate 220 mg 04/20/21 22:00 04/27/21 00:12 Zinc Sulfate 220 Mg Cap PO 220 mg BID WENDY Administration
--- NOTE | 2021-04-27 10:41 | Progress Note ---
Assessment and Plan 60 y/o female with Recurrent PTX this admission, admitted with PTX s/p chest tube now times 2 and hypoxic respiraotry secondary to PTX 04/27/21: Asked nursing to keep patient on oxygen therapy despite good sats as she has a small residual peripheral PTX. 04/26/21: Follow up CXR read. Possible osteo on CT, rads recommending MRI. Will continue to follow with you. 04/25/21: No new recs. Please see below. 1. Chest tube per surgery 2. Would continue supplemental oxygen and should be discharged to home on this if she does not have it already. Subjective Date of service: 04/27/21 Interval history: Per documentation weaned off oxygen last night, however still with small peripheral PTX. Objective Vital Signs - 12hr 04/27/21 04/27/21 04/27/21 00:00 00:20 00:45 Temperature 98.5 F Pulse Rate 102 H Respiratory 20 Rate Blood Pressure 174/81 Blood Pressure 155/78 [Right] O2 Sat by Pulse 99 97 Oximetry 04/27/21 05:31 Temperature 98.5 F Pulse Rate 109 H Respiratory 20 Rate Blood Pressure 166/61 Blood Pressure [Right] O2 Sat by Pulse 98 Oximetry Constitutional: no acute distress Eyes: non-icteric ENT: oropharynx moist Neck: supple Effort: normal Ascultation: Bilateral: diminished breath sounds Cardiovascular: regular rate and rhythm Gastrointestinal: normoactive bowel sounds, soft, non-tender CBC and BMP: 04/23/21 14:47 04/27/21 06:10 ABG, PT/INR, D-dimer: PT/INR, D-dimer PT 15.6 Sec. (12.2-14.9) H 04/20/21 08:54 INR 1.19 (0.87-1.13) H 04/20/21 08:54 D-Dimer 840.47 ng/mlDDU (0-234) H 04/20/21 15:17 Abnormal lab findings: Abnormal Labs 04/20/21 04/20/21 04/20/21 08:54 08:54 08:54 RBC Hgb Hct MCV MCH 25 L RDW 18.2 H Lymph % (Auto) Lymph # (Auto) Seg Neutrophils % Seg Neuts % (Manual) 81.0 H Lymphocytes % (Manual) 12.0 L Lymphocytes # (Manual) 0.8 L PT 15.6 H INR 1.19 H D-Dimer Sodium 163 H* Potassium 2.8 L* Chloride 118.6 H Carbon Dioxide BUN 152 H Creatinine 2.0 H Glucose 147 H POC Glucose Lactic Acid Calcium 10.8 H Phosphorus Magnesium Ferritin Lactate Dehydrogenase C-Reactive Protein Total Protein 8.5 H Albumin 3.4 L Urine WBC (Auto) 04/20/21 04/20/21 04/20/21 08:54 14:29 15:17 RBC Hgb Hct MCV MCH RDW Lymph % (Auto) Lymph # (Auto) Seg Neutrophils % Seg Neuts % (Manual) Lymphocytes % (Manual) Lymphocytes # (Manual) PT INR D-Dimer Sodium Potassium Chloride Carbon Dioxide BUN Creatinine Glucose POC Glucose Lactic Acid 2.60 H* 2.60 H* Calcium Phosphorus Magnesium Ferritin Lactate Dehydrogenase C-Reactive Protein Total Protein Albumin Urine WBC (Auto) > 182.0 H 04/20/21 04/20/21 04/20/21 15:17 15:17 15:17 RBC Hgb Hct MCV MCH RDW Lymph % (Auto) Lymph # (Auto) Seg Neutrophils % Seg Neuts % (Manual) Lymphocytes % (Manual) Lymphocytes # (Manual) PT INR D-Dimer 840.47 H Sodium Potassium Chloride Carbon Dioxide BUN Creatinine Glucose 135 H POC Glucose Lactic Acid Calcium Phosphorus Magnesium Ferritin 508.5 H Lactate Dehydrogenase 189 H C-Reactive Protein 19.10 H Total Protein Albumin Urine WBC (Auto) 04/21/21 04/21/21 04/21/21 06:12 07:51 10:34 RBC 3.59 L Hgb 9.0 L Hct 29.1 L MCV MCH 25 L RDW 18.6 H Lymph % (Auto) Lymph # (Auto) Seg Neutrophils % 75.9 H Seg Neuts % (Manual) Lymphocytes % (Manual) Lymphocytes # (Manual) PT INR D-Dimer Sodium 161 H* Potassium 3.4 L D Chloride 124.9 H Carbon Dioxide 21 L BUN 123 H Creatinine 1.4 H Glucose 194 H POC Glucose 166 H Lactic Acid Calcium Phosphorus Magnesium Ferritin Lactate Dehydrogenase C-Reactive Protein Total Protein Albumin Urine WBC (Auto) 04/21/21 04/21/21 04/21/21 12:32 14:57 16:25 RBC Hgb Hct MCV MCH RDW Lymph % (Auto) Lymph # (Auto) Seg Neutrophils % Seg Neuts % (Manual) Lymphocytes % (Manual) Lymphocytes # (Manual) PT INR D-Dimer Sodium 160 H Potassium 3.0 L Chloride 127.1 H Carbon Dioxide 18 L BUN 121 H Creatinine 1.6 H Glucose 199 H POC Glucose 178 H 187 H Lactic Acid Calcium Phosphorus Magnesium Ferritin Lactate Dehydrogenase C-Reactive Protein Total Protein Albumin Urine WBC (Auto) 04/21/21 04/21/21 04/22/21 19:35 22:17 08:33 RBC Hgb Hct MCV MCH RDW Lymph % (Auto) Lymph # (Auto) Seg Neutrophils % Seg Neuts % (Manual) Lymphocytes % (Manual) Lymphocytes # (Manual) PT INR D-Dimer Sodium 157 H Potassium 5.3 H D Chloride 127.2 H Carbon Dioxide 15 L BUN 121 H Creatinine 1.5 H Glucose 221 H POC Glucose 205 H 312 H Lactic Acid Calcium Phosphorus Magnesium Ferritin Lactate Dehydrogenase C-Reactive Protein Total Protein Albumin Urine WBC (Auto) 04/22/21 04/22/21 04/22/21 13:26 16:44 16:44 RBC Hgb Hct MCV MCH RDW Lymph % (Auto) Lymph # (Auto) Seg Neutrophils % Seg Neuts % (Manual) Lymphocytes % (Manual) Lymphocytes # (Manual) PT INR D-Dimer Sodium 158 H Potassium Chloride 126.9 H Carbon Dioxide 19 L BUN 112 H Creatinine 1.4 H Glucose 317 H POC Glucose 315 H Lactic Acid Calcium Phosphorus Magnesium 2.70 H Ferritin Lactate Dehydrogenase C-Reactive Protein Total Protein Albumin Urine WBC (Auto) 04/22/21 04/22/21 04/23/21 18:05 22:14 06:35 RBC Hgb Hct MCV MCH RDW Lymph % (Auto) Lymph # (Auto) Seg Neutrophils % Seg Neuts % (Manual) Lymphocytes % (Manual) Lymphocytes # (Manual) PT INR D-Dimer Sodium Potassium Chloride Carbon Dioxide BUN Creatinine Glucose POC Glucose 236 H 153 H 170 H Lactic Acid Calcium Phosphorus Magnesium Ferritin Lactate Dehydrogenase C-Reactive Protein Total Protein Albumin Urine WBC (Auto) 04/23/21 04/23/21 04/23/21 12:26 14:47 14:47 RBC 3.47 L Hgb 8.6 L Hct 27.1 L MCV 78 L MCH 25 L RDW 18.7 H Lymph % (Auto) 10.0 L Lymph # (Auto) 0.7 L Seg Neutrophils % 86.3 H Seg Neuts % (Manual) Lymphocytes % (Manual) Lymphocytes # (Manual) PT INR D-Dimer Sodium 154 H Potassium 3.5 L Chloride 122.5 H Carbon Dioxide 20 L BUN 81 H Creatinine Glucose 241 H POC Glucose 179 H Lactic Acid Calcium Phosphorus Magnesium Ferritin Lactate Dehydrogenase C-Reactive Protein Total Protein Albumin Urine WBC (Auto) 04/23/21 04/23/21 04/24/21 18:28 23:34 06:13 RBC Hgb Hct MCV MCH RDW Lymph % (Auto) Lymph # (Auto) Seg Neutrophils % Seg Neuts % (Manual) Lymphocytes % (Manual) Lymphocytes # (Manual) PT INR D-Dimer Sodium Potassium Chloride Carbon Dioxide BUN Creatinine Glucose POC Glucose 222 H 257 H 252 H Lactic Acid Calcium Phosphorus Magnesium Ferritin Lactate Dehydrogenase C-Reactive Protein Total Protein Albumin Urine WBC (Auto) 04/24/21 04/24/21 04/24/21 13:12 18:10 23:29 RBC Hgb Hct MCV MCH RDW Lymph % (Auto) Lymph # (Auto) Seg Neutrophils % Seg Neuts % (Manual) Lymphocytes % (Manual) Lymphocytes # (Manual) PT INR D-Dimer Sodium 154 H Potassium 5.2 H D Chloride 123.9 H Carbon Dioxide 21 L BUN 59 H Creatinine Glucose 320 H POC Glucose 300 H 212 H Lactic Acid Calcium Phosphorus Magnesium Ferritin Lactate Dehydrogenase C-Reactive Protein Total Protein Albumin Urine WBC (Auto) 04/24/21 04/25/21 04/25/21 23:29 05:48 05:50 RBC Hgb Hct MCV MCH RDW Lymph % (Auto) Lymph # (Auto) Seg Neutrophils % Seg Neuts % (Manual) Lymphocytes % (Manual) Lymphocytes # (Manual) PT INR D-Dimer Sodium 149 H Potassium 5.1 H Chloride 118.1 H Carbon Dioxide BUN 55 H Creatinine Glucose 347 H POC Glucose 301 H 311 H Lactic Acid Calcium Phosphorus 1.90 L Magnesium Ferritin Lactate Dehydrogenase C-Reactive Protein Total Protein Albumin Urine WBC (Auto) 04/25/21 04/25/21 04/25/21 13:16 17:16 23:40 RBC Hgb Hct MCV MCH RDW Lymph % (Auto) Lymph # (Auto) Seg Neutrophils % Seg Neuts % (Manual) Lymphocytes % (Manual) Lymphocytes # (Manual) PT INR D-Dimer Sodium Potassium Chloride Carbon Dioxide BUN Creatinine Glucose POC Glucose 270 H 183 H 242 H Lactic Acid Calcium Phosphorus Magnesium Ferritin Lactate Dehydrogenase C-Reactive Protein Total Protein Albumin Urine WBC (Auto) 04/26/21 04/26/21 04/26/21 06:15 07:44 11:09 RBC Hgb Hct MCV MCH RDW Lymph % (Auto) Lymph # (Auto) Seg Neutrophils % Seg Neuts % (Manual) Lymphocytes % (Manual) Lymphocytes # (Manual) PT INR D-Dimer Sodium Potassium 5.7 H Chloride 108.7 H Carbon Dioxide 18 L BUN 47 H Creatinine Glucose 305 H POC Glucose 269 H 338 H Lactic Acid Calcium Phosphorus 2.20 L Magnesium Ferritin Lactate Dehydrogenase C-Reactive Protein Total Protein Albumin Urine WBC (Auto) 04/26/21 04/26/21 04/27/21 17:13 23:59 05:31 RBC Hgb Hct MCV MCH RDW Lymph % (Auto) Lymph # (Auto) Seg Neutrophils % Seg Neuts % (Manual) Lymphocytes % (Manual) Lymphocytes # (Manual) PT INR D-Dimer Sodium Potassium Chloride Carbon Dioxide BUN Creatinine Glucose POC Glucose 373 H 280 H 244 H Lactic Acid Calcium Phosphorus Magnesium Ferritin Lactate Dehydrogenase C-Reactive Protein Total Protein Albumin Urine WBC (Auto) 04/27/21 06:10 RBC Hgb Hct MCV MCH RDW Lymph % (Auto) Lymph # (Auto) Seg Neutrophils % Seg Neuts % (Manual) Lymphocytes % (Manual) Lymphocytes # (Manual) PT INR D-Dimer Sodium 132 L D Potassium Chloride Carbon Dioxide 20 L BUN 38 H Creatinine Glucose 258 H POC Glucose Lactic Acid Calcium Phosphorus 1.80 L Magnesium Ferritin Lactate Dehydrogenase C-Reactive Protein Total Protein Albumin Urine WBC (Auto)
--- NOTE | 2021-04-27 13:23 | Magnetic Resonance Report ---
MRI PELVIS WITH AND WITHOUT CONTRAST HISTORY: Sacral osteomyelitis, sacral ulcer TECHNIQUE: Multisequence, multiplane are MRI before and after 15 cc of IV gadolinium. COMPARISON: CT pelvis 04/26/2021 FINDINGS: Midline sacral decubitus ulceration is again noted measuring up to 3 x 4 cm. There is no evidence for abscess or fluid collection. Subtle bony destruction was suggested on the previous CT. MRI demonstra jammie no evidence for T1 changes, bone marrow edema or enhancement following IV gadolinium. There is no rmal on marrow signal throughout the visualized pelvis. Pelvic viscera remain unremarkable. No intrapelvic fluid collection, mass or adenopathy. IMPRESSION: MRI with and without contrast does not demonstrate sacral osteomyelitis. Signer Name: Jose Dorman Jr, MD Signed: 04/27/2021 1:18 PM Workstation Name: [id number]
[2021-04-27] MEDS: CHOLECALCIFEROL (VIT D3) 1000 UNIT (25 mcg) TAB PO SCH (14:05)
--- NOTE | 2021-04-27 14:09 | Event Note ---
Date: 04/27/21 MRI findings noted, no osteo in sacrum. I spoke with her daughter/caregiver JARRETT and she agrees to consent sacral debridement which I will place on schedule for Friday. Phone consent will have to be obtained. Continue CT to suction for now.
--- NOTE | 2021-04-27 14:13 | Event Note ---
Date: 04/27/21 Plan sacral debridement on Friday at noon in OR. Please make NPO Friday night after midnight.
--- NOTE | 2021-04-27 18:36 | Consultation ---
History of Present Illness - Reason for Consult Consult date: 04/27/21 - History of Present Illness 60-year-old female past medical history CVA with subsequent dysphagia, vascular dementia, hypertension, diabetes, chronic sacral decubitus presented to the hospital confused and lethargic. Of note patient is currently a hospice patient. She does not be hypoxic and febrile on admission, with a pneumonia and small pneumothorax with subsequent chest tube. Febrile earlier admission, however that has been resolved for several days, white count normal. Normal renal function. Covid was negative. MRSA screen negative. Blood cultures were negative. Currently on cefepime. She is planned to have a debridement of the sacral ulcer on Friday. Imaging personally reviewed: Pelvis MRI: No sacral osteomyelitis. CXR: with chest tube in place. Past History Past Medical History: CAD, diabetes, heart failure, hypertension, other (decubitus ulcer) Past Surgical History: CABG Social history: single. denies: smoking, alcohol abuse Family history: diabetes, hypertension Medications and Allergies Allergies Allergy/AdvReac Type Severity Reaction Status Date / Time Penicillins Allergy Hives Verified 12/03/18 20:53 meperidine [From Demerol] AdvReac Anaphylaxis Verified 12/03/18 20:53 morphine AdvReac Unknown Verified 12/03/18 20:53 Home Medications Medication Instructions Recorded Confirmed Last Taken Type DOXYCYCLINE Hyclate [Vibramycin 100 mg PO Q12HR #14 capsule 12/03/18 04/23/21 Unknown Rx CAP] Active Meds: Active Medications Acetaminophen (Acetaminophen 325 Mg Tab) 650 mg PO Q4H PRN PRN Reason: Pain MILD(1-3)/Fever >100.5/WEST Albuterol (Albuterol 2.5 Mg/3 Ml Nebu) 2.5 mg IH Q4HRT PRN PRN Reason: Shortness Of Breath Lipase/Protease/Amylase (Lipase 10,500/Protease 25,000/Amylase 43,750 (Units) Dr Yates) 1 each FEEDTUBE PRN PRN PRN Reason: For Clogged Feeding Tube Ascorbic Acid (Ascorbic Acid 500 Mg Tab) 500 mg PO BID [facility] Last Admin: 04/27/21 14:05 Dose: 500 mg Documented by: Cholecalciferol (Cholecalciferol (Vit D3) 1000 Unit (25 Mcg) Tab) 1,000 unit PO DAILY [facility] Last Admin: 04/27/21 14:05 Dose: 1,000 unit Documented by: Heparin Sodium (Porcine) (Heparin 5,000 Unit/1 Ml Vial) 5,000 unit SUB-Q Q12HR [facility] Last Admin: 04/27/21 11:00 Dose: 5,000 unit Documented by: Hydromorphone HCl (Hydromorphone 1 Mg/1 Ml Inj) 0.5 mg IV Q3H PRN PRN Reason: Pain , Severe (7-10) Last Admin: 04/25/21 23:41 Dose: 0.5 mg Documented by: Cefepime HCl (Cefepime/Ns 2 Gm/100 Ml) 2 gm in 100 mls @ 200 mls/hr IV Q12HR [facility]; Protocol Last Admin: 04/27/21 14:04 Dose: 200 mls/hr Documented by: Insulin Glargine (Insulin Glargine 100 Units/Ml) 30 units SUB-Q QHS [facility] Last Admin: 04/27/21 01:03 Dose: 30 units Documented by: Insulin Human Lispro (Insulin Lispro 100 Unit/Ml) 0 unit SUB-Q Q6H [facility]; Protocol Last Admin: 04/27/21 11:00 Dose: 3 unit Documented by: Ondansetron HCl (Ondansetron 4 Mg/2 Ml Inj) 4 mg IV Q8H PRN PRN Reason: Nausea And Vomiting Oxycodone/Acetaminophen (Oxycodone /Acetaminophen 5-325mg Tab) 1 tab PO Q12H PRN PRN Reason: Pain, Moderate (4-6) Last Admin: 04/24/21 23:45 Dose: 1 tab Documented by: Simple Syrup (Simple Syrup 15 Ml) 15 ml FEEDTUBE PRN PRN PRN Reason: Hypoglycemia Simple Syrup (Simple Syrup 15 Ml) 30 ml FEEDTUBE PRN PRN PRN Reason: Hypoglycemia Sodium Bicarbonate (Sodium Bicarbonate 325 Mg Tab) 325 mg FEEDTUBE PRN PRN PRN Reason: For Clogged Feeding Tube Sodium Bicarbonate (Sodium Bicarbonate 650 Mg Tab) 650 mg PO TID [facility] Last Admin: 04/27/21 14:04 Dose: 650 mg Documented by: Sodium Chloride (Sodium Chloride 0.9% 10 Ml Flush Syringe) 10 ml IV BID [facility] Last Admin: 04/27/21 14:05 Dose: 10 ml Documented by: Sodium Chloride (Sodium Chloride 0.9% 10 Ml Flush Syringe) 10 ml IV PRN PRN PRN Reason: LINE FLUSH Zinc Sulfate (Zinc Sulfate 220 Mg Cap) 220 mg PO BID WENDY Last Admin: 04/27/21 14:05 Dose: 220 mg Documented by: Physical Examination - Physical Exam Narrative exam: Physical Exam: Constitutional: Alert, confused. No acute distress Head, Ears, Nose: Normocephalic, atraumatic. External ears, nose normal Eyes: Conjunctivae/corneas clear. No icterus. No ptosis. Neck: Supple, no meningeal signs Oral: dentition fair, no thrush Cardiovascular: S1, S2 normal. Respiratory: Chest tube in place GI: Soft, non-tender; bowel sounds normal. No peritoneal signs. Musculoskeletal: Sacral decubitus reviewed by images in chart, patient not rolled in his examination. Skin: No rash or abscess Hem/Lymphatic: No palpable cervical or supraclavicular nodes. No lymphangitis Psych: No agitation Neurological: Awake, confused. No gross abnormality - Constitutional Vitals: Vital Signs Temp Pulse Resp BP Pulse Ox 98.6 F 47 L 22 150/80 91 04/27/21 10:57 04/27/21 10:57 04/27/21 10:57 04/27/21 10:57 04/27/21 10:57 Temperature -Last 24 Hours Temperature 98.6 F Temperature 98.5 F Temperature 98.5 F Results - Labs CBC & Chem 7: 04/23/21 14:47 04/27/21 06:10 Labs: Abnormal lab results 04/26/21 04/27/21 04/27/21 Range/Units 23:59 05:31 06:10 Sodium 132 L D (137-145) mmol/L Carbon Dioxide 20 L (22-30) mmol/L BUN 38 H (7-17) mg/dL Glucose 258 H (65-100) mg/dL POC Glucose 280 H 244 H (70-105) mg/dL Phosphorus 1.80 L (2.5-4.5) mg/dL 04/27/21 04/27/21 Range/Units 10:55 16:56 Sodium (137-145) mmol/L Carbon Dioxide (22-30) mmol/L BUN (7-17) mg/dL Glucose (65-100) mg/dL POC Glucose 212 H 154 H (70-105) mg/dL Phosphorus (2.5-4.5) mg/dL Assessment and Plan Cultures: Blood culture 04/20/2021 no growth Urine culture 04/20/2021 Judith A/P: 60-year-old female past medical history CVA with subsequent dysphagia, vascular dementia, hypertension, diabetes, chronic sacral decubitus #Chronic sacral decubitus: MRI without osteomyelitis. Do not recommend long course of treatment. She is getting a debridement performed on Friday. #Pneumothorax: With chest tube in place #Vascular dementia: Baseline cognitive deficit #Diabetes: tight glycemic control for best outcomes. #Penicillin allergy: Tolerating cefepime Recs: -Continue cefepime pending debridement on Friday. -Plan to discharge on oral antibiotics, hopefully culture directed. -If purulence encountered during debridement, please obtain cultures Thank you for the consult, we will continue to follow. Sabrina Arboleda MD [facility] ([facility]) O: [phone] F: [phone]
[2021-04-28] MEDS: INSULIN LISPRO 100 UNIT/ML SUB-Q SCH ×4 (00:21→16:39)
[2021-04-28] MEDS: INSULIN GLARGINE 100 UNITS/ML SUB-Q SCH (00:21)
[2021-04-28] MEDS: SODIUM BICARBONATE 650 MG TAB PO SCH ×2 (08:00→14:00)
[2021-04-28] MEDS: CEFEPIME/NS 2 GM/100 ML 2 GM/100 ML BAG IV SCH (09:29)
[2021-04-28] MEDS: HEPARIN 5,000 UNIT/1 ML VIAL SUB-Q SCH (09:31)
[2021-04-28] MEDS: ASCORBIC ACID 500 MG TAB PO SCH (09:31)
[2021-04-28] MEDS: CHOLECALCIFEROL (VIT D3) 1000 UNIT (25 mcg) TAB PO SCH (09:33)
[2021-04-28] MEDS: ZINC SULFATE 220 MG CAP PO SCH (09:34)
--- NOTE | 2021-04-28 10:02 | Progress Note ---
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 Patient is confused and lethargic the time my evaluation and is unable to provide history. Patient also has diminished cognition which is her baseline. Patient is unable to provide history. Patient history provided by EMS staff, ED staff, as well as the patient's daughter who was contacted via telephone for interview. As per daughter the patient is currently a patient receiving hospice care from [facility]. Patient daughter elects to revoke hospice benefit and seek aggressive medical therapy. [facility] notified and acknowledge patient revocation. Patient daughter reports that patient experience fever 103 F today, and has experienced decreased oral intake and decreased responsiveness over the past 2 days with progressively worsening symptoms over the same alejo eframe. EMS was notified and upon arrival the patient was found to be in distress with a pulse oximetry of 65% on room air. The patient was placed on submental oxygen and transported to [facility] for further care and evaluation of the aforementioned symptoms. The patient was seen and evaluated in the emergency department. All lab and imaging studies reviewed. The patient was found to have a pulse oximetry of 82% on submental oxygen which is consistent with acute hypoxemic respiratory failure. Chest x-ray revealed pneumonia as well as left pneumothorax. The patient was also found to have acute kidney injury, systemic inflammatory response syndrome, hypokalemia. The patient underwent chest tube placement in the emergency department with improvement in symptoms. Surgery team consulted in ED. Patient admitted to medical floor due to increased risk of worsening symptoms. Patient initiated on pneumonia protocol as well as coronavirus protocol. The patient has diminished cognition but has a positive gag reflex and is able to protect her airway without difficulty at this time. No reported history of chest pain, palpitation, productive cough, skin rash, recent ill contacts, or known exposure to COVID-19. No prior admission for review. No medication listed at time of admission for reconciliation. Advanced care planning conducted in ED. CT HEAD: Negative CT chest: Chest tube in place, noted opacities 04/21: Patient lethargic, chest tube remains in place, Wound care consult, as piration precautions. Wean as tolerated. Await COVID 19. Monitor Sodium level, awaiting labs, check q8hr. 04/22: Chest tube still positive air leak. Patient still hypoxic, while sodium level is improving metabolic acidosis has been noted. Patient's Covid test was negative. We will continue current management and adjust insulin for better blood sugar management. May require some Kayexalate due to hyper kalemia but considering severe hypokalemia just the day before we will monitor closely. Renal function showing some improvement continue management pulmonary and nephrology input noted. Urine culture positive for fungal Judith will monitor closely. 04/23: Penumonthorax appears to have resolved, patient down to 3 liters of Oxygen via NC, tolerating. she is still very lethargic, failed swallow eval. awaiting to hear from family if to progress with PEG placement. Patient was recently on Hospice but that was rescinded. Overall poor prognosis. Continue monitoring Hypernatremia. Surgeon re-evaluating Chest tube today 04/24 -Patient is on chest tube for pnuemothorax. Surgery is following. Sacral decubitus ulcer. Patient was evaluated by GI for PEG tube placement and will place PEG tube once patient is stable. Wants to be reconsulted once stable. Patient was on 2 L of oxygen. 04/25; patient is being followed by surgery for chest tube. Sacral decubitus ulcer followed by surgery for possible debridement. Patient is on OG tube feeding, evaluated by GI for PEG tube placement and recommend to be reconsulted after patient is stable. 04/26; patient was seen by general surgery and chest x-ray ordered for follow-up of her pneumothorax status post chest tube. CT pelvis was done and reading is pending, general surgery is evaluating for debridement. Patient is on OG tube feeding and will increase free water intake for hyperkalemia. Discussed with GI yesterday and they state reconsult once chest tube is taken out for PEG tube placement. Prognosis this is guarded. 04/27; left-sided chest tube in place, Small pneumothorax on the left. MRI showed osteomyelitis of the sacral area and will have debridement on Friday. Will follow up with case management about hospice care which the daughter requests. I called patient's daughter Ms Corado at [phone], she said she want PEG tube, debridement and she wants the patient be continued full code. He told me that is patient's request. 04/28; on chest tube for pneumothorax, continue with oxygen. Will have debridement on Friday. Management plan discussed with her daughter and she wants everything to be done including PEG tube. GI said we will do PEG tube once this tube was removed. Patient is full code. (1) Acute hypoxemic respiratory failure Current Visit: Yes Status: Acute Plan to address problem: Chest x-ray, supplemental oxygen, pulse oximetry, chest tube placed in the emergency department. Repeat chest x-ray in a.m. (2) Pneumonia Current Visit: Yes Status: Acute Plan to address problem: Pneumonia protocol: Chest x-ray, CBC, CMP, supplemental oxygen, pulse oximetry, nebulizer therapy, blood culture. (3) Acute kidney injury (ODILON) with acute tubular necrosis (ATN) Current Visit: Yes Status: Acute Plan to address problem: BMP, IV fluid resuscitation therapy, repeat BMP in a.m. to monitor serum creatinine as well as GFR (4) Hypokalemia Current Visit: Yes Status: Acute Plan to address problem: Repleted in ED, repeat BMP (5) Vascular dementia Current Visit: Yes Status: Acute Qualifiers: Dementia behavioral disturbance: without behavioral disturbance Qualified Code(s): F01.50 - Vascular dementia without behavioral disturbance Plan to address problem: Verbal prompting, verbal redirection, benzodiazepine therapy as clinically indicated (6) Cerebral atherosclerosis Current Visit: Yes Status: Acute Plan to address problem: Antiplatelet therapy, supportive care, risk factor reduction. (7) Dysphagia as late effect of cerebrovascular accident (CVA) Current Visit: Yes Status: Acute Plan to address problem: Pured diet, assistance with meals, supportive care. (8) Spontaneous pneumothorax Current Visit: Yes Status: Acute Plan to address problem: Chest tube placed in the emergency department, chest x-ray, postoperative chest x-ray, surgery team consulted, repeat chest x-ray in a.m. (9) Suspected COVID-19 virus infection Current Visit: Yes Status: Acute Plan to address problem: Coronavirus protocol: IV steroid therapy, IV antibiotic therapy, supplemental oxygen,, pulse oximetry, vitamin C therapy, vitamin D therapy, zinc therapy, prophylactic anticoagulation, coronavirus PCR ordered and is pending at time of admission. (10) DVT prophylaxis Current Visit: Yes Status: Acute Plan to address problem: SCD to bilateral lower extremities while in bed, prophylactic anticoagulation (11) Advance care planning Current Visit: Yes Status: Acute Plan to address problem: Disease education conducted, care plan discussed, diagnoses discussed, prognosis discussed, patient daughter knowledges understanding and agreement with care plan. Patient daughter elects to revoke hospice benefit and treat patient with aggressive medical therapy. Patient daughter knowledges understanding of prognosis. Patient is full code, +30 minutes. History Interval history: Patient was seen and evaluated this morning Patient was weak, she was not communicative Hospitalist Physical - Physical exam Narrative exam: Not in cardiopulmonary distress. The patient appeared well nourished and normally developed. Vital signs as documented. Head exam is unremarkable. No scleral icterus . Neck is without jugular venous distension, thyromegaly, or carotid bruits. Lungs left-sided chest tube in place Cardiac exam reveals regular rate and Rhythm. Abdominal exam reveals normal bowel sounds, nontender, no organomegaly. Extremities are nonedematous and both femoral and pedal pulses are normal. 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 No focal weakness. - Constitutional Vitals: Temp Pulse Resp BP Pulse Ox 98.1 F 119 H 19 128/79 94 04/27/21 16:59 04/27/21 16:59 04/27/21 22:00 04/27/21 16:59 04/27/21 22:00 General appearance: Present: mild distress, cachectic Results - Labs CBC & Chem 7: 04/23/21 14:47 04/27/21 06:10 Labs: Laboratory Last Values WBC 7.4 K/mm3 (4.5-11.0) 04/23/21 14:47 RBC 3.47 M/mm3 (3.65-5.03) L 04/23/21 14:47 Hgb 8.6 gm/dl (10.1-14.3) L 04/23/21 14:47 Hct 27.1 % (30.3-42.9) L 04/23/21 14:47 MCV 78 fl (79-97) L 04/23/21 14:47 MCH 25 pg (28-32) L 04/23/21 14:47 MCHC 32 % (30-34) 04/23/21 14:47 RDW 18.7 % (13.2-15.2) H 04/23/21 14:47 Plt Count 251 K/mm3 (140-440) 04/23/21 14:47 Lymph % (Auto) 10.0 % (13.4-35.0) L 04/23/21 14:47 [place] % (Auto) 2.7 % (0.0-7.3) 04/23/21 14:47 Eos % (Auto) 0.1 % (0.0-4.3) 04/23/21 14:47 Baso % (Auto) 0.9 % (0.0-1.8) 04/23/21 14:47 Lymph # (Auto) 0.7 K/mm3 (1.2-5.4) L 04/23/21 14:47 [place] # (Auto) 0.2 K/mm3 (0.0-0.8) 04/23/21 14:47 Eos # (Auto) 0.0 K/mm3 (0.0-0.4) 04/23/21 14:47 Baso # (Auto) 0.1 K/mm3 (0.0-0.1) 04/23/21 14:47 Add Manual Diff Complete 04/20/21 08:54 Total Counted 100 04/20/21 08:54 Seg Neutrophils % 86.3 % (40.0-70.0) H 04/23/21 14:47 Seg Neuts % (Manual) 81.0 % (40.0-70.0) H 04/20/21 08:54 Band Neutrophils % 2.0 % 04/20/21 08:54 Lymphocytes % (Manual) 12.0 % (13.4-35.0) L 04/20/21 08:54 Monocytes % (Manual) 5.0 % (0.0-7.3) 04/20/21 08:54 Nucleated RBC % Not Reportable 04/20/21 08:54 Seg Neutrophils # 6.4 K/mm3 (1.8-7.7) 04/23/21 14:47 Seg Neutrophils # Man 5.3 K/mm3 (1.8-7.7) 04/20/21 08:54 Band Neutrophils # 0.1 K/mm3 04/20/21 08:54 Lymphocytes # (Manual) 0.8 K/mm3 (1.2-5.4) L 04/20/21 08:54 Abs React Lymphs (Man) 0.0 K/mm3 04/20/21 08:54 Monocytes # (Manual) 0.3 K/mm3 (0.0-0.8) 04/20/21 08:54 Eosinophils # (Manual) 0.0 K/mm3 (0.0-0.4) 04/20/21 08:54 Basophils # (Manual) 0.0 K/mm3 (0.0-0.1) 04/20/21 08:54 Metamyelocytes # 0.0 K/mm3 04/20/21 08:54 Myelocytes # 0.0 K/mm3 04/20/21 08:54 Promyelocytes # 0.0 K/mm3 04/20/21 08:54 Blast Cells # 0.0 K/mm3 04/20/21 08:54 WBC Morphology Not Reportable 04/20/21 08:54 Hypersegmented Neuts Not Reportable 04/20/21 08:54 Hyposegmented Neuts Not Reportable 04/20/21 08:54 Hypogranular Neuts Not Reportable 04/20/21 08:54 Smudge Cells Not Reportable 04/20/21 08:54 Toxic Granulation Not Reportable 04/20/21 08:54 Toxic Vacuolation Not Reportable 04/20/21 08:54 Dohle Bodies Not Reportable 04/20/21 08:54 Pelger-Huet Anomaly Not Reportable 04/20/21 08:54 Gabe Rods Not Reportable 04/20/21 08:54 Platelet Estimate Consistent w auto 04/20/21 08:54 Clumped Platelets Not Reportable 04/20/21 08:54 Plt Clumps, EDTA Not Reportable 04/20/21 08:54 Large Platelets Not Reportable 04/20/21 08:54 Giant Platelets Not Reportable 04/20/21 08:54 Platelet Satelliting Not Reportable 04/20/21 08:54 Plt Morphology Comment Not Reportable 04/20/21 08:54 RBC Morphology Not Reportable 04/20/21 08:54 Dimorphic RBCs Not Reportable 04/20/21 08:54 Polychromasia Not Reportable 04/20/21 08:54 Hypochromasia 1+ 04/20/21 08:54 Poikilocytosis Not Reportable 04/20/21 08:54 Anisocytosis 1+ 04/20/21 08:54 Microcytosis Not Reportable 04/20/21 08:54 Macrocytosis Not Reportable 04/20/21 08:54 Spherocytes Not Reportable 04/20/21 08:54 Pappenheimer Bodies Not Reportable 04/20/21 08:54 Sickle Cells Not Reportable 04/20/21 08:54 Target Cells Not Reportable 04/20/21 08:54 Tear Drop Cells Not Reportable 04/20/21 08:54 Ovalocytes Not Reportable 04/20/21 08:54 Helmet Cells Not Reportable 04/20/21 08:54 [place] Bodies Not Reportable 04/20/21 08:54 [place] Rings Not Reportable 04/20/21 08:54 [place] Cells Not Reportable 04/20/21 08:54 Bite Cells Not Reportable 04/20/21 08:54 Crenated Cell Not Reportable 04/20/21 08:54 Elliptocytes Not Reportable 04/20/21 08:54 Acanthocytes (Spur) Not Reportable 04/20/21 08:54 Rouleaux Not Reportable 04/20/21 08:54 Hemoglobin C Crystals Not Reportable 04/20/21 08:54 Schistocytes Not Reportable 04/20/21 08:54 Malaria parasites Not Reportable 04/20/21 08:54 Chris Bodies Not Reportable 04/20/21 08:54 Hem Pathologist Commnt No 04/20/21 08:54 PT 15.6 Sec. (12.2-14.9) H 04/20/21 08:54 INR 1.19 (0.87-1.13) H 04/20/21 08:54 D-Dimer 840.47 ng/mlDDU (0-234) H 04/20/21 15:17 VBG pH 7.382 (7.320-7.420) 04/20/21 08:54 Sodium 132 mmol/L (137-145) L D 04/27/21 06:10 Potassium 4.2 mmol/L (3.6-5.0) 04/27/21 06:10 Chloride 99.9 mmol/L (98-107) 04/27/21 06:10 Carbon Dioxide 20 mmol/L (22-30) L 04/27/21 06:10 Anion Gap 16 mmol/L 04/27/21 06:10 BUN 38 mg/dL (7-17) H 04/27/21 06:10 Creatinine 0.7 mg/dL (0.6-1.2) 04/27/21 06:10 Estimated GFR > 60 ml/min 04/27/21 06:10 BUN/Creatinine Ratio 54 % 04/27/21 06:10 Glucose 258 mg/dL (65-100) H 04/27/21 06:10 POC Glucose 58 mg/dL (70-105) L 04/28/21 05:16 Lactic Acid 2.60 mmol/L (0.7-2.0) H* 04/20/21 15:17 Calcium 9.3 mg/dL (8.4-10.2) 04/27/21 06:10 Phosphorus 1.80 mg/dL (2.5-4.5) L 04/27/21 06:10 Magnesium 2.70 mg/dL (1.7-2.3) H 04/22/21 16:44 Ferritin 508.5 ng/mL (10.0-200.0) H 04/20/21 15:17 Total Bilirubin 0.40 mg/dL (0.1-1.2) 04/20/21 08:54 AST 12 units/L (5-40) 04/20/21 08:54 ALT 9 units/L (7-56) 04/20/21 08:54 Alkaline Phosphatase 61 units/L (35-129) 04/20/21 08:54 Lactate Dehydrogenase 189 units/L (91-180) H 04/20/21 15:17 C-Reactive Protein 19.10 mg/dL (0.00-1.30) H 04/20/21 15:17 Total Protein 8.5 g/dL (6.3-8.2) H 04/20/21 08:54 Albumin 3.4 g/dL (3.9-5) L 04/20/21 08:54 Albumin/Globulin Ratio 0.7 % 04/20/21 08:54 Procalcitonin 2.70 ng/mL (<0.15) 04/20/21 15:17 PTH Intact 20.03 pg/mL (15-65) 04/22/21 16:44 Urine Color Yellow (Yellow) 04/20/21 14:29 Urine Turbidity Turbid (Clear) 04/20/21 14:29 Urine pH 5.0 (5.0-7.0) 04/20/21 14:29 Ur Specific [place] 1.017 (1.003-1.030) 04/20/21 14:29 Urine Protein 100 mg/dl mg/dL (Negative) 04/20/21 14:29 Urine Glucose (UA) Neg mg/dL (Negative) 04/20/21 14:29 Urine Ketones Neg mg/dL (Negative) 04/20/21 14:29 Urine Blood Mod (Negative) 04/20/21 14:29 Urine Nitrite Neg (Negative) 04/20/21 14:29 Urine Bilirubin Neg (Negative) 04/20/21 14:29 Urine Urobilinogen < 2.0 mg/dL (<2.0) 04/20/21 14:29 Ur Leukocyte Esterase Lg (Negative) 04/20/21 14:29 Urine WBC (Auto) > 182.0 /HPF (0.0-6.0) H 04/20/21 14:29 Urine RBC (Auto) > 182.0 /HPF (0.0-6.0) 04/20/21 14:29 U Epithel Cells (Auto) 2.0 /HPF (0-13.0) 04/20/21 14:29 Urine WBC Clumps 2+ /HPF 04/20/21 14:29 Nasal Screen MRSA (PCR) Positive (Negative) 04/21/21 Unknown Coronavirus (PCR) Negative (Negative) 04/20/21 09:30 Nuno/IV: Voiding Method External Female Catheter Active Medications - Current Medications Current Medications: Generic Name Dose Route Start Last Admin Trade Name Freq PRN Reason Stop Dose Admin Acetaminophen 650 mg 04/20/21 15:30 Acetaminophen 325 Mg Tab PO Q4H PRN Pain MILD(1-3)/Fever >100.5/WEST Albuterol 2.5 mg 04/20/21 14:09 Albuterol 2.5 Mg/3 Ml Nebu IH Q4HRT PRN Shortness Of Breath Lipase/Protease/Amylase 1 each 04/23/21 08:37 Lipase 10,500/Protease 25,000/Amylase 43,750 (Units) Dr Yates FEEDTUBE PRN PRN For Clogged Feeding Tube Ascorbic Acid 500 mg 04/20/21 22:00 04/28/21 09:31 Ascorbic Acid 500 Mg Tab PO 500 mg BID WENDY Administration Cholecalciferol 1,000 unit 04/21/21 10:00 04/28/21 09:33 Cholecalciferol (Vit D3) 1000 Unit (25 Mcg) Tab PO 1,000 unit DAILY WENDY Administration Heparin Sodium (Porcine) 5,000 unit 04/20/21 22:00 04/28/21 09:31 Heparin 5,000 Unit/1 Ml Vial SUB-Q 5,000 unit Q12HR WENDY Administration Hydromorphone HCl 0.5 mg 04/20/21 14:09 04/25/21 23:41 Hydromorphone 1 Mg/1 Ml Inj IV 0.5 mg Q3H PRN Administration Pain , Severe (7-10) Cefepime HCl 2 gm in 100 mls @ 200 mls/hr 04/26/21 22:00 04/28/21 09:29 Cefepime/Ns 2 Gm/100 Ml IV 200 mls/hr Q12HR WENDY Administration Protocol Insulin Glargine 30 units 04/26/21 22:00 04/28/21 00:21 Insulin Glargine 100 Units/Ml SUB-Q 30 units QHS WENDY Administration Insulin Human Lispro 0 unit 04/22/21 11:00 04/28/21 07:00 Insulin Lispro 100 Unit/Ml SUB-Q Not Given Q6H [facility] Protocol Ondansetron HCl 4 mg 04/20/21 14:09 Ondansetron 4 Mg/2 Ml Inj IV Q8H PRN Nausea And Vomiting Oxycodone/Acetaminophen 1 tab 04/20/21 14:09 04/24/21 23:45 Oxycodone /Acetaminophen 5-325mg Tab PO 1 tab Q12H PRN Administration Pain, Moderate (4-6) Simple Syrup 15 ml 04/23/21 08:37 Simple Syrup 15 Ml FEEDTUBE PRN PRN Hypoglycemia Simple Syrup 30 ml 04/23/21 08:37 Simple Syrup 15 Ml FEEDTUBE PRN PRN Hypoglycemia Sodium Bicarbonate 325 mg 04/23/21 08:37 Sodium Bicarbonate 325 Mg Tab FEEDTUBE PRN PRN For Clogged Feeding Tube Sodium Bicarbonate 650 mg 04/26/21 14:00 04/28/21 08:00 Sodium Bicarbonate 650 Mg Tab PO 650 mg TID WENDY Administration Sodium Chloride 10 ml 04/20/21 22:00 04/28/21 09:28 Sodium Chloride 0.9% 10 Ml Flush Syringe IV 10 ml BID WENDY Administration Sodium Chloride 10 ml 04/20/21 14:09 Sodium Chloride 0.9% 10 Ml Flush Syringe IV PRN PRN LINE FLUSH Zinc Sulfate 220 mg 04/20/21 22:00 04/28/21 09:34 Zinc Sulfate 220 Mg Cap PO 220 mg BID WENDY Administration Nutrition/Malnutrition Assess - Dietary Evaluation Nutrition/Malnutrition Findings: Nutrition Notes Start: 04/21/21 13:58 Freq: Status: Active Protocol: Document 04/27/21 12:43 (Rec: 04/27/21 12:46 [id number]) Nutrition Notes Initial or Follow up Reassessment Current Diagnosis Acute Kidney Injury,Decubitus( Pressure Ulcer),Diabetes, Sepsis,Hypertension,Heart Failure,Respiratory Failure Other Pertinent Diagnosis PNA, r/o Covid19, dementia, dysphagia Current Diet Glucerna 1.2 at 50 ml/hr Labs/Tests Na 132 POC BG 212-373 Pertinent Medications Insulin Height 5 ft 5 in Weight 57 kg [place] Body Weight (kg) 56.81 BMI 20.9 Subjective/Other Information TF at goal rate and pt is tolerating. 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 No Is Patient Ambulatory and/or Out of Bed No REE-([facility]-confined to bed) 1368.228 Calculation Used for Recommendations [facility] Additional Notes protein needs:71 - 85g (1.25 - 1.5g/kgBW) fluid needs: 1 ml/kcal Nutrition Intervention Change Diet Order: continue Nutrition Support: Glucerna 1.2 at 50 ml/hr Flush 100 ml q4h. Kcal 1,440 Protein (gm) 72 Fluid (mL) 966 Goal #1 Meet at least 80% of protein and kcal needs via TF Goal #2 Wound healing Anticipated Discharge Needs: Glucerna 1.2 at 50 ml/hr. Flush 100 ml q4h Follow-Up By: 05/02/21 Additional Comments F/u: stable TF
--- NOTE | 2021-04-28 10:11 | Progress Note ---
Assessment and Plan 1. Acute kidney injury: Vasomotor ODILON in the setting of volume depletion +/- hypotension. Monitor renal function. Creatinine level is better. Avoid nephrotoxic agents. Meds dosage based on GFR. 2. FEN: Hypernatremia, improved, monitor. Hyperchloremic metabolic acidosis, improved, monitor. Hyperkalemia, improved, monitor. Monitor lytes and volume status. 3. Bilateral Pneumonia, POA: Covid test negative. On Abx. 4. L Pneumothorax, POA: S/p chest tube re-inserted 04/23. 5. Acute hypoxemic respiratory failure, POA: 2/2 PNA and pneumothorax. Supplemental oxygen. Monitor. 6. DM type 2, uncontrolled: Improving. Lantus and SSI. Monitor. 7. Sacral decub. 8. Anemia, not POA: Monitor. 9. Hypertension. Follow BP. 10. Dementia. Subjective: Patient was seen and examined at the bedside. Examination: General appearance: well-developed, appears stated age, emaciated, not in distress, appears chronically ill, NG tube HEENT: atraumatic, SHAR Neck: trachea midline Respiratory: bilateral decreased breath sounds, L chest tube noted Heart: S1S2, regular, no murmur Abdomen: soft, bowel sounds heard, NT Integumentary: no obvious rash Neurologic: lethargic, opens eyes Ext: no edema Subjective Date of service: 04/28/21 Objective - Lab 04/23/21 14:47 04/28/21 15:11 Most recent lab results Calcium 9.3 mg/dL (8.4-10.2) 04/27/21 06:10 Phosphorus 1.80 mg/dL (2.5-4.5) L 04/27/21 06:10 Magnesium 2.70 mg/dL (1.7-2.3) H 04/22/21 16:44 Medications & Allergies - Medications Allergies/Adverse Reactions: Allergies Penicillins Allergy (Verified 12/03/18 20:53) Hives meperidine [From Demerol] Adverse Reaction (Verified 12/03/18 20:53) Anaphylaxis morphine Adverse Reaction (Verified 12/03/18 20:53) Unknown Home Medications: Home Medications Medication Instructions Recorded Confirmed Last Taken Type DOXYCYCLINE Hyclate [Vibramycin 100 mg PO Q12HR #14 capsule 12/03/18 04/23/21 Unknown Rx CAP] Active Medications: Generic Name Dose Route Start Last Admin Trade Name Freq PRN Reason Stop Dose Admin Acetaminophen 650 mg 04/20/21 15:30 Acetaminophen 325 Mg Tab PO Q4H PRN Pain MILD(1-3)/Fever >100.5/WEST Albuterol 2.5 mg 04/20/21 14:09 Albuterol 2.5 Mg/3 Ml Nebu IH Q4HRT PRN Shortness Of Breath Lipase/Protease/Amylase 1 each 04/23/21 08:37 Lipase 10,500/Protease 25,000/Amylase 43,750 (Units) Dr Yates FEEDTUBE PRN PRN For Clogged Feeding Tube Ascorbic Acid 500 mg 04/20/21 22:00 04/28/21 09:31 Ascorbic Acid 500 Mg Tab PO 500 mg BID WENDY Administration Cholecalciferol 1,000 unit 04/21/21 10:00 04/28/21 09:33 Cholecalciferol (Vit D3) 1000 Unit (25 Mcg) Tab PO 1,000 unit DAILY WENDY Administration Heparin Sodium (Porcine) 5,000 unit 04/20/21 22:00 04/28/21 09:31 Heparin 5,000 Unit/1 Ml Vial SUB-Q 5,000 unit Q12HR WENDY Administration Hydromorphone HCl 0.5 mg 04/20/21 14:09 04/25/21 23:41 Hydromorphone 1 Mg/1 Ml Inj IV 0.5 mg Q3H PRN Administration Pain , Severe (7-10) Cefepime HCl 2 gm in 100 mls @ 200 mls/hr 04/26/21 22:00 04/28/21 09:29 Cefepime/Ns 2 Gm/100 Ml IV 200 mls/hr Q12HR WENDY Administration Protocol Insulin Glargine 30 units 04/26/21 22:00 04/28/21 00:21 Insulin Glargine 100 Units/Ml SUB-Q 30 units QHS WENDY Administration Insulin Human Lispro 0 unit 04/22/21 11:00 04/28/21 07:00 Insulin Lispro 100 Unit/Ml SUB-Q Not Given Q6H [facility] Protocol Ondansetron HCl 4 mg 04/20/21 14:09 Ondansetron 4 Mg/2 Ml Inj IV Q8H PRN Nausea And Vomiting Oxycodone/Acetaminophen 1 tab 04/20/21 14:09 04/24/21 23:45 Oxycodone /Acetaminophen 5-325mg Tab PO 1 tab Q12H PRN Administration Pain, Moderate (4-6) Simple Syrup 15 ml 04/23/21 08:37 Simple Syrup 15 Ml FEEDTUBE PRN PRN Hypoglycemia Simple Syrup 30 ml 04/23/21 08:37 Simple Syrup 15 Ml FEEDTUBE PRN PRN Hypoglycemia Sodium Bicarbonate 325 mg 04/23/21 08:37 Sodium Bicarbonate 325 Mg Tab FEEDTUBE PRN PRN For Clogged Feeding Tube Sodium Bicarbonate 650 mg 04/26/21 14:00 04/28/21 08:00 Sodium Bicarbonate 650 Mg Tab PO 650 mg TID WENDY Administration Sodium Chloride 10 ml 04/20/21 22:00 04/28/21 09:28 Sodium Chloride 0.9% 10 Ml Flush Syringe IV 10 ml BID WENDY Administration Sodium Chloride 10 ml 04/20/21 14:09 Sodium Chloride 0.9% 10 Ml Flush Syringe IV PRN PRN LINE FLUSH Zinc Sulfate 220 mg 04/20/21 22:00 04/28/21 09:34 Zinc Sulfate 220 Mg Cap PO 220 mg BID WENDY Administration
[2021-04-28 15:43] LABS: BUN/Creatinine Ratio 41; Blood Urea Nitrogen 33 mg/dL (7-17); Calcium 8.6 mg/dL (8.4-10.2); Hemolysis Index 3
[2021-04-29] MEDS: CEFEPIME/NS 2 GM/100 ML 2 GM/100 ML BAG IV SCH ×3 (00:32→23:04)
[2021-04-29] MEDS: HEPARIN 5,000 UNIT/1 ML VIAL SUB-Q SCH ×3 (00:33→23:05)
[2021-04-29] MEDS: ZINC SULFATE 220 MG CAP PO SCH ×3 (00:33→23:05)
[2021-04-29] MEDS: ASCORBIC ACID 500 MG TAB PO SCH ×3 (00:33→23:05)
[2021-04-29] MEDS: INSULIN LISPRO 100 UNIT/ML SUB-Q SCH ×5 (00:40→23:18)
[2021-04-29] MEDS: SODIUM BICARBONATE 650 MG TAB PO SCH ×4 (00:40→22:00)
[2021-04-29] MEDS: INSULIN GLARGINE 100 UNITS/ML SUB-Q SCH ×2 (00:43→23:18)
[2021-04-29] MEDS: CHOLECALCIFEROL (VIT D3) 1000 UNIT (25 mcg) TAB PO SCH (10:14)
--- NOTE | 2021-04-29 10:16 | Progress Note ---
Assessment and Plan 1. Acute kidney injury: Vasomotor ODILON in the setting of volume depletion +/- hypotension. Monitor renal function. Creatinine level is better. Avoid nephrotoxic agents. Meds dosage based on GFR. 2. FEN: Hypernatremia, improved, monitor. Hyperchloremic metabolic acidosis, improved, monitor. Hyperkalemia, improved, monitor. Monitor lytes and volume status. 3. Bilateral Pneumonia, POA: Covid test negative. On Abx. 4. L Pneumothorax, POA: S/p chest tube re-inserted 04/23. 5. Acute hypoxemic respiratory failure, POA: 2/2 PNA and pneumothorax. Supplemental oxygen. Monitor. 6. DM type 2, uncontrolled: Improving. Lantus and SSI. Monitor. 7. Sacral decub. 8. Anemia, not POA: Monitor. 9. Hypertension. Follow BP. 10. Dementia. Subjective: Patient was seen and examined at the bedside. Examination: General appearance: well-developed, appears stated age, emaciated, not in distress, appears chronically ill, NG tube HEENT: atraumatic, SHAR Neck: trachea midline Respiratory: bilateral decreased breath sounds, L chest tube noted Heart: S1S2, regular, no murmur Abdomen: soft, bowel sounds heard, NT Integumentary: no obvious rash Neurologic: lethargic, opens eyes Ext: no edema Subjective Date of service: 04/29/21 Objective - Vital Signs Vital signs: Vital Signs - 12hr 04/28/21 04/29/21 04/29/21 23:03 02:42 04:32 Temperature 97.6 F 97.7 F Pulse Rate 107 H 104 H Respiratory 18 18 Rate Blood Pressure 104/57 136/77 O2 Sat by Pulse 100 94 97 Oximetry 04/29/21 04/29/21 04:55 07:34 Temperature Pulse Rate Respiratory Rate Blood Pressure O2 Sat by Pulse 97 95 Oximetry - Lab 04/23/21 14:47 04/30/21 08:29 Most recent lab results Calcium 8.6 mg/dL (8.4-10.2) 04/28/21 15:11 Phosphorus 3.40 mg/dL (2.5-4.5) D 04/28/21 15:11 Magnesium 2.70 mg/dL (1.7-2.3) H 04/22/21 16:44 Medications & Allergies - Medications Allergies/Adverse Reactions: Allergies Penicillins Allergy (Verified 12/03/18 20:53) Hives meperidine [From Demerol] Adverse Reaction (Verified 12/03/18 20:53) Anaphylaxis morphine Adverse Reaction (Verified 12/03/18 20:53) Unknown Home Medications: Home Medications Medication Instructions Recorded Confirmed Last Taken Type DOXYCYCLINE Hyclate [Vibramycin 100 mg PO Q12HR #14 capsule 12/03/18 04/23/21 Unknown Rx CAP] Active Medications: Generic Name Dose Route Start Last Admin Trade Name Freq PRN Reason Stop Dose Admin Acetaminophen 650 mg 04/20/21 15:30 Acetaminophen 325 Mg Tab PO Q4H PRN Pain MILD(1-3)/Fever >100.5/WEST Albuterol 2.5 mg 04/20/21 14:09 Albuterol 2.5 Mg/3 Ml Nebu IH Q4HRT PRN Shortness Of Breath Lipase/Protease/Amylase 1 each 04/23/21 08:37 Lipase 10,500/Protease 25,000/Amylase 43,750 (Units) Dr Yates FEEDTUBE PRN PRN For Clogged Feeding Tube Ascorbic Acid 500 mg 04/20/21 22:00 04/29/21 10:15 Ascorbic Acid 500 Mg Tab PO 500 mg BID WENDY Administration Cholecalciferol 1,000 unit 04/21/21 10:00 04/29/21 10:14 Cholecalciferol (Vit D3) 1000 Unit (25 Mcg) Tab PO 1,000 unit DAILY WENDY Administration Heparin Sodium (Porcine) 5,000 unit 04/20/21 22:00 04/29/21 10:14 Heparin 5,000 Unit/1 Ml Vial SUB-Q 5,000 unit Q12HR WENDY Administration Hydromorphone HCl 0.5 mg 04/20/21 14:09 04/25/21 23:41 Hydromorphone 1 Mg/1 Ml Inj IV 0.5 mg Q3H PRN Administration Pain , Severe (7-10) Cefepime HCl 2 gm in 100 mls @ 200 mls/hr 04/26/21 22:00 04/29/21 10:13 Cefepime/Ns 2 Gm/100 Ml IV 200 mls/hr Q12HR WENDY Administration Protocol Insulin Glargine 30 units 04/26/21 22:00 04/29/21 00:43 Insulin Glargine 100 Units/Ml SUB-Q 30 units QHS WENDY Administration Insulin Human Lispro 0 unit 04/22/21 11:00 04/29/21 06:29 Insulin Lispro 100 Unit/Ml SUB-Q Not Given Q6H [facility] Protocol Ondansetron HCl 4 mg 04/20/21 14:09 Ondansetron 4 Mg/2 Ml Inj IV Q8H PRN Nausea And Vomiting Oxycodone/Acetaminophen 1 tab 04/20/21 14:09 04/24/21 23:45 Oxycodone /Acetaminophen 5-325mg Tab PO 1 tab Q12H PRN Administration Pain, Moderate (4-6) Simple Syrup 15 ml 04/23/21 08:37 Simple Syrup 15 Ml FEEDTUBE PRN PRN Hypoglycemia Simple Syrup 30 ml 04/23/21 08:37 Simple Syrup 15 Ml FEEDTUBE PRN PRN Hypoglycemia Sodium Bicarbonate 325 mg 04/23/21 08:37 Sodium Bicarbonate 325 Mg Tab FEEDTUBE PRN PRN For Clogged Feeding Tube Sodium Bicarbonate 650 mg 04/26/21 14:00 04/29/21 10:15 Sodium Bicarbonate 650 Mg Tab PO 650 mg TID WENDY Administration Sodium Chloride 10 ml 04/20/21 22:00 04/29/21 10:15 Sodium Chloride 0.9% 10 Ml Flush Syringe IV 10 ml BID WENDY Administration Sodium Chloride 10 ml 04/20/21 14:09 Sodium Chloride 0.9% 10 Ml Flush Syringe IV PRN PRN LINE FLUSH Zinc Sulfate 220 mg 04/20/21 22:00 04/29/21 10:14 Zinc Sulfate 220 Mg Cap PO 220 mg BID WENDY Administration
--- NOTE | 2021-04-29 12:50 | Progress Note ---
Assessment and Plan 60 y/o female with Recurrent PTX this admission, admitted with PTX s/p chest tube now times 2 and hypoxic respiratory secondary to PTX 04/29/21: Continue supplemental oxygen to help resorb PTX 04/27/21: Asked nursing to keep patient on oxygen therapy despite good sats as she has a small residual peripheral PTX. 04/26/21: Follow up CXR read. Possible osteo on CT, rads recommending MRI. Will continue to follow with you. 04/25/21: No new recs. Please see below. 1. Chest tube per surgery 2. Would continue supplemental oxygen and should be discharged to home on this if she does not have it already. Subjective Date of service: 04/29/21 Interval history: No acute events. stable on oxygen therapy. No repeat imaging yet of CXR. Objective Vital Signs - 12hr 04/29/21 04/29/21 04/29/21 02:42 04:32 04:55 Temperature 97.7 F Pulse Rate 104 H Respiratory 18 Rate Blood Pressure 136/77 O2 Sat by Pulse 94 97 97 Oximetry 04/29/21 04/29/21 07:34 10:00 Temperature Pulse Rate Respiratory Rate Blood Pressure O2 Sat by Pulse 95 98 Oximetry Constitutional: no acute distress Eyes: non-icteric ENT: oropharynx moist Neck: supple Effort: normal Ascultation: Bilateral: diminished breath sounds Cardiovascular: regular rate and rhythm Gastrointestinal: normoactive bowel sounds, soft, non-tender CBC and BMP: 04/23/21 14:47 04/28/21 15:11 ABG, PT/INR, D-dimer: PT/INR, D-dimer PT 15.6 Sec. (12.2-14.9) H 04/20/21 08:54 INR 1.19 (0.87-1.13) H 04/20/21 08:54 D-Dimer 840.47 ng/mlDDU (0-234) H 04/20/21 15:17 Abnormal lab findings: Abnormal Labs 04/20/21 04/20/21 04/20/21 08:54 08:54 08:54 RBC Hgb Hct MCV MCH 25 L RDW 18.2 H Lymph % (Auto) Lymph # (Auto) Seg Neutrophils % Seg Neuts % (Manual) 81.0 H Lymphocytes % (Manual) 12.0 L Lymphocytes # (Manual) 0.8 L PT 15.6 H INR 1.19 H D-Dimer Sodium 163 H* Potassium 2.8 L* Chloride 118.6 H Carbon Dioxide BUN 152 H Creatinine 2.0 H Glucose 147 H POC Glucose Lactic Acid Calcium 10.8 H Phosphorus Magnesium Ferritin Lactate Dehydrogenase C-Reactive Protein Total Protein 8.5 H Albumin 3.4 L Urine WBC (Auto) 04/20/21 04/20/21 04/20/21 08:54 14:29 15:17 RBC Hgb Hct MCV MCH RDW Lymph % (Auto) Lymph # (Auto) Seg Neutrophils % Seg Neuts % (Manual) Lymphocytes % (Manual) Lymphocytes # (Manual) PT INR D-Dimer Sodium Potassium Chloride Carbon Dioxide BUN Creatinine Glucose POC Glucose Lactic Acid 2.60 H* 2.60 H* Calcium Phosphorus Magnesium Ferritin Lactate Dehydrogenase C-Reactive Protein Total Protein Albumin Urine WBC (Auto) > 182.0 H 04/20/21 04/20/21 04/20/21 15:17 15:17 15:17 RBC Hgb Hct MCV MCH RDW Lymph % (Auto) Lymph # (Auto) Seg Neutrophils % Seg Neuts % (Manual) Lymphocytes % (Manual) Lymphocytes # (Manual) PT INR D-Dimer 840.47 H Sodium Potassium Chloride Carbon Dioxide BUN Creatinine Glucose 135 H POC Glucose Lactic Acid Calcium Phosphorus Magnesium Ferritin 508.5 H Lactate Dehydrogenase 189 H C-Reactive Protein 19.10 H Total Protein Albumin Urine WBC (Auto) 04/21/21 04/21/21 04/21/21 06:12 07:51 10:34 RBC 3.59 L Hgb 9.0 L Hct 29.1 L MCV MCH 25 L RDW 18.6 H Lymph % (Auto) Lymph # (Auto) Seg Neutrophils % 75.9 H Seg Neuts % (Manual) Lymphocytes % (Manual) Lymphocytes # (Manual) PT INR D-Dimer Sodium 161 H* Potassium 3.4 L D Chloride 124.9 H Carbon Dioxide 21 L BUN 123 H Creatinine 1.4 H Glucose 194 H POC Glucose 166 H Lactic Acid Calcium Phosphorus Magnesium Ferritin Lactate Dehydrogenase C-Reactive Protein Total Protein Albumin Urine WBC (Auto) 04/21/21 04/21/21 04/21/21 12:32 14:57 16:25 RBC Hgb Hct MCV MCH RDW Lymph % (Auto) Lymph # (Auto) Seg Neutrophils % Seg Neuts % (Manual) Lymphocytes % (Manual) Lymphocytes # (Manual) PT INR D-Dimer Sodium 160 H Potassium 3.0 L Chloride 127.1 H Carbon Dioxide 18 L BUN 121 H Creatinine 1.6 H Glucose 199 H POC Glucose 178 H 187 H Lactic Acid Calcium Phosphorus Magnesium Ferritin Lactate Dehydrogenase C-Reactive Protein Total Protein Albumin Urine WBC (Auto) 04/21/21 04/21/21 04/22/21 19:35 22:17 08:33 RBC Hgb Hct MCV MCH RDW Lymph % (Auto) Lymph # (Auto) Seg Neutrophils % Seg Neuts % (Manual) Lymphocytes % (Manual) Lymphocytes # (Manual) PT INR D-Dimer Sodium 157 H Potassium 5.3 H D Chloride 127.2 H Carbon Dioxide 15 L BUN 121 H Creatinine 1.5 H Glucose 221 H POC Glucose 205 H 312 H Lactic Acid Calcium Phosphorus Magnesium Ferritin Lactate Dehydrogenase C-Reactive Protein Total Protein Albumin Urine WBC (Auto) 04/22/21 04/22/21 04/22/21 13:26 16:44 16:44 RBC Hgb Hct MCV MCH RDW Lymph % (Auto) Lymph # (Auto) Seg Neutrophils % Seg Neuts % (Manual) Lymphocytes % (Manual) Lymphocytes # (Manual) PT INR D-Dimer Sodium 158 H Potassium Chloride 126.9 H Carbon Dioxide 19 L BUN 112 H Creatinine 1.4 H Glucose 317 H POC Glucose 315 H Lactic Acid Calcium Phosphorus Magnesium 2.70 H Ferritin Lactate Dehydrogenase C-Reactive Protein Total Protein Albumin Urine WBC (Auto) 04/22/21 04/22/21 04/23/21 18:05 22:14 06:35 RBC Hgb Hct MCV MCH RDW Lymph % (Auto) Lymph # (Auto) Seg Neutrophils % Seg Neuts % (Manual) Lymphocytes % (Manual) Lymphocytes # (Manual) PT INR D-Dimer Sodium Potassium Chloride Carbon Dioxide BUN Creatinine Glucose POC Glucose 236 H 153 H 170 H Lactic Acid Calcium Phosphorus Magnesium Ferritin Lactate Dehydrogenase C-Reactive Protein Total Protein Albumin Urine WBC (Auto) 04/23/21 04/23/21 04/23/21 12:26 14:47 14:47 RBC 3.47 L Hgb 8.6 L Hct 27.1 L MCV 78 L MCH 25 L RDW 18.7 H Lymph % (Auto) 10.0 L Lymph # (Auto) 0.7 L Seg Neutrophils % 86.3 H Seg Neuts % (Manual) Lymphocytes % (Manual) Lymphocytes # (Manual) PT INR D-Dimer Sodium 154 H Potassium 3.5 L Chloride 122.5 H Carbon Dioxide 20 L BUN 81 H Creatinine Glucose 241 H POC Glucose 179 H Lactic Acid Calcium Phosphorus Magnesium Ferritin Lactate Dehydrogenase C-Reactive Protein Total Protein Albumin Urine WBC (Auto) 04/23/21 04/23/21 04/24/21 18:28 23:34 06:13 RBC Hgb Hct MCV MCH RDW Lymph % (Auto) Lymph # (Auto) Seg Neutrophils % Seg Neuts % (Manual) Lymphocytes % (Manual) Lymphocytes # (Manual) PT INR D-Dimer Sodium Potassium Chloride Carbon Dioxide BUN Creatinine Glucose POC Glucose 222 H 257 H 252 H Lactic Acid Calcium Phosphorus Magnesium Ferritin Lactate Dehydrogenase C-Reactive Protein Total Protein Albumin Urine WBC (Auto) 04/24/21 04/24/21 04/24/21 13:12 18:10 23:29 RBC Hgb Hct MCV MCH RDW Lymph % (Auto) Lymph # (Auto) Seg Neutrophils % Seg Neuts % (Manual) Lymphocytes % (Manual) Lymphocytes # (Manual) PT INR D-Dimer Sodium 154 H Potassium 5.2 H D Chloride 123.9 H Carbon Dioxide 21 L BUN 59 H Creatinine Glucose 320 H POC Glucose 300 H 212 H Lactic Acid Calcium Phosphorus Magnesium Ferritin Lactate Dehydrogenase C-Reactive Protein Total Protein Albumin Urine WBC (Auto) 04/24/21 04/25/21 04/25/21 23:29 05:48 05:50 RBC Hgb Hct MCV MCH RDW Lymph % (Auto) Lymph # (Auto) Seg Neutrophils % Seg Neuts % (Manual) Lymphocytes % (Manual) Lymphocytes # (Manual) PT INR D-Dimer Sodium 149 H Potassium 5.1 H Chloride 118.1 H Carbon Dioxide BUN 55 H Creatinine Glucose 347 H POC Glucose 301 H 311 H Lactic Acid Calcium Phosphorus 1.90 L Magnesium Ferritin Lactate Dehydrogenase C-Reactive Protein Total Protein Albumin Urine WBC (Auto) 04/25/21 04/25/21 04/25/21 13:16 17:16 23:40 RBC Hgb Hct MCV MCH RDW Lymph % (Auto) Lymph # (Auto) Seg Neutrophils % Seg Neuts % (Manual) Lymphocytes % (Manual) Lymphocytes # (Manual) PT INR D-Dimer Sodium Potassium Chloride Carbon Dioxide BUN Creatinine Glucose POC Glucose 270 H 183 H 242 H Lactic Acid Calcium Phosphorus Magnesium Ferritin Lactate Dehydrogenase C-Reactive Protein Total Protein Albumin Urine WBC (Auto) 04/26/21 04/26/21 04/26/21 06:15 07:44 11:09 RBC Hgb Hct MCV MCH RDW Lymph % (Auto) Lymph # (Auto) Seg Neutrophils % Seg Neuts % (Manual) Lymphocytes % (Manual) Lymphocytes # (Manual) PT INR D-Dimer Sodium Potassium 5.7 H Chloride 108.7 H Carbon Dioxide 18 L BUN 47 H Creatinine Glucose 305 H POC Glucose 269 H 338 H Lactic Acid Calcium Phosphorus 2.20 L Magnesium Ferritin Lactate Dehydrogenase C-Reactive Protein Total Protein Albumin Urine WBC (Auto) 04/26/21 04/26/21 04/27/21 17:13 23:59 05:31 RBC Hgb Hct MCV MCH RDW Lymph % (Auto) Lymph # (Auto) Seg Neutrophils % Seg Neuts % (Manual) Lymphocytes % (Manual) Lymphocytes # (Manual) PT INR D-Dimer Sodium Potassium Chloride Carbon Dioxide BUN Creatinine Glucose POC Glucose 373 H 280 H 244 H Lactic Acid Calcium Phosphorus Magnesium Ferritin Lactate Dehydrogenase C-Reactive Protein Total Protein Albumin Urine WBC (Auto) 04/27/21 04/27/21 04/27/21 06:10 10:55 16:56 RBC Hgb Hct MCV MCH RDW Lymph % (Auto) Lymph # (Auto) Seg Neutrophils % Seg Neuts % (Manual) Lymphocytes % (Manual) Lymphocytes # (Manual) PT INR D-Dimer Sodium 132 L D Potassium Chloride Carbon Dioxide 20 L BUN 38 H Creatinine Glucose 258 H POC Glucose 212 H 154 H Lactic Acid Calcium Phosphorus 1.80 L Magnesium Ferritin Lactate Dehydrogenase C-Reactive Protein Total Protein Albumin Urine WBC (Auto) 04/27/21 04/28/21 04/28/21 22:20 05:16 15:11 RBC Hgb Hct MCV MCH RDW Lymph % (Auto) Lymph # (Auto) Seg Neutrophils % Seg Neuts % (Manual) Lymphocytes % (Manual) Lymphocytes # (Manual) PT INR D-Dimer Sodium 135 L Potassium Chloride Carbon Dioxide BUN 33 H Creatinine Glucose 105 H POC Glucose 139 H 58 L Lactic Acid Calcium Phosphorus Magnesium Ferritin Lactate Dehydrogenase C-Reactive Protein Total Protein Albumin Urine WBC (Auto) 04/28/21 04/28/21 04/29/21 16:17 21:09 00:03 RBC Hgb Hct MCV MCH RDW Lymph % (Auto) Lymph # (Auto) Seg Neutrophils % Seg Neuts % (Manual) Lymphocytes % (Manual) Lymphocytes # (Manual) PT INR D-Dimer Sodium Potassium Chloride Carbon Dioxide BUN Creatinine Glucose POC Glucose 109 H 120 H 139 H Lactic Acid Calcium Phosphorus Magnesium Ferritin Lactate Dehydrogenase C-Reactive Protein Total Protein Albumin Urine WBC (Auto)
--- NOTE | 2021-04-29 13:10 | Progress Note ---
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 Patient is confused and lethargic the time my evaluation and is unable to provide history. Patient also has diminished cognition which is her baseline. Patient is unable to provide history. Patient history provided by EMS staff, ED staff, as well as the patient's daughter who was contacted via telephone for interview. As per daughter the patient is currently a patient receiving hospice care from [facility]. Patient daughter elects to revoke hospice benefit and seek aggressive medical therapy. [facility] notified and acknowledge patient revocation. Patient daughter reports that patient experience fever 103 F today, and has experienced decreased oral intake and decreased responsiveness over the past 2 days with progressively worsening symptoms over the same timeframe. EMS was notified and upon arrival the patient was found to be in distress with a pulse oximetry of 65% on room air. The patient was placed on submental oxygen and transported to [facility] for further care and evaluation of the aforementioned symptoms. The patient was seen and evaluated in the emergency department. All lab and imaging studies reviewed. The patient was found to have a pulse oximetry of 82% on submental oxygen which is consistent with acute hypoxemic respiratory failure. Chest x-ray revealed pneumonia as well as left pneumothorax. The patient was also found to have acute kidney injury, systemic inflammatory response syndrome, hypokalemia. The patient underwent chest tube placement in the emergency department with improvement in symptoms. Surgery team consulted in ED. Patient admitted to medical floor due to increased risk of worsening symptoms. Patient initiated on pneumonia protocol as well as coronavirus protocol. The patient has diminished cognition but has a positive gag reflex and is able to protect her airway without difficulty at this time. No reported history of chest pain, palpitation, productive cough, skin rash, recent ill contacts, or known exposure to COVID-19. No prior admission for review. No medication listed at time of admission for reconciliation. Advanced care planning conducted in ED. CT HEAD: Negative CT chest: Chest tube in place, noted opacities 04/21: Patient lethargic, chest tube remains in place, Wound care consult, aspiration precautions. Wean as tolerated. Await COVID 19. Monitor Sodium level, awaiting labs, check q8hr. 04/22: Chest tube still positive air leak. Patient still hypoxic, while sodium level is improving metabolic acidosis has been noted. Patient's Covid test was negative. We will continue current management and adjust insulin for better blood sugar management. May require some Kayexalate due to hyper kalemia but considering severe hypokalemia just the day before we will monitor closely. Renal function showing some improvement continue management pulmonary and nephrology input noted. Urine culture positive for fungal Judith will monitor closely. 04/23: Penumonthorax appears to have resolved, patient down to 3 liters of Oxygen via NC, tolerating. she is still very lethargic, failed swallow eval. awaiting to hear from family if to progress with PEG placement. Patient was recently on Hospice but that was rescinded. Overall poor prognosis. Continue monitoring Hypernatremia. Surgeon re-evaluating Chest tube today 04/24 -Patient is on chest tube for pnuemothorax. Surgery is following. Sacral decubitus ulcer. Patient was evaluated by GI for PEG tube placement and will place PEG tube once patient is stable. Wants to be reconsulted once stable. Patient was on 2 L of oxygen. 04/25; patient is being followed by surgery for chest tube. Sacral decubitus ulcer followed by surgery for possible debridement. Patient is on OG tube feeding, evaluated by GI for PEG tube placement and recommend to be reconsulted after patient is stable. 04/26; patient was seen by general surgery and chest x-ray ordered for follow-up of her pneumothorax status post chest tube. CT pelvis was done and reading is pending, general surgery is evaluating for debridement. Patient is on OG tube feeding and will increase free water intake for hyperkalemia. Discussed with GI yesterday and they state reconsult once chest tube is taken out for PEG tube placement. Prognosis this is guarded. 04/27; left-sided chest tube in place, Small pneumothorax on the left. MRI showed osteomyelitis of the sacral area and will have debridement on Friday. Will follow up with case management about hospice care which the daughter re quests. I called patient's daughter Ms Corado at [phone], she said she want PEG tube, debridement and she wants the patient be continued full code. He told me that is patient's request. 04/28; on chest tube for pneumothorax, continue with oxygen. Will have debridement on Friday. Management plan discussed with her daughter and she wants everything to be done including PEG tube. GI said we will do PEG tube once this tube was removed. Patient is full code. 04/29 patient is awake, nonverbal, does not follow commands. She has wrist restraints to prevent chest tube displacement. Apparently she pulled out her chest tube and had to be reinserted. She is on Dobbhoff tube feedings. Lab r esults reviewed. Pulmonary and nephrology notes reviewed (1) pneumothorax-spontaneous Current Visit: Yes Status: Acute Plan to address problem: Status post chest tube placement Pulmonary note reviewed and appreciated (2) Pneumonia?? Current Visit: Yes Status: Acute Plan to address problem: Chest x-ray reviewed No acute infiltrate Pulmonary following Patient is on cefepime Tested negative for COVID-19 (3) Acute kidney injury (ODILON) with acute tubular necrosis (ATN) Current Visit: Yes Status: Acute Plan to address problem: Nephrology consulted and note reviewed Lab results reviewed Improved (4) Hypokalemia Current Visit: Yes Status: Acute Plan to address problem: Improved (5) Vascular dementia Current Visit: Yes Status: Acute Qualifiers: Dementia behavioral disturbance: without behavioral disturbance Qualified Code(s): F01.50 - Vascular dementia without behavioral disturbance Plan to address problem: Verbal prompting, verbal redirection, benzodiazepine therapy as clinically indicated (6) Cerebral atherosclerosis Current Visit: Yes Status: Acute Plan to address problem: Antiplatelet therapy, supportive care, risk factor reduction. (7) Dysphagia as late effect of cerebrovascular accident (CVA) Current Visit: Yes Status: Acute Plan to address problem: Pured diet, assistance with meals, supportive care. History Interval history: Patient was seen and evaluated this morning She is nonverbal O/E Not in cardiopulmonary distress. The patient appeared well nourished and normally developed. Vital signs as documented. Head exam is unremarkable. No scleral icterus . Neck is without jugular venous distension, thyromegaly, or carotid bruits. Lungs left-sided chest tube in place Cardiac exam reveals regular rate and Rhythm. Abdominal exam reveals normal bowel sounds, nontender, no organomegaly. Extremities are nonedematous and both femoral and pedal pulses are normal. [employer]: confused, very weak and not talking. No focal weakness. Objective - Constitutional Vitals: Vital Signs - 12hr 04/29/21 04/29/21 04/29/21 02:42 04:32 04:55 Temperature 97.7 F Pulse Rate 104 H Respiratory 18 Rate Blood Pressure 136/77 O2 Sat by Pulse 94 97 97 Oximetry 04/29/21 04/29/21 07:34 10:00 Temperature Pulse Rate Respiratory Rate Blood Pressure O2 Sat by Pulse 95 98 Oximetry - Labs CBC & Chem 7: 04/23/21 14:47 04/28/21 15:11 Labs: Abnormal lab results 04/28/21 04/28/21 04/28/21 Range/Units 15:11 16:17 21:09 Sodium 135 L (137-145) mmol/L BUN 33 H (7-17) mg/dL Glucose 105 H (65-100) mg/dL POC Glucose 109 H 120 H (70-105) mg/dL 04/29/21 Range/Units 00:03 Sodium (137-145) mmol/L BUN (7-17) mg/dL Glucose (65-100) mg/dL POC Glucose 139 H (70-105) mg/dL
[2021-04-30] MEDS: oxyCODONE /ACETAMINOPHEN 5-325MG TAB PO PRN ×2 (06:25→23:25)
[2021-04-30] MEDS: INSULIN LISPRO 100 UNIT/ML SUB-Q SCH ×4 (06:31→23:26)
[2021-04-30] MEDS: SODIUM BICARBONATE 650 MG TAB PO SCH ×2 (08:32→13:31)
[2021-04-30] MEDS: CHOLECALCIFEROL (VIT D3) 1000 UNIT (25 mcg) TAB PO SCH (09:36)
[2021-04-30 09:56] LABS: Blood Urea Nitrogen 30 mg/dL (7-17); Calcium 8.7 mg/dL (8.4-10.2); Hemolysis Index 18
[2021-04-30 10:04] LABS: BUN/Creatinine Ratio 43
[2021-04-30] MEDS: HEPARIN 5,000 UNIT/1 ML VIAL SUB-Q SCH ×2 (10:29→23:22)
[2021-04-30] MEDS: ZINC SULFATE 220 MG CAP PO SCH ×2 (10:37→23:37)
[2021-04-30] MEDS: ASCORBIC ACID 500 MG TAB PO SCH ×2 (10:37→23:23)
[2021-04-30] MEDS: CEFEPIME/NS 2 GM/100 ML 2 GM/100 ML BAG IV SCH ×2 (10:39→23:22)
--- NOTE | 2021-04-30 12:09 | Progress Note ---
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 Patient is confused and lethargic the time my evaluation and is unable to provide history. Patient also has diminished cognition which is her baseline. Patient is unable to provide history. Patient history provided by EMS staff, ED staff, as well as the patient's daughter who was contacted via telephone for interview. As per daughter the patient is currently a patient receiving hospice care from [facility]. Patient daughter elects to revoke hospice benefit and seek aggressive medical therapy. [facility] notified and acknowledge patient revocation. Patient daughter reports that patient experience fever 103 F today, and has experienced decreased oral intake and decreased responsiveness over the past 2 days with progressively worsening symptoms over the same time frame. EMS was notified and upon arrival the patient was found to be in distress with a pulse oximetry of 65% on room air. The patient was placed on submental oxygen and transported to [facility] for further care and evaluation of the aforementioned symptoms. The patient was seen and evaluated in the emergency department. All lab and imaging studies reviewed. The patient was found to have a pulse oximetry of 82% on submental oxygen which is consistent with acute hypoxemic respiratory failure. Chest x-ray revealed pneumonia as well as left pneumothorax. The patient was also found to have acute kidney injury, systemic inflammatory response syndrome, hypokalemia. The patient underwent chest tube placement in the emergency department with improvement in symptoms. Surgery team consulted in ED. Patient admitted to medical floor due to increased risk of worsening symptoms. Patient initiated on pneumonia protocol as well as coronavirus protocol. The patient has diminished cognition but has a positive gag reflex and is able to protect her airway without difficulty at this time. No reported history of chest pain, palpitation, productive cough, skin rash, recent ill contacts, or known exposure to COVID-19. No prior admission for review. No medication listed at time of admission for reconciliation. Advanced care planning conducted in ED. CT HEAD: Negative CT chest: Chest tube in place, noted opacities 04/21: Patient lethargic, chest tube remains in place, Wound care consult, asp iration precautions. Wean as tolerated. Await COVID 19. Monitor Sodium level, awaiting labs, check q8hr. 04/22: Chest tube still positive air leak. Patient still hypoxic, while sodium level is improving metabolic acidosis has been noted. Patient's Covid test was negative. We will continue current management and adjust insulin for better blood sugar management. May require some Kayexalate due to hyper kalemia but considering severe hypokalemia just the day before we will monitor closely. Renal function showing some improvement continue management pulmonary and nephrology input noted. Urine culture positive for fungal Judith will monitor closely. 04/23: Penumonthorax appears to have resolved, patient down to 3 liters of Oxygen via NC, tolerating. she is still very lethargic, failed swallow eval. awaiting to hear from family if to progress with PEG placement. Patient was recently on Hospice but that was rescinded. Overall poor prognosis. Continue monitoring Hypernatremia. Surgeon re-evaluating Chest tube today 04/24 -Patient is on chest tube for pnuemothorax. Surgery is following. Sacral decubitus ulcer. Patient was evaluated by GI for PEG tube placement and will place PEG tube once patient is stable. Wants to be reconsulted once stable. Patient was on 2 L of oxygen. 04/25; patient is being followed by surgery for chest tube. Sacral decubitus ulcer followed by surgery for possible debridement. Patient is on OG tube feeding, evaluated by GI for PEG tube placement and recommend to be reconsulted after patient is stable. 04/26; patient was seen by general surgery and chest x-ray ordered for follow-up of her pneumothorax status post chest tube. CT pelvis was done and reading is pending, general surgery is evaluating for debridement. Patient is on OG tube feeding and will increase free water intake for hyperkalemia. Discussed with GI yesterday and they state reconsult once chest tube is taken out for PEG tube placement. Prognosis this is guarded. 04/27; left-sided chest tube in place, Small pneumothorax on the left. MRI showed osteomyelitis of the sacral area and will have debridement on Friday. Will follow up with case management about hospice care which the daughter requests. I called patient's daughter Ms Corado at [phone], she said she want PEG tube, debridement and she wants the patient be continued full code. He told me that is patient's request. 04/28; on chest tube for pneumothorax, continue with oxygen. Will have debridement on Friday. Management plan discussed with her daughter and she wants everything to be done including PEG tube. GI said we will do PEG tube once this tube was removed. Patient is full code. 04/29 patient is awake, nonverbal, does not follow commands. She has wrist restraints to prevent chest tube displacement. Apparently she pulled out her chest tube and had to be reinserted. She is on Dobbhoff tube feedings. Lab results reviewed. Pulmonary and nephrology notes reviewed 04/30: Still remains in place chest x-ray reordered today. Family has opted for patient to go back to hospice but awaiting removal of chest tube and possible PEG placement. She remains on 3 L of oxygen at this time from respiratory standpoint she is stable. Plan discussed with case management. (1) pneumothorax-spontaneous Current Visit: Yes Status: Acute Plan to address problem: Status post chest tube placement Pulmonary note reviewed and appreciated (2) Pneumonia?? Current Visit: Yes Status: Acute Plan to address problem: Chest x-ray reviewed No acute infiltrate Pulmonary following Patient is on cefepime Tested negative for COVID-19 (3) Acute kidney injury (ODILON) with acute tubular necrosis (ATN) Current Visit: Yes Status: Acute Plan to address problem: Nephrology consulted and note reviewed Lab results reviewed Improved (4) Hypokalemia Current Visit: Yes Status: Acute Plan to address problem: Improved (5) Vascular dementia Current Visit: Yes Status: Acute Qualifiers: Dementia behavioral disturbance: without behavioral disturbance Qualified Code(s): F01.50 - Vascular dementia without behavioral disturbance Plan to address problem: Verbal prompting, verbal redirection, benzodiazepine therapy as clinically indicated (6) Cerebral atherosclerosis Current Visit: Yes Status: Acute Plan to address problem: Antiplatelet therapy, supportive care, risk factor reduction. (7) Dysphagia as late effect of cerebrovascular accident (CVA) Current Visit: Yes Status: Acute Plan to address problem: Pured diet, assistance with meals, supportive care. History Interval history: Patient seen and examined, still lethargic, remains on oxygen, very decondit ioned, Chest tube is still in place Hospitalist Physical - Physical exam Narrative exam: General appearance: Present: mild distress, chronically illl appearing, on NC, Dobhoff for feeding - EENT Eyes: Present: PERRL ENT: clear oral mucosa, hearing decreased - Neck Neck: Present: supple - Respiratory Respiratory effort: labored, accessory muscle use- Respiratory: bilateral: diminished, rhonchi Chest tube in place- LEFT - Cardiovascular Heart Sounds: Present: S1 & S2. Absent: rub, click - Extremities Extremities: abnormal (Sacral decubitus ulcer) Peripheral Pulses: within normal limits - Abdominal General gastrointestinal: Present: soft, non-tender, non-distended, normal bowel sounds Female genitourinary: Present: normal - Integumentary Integumentary: Present: dry, clammy, decreased turgor - Musculoskeletal Musculoskeletal: generalized weakness - Psychiatric Psychiatric: no appropriate mood/affect, no intact judgment & insight, no memory intact - Neurologic Neurologic: CNII-XII intact, focal deficits, no moves all extremities, no gait sita - Constitutional Vitals: Temp Pulse Resp BP Pulse Ox 97.9 F 107 H 20 140/78 100 04/30/21 10:35 04/30/21 10:35 04/30/21 10:35 04/30/21 10:35 04/30/21 10:35 General appearance: Present: mild distress, cachectic Results - Labs CBC & Chem 7: 04/23/21 14:47 04/30/21 08:29 Labs: Laboratory Last Values WBC 7.4 K/mm3 (4.5-11.0) 04/23/21 14:47 RBC 3.47 M/mm3 (3.65-5.03) L 04/23/21 14:47 Hgb 8.6 gm/dl (10.1-14.3) L 04/23/21 14:47 Hct 27.1 % (30.3-42.9) L 04/23/21 14:47 MCV 78 fl (79-97) L 04/23/21 14:47 MCH 25 pg (28-32) L 04/23/21 14:47 MCHC 32 % (30-34) 04/23/21 14:47 RDW 18.7 % (13.2-15.2) H 04/23/21 14:47 Plt Count 251 K/mm3 (140-440) 04/23/21 14:47 Lymph % (Auto) 10.0 % (13.4-35.0) L 04/23/21 14:47 Borden % (Auto) 2.7 % (0.0-7.3) 04/23/21 14:47 Eos % (Auto) 0.1 % (0.0-4.3) 04/23/21 14:47 Baso % (Auto) 0.9 % (0.0-1.8) 04/23/21 14:47 Lymph # (Auto) 0.7 K/mm3 (1.2-5.4) L 04/23/21 14:47 Borden # (Auto) 0.2 K/mm3 (0.0-0.8) 04/23/21 14:47 Eos # (Auto) 0.0 K/mm3 (0.0-0.4) 04/23/21 14:47 Baso # (Auto) 0.1 K/mm3 (0.0-0.1) 04/23/21 14:47 Add Manual Diff Complete 04/20/21 08:54 Total Counted 100 04/20/21 08:54 Seg Neutrophils % 86.3 % (40.0-70.0) H 04/23/21 14:47 Seg Neuts % (Manual) 81.0 % (40.0-70.0) H 04/20/21 08:54 Band Neutrophils % 2.0 % 04/20/21 08:54 Lymphocytes % (Manual) 12.0 % (13.4-35.0) L 04/20/21 08:54 Monocytes % (Manual) 5.0 % (0.0-7.3) 04/20/21 08:54 Nucleated RBC % Not Reportable 04/20/21 08:54 Seg Neutrophils # 6.4 K/mm3 (1.8-7.7) 04/23/21 14:47 Seg Neutrophils # Man 5.3 K/mm3 (1.8-7.7) 04/20/21 08:54 Band Neutrophils # 0.1 K/mm3 04/20/21 08:54 Lymphocytes # (Manual) 0.8 K/mm3 (1.2-5.4) L 04/20/21 08:54 Abs React Lymphs (Man) 0.0 K/mm3 04/20/21 08:54 Monocytes # (Manual) 0.3 K/mm3 (0.0-0.8) 04/20/21 08:54 Eosinophils # (Manual) 0.0 K/mm3 (0.0-0.4) 04/20/21 08:54 Basophils # (Manual) 0.0 K/mm3 (0.0-0.1) 04/20/21 08:54 Metamyelocytes # 0.0 K/mm3 04/20/21 08:54 Myelocytes # 0.0 K/mm3 04/20/21 08:54 Promyelocytes # 0.0 K/mm3 04/20/21 08:54 Blast Cells # 0.0 K/mm3 04/20/21 08:54 WBC Morphology Not Reportable 04/20/21 08:54 Hypersegmented Neuts Not Reportable 04/20/21 08:54 Hyposegmented Neuts Not Reportable 04/20/21 08:54 Hypogranular Neuts Not Reportable 04/20/21 08:54 Smudge Cells Not Reportable 04/20/21 08:54 Toxic Granulation Not Reportable 04/20/21 08:54 Toxic Vacuolation Not Reportable 04/20/21 08:54 Dohle Bodies Not Reportable 04/20/21 08:54 Pelger-Huet Anomaly Not Reportable 04/20/21 08:54 Gabe Rods Not Reportable 04/20/21 08:54 Platelet Estimate Consistent w auto 04/20/21 08:54 Clumped Platelets Not Reportable 04/20/21 08:54 Plt Clumps, EDTA Not Reportable 04/20/21 08:54 Large Platelets Not Reportable 04/20/21 08:54 Giant Platelets Not Reportable 04/20/21 08:54 Platelet Satelliting Not Reportable 04/20/21 08:54 Plt Morphology Comment Not Reportable 04/20/21 08:54 RBC Morphology Not Reportable 04/20/21 08:54 Dimorphic RBCs Not Reportable 04/20/21 08:54 Polychromasia Not Reportable 04/20/21 08:54 Hypochromasia 1+ 04/20/21 08:54 Poikilocytosis Not Reportable 04/20/21 08:54 Anisocytosis 1+ 04/20/21 08:54 Microcytosis Not Reportable 04/20/21 08:54 Macrocytosis Not Reportable 04/20/21 08:54 Spherocytes Not Reportable 04/20/21 08:54 Pappenheimer Bodies Not Reportable 04/20/21 08:54 Sickle Cells Not Reportable 04/20/21 08:54 Target Cells Not Reportable 04/20/21 08:54 Tear Drop Cells Not Reportable 04/20/21 08:54 Ovalocytes Not Reportable 04/20/21 08:54 Helmet Cells Not Reportable 04/20/21 08:[address] [place] Bodies Not Reportable 04/20/21 08:54 [place] Rings Not Reportable 04/20/21 08:54 Duran Cells Not Reportable 04/20/21 08:54 Bite Cells Not Reportable 04/20/21 08:54 Crenated Cell Not Reportable 04/20/21 08:54 Elliptocytes Not Reportable 04/20/21 08:54 Acanthocytes (Spur) Not Reportable 04/20/21 08:54 Rouleaux Not Reportable 04/20/21 08:54 Hemoglobin C Crystals Not Reportable 04/20/21 08:54 Schistocytes Not Reportable 04/20/21 08:54 Malaria parasites Not Reportable 04/20/21 08:54 Chris Bodies Not Reportable 04/20/21 08:54 Hem Pathologist Commnt No 04/20/21 08:54 PT 15.6 Sec. (12.2-14.9) H 04/20/21 08:54 INR 1.19 (0.87-1.13) H 04/20/21 08:54 D-Dimer 840.47 ng/mlDDU (0-234) H 04/20/21 15:17 VBG pH 7.382 (7.320-7.420) 04/20/21 08:54 Sodium 130 mmol/L (137-145) L 04/30/21 08:29 Potassium 4.4 mmol/L (3.6-5.0) 04/30/21 08:29 Chloride 99.5 mmol/L (98-107) 04/30/21 08:29 Carbon Dioxide 19 mmol/L (22-30) L 04/30/21 08:29 Anion Gap 16 mmol/L 04/30/21 08:29 BUN 30 mg/dL (7-17) H 04/30/21 08:29 Creatinine 0.7 mg/dL (0.6-1.2) 04/30/21 08:29 Estimated GFR > 60 ml/min 04/30/21 08:29 BUN/Creatinine Ratio 43 % 04/30/21 08:29 Glucose 157 mg/dL (65-100) H 04/30/21 08:29 POC Glucose 148 mg/dL (70-105) H 04/30/21 05:46 Lactic Acid 2.60 mmol/L (0.7-2.0) H* 04/20/21 15:17 Calcium 8.7 mg/dL (8.4-10.2) 04/30/21 08:29 Phosphorus 3.40 mg/dL (2.5-4.5) D 04/28/21 15:11 Magnesium 2.70 mg/dL (1.7-2.3) H 04/22/21 16:44 Ferritin 508.5 ng/mL (10.0-200.0) H 04/20/21 15:17 Total Bilirubin 0.40 mg/dL (0.1-1.2) 04/20/21 08:54 AST 12 units/L (5-40) 04/20/21 08:54 ALT 9 units/L (7-56) 04/20/21 08:54 Alkaline Phosphatase 61 units/L (35-129) 04/20/21 08:54 Lactate Dehydrogenase 189 units/L (91-180) H 04/20/21 15:17 C-Reactive Protein 19.10 mg/dL (0.00-1.30) H 04/20/21 15:17 Total Protein 8.5 g/dL (6.3-8.2) H 04/20/21 08:54 Albumin 3.4 g/dL (3.9-5) L 04/20/21 08:54 Albumin/Globulin Ratio 0.7 % 04/20/21 08:54 Procalcitonin 2.70 ng/mL (<0.15) 04/20/21 15:17 PTH Intact 20.03 pg/mL (15-65) 04/22/21 16:44 Urine Color Yellow (Yellow) 04/20/21 14:29 Urine Turbidity Turbid (Clear) 04/20/21 14:29 Urine pH 5.0 (5.0-7.0) 04/20/21 14:29 Ur Specific [place] 1.017 (1.003-1.030) 04/20/21 14:29 Urine Protein 100 mg/dl mg/dL (Negative) 04/20/21 14:29 Urine Glucose (UA) Neg mg/dL (Negative) 04/20/21 14:29 Urine Ketones Neg mg/dL (Negative) 04/20/21 14:29 Urine Blood Mod (Negative) 04/20/21 14:29 Urine Nitrite Neg (Negative) 04/20/21 14:29 Urine Bilirubin Neg (Negative) 04/20/21 14:29 Urine Urobilinogen < 2.0 mg/dL (<2.0) 04/20/21 14:29 Ur Leukocyte Esterase Lg (Negative) 04/20/21 14:29 Urine WBC (Auto) > 182.0 /HPF (0.0-6.0) H 04/20/21 14:29 Urine RBC (Auto) > 182.0 /HPF (0.0-6.0) 04/20/21 14:29 U Epithel Cells (Auto) 2.0 /HPF (0-13.0) 04/20/21 14:29 Urine WBC Clumps 2+ /HPF 04/20/21 14:29 Nasal Screen MRSA (PCR) Positive (Negative) 04/21/21 Unknown Coronavirus (PCR) Negative (Negative) 04/20/21 09:30 Nuno/IV: Voiding Method External Female Catheter Active Medications - Current Medications Current Medications: Generic Name Dose Route Start Last Admin Trade Name Freq PRN Reason Stop Dose Admin Acetaminophen 650 mg 04/20/21 15:30 Acetaminophen 325 Mg Tab PO Q4H PRN Pain MILD(1-3)/Fever >100.5/WEST Albuterol 2.5 mg 04/20/21 14:09 Albuterol 2.5 Mg/3 Ml Nebu IH Q4HRT PRN Shortness Of Breath Lipase/Protease/Amylase 1 each 04/23/21 08:37 Lipase 10,500/Protease 25,000/Amylase 43,750 (Units) Dr Yates FEEDTUBE PRN PRN For Clogged Feeding Tube Ascorbic Acid 500 mg 04/20/21 22:00 04/29/21 23:05 Ascorbic Acid 500 Mg Tab PO 500 mg BID WENDY Administration Cholecalciferol 1,000 unit 04/21/21 10:00 04/29/21 10:14 Cholecalciferol (Vit D3) 1000 Unit (25 Mcg) Tab PO 1,000 unit DAILY WENDY Administration Heparin Sodium (Porcine) 5,000 unit 04/20/21 22:00 04/29/21 23:05 Heparin 5,000 Unit/1 Ml Vial SUB-Q 5,000 unit Q12HR WENDY Administration Hydromorphone HCl 0.5 mg 04/20/21 14:09 04/25/21 23:41 Hydromorphone 1 Mg/1 Ml Inj IV 0.5 mg Q3H PRN Administration Pain , Severe (7-10) Cefepime HCl 2 gm in 100 mls @ 200 mls/hr 04/26/21 22:00 04/29/21 23:04 Cefepime/Ns 2 Gm/100 Ml IV 200 mls/hr Q12HR [facility] Administration Protocol Insulin Glargine 25 units 04/29/21 22:00 04/29/21 23:18 Insulin Glargine 100 Units/Ml SUB-Q Not Given QHS [facility] Insulin Human Lispro 0 unit 04/22/21 11:00 04/30/21 06:31 Insulin Lispro 100 Unit/Ml SUB-Q Not Given Q6H [facility] Protocol Ondansetron HCl 4 mg 04/20/21 14:09 Ondansetron 4 Mg/2 Ml Inj IV Q8H PRN Nausea And Vomiting Oxycodone/Acetaminophen 1 tab 04/20/21 14:09 04/30/21 06:25 Oxycodone /Acetaminophen 5-325mg Tab PO 1 tab Q12H PRN Administration Pain, Moderate (4-6) Simple Syrup 15 ml 04/23/21 08:37 Simple Syrup 15 Ml FEEDTUBE PRN PRN Hypoglycemia Simple Syrup 30 ml 04/23/21 08:37 Simple Syrup 15 Ml FEEDTUBE PRN PRN Hypoglycemia Sodium Bicarbonate 325 mg 04/23/21 08:37 Sodium Bicarbonate 325 Mg Tab FEEDTUBE PRN PRN For Clogged Feeding Tube Sodium Bicarbonate 650 mg 04/26/21 14:00 04/29/21 22:00 Sodium Bicarbonate 650 Mg Tab PO 650 mg TID WENDY Administration Sodium Chloride 10 ml 04/20/21 22:00 04/30/21 05:45 Sodium Chloride 0.9% 10 Ml Flush Syringe IV 10 ml BID WENDY Administration Sodium Chloride 10 ml 04/20/21 14:09 Sodium Chloride 0.9% 10 Ml Flush Syringe IV PRN PRN LINE FLUSH Zinc Sulfate 220 mg 04/20/21 22:00 04/29/21 23:05 Zinc Sulfate 220 Mg Cap PO 220 mg BID WENDY Administration Nutrition/Malnutrition Assess - Dietary Evaluation Nutrition/Malnutrition Findings: Nutrition Notes Start: 04/21/21 13:58 Freq: Status: Active Protocol: Document 04/27/21 12:43 (Rec: 04/27/21 12:46 MK [id number]) Nutrition Notes Initial or Follow up Reassessment Current Diagnosis Acute Kidney Injury,Decubitus( Pressure Ulcer),Diabetes, Sepsis,Hypertension,Heart Failure,Respiratory Failure Other Pertinent Diagnosis PNA, r/o Covid19, dementia, dysphagia Current Diet Glucerna 1.2 at 50 ml/hr Labs/Tests Na 132 POC BG 212-373 Pertinent Medications Insulin Height 5 ft 5 in Weight 57 kg Crum Body Weight (kg) 56.81 BMI 20.9 Subjective/Other Information TF at goal rate and pt is tolerating. Percent of energy/protein needs met: 100%/100% Burn Absent Trauma Absent GI Symptoms None Difficulty In Swallowing,Chewing Skin Integrity/Comment unstagable pressure wound present Current % PO Negligible Minimum of two criteria No Reduced Hospital Sales Representative Strength Measurably Reduced (severe) #2 Nutrition Diagnosis Increased nutrient needs ( specify in comment below) Diagnosis Progress(for reassessment Continues documentation) #1 Nutrition Diagnosis Inadequate oral intake Diagnosis Progress(for reassessment Continues documentation) Is patient on ventilator? No Is Patient Ambulatory and/or Out of Bed No REE-([facility]-confined to bed) 1368.228 Calculation Used for Recommendations [facility] Additional Notes protein needs:71 - 85g (1.25 - 1.5g/kgBW) fluid needs: 1 ml/kcal Nutrition Intervention Change Diet Order: continue Nutrition Support: Glucerna 1.2 at 50 ml/hr Flush 100 ml q4h. Kcal 1,440 Protein (gm) 72 Fluid (mL) 966 Goal #1 Meet at least 80% of protein and kcal needs via TF Goal #2 Wound healing Anticipated Discharge Needs: Glucerna 1.2 at 50 ml/hr. Flush 100 ml q4h Follow-Up By: 05/02/21 Additional Comments F/u: stable TF
--- NOTE | 2021-04-30 14:10 | XRay Report ---
CHEST 1 VIEW INDICATION: pneumothorax. COMPARISON: 04/26/2021 FINDINGS: Support devices: Feeding tube is coiled in the stomach with its tip in the gastric body. Heart: Within normal limits. Lungs/Pleura: No acute air space or interstitial disease. No appreciable left pneumothorax on today's exam. Additional findings: None. IMPRESSION: No acute findings. No pneumothorax. Signer Name: Jose Dorman Jr, MD Signed: 04/30/2021 2:06 PM Workstation Name: [id number]
--- NOTE | 2021-04-30 14:29 | Progress Note ---
Assessment and Plan 1. Acute kidney injury: Vasomotor ODILON in the setting of volume depletion +/- hypotension. Monitor renal function. Creatinine level is better. Avoid nephrotoxic agents. Meds dosage based on GFR. 2. FEN: Hyponatremia, increase Sod bicarb, monitor. Hyperchloremic metabolic acidosis, improved, monitor. Hyperkalemia, improved, monitor. Monitor lytes and volume status. 3. Bilateral Pneumonia, POA: Covid test negative. On Abx. 4. L Pneumothorax, POA: S/p chest tube re-inserted 04/23. 5. Acute hypoxemic respiratory failure, POA: 2/2 PNA and pneumothorax. Supplemental oxygen. Monitor. 6. DM type 2, uncontrolled: Improving. Lantus and SSI. Monitor. 7. Sacral decub. 8. Anemia, not POA: Monitor. 9. Hypertension. Follow BP. 10. Dementia. Subjective: Patient was seen and examined at the bedside. Examination: General appearance: well-developed, appears stated age, emaciated, not in distress, appears chronically ill, NG tube HEENT: atraumatic, SHAR Neck: trachea midline Respiratory: bilateral decreased breath sounds, L chest tube noted Heart: S1S2, regular, no murmur Abdomen: soft, bowel sounds heard, NT Integumentary: no obvious rash Neurologic: alert, not following any command Ext: no edema Subjective Date of service: 04/30/21 Objective - Vital Signs Vital signs: Vital Signs - 12hr 04/30/21 04/30/21 04/30/21 04:39 06:25 07:25 Temperature 97.8 F Pulse Rate 110 H Respiratory 16 8 L 17 Rate Blood Pressure 149/55 O2 Sat by Pulse 97 Oximetry 04/30/21 04/30/21 10:00 10:35 Temperature 97.9 F Pulse Rate 107 H Respiratory 20 Rate Blood Pressure 140/78 O2 Sat by Pulse 100 100 Oximetry - Lab 04/23/21 14:47 04/30/21 08:29 Most recent lab results Calcium 8.7 mg/dL (8.4-10.2) 04/30/21 08:29 Phosphorus 3.40 mg/dL (2.5-4.5) D 04/28/21 15:11 Magnesium 2.70 mg/dL (1.7-2.3) H 04/22/21 16:44 Medications & Allergies - Medications Allergies/Adverse Reactions: Allergies Penicillins Allergy (Verified 12/03/18 20:53) Hives meperidine [From Demerol] Adverse Reaction (Verified 12/03/18 20:53) Anaphylaxis morphine Adverse Reaction (Verified 12/03/18 20:53) Unknown Home Medications: Home Medications Medication Instructions Recorded Confirmed Last Taken Type DOXYCYCLINE Hyclate [Vibramycin 100 mg PO Q12HR #14 capsule 12/03/18 04/23/21 Unknown Rx CAP] Active Medications: Generic Name Dose Route Start Last Admin Trade Name Freq PRN Reason Stop Dose Admin Acetaminophen 650 mg 04/20/21 15:30 Acetaminophen 325 Mg Tab PO Q4H PRN Pain MILD(1-3)/Fever >100.5/WEST Albuterol 2.5 mg 04/20/21 14:09 Albuterol 2.5 Mg/3 Ml Nebu IH Q4HRT PRN Shortness Of Breath Lipase/Protease/Amylase 1 each 04/23/21 08:37 Lipase 10,500/Protease 25,000/Amylase 43,750 (Units) Dr Yates FEEDTUBE PRN PRN For Clogged Feeding Tube Ascorbic Acid 500 mg 04/20/21 22:00 04/29/21 23:05 Ascorbic Acid 500 Mg Tab PO 500 mg BID WENDY Administration Cholecalciferol 1,000 unit 04/21/21 10:00 04/29/21 10:14 Cholecalciferol (Vit D3) 1000 Unit (25 Mcg) Tab PO 1,000 unit DAILY WENDY Administration Heparin Sodium (Porcine) 5,000 unit 04/20/21 22:00 04/29/21 23:05 Heparin 5,000 Unit/1 Ml Vial SUB-Q 5,000 unit Q12HR WENDY Administration Hydromorphone HCl 0.5 mg 04/20/21 14:09 04/25/21 23:41 Hydromorphone 1 Mg/1 Ml Inj IV 0.5 mg Q3H PRN Administration Pain , Severe (7-10) Cefepime HCl 2 gm in 100 mls @ 200 mls/hr 04/26/21 22:00 04/29/21 23:04 Cefepime/Ns 2 Gm/100 Ml IV 200 mls/hr Q12HR WENDY Administration Protocol Insulin Glargine 25 units 04/29/21 22:00 04/29/21 23:18 Insulin Glargine 100 Units/Ml SUB-Q Not Given QHS [facility] Insulin Human Lispro 0 unit 04/22/21 11:00 04/30/21 06:31 Insulin Lispro 100 Unit/Ml SUB-Q Not Given Q6H [facility] Protocol Ondansetron HCl 4 mg 04/20/21 14:09 Ondansetron 4 Mg/2 Ml Inj IV Q8H PRN Nausea And Vomiting Oxycodone/Acetaminophen 1 tab 04/20/21 14:09 04/30/21 06:25 Oxycodone /Acetaminophen 5-325mg Tab PO 1 tab Q12H PRN Administration Pain, Moderate (4-6) Simple Syrup 15 ml 04/23/21 08:37 Simple Syrup 15 Ml FEEDTUBE PRN PRN Hypoglycemia Simple Syrup 30 ml 04/23/21 08:37 Simple Syrup 15 Ml FEEDTUBE PRN PRN Hypoglycemia Sodium Bicarbonate 325 mg 04/23/21 08:37 Sodium Bicarbonate 325 Mg Tab FEEDTUBE PRN PRN For Clogged Feeding Tube Sodium Bicarbonate 650 mg 04/26/21 14:00 04/29/21 22:00 Sodium Bicarbonate 650 Mg Tab PO 650 mg TID WENDY Administration Sodium Chloride 10 ml 04/20/21 22:00 04/30/21 05:45 Sodium Chloride 0.9% 10 Ml Flush Syringe IV 10 ml BID WENDY Administration Sodium Chloride 10 ml 04/20/21 14:09 Sodium Chloride 0.9% 10 Ml Flush Syringe IV PRN PRN LINE FLUSH Zinc Sulfate 220 mg 04/20/21 22:00 04/29/21 23:05 Zinc Sulfate 220 Mg Cap PO 220 mg BID WENDY Administration
[2021-04-30] MEDS ORDERED: HYDROmorphone 1 MG/1 ML INJ ONE (15:07)
[2021-04-30] MEDS ORDERED: propofoL 200 MG/20 ML VIAL IV ONE (15:08)
--- NOTE | 2021-04-30 15:31 | Anesthesia Consultation ---
Anesthesia Consult and Med Hx Date of service: 04/30/21 - Airway Intubation Access Assessment: Possibly Difficult (uncooperative with airway exam) - Pulmonary Exam CTA: No (chest tube and nasal cannula in place) - Cardiac Exam Cardiac Exam: RRR - Pre-Operative Health Status ASA Pre-Surgery Classification: ASA4 Proposed Anesthetic Plan: General - Pulmonary Hx Respiratory Symptoms: Yes (resp failure this admission 2/2 PTX and PNA) Hx Pneumonia: Yes (this admission) - Cardiovascular System Hx Hypertension: Yes Hx Coronary Artery Disease: Yes (s/p CABG) Hx Cardia Arrhythmia: No - Central Nervous System CVA: Yes Hx Psychiatric Problems: Yes (encephalopathy, ) - Endocrine Hx Renal Disease: Yes (ODILON; improved) Hx Liver Disease: No Hx Insulin Dependent Diabetes: Yes - Hematic Hx Anemia: Yes
[2021-04-30] MEDS ORDERED: PHENYLEPHRINE/NS 1,000 MCG/10 ML SYRINGE (OR USE) IV ONE (15:44)
[2021-04-30] MEDS ORDERED: LIDOCAINE MPF (2%) 20 MG/1 ML VIAL 5 ML ONE (15:44)
[2021-04-30] MEDS ORDERED: ONDANSETRON 4 MG/2 ML INJ IV PRN (15:47)
--- NOTE | 2021-04-30 15:47 | Anesthesia Day of Surgery ---
Anesthesia Day of Surgery - Day of Surgery Patient Examined: Yes Patient H&P Reviewed: Yes Patient is NPO: Yes (tube feeds stopped [id number])
--- NOTE | 2021-04-30 15:48 | Event Note ---
Date: 04/30/21 Noted plans for hospice, will sign off. Please call with questions.
[2021-04-30] MEDS ORDERED: SODIUM CHLORIDE 0.9% IRR 1,500 ML BOTTLE IR ONE (15:49)
--- NOTE | 2021-04-30 16:04 | Post Operative Note ---
Pre-op diagnosis: sacral decubitus Post-op diagnosis: same Findings: stage III sacral decubitus Procedure: Debridement of sacral decubitus Anesthesia: RODRIGO Surgeon: TYLER VALENZUELA Estimated blood loss: minimal Pathology: none Condition: stable Disposition: floor
[2021-04-30] MEDS: HYDROmorphone 1 MG/1 ML INJ IV PRN ×2 (16:17→16:27)
--- NOTE | 2021-04-30 16:50 | Post Anesthesia Evaluation ---
- Post Anesthesia Evaluation Patient Participated: No (mentation at preprocedure baseline) Airway Patent: Yes Stable Respiratory Function: Yes Nausea/Vomiting: No Temp > 96.8F: Yes Pain Manageable: Yes Adequeate Hydration: Yes Anesthesia Complications: No
[2021-04-30] MEDS: INSULIN GLARGINE 100 UNITS/ML SUB-Q SCH (23:27)
[2021-05-01] MEDS: INSULIN LISPRO 100 UNIT/ML SUB-Q SCH ×3 (06:16→18:05)
--- NOTE | 2021-05-01 06:25 | Event Note ---
Date: 05/01/21 POD 1 s/p sacral debridement, CT in place and can place CT to water seal. I do not believe patient is a candidate for any Thoracic intervention at this time. Her prognosis is grim overall and I believe Hospice care is most appropriate. Pt can continue CT to pleurovac on water seal. If further intervention is required patient should be transfered to Tertiary facility. Her sacral wound can be managed with wet to dry dressing changes with 1/2 strengh Dakins solution and continued off loading. I have spoken with Dr. Smith about options for any further Thoracic intervention on this patient and if further intervention planned the need to transfer patient to tertiary facility.
--- NOTE | 2021-05-01 08:48 | Progress Note ---
Assessment and Plan 1. Acute kidney injury: Vasomotor ODILON in the setting of volume depletion +/- hypotension. Monitor renal function. Creatinine level is better. Avoid nephrotoxic agents. Meds dosage based on GFR. 2. FEN: Hyponatremia, on Sod bicarb, monitor. Decrease water flushes if needed. Hyperchloremic metabolic acidosis, improved, monitor. Hyperkalemia, improved, monitor. Monitor lytes and volume status. 3. Bilateral Pneumonia, POA: Covid test negative. On Abx. 4. L Pneumothorax, POA: S/p chest tube re-inserted 04/23. 5. Acute hypoxemic respiratory failure, POA: 2/2 PNA and pneumothorax. Supplemental oxygen. Monitor. 6. DM type 2, uncontrolled: Improving. Lantus and SSI. Monitor. 7. Sacral decub S/p debridement. 8. Anemia, not POA: Monitor. 9. Hypertension. Follow BP. 10. Dementia. Subjective: Patient was seen and examined at the bedside. Examination: General appearance: well-developed, appears stated age, emaciated, not in distress, appears chronically ill, NG tube HEENT: atraumatic, SHAR Neck: trachea midline Respiratory: bilateral decreased breath sounds, L chest tube noted Heart: S1S2, regular, no murmur Abdomen: soft, bowel sounds heard, NT Integumentary: no obvious rash Neurologic: alert, not following any command Ext: no edema Subjective Date of service: 05/01/21 Objective - Vital Signs Vital signs: Vital Signs - 12hr 04/30/21 04/30/21 05/01/21 22:00 22:28 00:25 Temperature 98.5 F Pulse Rate 117 H Respiratory 17 18 19 Rate Respiratory 17 Rate [AMAN] Blood Pressure 98/72 O2 Sat by Pulse 98 100 Oximetry 05/01/21 05:10 Temperature 98.3 F Pulse Rate 112 H Respiratory 16 Rate Respiratory Rate [AMAN] Blood Pressure 140/89 O2 Sat by Pulse 100 Oximetry - Lab 04/23/21 14:47 05/01/21 09:31 Most recent lab results Calcium 8.7 mg/dL (8.4-10.2) 04/30/21 08:29 Phosphorus 3.40 mg/dL (2.5-4.5) D 04/28/21 15:11 Magnesium 2.70 mg/dL (1.7-2.3) H 04/22/21 16:44 Medications & Allergies - Medications Allergies/Adverse Reactions: Allergies Penicillins Allergy (Verified 12/03/18 20:53) Hives meperidine [From Demerol] Adverse Reaction (Verified 12/03/18 20:53) Anaphylaxis morphine Adverse Reaction (Verified 12/03/18 20:53) Unknown Home Medications: Home Medications Medication Instructions Recorded Confirmed Last Taken Type DOXYCYCLINE Hyclate [Vibramycin 100 mg PO Q12HR #14 capsule 12/03/18 04/23/21 Unknown Rx CAP] Active Medications: Generic Name Dose Route Start Last Admin Trade Name Freq PRN Reason Stop Dose Admin Acetaminophen 650 mg 04/20/21 15:30 Acetaminophen 325 Mg Tab PO Q4H PRN Pain MILD(1-3)/Fever >100.5/WEST Albuterol 2.5 mg 04/20/21 14:09 Albuterol 2.5 Mg/3 Ml Nebu IH Q4HRT PRN Shortness Of Breath Lipase/Protease/Amylase 1 each 04/23/21 08:37 Lipase 10,500/Protease 25,000/Amylase 43,750 (Units) Dr Milan FEEDTUBE PRN PRN For Clogged Feeding Tube Ascorbic Acid 500 mg 04/20/21 22:00 04/30/21 23:23 Ascorbic Acid 500 Mg Tab PO 500 mg BID WENDY Administration Cholecalciferol 1,000 unit 04/21/21 10:00 04/30/21 09:36 Cholecalciferol (Vit D3) 1000 Unit (25 Mcg) Tab PO Not Given DAILY WENDY Heparin Sodium (Porcine) 5,000 unit 04/20/21 22:00 04/30/21 23:22 Heparin 5,000 Unit/1 Ml Vial SUB-Q 5,000 unit Q12HR WENDY Administration Hydromorphone HCl 0.5 mg 04/20/21 14:09 04/25/21 23:41 Hydromorphone 1 Mg/1 Ml Inj IV 0.5 mg Q3H PRN Administration Pain , Severe (7-10) Cefepime HCl 2 gm in 100 mls @ 200 mls/hr 04/26/21 22:00 04/30/21 23:22 Cefepime/Ns 2 Gm/100 Ml IV 200 mls/hr Q12HR WENDY Administration Protocol Insulin Glargine 25 units 04/29/21 22:00 08/16/21 23:27 Insulin Glargine 100 Units/Ml SUB-Q Not Given QHS [facility] Insulin Human Lispro 0 unit 04/22/21 11:00 05/01/21 06:16 Insulin Lispro 100 Unit/Ml SUB-Q 3 unit Q6H WENDY Administration Protocol Ondansetron HCl 4 mg 04/20/21 14:09 Ondansetron 4 Mg/2 Ml Inj IV Q8H PRN Nausea And Vomiting Ondansetron HCl 4 mg 04/30/21 15:47 Ondansetron 4 Mg/2 Ml Inj IV ONCE PRN Nausea And Vomiting Oxycodone/Acetaminophen 1 tab 04/20/21 14:09 04/30/21 23:25 Oxycodone /Acetaminophen 5-325mg Tab PO 1 tab Q12H PRN Administration Pain, Moderate (4-6) Simple Syrup 15 ml 04/23/21 08:37 Simple Syrup 15 Ml FEEDTUBE PRN PRN Hypoglycemia Simple Syrup 30 ml 04/23/21 08:37 Simple Syrup 15 Ml FEEDTUBE PRN PRN Hypoglycemia Sodium Bicarbonate 325 mg 04/23/21 08:37 Sodium Bicarbonate 325 Mg Tab FEEDTUBE PRN PRN For Clogged Feeding Tube Sodium Bicarbonate 1,300 mg 04/30/21 22:47 Sodium Bicarbonate 650 Mg Tab PO TID WENDY Sodium Chloride 10 ml 04/20/21 22:00 04/30/21 23:27 Sodium Chloride 0.9% 10 Ml Flush Syringe IV 10 ml BID WENDY Administration Sodium Chloride 10 ml 04/20/21 14:09 Sodium Chloride 0.9% 10 Ml Flush Syringe IV PRN PRN LINE FLUSH Zinc Sulfate 220 mg 04/20/21 22:00 04/30/21 23:37 Zinc Sulfate 220 Mg Cap PO Not Given BID [facility]
[2021-05-01] MEDS: SODIUM BICARBONATE 650 MG TAB PO SCH ×3 (10:12→21:05)
[2021-05-01 10:13] LABS: Blood Urea Nitrogen 29 mg/dL (7-17); Calcium 8.5 mg/dL (8.4-10.2); Hemolysis Index 10
[2021-05-01 10:23] LABS: BUN/Creatinine Ratio 41
--- NOTE | 2021-05-01 11:41 | Progress Note ---
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 Patient is confused and lethargic the time my evaluation and is unable to provide history. Patient also has diminished cognition which is her baseline. Patient is unable to provide history. Patient history provided by EMS staff, ED staff, as well as the patient's daughter who was contacted via telephone for interview. As per daughter the patient is currently a patient receiving hospice care from [facility]. Patient daughter elects to revoke hospice benefit and seek aggressive medical therapy. [facility] notified and acknowledge patient revocation. Patient daughter reports that patient experience fever 103 F today, and has experienced decreased oral intake and decreased responsiveness over the past 2 days with progressively worsening symptoms over the same time frame. EMS was notified and upon arrival the patient was found to be in distress with a pulse oximetry of 65% on room air. The patient was placed on submental oxygen and transported to [facility] for further care and evaluation of the aforementioned symptoms. The patient was seen and evaluated in the emergency department. All lab and imaging studies reviewed. The patient was found to have a pulse oximetry of 82% on submental oxygen which is consistent with acute hypoxemic respiratory failure. Chest x-ray revealed pneumonia as well as left pneumothorax. The patient was also found to have acute kidney injury, systemic inflammatory response syndrome, hypokalemia. The patient underwent chest tube placement in the emergency department with improvement in symptoms. Surgery team consulted in ED. Patient admitted to medical floor due to increased risk of worsening symptoms. Patient initiated on pneumonia protocol as well as coronavirus protocol. The patient has diminished cognition but has a positive gag reflex and is able to protect her airway without difficulty at this time. No reported history of chest pain, palpitation, productive cough, skin rash, recent ill contacts, or known exposure to COVID-19. No prior admission for review. No medication listed at time of admission for reconciliation. Advanced care planning conducted in ED. CT HEAD: Negative CT chest: Chest tube in place, noted opacities 04/21: Patient lethargic, chest tube remains in place, Wound care consult, asp iration precautions. Wean as tolerated. Await COVID 19. Monitor Sodium level, awaiting labs, check q8hr. 04/22: Chest tube still positive air leak. Patient still hypoxic, while sodium level is improving metabolic acidosis has been noted. Patient's Covid test was negative. We will continue current management and adjust insulin for better blood sugar management. May require some Kayexalate due to hyper kalemia but considering severe hypokalemia just the day before we will monitor closely. Renal function showing some improvement continue management pulmonary and nephrology input noted. Urine culture positive for fungal Judith will monitor closely. 04/23: Penumonthorax appears to have resolved, patient down to 3 liters of Oxygen via NC, tolerating. she is still very lethargic, failed swallow eval. awaiting to hear from family if to progress with PEG placement. Patient was recently on Hospice but that was rescinded. Overall poor prognosis. Continue monitoring Hypernatremia. Surgeon re-evaluating Chest tube today 04/24 -Patient is on chest tube for pnuemothorax. Surgery is following. Sacral decubitus ulcer. Patient was evaluated by GI for PEG tube placement and will place PEG tube once patient is stable. Wants to be reconsulted once stable. Patient was on 2 L of oxygen. 04/25; patient is being followed by surgery for chest tube. Sacral decubitus ulcer followed by surgery for possible debridement. Patient is on OG tube feeding, evaluated by GI for PEG tube placement and recommend to be reconsulted after patient is stable. 04/26; patient was seen by general surgery and chest x-ray ordered for follow-up of her pneumothorax status post chest tube. CT pelvis was done and reading is pending, general surgery is evaluating for debridement. Patient is on OG tube feeding and will increase free water intake for hyperkalemia. Discussed with GI yesterday and they state reconsult once chest tube is taken out for PEG tube placement. Prognosis this is guarded. 04/27; left-sided chest tube in place, Small pneumothorax on the left. MRI showed osteomyelitis of the sacral area and will have debridement on Friday. Will follow up with case management about hospice care which the daughter requests. I called patient's daughter Ms Corado at [phone], she said she want PEG tube, debridement and she wants the patient be continued full code. He told me that is patient's request. 04/28; on chest tube for pneumothorax, continue with oxygen. Will have debridement on Friday. Management plan discussed with her daughter and she wants everything to be done including PEG tube. GI said we will do PEG tube once this tube was removed. Patient is full code. 04/29 patient is awake, nonverbal, does not follow commands. She has wrist restraints to prevent chest tube displacement. Apparently she pulled out her chest tube and had to be reinserted. She is on Dobbhoff tube feedings. Lab results reviewed. Pulmonary and nephrology notes reviewed 04/30: Still remains in place chest x-ray reordered today. Family has opted for patient to go back to hospice but awaiting removal of chest tube and possible PEG placement. She remains on 3 L of oxygen at this time from respiratory standpoint she is stable. Plan discussed with case management. 05/01: Patient seen clinically all stable although critically ill. Still on chest tube although not noted on chest x-ray there is no pneumothorax noted. Surgical debridement of decubitus ulcer noted. Discussed with rehabilitation program coordinator. To evaluate for possible PEG placement Renal function mostly resolved (1) pneumothorax-spontaneous Current Visit: Yes Status: Acute Plan to address problem: Status post chest tube placement Pulmonary note reviewed and appreciated (2) Pneumonia?? Current Visit: Yes Status: Acute Plan to address problem: Chest x-ray reviewed No acute infiltrate Pulmonary following Patient is on cefepime Tested negative for COVID-19 (3) Acute kidney injury (ODILON) with acute tubular necrosis (ATN) Current Visit: Yes Status: Acute Plan to address problem: Nephrology consulted and note reviewed Lab results reviewed Improved (4) Hypokalemia Current Visit: Yes Status: Acute Plan to address problem: Improved (5) Vascular dementia Current Visit: Yes Status: Acute Qualifiers: Dementia behavioral disturbance: without behavioral disturbance Qualified Code(s): F01.50 - Vascular dementia without behavioral disturbance Plan to address problem: Verbal prompting, verbal redirection, benzodiazepine therapy as clinically indicated (6) Cerebral atherosclerosis Current Visit: Yes Status: Acute Plan to address problem: Antiplatelet therapy, supportive care, risk factor reduction. (7) decubitus pressure ulcer (8) hyponatremia (9) dysphagia as late effect of cerebrovascular accident (CVA) Current Visit: Yes Status: Acute Plan to address problem: Pured diet, assistance with meals, supportive care. History Interval history: Patient seen and examined, still lethargic, remains on oxygen, very deconditioned, Chest tube is still in place Hospitalist Physical - Physical exam Narrative exam: General appearance: Present: mild distress, chronically illl appearing, on NC, Dobhoff for feeding - EENT Eyes: Present: PERRL ENT: clear oral mucosa, hearing decreased - Neck Neck: Present: supple - Respiratory Respiratory effort: labored, accessory muscle use- Respiratory: bilateral: diminished, rhonchi Chest tube in place- LEFT - Cardiovascular Heart Sounds: Present: S1 & S2. Absent: rub, click - Extremities Extremities: abnormal (Sacral decubitus ulcer) Peripheral Pulses: within normal limits - Abdominal General gastrointestinal: Present: soft, non-tender, non-distended, normal bowel sounds Female genitourinary: Present: normal - Integumentary Integumentary: Present: dry, clammy, decreased turgor - Musculoskeletal Musculoskeletal: generalized weakness - Psychiatric Psychiatric: no appropriate mood/affect, no intact judgment & insight, no memory intact - Neurologic Neurologic: CNII-XII intact, focal deficits, no moves all extremities, no gait sita - Constitutional Vitals: Temp Pulse Resp BP Pulse Ox 98.3 F 112 H 16 140/89 100 05/01/21 05:10 05/01/21 05:10 05/01/21 05:10 05/01/21 05:10 05/01/21 05:10 General appearance: Present: mild distress, cachectic Results - Labs CBC & Chem 7: 04/23/21 14:47 05/01/21 09:31 Labs: Laboratory Last Values WBC 7.4 K/mm3 (4.5-11.0) 04/23/21 14:47 RBC 3.47 M/mm3 (3.65-5.03) L 04/23/21 14:47 Hgb 8.6 gm/dl (10.1-14.3) L 04/23/21 14:47 Hct 27.1 % (30.3-42.9) L 04/23/21 14:47 MCV 78 fl (79-97) L 04/23/21 14:47 MCH 25 pg (28-32) L 04/23/21 14:47 MCHC 32 % (30-34) 04/23/21 14:47 RDW 18.7 % (13.2-15.2) H 04/23/21 14:47 Plt Count 251 K/mm3 (140-440) 04/23/21 14:47 Lymph % (Auto) 10.0 % (13.4-35.0) L 04/23/21 14:47 Emmons % (Auto) 2.7 % (0.0-7.3) 04/23/21 14:47 Eos % (Auto) 0.1 % (0.0-4.3) 04/23/21 14:47 Baso % (Auto) 0.9 % (0.0-1.8) 04/23/21 14:47 Lymph # (Auto) 0.7 K/mm3 (1.2-5.4) L 04/23/21 14:47 Emmons # (Auto) 0.2 K/mm3 (0.0-0.8) 04/23/21 14:47 Eos # (Auto) 0.0 K/mm3 (0.0-0.4) 04/23/21 14:47 Baso # (Auto) 0.1 K/mm3 (0.0-0.1) 04/23/21 14:47 Add Manual Diff Complete 04/20/21 08:54 Total Counted 100 04/20/21 08:54 Seg Neutrophils % 86.3 % (40.0-70.0) H 04/23/21 14:47 Seg Neuts % (Manual) 81.0 % (40.0-70.0) H 04/20/21 08:54 Band Neutrophils % 2.0 % 04/20/21 08:54 Lymphocytes % (Manual) 12.0 % (13.4-35.0) L 04/20/21 08:54 Monocytes % (Manual) 5.0 % (0.0-7.3) 04/20/21 08:54 Nucleated RBC % Not Reportable 04/20/21 08:54 Seg Neutrophils # 6.4 K/mm3 (1.8-7.7) 04/23/21 14:47 Seg Neutrophils # Man 5.3 K/mm3 (1.8-7.7) 04/20/21 08:54 Band Neutrophils # 0.1 K/mm3 04/20/21 08:54 Lymphocytes # (Manual) 0.8 K/mm3 (1.2-5.4) L 04/20/21 08:54 Abs React Lymphs (Man) 0.0 K/mm3 04/20/21 08:54 Monocytes # (Manual) 0.3 K/mm3 (0.0-0.8) 04/20/21 08:54 Eosinophils # (Manual) 0.0 K/mm3 (0.0-0.4) 04/20/21 08:54 Basophils # (Manual) 0.0 K/mm3 (0.0-0.1) 04/20/21 08:54 Metamyelocytes # 0.0 K/mm3 04/20/21 08:54 Myelocytes # 0.0 K/mm3 04/20/21 08:54 Promyelocytes # 0.0 K/mm3 04/20/21 08:54 Blast Cells # 0.0 K/mm3 04/20/21 08:54 WBC Morphology Not Reportable 04/20/21 08:54 Hypersegmented Neuts Not Reportable 04/20/21 08:54 Hyposegmented Neuts Not Reportable 04/20/21 08:54 Hypogranular Neuts Not Reportable 04/20/21 08:54 Smudge Cells Not Reportable 04/20/21 08:54 Toxic Granulation Not Reportable 04/20/21 08:54 Toxic Vacuolation Not Reportable 04/20/21 08:54 Dohle Bodies Not Reportable 04/20/21 08:54 Pelger-Huet Anomaly Not Reportable 04/20/21 08:54 Gabe Rods Not Reportable 04/20/21 08:54 Platelet Estimate Consistent w auto 04/20/21 08:54 Clumped Platelets Not Reportable 04/20/21 08:54 Plt Clumps, EDTA Not Reportable 04/20/21 08:54 Large Platelets Not Reportable 04/20/21 08:54 Giant Platelets Not Reportable 04/20/21 08:54 Platelet Satelliting Not Reportable 04/20/21 08:54 Plt Morphology Comment Not Reportable 04/20/21 08:54 RBC Morphology Not Reportable 04/20/21 08:54 Dimorphic RBCs Not Reportable 04/20/21 08:54 Polychromasia Not Reportable 04/20/21 08:54 Hypochromasia 1+ 04/20/21 08:54 Poikilocytosis Not Reportable 04/20/21 08:54 Anisocytosis 1+ 04/20/21 08:54 Microcytosis Not Reportable 04/20/21 08:54 Macrocytosis Not Reportable 04/20/21 08:54 Spherocytes Not Reportable 04/20/21 08:54 Pappenheimer Bodies Not Reportable 04/20/21 08:54 Sickle Cells Not Reportable 04/20/21 08:54 Target Cells Not Reportable 04/20/21 08:54 Tear Drop Cells Not Reportable 04/20/21 08:54 Ovalocytes Not Reportable 04/20/21 08:54 Helmet Cells Not Reportable 04/20/21 08:54 [place] Bodies Not Reportable 04/20/21 08:54 [place] Rings Not Reportable 04/20/21 08:54 Duran Cells Not Reportable 04/20/21 08:54 Bite Cells Not Reportable 04/20/21 08:54 Crenated Cell Not Reportable 04/20/21 08:54 Elliptocytes Not Reportable 04/20/21 08:54 Acanthocytes (Spur) Not Reportable 04/20/21 08:54 Rouleaux Not Reportable 04/20/21 08:54 Hemoglobin C Crystals Not Reportable 04/20/21 08:54 Schistocytes Not Reportable 04/20/21 08:54 Malaria parasites Not Reportable 04/20/21 08:54 Chris Bodies Not Reportable 04/20/21 08:54 Hem Pathologist Commnt No 04/20/21 08:54 PT 15.6 Sec. (12.2-14.9) H 04/20/21 08:54 INR 1.19 (0.87-1.13) H 04/20/21 08:54 D-Dimer 840.47 ng/mlDDU (0-234) H 04/20/21 15:17 VBG pH 7.382 (7.320-7.420) 04/20/21 08:54 Sodium 130 mmol/L (137-145) L 05/01/21 09:31 Potassium 4.1 mmol/L (3.6-5.0) 05/01/21 09:31 Chloride 98.9 mmol/L (98-107) 05/01/21 09:31 Carbon Dioxide 20 mmol/L (22-30) L 05/01/21 09:31 Anion Gap 15 mmol/L 05/01/21 09:31 BUN 29 mg/dL (7-17) H 05/01/21 09:31 Creatinine 0.7 mg/dL (0.6-1.2) 05/01/21 09:31 Estimated GFR > 60 ml/min 05/01/21 09:31 BUN/Creatinine Ratio 41 % 05/01/21 09:31 Glucose 186 mg/dL (65-100) H 05/01/21 09:31 POC Glucose 209 mg/dL (70-105) H 05/01/21 05:44 Lactic Acid 2.60 mmol/L (0.7-2.0) H* 04/20/21 15:17 Calcium 8.5 mg/dL (8.4-10.2) 05/01/21 09:31 Phosphorus 3.40 mg/dL (2.5-4.5) D 04/28/21 15:11 Magnesium 2.70 mg/dL (1.7-2.3) H 04/22/21 16:44 Ferritin 508.5 ng/mL (10.0-200.0) H 04/20/21 15:17 Total Bilirubin 0.40 mg/dL (0.1-1.2) 04/20/21 08:54 AST 12 units/L (5-40) 04/20/21 08:54 ALT 9 units/L (7-56) 04/20/21 08:54 Alkaline Phosphatase 61 units/L (35-129) 04/20/21 08:54 Lactate Dehydrogenase 189 units/L (91-180) H 04/20/21 15:17 C-Reactive Protein 19.10 mg/dL (0.00-1.30) H 04/20/21 15:17 Total Protein 8.5 g/dL (6.3-8.2) H 04/20/21 08:54 Albumin 3.4 g/dL (3.9-5) L 04/20/21 08:54 Albumin/Globulin Ratio 0.7 % 04/20/21 08:54 Procalcitonin 2.70 ng/mL (<0.15) 04/20/21 15:17 PTH Intact 20.03 pg/mL (15-65) 04/22/21 16:44 Urine Color Yellow (Yellow) 04/20/21 14:29 Urine Turbidity Turbid (Clear) 04/20/21 14:29 Urine pH 5.0 (5.0-7.0) 04/20/21 14:29 Ur Specific [place] 1.017 (1.003-1.030) 04/20/21 14:29 Urine Protein 100 mg/dl mg/dL (Negative) 04/20/21 14:29 Urine Glucose (UA) Neg mg/dL (Negative) 04/20/21 14:29 Urine Ketones Neg mg/dL (Negative) 04/20/21 14:29 Urine Blood Mod (Negative) 04/20/21 14:29 Urine Nitrite Neg (Negative) 04/20/21 14:29 Urine Bilirubin Neg (Negative) 04/20/21 14:29 Urine Urobilinogen < 2.0 mg/dL (<2.0) 04/20/21 14:29 Ur Leukocyte Esterase Lg (Negative) 04/20/21 14:29 Urine WBC (Auto) > 182.0 /HPF (0.0-6.0) H 04/20/21 14:29 Urine RBC (Auto) > 182.0 /HPF (0.0-6.0) 04/20/21 14:29 U Epithel Cells (Auto) 2.0 /HPF (0-13.0) 04/20/21 14:29 Urine WBC Clumps 2+ /HPF 04/20/21 14:29 Nasal Screen MRSA (PCR) Positive (Negative) 04/21/21 Unknown Coronavirus (PCR) Negative (Negative) 04/20/21 09:30 Nuno/IV: Voiding Method External Female Catheter Active Medications - Current Medications Current Medications: Generic Name Dose Route Start Last Admin Trade Name Freq PRN Reason Stop Dose Admin Acetaminophen 650 mg 04/20/21 15:30 Acetaminophen 325 Mg Tab PO Q4H PRN Pain MILD(1-3)/Fever >100.5/WEST Albuterol 2.5 mg 04/20/21 14:09 Albuterol 2.5 Mg/3 Ml Nebu IH Q4HRT PRN Shortness Of Breath Lipase/Protease/Amylase 1 each 04/23/21 08:37 Lipase 10,500/Protease 25,000/Amylase 43,750 (Units) Dr Yates FEEDTUBE PRN PRN For Clogged Feeding Tube Ascorbic Acid 500 mg 04/20/21 22:00 04/30/21 23:23 Ascorbic Acid 500 Mg Tab PO 500 mg BID WENDY Administration Cholecalciferol 1,000 unit 04/21/21 10:00 04/30/21 09:36 Cholecalciferol (Vit D3) 1000 Unit (25 Mcg) Tab PO Not Given DAILY [facility] Heparin Sodium (Porcine) 5,000 unit 04/20/21 22:00 04/30/21 23:22 Heparin 5,000 Unit/1 Ml Vial SUB-Q 5,000 unit Q12HR [facility] Administration Hydromorphone HCl 0.5 mg 04/20/21 14:09 04/25/21 23:41 Hydromorphone 1 Mg/1 Ml Inj IV 0.5 mg Q3H PRN Administration Pain , Severe (7-10) Cefepime HCl 2 gm in 100 mls @ 200 mls/hr 04/26/21 22:00 04/30/21 23:22 Cefepime/Ns 2 Gm/100 Ml IV 200 mls/hr Q12HR [facility] Administration Protocol Insulin Glargine 25 units 04/29/21 22:00 04/30/21 23:27 Insulin Glargine 100 Units/Ml SUB-Q Not Given QHS [facility] Insulin Human Lispro 0 unit 04/22/21 11:00 05/01/21 06:16 Insulin Lispro 100 Unit/Ml SUB-Q 3 unit Q6H [facility] Administration Protocol Ondansetron HCl 4 mg 04/20/21 14:09 Ondansetron 4 Mg/2 Ml Inj IV Q8H PRN Nausea And Vomiting Ondansetron HCl 4 mg 04/30/21 15:47 Ondansetron 4 Mg/2 Ml Inj IV ONCE PRN Nausea And Vomiting Oxycodone/Acetaminophen 1 tab 04/20/21 14:09 04/30/21 23:25 Oxycodone /Acetaminophen 5-325mg Tab PO 1 tab Q12H PRN Administration Pain, Moderate (4-6) Simple Syrup 15 ml 04/23/21 08:37 Simple Syrup 15 Ml FEEDTUBE PRN PRN Hypoglycemia Simple Syrup 30 ml 04/23/21 08:37 Simple Syrup 15 Ml FEEDTUBE PRN PRN Hypoglycemia Sodium Bicarbonate 325 mg 04/23/21 08:37 Sodium Bicarbonate 325 Mg Tab FEEDTUBE PRN PRN For Clogged Feeding Tube Sodium Bicarbonate 1,300 mg 04/30/21 22:47 Sodium Bicarbonate 650 Mg Tab PO TID WENDY Sodium Chloride 10 ml 04/20/21 22:00 04/30/21 23:27 Sodium Chloride 0.9% 10 Ml Flush Syringe IV 10 ml BID WENDY Administration Sodium Chloride 10 ml 04/20/21 14:09 Sodium Chloride 0.9% 10 Ml Flush Syringe IV PRN PRN LINE FLUSH Zinc Sulfate 220 mg 04/20/21 22:00 04/30/21 23:37 Zinc Sulfate 220 Mg Cap PO Not Given BID WENDY Nutrition/Malnutrition Assess - Dietary Evaluation Nutrition/Malnutrition Findings: Nutrition Notes Start: 04/21/21 13:58 Freq: Status: Active Protocol: Document 04/27/21 12:43 (Rec: 04/27/21 12:46 [email or web address]) Nutrition Notes Initial or Follow up Reassessment Current Diagnosis Acute Kidney Injury,Decubitus( Pressure Ulcer),Diabetes, Sepsis,Hypertension,Heart Failure,Respiratory Failure Other Pertinent Diagnosis PNA, r/o Covid19, dementia, dysphagia Current Diet Glucerna 1.2 at 50 ml/hr Labs/Tests Na 132 POC BG 212-373 Pertinent Medications Insulin Height 5 ft 5 in Weight 57 kg [place] Body Weight (kg) 56.81 BMI 20.9 Subjective/Other Information TF at goal rate and pt is tolerating. Percent of energy/protein needs met: 100%/100% Burn Absent Trauma Absent GI Symptoms None Difficulty In Swallowing,Chewing Skin Integrity/Comment unstagable pressure wound present Current % PO Negligible Minimum of two criteria No Reduced Extrusion Press Supervisor Strength Measurably Reduced (severe) #2 Nutrition Diagnosis Increased nutrient needs ( specify in comment below) Diagnosis Progress(for reassessment Continues documentation) #1 Nutrition Diagnosis Inadequate oral intake Diagnosis Progress(for reassessment Continues documentation) Is patient on ventilator? No Is Patient Ambulatory and/or Out of Bed No REE-([facility]-confined to bed) 1368.228 Calculation Used for Recommendations [facility] Additional Notes protein needs:71 - 85g (1.25 - 1.5g/kgBW) fluid needs: 1 ml/kcal Nutrition Intervention Change Diet Order: continue Nutrition Support: Glucerna 1.2 at 50 ml/hr Flush 100 ml q4h. Kcal 1,440 Protein (gm) 72 Fluid (mL) 966 Goal #1 Meet at least 80% of protein and kcal needs via TF Goal #2 Wound healing Anticipated Discharge Needs: Glucerna 1.2 at 50 ml/hr. Flush 100 ml q4h Follow-Up By: 05/02/21 Additional Comments F/u: stable TF
[2021-05-01] MEDS: HEPARIN 5,000 UNIT/1 ML VIAL SUB-Q SCH ×2 (12:12→21:05)
[2021-05-01] MEDS: CHOLECALCIFEROL (VIT D3) 1000 UNIT (25 mcg) TAB PO SCH (12:13)
[2021-05-01] MEDS: ASCORBIC ACID 500 MG TAB PO SCH ×2 (12:14→21:05)
[2021-05-01] MEDS: ZINC SULFATE 220 MG CAP PO SCH ×2 (12:35→21:08)
[2021-05-01] MEDS: CEFEPIME/NS 2 GM/100 ML 2 GM/100 ML BAG IV SCH ×2 (12:35→21:04)
--- NOTE | 2021-05-01 12:52 | Post Anesthesia Evaluation ---
- Post Anesthesia Evaluation Patient Participated: No (non-verbal,report received from nurse romero ) Airway Patent: Yes Stable Respiratory Function: Yes Nausea/Vomiting: No Temp > 96.8F: Yes Pain Manageable: Yes Adequeate Hydration: Yes Anesthesia Complications: No Block Receding Appropriately: Not Applicable Patient on Ventilator: No
[2021-05-01] MEDS: oxyCODONE /ACETAMINOPHEN 5-325MG TAB PO PRN (16:15)
[2021-05-01] MEDS: HYDROmorphone 1 MG/1 ML INJ IV PRN (19:15)
[2021-05-01] MEDS: INSULIN GLARGINE 100 UNITS/ML SUB-Q SCH (21:05)
[2021-05-02] MEDS: SODIUM HYPOCHLORITE, DAKIN'S 1/2 STRENGTH (0.25%) 473 ML TOPICAL SOLN TP SCH ×3 (05:29→22:00)
[2021-05-02] MEDS: INSULIN LISPRO 100 UNIT/ML SUB-Q SCH ×5 (05:29→23:42)
--- NOTE | 2021-05-02 07:17 | Progress Note ---
Assessment and Plan 60 y/o female with Recurrent PTX this admission, admitted with PTX s/p chest tube now times 2 and hypoxic respiratory secondary to PTX 05/02/21: Discussed with surgery on Friday about PTX. Given patient history, I do not feel that transfer to Tertiary care center is warranted or reasonable for VATS. I agree with Thoracic here that she is not a candidate for any invasive thoracic procedures, even minimally invasive. Will repeat CXR today and if lung remains up with no or air leak, consider clamping tube to prepare for removal. Other option, pending on the hospice this patient came from, if inpatient maybe she could go with the chest tube in place, however I doubt this is an option. Surgery did not want to place heimlich valve. very very poor prognosis. 04/29/21: Continue supplemental oxygen to help resorb PTX 04/27/21: Asked nursing to keep patient on oxygen therapy despite good sats as she has a small residual peripheral PTX. 04/26/21: Follow up CXR read. Possible osteo on CT, rads recommending MRI. Will continue to follow with you. 04/25/21: No new recs. Please see below. 1. Chest tube per surgery 2. Would continue supplemental oxygen and should be discharged to home on this if she does not have it already. Subjective Date of service: 05/02/21 Interval history: No acute events. Remains unresponsive. No family present secondary to COVID restrictions. Objective Vital Signs - 12hr 05/01/21 05/01/21 20:55 21:34 Temperature 97.4 F L Pulse Rate 108 H Respiratory 18 Rate Blood Pressure 148/85 O2 Sat by Pulse 100 99 Oximetry Constitutional: no acute distress Eyes: non-icteric ENT: oropharynx moist Neck: supple Effort: normal Ascultation: Bilateral: diminished breath sounds Cardiovascular: regular rate and rhythm Gastrointestinal: normoactive bowel sounds, soft, non-tender CBC and BMP: 04/23/21 14:47 05/01/21 09:31 ABG, PT/INR, D-dimer: PT/INR, D-dimer PT 15.6 Sec. (12.2-14.9) H 04/20/21 08:54 INR 1.19 (0.87-1.13) H 04/20/21 08:54 D-Dimer 840.47 ng/mlDDU (0-234) H 04/20/21 15:17 Abnormal lab findings: Abnormal Labs 04/20/21 04/20/21 04/20/21 08:54 08:54 08:54 RBC Hgb Hct MCV MCH 25 L RDW 18.2 H Lymph % (Auto) Lymph # (Auto) Seg Neutrophils % Seg Neuts % (Manual) 81.0 H Lymphocytes % (Manual) 12.0 L Lymphocytes # (Manual) 0.8 L PT 15.6 H INR 1.19 H D-Dimer Sodium 163 H* Potassium 2.8 L* Chloride 118.6 H Carbon Dioxide BUN 152 H Creatinine 2.0 H Glucose 147 H POC Glucose Lactic Acid Calcium 10.8 H Phosphorus Magnesium Ferritin Lactate Dehydrogenase C-Reactive Protein Total Protein 8.5 H Albumin 3.4 L Urine WBC (Auto) 04/20/21 04/20/21 04/20/21 08:54 14:29 15:17 RBC Hgb Hct MCV MCH RDW Lymph % (Auto) Lymph # (Auto) Seg Neutrophils % Seg Neuts % (Manual) Lymphocytes % (Manual) Lymphocytes # (Manual) PT INR D-Dimer Sodium Potassium Chloride Carbon Dioxide BUN Creatinine Glucose POC Glucose Lactic Acid 2.60 H* 2.60 H* Calcium Phosphorus Magnesium Ferritin Lactate Dehydrogenase C-Reactive Protein Total Protein Albumin Urine WBC (Auto) > 182.0 H 04/20/21 04/20/21 04/20/21 15:17 15:17 15:17 RBC Hgb Hct MCV MCH RDW Lymph % (Auto) Lymph # (Auto) Seg Neutrophils % Seg Neuts % (Manual) Lymphocytes % (Manual) Lymphocytes # (Manual) PT INR D-Dimer 840.47 H Sodium Potassium Chloride Carbon Dioxide BUN Creatinine Glucose 135 H POC Glucose Lactic Acid Calcium Phosphorus Magnesium Ferritin 508.5 H Lactate Dehydrogenase 189 H C-Reactive Protein 19.10 H Total Protein Albumin Urine WBC (Auto) 04/21/21 04/21/21 04/21/21 06:12 07:51 10:34 RBC 3.59 L Hgb 9.0 L Hct 29.1 L MCV MCH 25 L RDW 18.6 H Lymph % (Auto) Lymph # (Auto) Seg Neutrophils % 75.9 H Seg Neuts % (Manual) Lymphocytes % (Manual) Lymphocytes # (Manual) PT INR D-Dimer Sodium 161 H* Potassium 3.4 L D Chloride 124.9 H Carbon Dioxide 21 L BUN 123 H Creatinine 1.4 H Glucose 194 H POC Glucose 166 H Lactic Acid Calcium Phosphorus Magnesium Ferritin Lactate Dehydrogenase C-Reactive Protein Total Protein Albumin Urine WBC (Auto) 04/21/21 04/21/21 04/21/21 12:32 14:57 16:25 RBC Hgb Hct MCV MCH RDW Lymph % (Auto) Lymph # (Auto) Seg Neutrophils % Seg Neuts % (Manual) Lymphocytes % (Manual) Lymphocytes # (Manual) PT INR D-Dimer Sodium 160 H Potassium 3.0 L Chloride 127.1 H Carbon Dioxide 18 L BUN 121 H Creatinine 1.6 H Glucose 199 H POC Glucose 178 H 187 H Lactic Acid Calcium Phosphorus Magnesium Ferritin Lactate Dehydrogenase C-Reactive Protein Total Protein Albumin Urine WBC (Auto) 04/21/21 04/21/21 04/22/21 19:35 22:17 08:33 RBC Hgb Hct MCV MCH RDW Lymph % (Auto) Lymph # (Auto) Seg Neutrophils % Seg Neuts % (Manual) Lymphocytes % (Manual) Lymphocytes # (Manual) PT INR D-Dimer Sodium 157 H Potassium 5.3 H D Chloride 127.2 H Carbon Dioxide 15 L BUN 121 H Creatinine 1.5 H Glucose 221 H POC Glucose 205 H 312 H Lactic Acid Calcium Phosphorus Magnesium Ferritin Lactate Dehydrogenase C-Reactive Protein Total Protein Albumin Urine WBC (Auto) 04/22/21 04/22/21 04/22/21 13:26 16:44 16:44 RBC Hgb Hct MCV MCH RDW Lymph % (Auto) Lymph # (Auto) Seg Neutrophils % Seg Neuts % (Manual) Lymphocytes % (Manual) Lymphocytes # (Manual) PT INR D-Dimer Sodium 158 H Potassium Chloride 126.9 H Carbon Dioxide 19 L BUN 112 H Creatinine 1.4 H Glucose 317 H POC Glucose 315 H Lactic Acid Calcium Phosphorus Magnesium 2.70 H Ferritin Lactate Dehydrogenase C-Reactive Protein Total Protein Albumin Urine WBC (Auto) 04/22/21 04/22/21 04/23/21 18:05 22:14 06:35 RBC Hgb Hct MCV MCH RDW Lymph % (Auto) Lymph # (Auto) Seg Neutrophils % Seg Neuts % (Manual) Lymphocytes % (Manual) Lymphocytes # (Manual) PT INR D-Dimer Sodium Potassium Chloride Carbon Dioxide BUN Creatinine Glucose POC Glucose 236 H 153 H 170 H Lactic Acid Calcium Phosphorus Magnesium Ferritin Lactate Dehydrogenase C-Reactive Protein Total Protein Albumin Urine WBC (Auto) 04/23/21 04/23/21 04/23/21 12:26 14:47 14:47 RBC 3.47 L Hgb 8.6 L Hct 27.1 L MCV 78 L MCH 25 L RDW 18.7 H Lymph % (Auto) 10.0 L Lymph # (Auto) 0.7 L Seg Neutrophils % 86.3 H Seg Neuts % (Manual) Lymphocytes % (Manual) Lymphocytes # (Manual) PT INR D-Dimer Sodium 154 H Potassium 3.5 L Chloride 122.5 H Carbon Dioxide 20 L BUN 81 H Creatinine Glucose 241 H POC Glucose 179 H Lactic Acid Calcium Phosphorus Magnesium Ferritin Lactate Dehydrogenase C-Reactive Protein Total Protein Albumin Urine WBC (Auto) 04/23/21 04/23/21 04/24/21 18:28 23:34 06:13 RBC Hgb Hct MCV MCH RDW Lymph % (Auto) Lymph # (Auto) Seg Neutrophils % Seg Neuts % (Manual) Lymphocytes % (Manual) Lymphocytes # (Manual) PT INR D-Dimer Sodium Potassium Chloride Carbon Dioxide BUN Creatinine Glucose POC Glucose 222 H 257 H 252 H Lactic Acid Calcium Phosphorus Magnesium Ferritin Lactate Dehydrogenase C-Reactive Protein Total Protein Albumin Urine WBC (Auto) 04/24/21 04/24/21 04/24/21 13:12 18:10 23:29 RBC Hgb Hct MCV MCH RDW Lymph % (Auto) Lymph # (Auto) Seg Neutrophils % Seg Neuts % (Manual) Lymphocytes % (Manual) Lymphocytes # (Manual) PT INR D-Dimer Sodium 154 H Potassium 5.2 H D Chloride 123.9 H Carbon Dioxide 21 L BUN 59 H Creatinine Glucose 320 H POC Glucose 300 H 212 H Lactic Acid Calcium Phosphorus Magnesium Ferritin Lactate Dehydrogenase C-Reactive Protein Total Protein Albumin Urine WBC (Auto) 04/24/21 04/25/21 04/25/21 23:29 05:48 05:50 RBC Hgb Hct MCV MCH RDW Lymph % (Auto) Lymph # (Auto) Seg Neutrophils % Seg Neuts % (Manual) Lymphocytes % (Manual) Lymphocytes # (Manual) PT INR D-Dimer Sodium 149 H Potassium 5.1 H Chloride 118.1 H Carbon Dioxide BUN 55 H Creatinine Glucose 347 H POC Glucose 301 H 311 H Lactic Acid Calcium Phosphorus 1.90 L Magnesium Ferritin Lactate Dehydrogenase C-Reactive Protein Total Protein Albumin Urine WBC (Auto) 0804/25/21 04/25/21 13:16 17:16 23:40 RBC Hgb Hct MCV MCH RDW Lymph % (Auto) Lymph # (Auto) Seg Neutrophils % Seg Neuts % (Manual) Lymphocytes % (Manual) Lymphocytes # (Manual) PT INR D-Dimer Sodium Potassium Chloride Carbon Dioxide BUN Creatinine Glucose POC Glucose 270 H 183 H 242 H Lactic Acid Calcium Phosphorus Magnesium Ferritin Lactate Dehydrogenase C-Reactive Protein Total Protein Albumin Urine WBC (Auto) 04/26/21 04/26/21 04/26/21 06:15 07:44 11:09 RBC Hgb Hct MCV MCH RDW Lymph % (Auto) Lymph # (Auto) Seg Neutrophils % Seg Neuts % (Manual) Lymphocytes % (Manual) Lymphocytes # (Manual) PT INR D-Dimer Sodium Potassium 5.7 H Chloride 108.7 H Carbon Dioxide 18 L BUN 47 H Creatinine Glucose 305 H POC Glucose 269 H 338 H Lactic Acid Calcium Phosphorus 2.20 L Magnesium Ferritin Lactate Dehydrogenase C-Reactive Protein Total Protein Albumin Urine WBC (Auto) 04/26/21 04/26/21 04/27/21 17:13 23:59 05:31 RBC Hgb Hct MCV MCH RDW Lymph % (Auto) Lymph # (Auto) Seg Neutrophils % Seg Neuts % (Manual) Lymphocytes % (Manual) Lymphocytes # (Manual) PT INR D-Dimer Sodium Potassium Chloride Carbon Dioxide BUN Creatinine Glucose POC Glucose 373 H 280 H 244 H Lactic Acid Calcium Phosphorus Magnesium Ferritin Lactate Dehydrogenase C-Reactive Protein Total Protein Albumin Urine WBC (Auto) 04/27/21 04/27/21 04/27/21 06:10 10:55 16:56 RBC Hgb Hct MCV MCH RDW Lymph % (Auto) Lymph # (Auto) Seg Neutrophils % Seg Neuts % (Manual) Lymphocytes % (Manual) Lymphocytes # (Manual) PT INR D-Dimer Sodium 132 L D Potassium Chloride Carbon Dioxide 20 L BUN 38 H Creatinine Glucose 258 H POC Glucose 212 H 154 H Lactic Acid Calcium Phosphorus 1.80 L Magnesium Ferritin Lactate Dehydrogenase C-Reactive Protein Total Protein Albumin Urine WBC (Auto) 04/27/21 04/28/21 04/28/21 22:20 05:16 15:11 RBC Hgb Hct MCV MCH RDW Lymph % (Auto) Lymph # (Auto) Seg Neutrophils % Seg Neuts % (Manual) Lymphocytes % (Manual) Lymphocytes # (Manual) PT INR D-Dimer Sodium 135 L Potassium Chloride Carbon Dioxide BUN 33 H Creatinine Glucose 105 H POC Glucose 139 H 58 L Lactic Acid Calcium Phosphorus Magnesium Ferritin Lactate Dehydrogenase C-Reactive Protein Total Protein Albumin Urine WBC (Auto) 04/28/21 04/28/21 04/29/21 16:17 21:09 00:03 RBC Hgb Hct MCV MCH RDW Lymph % (Auto) Lymph # (Auto) Seg Neutrophils % Seg Neuts % (Manual) Lymphocytes % (Manual) Lymphocytes # (Manual) PT INR D-Dimer Sodium Potassium Chloride Carbon Dioxide BUN Creatinine Glucose POC Glucose 109 H 120 H 139 H Lactic Acid Calcium Phosphorus Magnesium Ferritin Lactate Dehydrogenase C-Reactive Protein Total Protein Albumin Urine WBC (Auto) 04/29/21 04/30/21 04/30/21 23:08 05:46 08:29 RBC Hgb Hct MCV MCH RDW Lymph % (Auto) Lymph # (Auto) Seg Neutrophils % Seg Neuts % (Manual) Lymphocytes % (Manual) Lymphocytes # (Manual) PT INR D-Dimer Sodium 130 L Potassium Chloride Carbon Dioxide 19 L BUN 30 H Creatinine Glucose 157 H POC Glucose 115 H 148 H Lactic Acid Calcium Phosphorus Magnesium Ferritin Lactate Dehydrogenase C-Reactive Protein Total Protein Albumin Urine WBC (Auto) 04/30/21 04/30/21 05/01/21 16:20 22:48 05:44 RBC Hgb Hct MCV MCH RDW Lymph % (Auto) Lymph # (Auto) Seg Neutrophils % Seg Neuts % (Manual) Lymphocytes % (Manual) Lymphocytes # (Manual) PT INR D-Dimer Sodium Potassium Chloride Carbon Dioxide BUN Creatinine Glucose POC Glucose 122 H 146 H 209 H Lactic Acid Calcium Phosphorus Magnesium Ferritin Lactate Dehydrogenase C-Reactive Protein Total Protein Albumin Urine WBC (Auto) 05/01/21 05/01/21 05/01/21 09:31 12:23 18:16 RBC Hgb Hct MCV MCH RDW Lymph % (Auto) Lymph # (Auto) Seg Neutrophils % Seg Neuts % (Manual) Lymphocytes % (Manual) Lymphocytes # (Manual) PT INR D-Dimer Sodium 130 L Potassium Chloride Carbon Dioxide 20 L BUN 29 H Creatinine Glucose 186 H POC Glucose 197 H 221 H Lactic Acid Calcium Phosphorus Magnesium Ferritin Lactate Dehydrogenase C-Reactive Protein Total Protein Albumin Urine WBC (Auto) 05/01/21 22:10 RBC Hgb Hct MCV MCH RDW Lymph % (Auto) Lymph # (Auto) Seg Neutrophils % Seg Neuts % (Manual) Lymphocytes % (Manual) Lymphocytes # (Manual) PT INR D-Dimer Sodium Potassium Chloride Carbon Dioxide BUN Creatinine Glucose POC Glucose 208 H Lactic Acid Calcium Phosphorus Magnesium Ferritin Lactate Dehydrogenase C-Reactive Protein Total Protein Albumin Urine WBC (Auto)
--- NOTE | 2021-05-02 07:47 | Progress Note ---
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 Patient is confused and lethargic the time my evaluation and is unable to provide history. Patient also has diminished cognition which is her baseline. Patient is unable to provide history. Patient history provided by EMS staff, ED staff, as well as the patient's daughter who was contacted via telephone for interview. As per daughter the patient is currently a patient receiving hospice care from [facility]. Patient daughter elects to revoke hospice benefit and seek aggressive medical therapy. [facility] notified and acknowledge patient revocation. Patient daughter reports that patient experience fever 103 F today, and has experienced decreased oral intake and decreased responsiveness over the past 2 days with progressively worsening symptoms over the same time frame. EMS was notified and upon arrival the patient was found to be in distress with a pulse oximetry of 65% on room air. The patient was placed on submental oxygen and transported to [facility] for further care and evaluation of the aforementioned symptoms. The patient was seen and evaluated in the emergency department. All lab and imaging studies reviewed. The patient was found to have a pulse oximetry of 82% on submental oxygen which is consistent with acute hypoxemic respiratory failure. Chest x-ray revealed pneumonia as well as left pneumothorax. The patient was also found to have acute kidney injury, systemic inflammatory response syndrome, hypokalemia. The patient underwent chest tube placement in the emergency department with improvement in symptoms. Surgery team consulted in ED. Patient admitted to medical floor due to increased risk of worsening symptoms. Patient initiated on pneumonia protocol as well as coronavirus protocol. The patient has diminished cognition but has a positive gag reflex and is able to protect her airway without difficulty at this time. No reported history of chest pain, palpitation, productive cough, skin rash, recent ill contacts, or known exposure to COVID-19. No prior admission for review. No medication listed at time of admission for reconciliation. Advanced care planning conducted in ED. CT HEAD: Negative CT chest: Chest tube in place, noted opacities 04/21: Patient lethargic, chest tube remains in place, Wound care consult, asp iration precautions. Wean as tolerated. Await COVID 19. Monitor Sodium level, awaiting labs, check q8hr. 04/22: Chest tube still positive air leak. Patient still hypoxic, while sodium level is improving metabolic acidosis has been noted. Patient's Covid test was negative. We will continue current management and adjust insulin for better blood sugar management. May require some Kayexalate due to hyper kalemia but considering severe hypokalemia just the day before we will monitor closely. Renal function showing some improvement continue management pulmonary and nephrology input noted. Urine culture positive for fungal Judith will monitor closely. 04/23: Penumonthorax appears to have resolved, patient down to 3 liters of Oxygen via NC, tolerating. she is still very lethargic, failed swallow eval. awaiting to hear from family if to progress with PEG placement. Patient was recently on Hospice but that was rescinded. Overall poor prognosis. Continue monitoring Hypernatremia. Surgeon re-evaluating Chest tube today 04/24 -Patient is on chest tube for pnuemothorax. Surgery is following. Sacral decubitus ulcer. Patient was evaluated by GI for PEG tube placement and will place PEG tube once patient is stable. Wants to be reconsulted once stable. Patient was on 2 L of oxygen. 04/25; patient is being followed by surgery for chest tube. Sacral decubitus ulcer followed by surgery for possible debridement. Patient is on OG tube feeding, evaluated by GI for PEG tube placement and recommend to be reconsulted after patient is stable. 04/26; patient was seen by general surgery and chest x-ray ordered for follow-up of her pneumothorax status post chest tube. CT pelvis was done and reading is pending, general surgery is evaluating for debridement. Patient is on OG tube feeding and will increase free water intake for hyperkalemia. Discussed with GI yesterday and they state reconsult once chest tube is taken out for PEG tube placement. Prognosis this is guarded. 04/27; left-sided chest tube in place, Small pneumothorax on the left. MRI showed osteomyelitis of the sacral area and will have debridement on Friday. Will follow up with case management about hospice care which the daughter requests. I called patient's daughter Ms Corado at [phone], she said she want PEG tube, debridement and she wants the patient be continued full code. He told me that is patient's request. 04/28; on chest tube for pneumothorax, continue with oxygen. Will have debridement on Friday. Management plan discussed with her daughter and she wants everything to be done including PEG tube. GI said we will do PEG tube once this tube was removed. Patient is full code. 04/29 patient is awake, nonverbal, does not follow commands. She has wrist restraints to prevent chest tube displacement. Apparently she pulled out her chest tube and had to be reinserted. She is on Dobbhoff tube feedings. Lab results reviewed. Pulmonary and nephrology notes reviewed 04/30: Still remains in place chest x-ray reordered today. Family has opted for patient to go back to hospice but awaiting removal of chest tube and possible PEG placement. She remains on 3 L of oxygen at this time from respiratory standpoint she is stable. Plan discussed with case management. 05/01: Patient seen clinically all stable although critically ill. Still on chest tube although not noted on chest x-ray there is no pneumothorax noted. Surgical debridement of decubitus ulcer noted. Discussed with progressive die maker. To evaluate for possible PEG placement Renal function mostly resolved 05/02: Input from surgeon and pulmonary reviewed patient not a candidate for VATS procedure. A chest x-ray has been ordered today and possible clamping and subsequently removal of the chest tube if no recurrent pneumothorax is noted. Discussed with GI patient will be evaluated today for possible PEG placement in anticipation for hospice per family request. (1) pneumothorax-spontaneous Current Visit: Yes Status: Acute Plan to address problem: Status post chest tube placement Pulmonary note reviewed and appreciated (2) Pneumonia?? Current Visit: Yes Status: Acute Plan to address problem: Chest x-ray reviewed No acute infiltrate Pulmonary following Patient is on cefepime Tested negative for COVID-19 (3) Acute kidney injury (ODILON) with acute tubular necrosis (ATN) Current Visit: Yes Status: Acute Plan to address problem: Nephrology consulted and note reviewed Lab results reviewed Improved (4) Hypokalemia Current Visit: Yes Status: Acute Plan to address problem: Improved (5) Vascular dementia Current Visit: Yes Status: Acute Qualifiers: Dementia behavioral disturbance: without behavioral disturbance Qualified Code(s): F01.50 - Vascular dementia without behavioral disturbance Plan to address problem: Verbal prompting, verbal redirection, benzodiazepine therapy as clinically indicated (6) Cerebral atherosclerosis Current Visit: Yes Status: Acute Plan to address problem: Antiplatelet therapy, supportive care, risk factor reduction. (7) decubitus pressure ulcer (8) hyponatremia (9) dysphagia as late effect of cerebrovascular accident (CVA) Current Visit: Yes Status: Acute Plan to address problem: Pured diet, assistance with meals, supportive care. History Interval history: Patient seen and examined, still lethargic, but more awake today. Remains on oxygen, very deconditioned, Chest tube is still in place Hospitalist Physical - Physical exam Narrative exam: General appearance: Present: mild distress, chronically illl appearing, on NC, Dobhoff for feeding - EENT Eyes: Present: PERRL ENT: clear oral mucosa, hearing decreased - Neck Neck: Present: supple - Respiratory Respiratory effort: labored, accessory muscle use- Respiratory: bilateral: diminished, rhonchi Chest tube in place- LEFT - Cardiovascular Heart Sounds: Present: S1 & S2. Absent: rub, click - Extremities Extremities: abnormal (Sacral decubitus ulcer) Peripheral Pulses: within normal limits - Abdominal General gastrointestinal: Present: soft, non-tender, non-distended, normal bowel sounds Female genitourinary: Present: normal - Integumentary Integumentary: Present: dry, clammy, decreased turgor - Musculoskeletal Musculoskeletal: generalized weakness - Psychiatric Psychiatric: no appropriate mood/affect, no intact judgment & insight, no memory intact - Neurologic Neurologic: CNII-XII intact, focal deficits, no moves all extremities, no gait sita - Constitutional Vitals: Temp Pulse Resp BP Pulse Ox 97.4 F L 108 H 18 148/85 99 05/01/21 20:55 05/01/21 20:55 05/01/21 20:55 05/01/21 20:55 05/01/21 21:34 General appearance: Present: mild distress, cachectic Results - Labs CBC & Chem 7: 04/23/21 14:47 05/01/21 09:31 Labs: Laboratory Last Values WBC 7.4 K/mm3 (4.5-11.0) 04/23/21 14:47 RBC 3.47 M/mm3 (3.65-5.03) L 04/23/21 14:47 Hgb 8.6 gm/dl (10.1-14.3) L 04/23/21 14:47 Hct 27.1 % (30.3-42.9) L 04/23/21 14:47 MCV 78 fl (79-97) L 04/23/21 14:47 MCH 25 pg (28-32) L 04/23/21 14:47 MCHC 32 % (30-34) 04/23/21 14:47 RDW 18.7 % (13.2-15.2) H 04/23/21 14:47 Plt Count 251 K/mm3 (140-440) 04/23/21 14:47 Lymph % (Auto) 10.0 % (13.4-35.0) L 04/23/21 14:47 Talbot % (Auto) 2.7 % (0.0-7.3) 04/23/21 14:47 Eos % (Auto) 0.1 % (0.0-4.3) 04/23/21 14:47 Baso % (Auto) 0.9 % (0.0-1.8) 04/23/21 14:47 Lymph # (Auto) 0.7 K/mm3 (1.2-5.4) L 04/23/21 14:47 Talbot # (Auto) 0.2 K/mm3 (0.0-0.8) 04/23/21 14:47 Eos # (Auto) 0.0 K/mm3 (0.0-0.4) 04/23/21 14:47 Baso # (Auto) 0.1 K/mm3 (0.0-0.1) 04/23/21 14:47 Add Manual Diff Complete 04/20/21 08:54 Total Counted 100 04/20/21 08:54 Seg Neutrophils % 86.3 % (40.0-70.0) H 04/23/21 14:47 Seg Neuts % (Manual) 81.0 % (40.0-70.0) H 04/20/21 08:54 Band Neutrophils % 2.0 % 04/20/21 08:54 Lymphocytes % (Manual) 12.0 % (13.4-35.0) L 04/20/21 08:54 Monocytes % (Manual) 5.0 % (0.0-7.3) 04/20/21 08:54 Nucleated RBC % Not Reportable 04/20/21 08:54 Seg Neutrophils # 6.4 K/mm3 (1.8-7.7) 04/23/21 14:47 Seg Neutrophils # Man 5.3 K/mm3 (1.8-7.7) 04/20/21 08:54 Band Neutrophils # 0.1 K/mm3 04/20/21 08:54 Lymphocytes # (Manual) 0.8 K/mm3 (1.2-5.4) L 04/20/21 08:54 Abs React Lymphs (Man) 0.0 K/mm3 04/20/21 08:54 Monocytes # (Manual) 0.3 K/mm3 (0.0-0.8) 04/20/21 08:54 Eosinophils # (Manual) 0.0 K/mm3 (0.0-0.4) 04/20/21 08:54 Basophils # (Manual) 0.0 K/mm3 (0.0-0.1) 04/20/21 08:54 Metamyelocytes # 0.0 K/mm3 04/20/21 08:54 Myelocytes # 0.0 K/mm3 04/20/21 08:54 Promyelocytes # 0.0 K/mm3 04/20/21 08:54 Blast Cells # 0.0 K/mm3 04/20/21 08:54 WBC Morphology Not Reportable 04/20/21 08:54 Hypersegmented Neuts Not Reportable 04/20/21 08:54 Hyposegmented Neuts Not Reportable 04/20/21 08:54 Hypogranular Neuts Not Reportable 04/20/21 08:54 Smudge Cells Not Reportable 04/20/21 08:54 Toxic Granulation Not Reportable 04/20/21 08:54 Toxic Vacuolation Not Reportable 04/20/21 08:54 Dohle Bodies Not Reportable 04/20/21 08:54 Pelger-Huet Anomaly Not Reportable 04/20/21 08:54 Gabe Rods Not Reportable 04/20/21 08:54 Platelet Estimate Consistent w auto 04/20/21 08:54 Clumped Platelets Not Reportable 04/20/21 08:54 Plt Clumps, EDTA Not Reportable 04/20/21 08:54 Large Platelets Not Reportable 04/20/21 08:54 Giant Platelets Not Reportable 04/20/21 08:54 Platelet Satelliting Not Reportable 04/20/21 08:54 Plt Morphology Comment Not Reportable 04/20/21 08:54 RBC Morphology Not Reportable 04/20/21 08:54 Dimorphic RBCs Not Reportable 04/20/21 08:54 Polychromasia Not Reportable 04/20/21 08:54 Hypochromasia 1+ 04/20/21 08:54 Poikilocytosis Not Reportable 04/20/21 08:54 Anisocytosis 1+ 04/20/21 08:54 Microcytosis Not Reportable 04/20/21 08:54 Macrocytosis Not Reportable 04/20/21 08:54 Spherocytes Not Reportable 04/20/21 08:54 Pappenheimer Bodies Not Reportable 04/20/21 08:54 Sickle Cells Not Reportable 04/20/21 08:54 Target Cells Not Reportable 04/20/21 08:54 Tear Drop Cells Not Reportable 04/20/21 08:54 Ovalocytes Not Reportable 04/20/21 08:54 Helmet Cells Not Reportable 04/20/21 08:54 [place] Bodies Not Reportable 04/20/21 08:54 [place] Rings Not Reportable 04/20/21 08:54 Duran Cells Not Reportable 04/20/21 08:54 Bite Cells Not Reportable 04/20/21 08:54 Crenated Cell Not Reportable 04/20/21 08:54 Elliptocytes Not Reportable 04/20/21 08:54 Acanthocytes (Spur) Not Reportable 04/20/21 08:54 Rouleaux Not Reportable 04/20/21 08:54 Hemoglobin C Crystals Not Reportable 04/20/21 08:54 Schistocytes Not Reportable 04/20/21 08:54 Malaria parasites Not Reportable 04/20/21 08:54 Chris Bodies Not Reportable 04/20/21 08:54 Hem Pathologist Commnt No 04/20/21 08:54 PT 15.6 Sec. (12.2-14.9) H 04/20/21 08:54 INR 1.19 (0.87-1.13) H 04/20/21 08:54 D-Dimer 840.47 ng/mlDDU (0-234) H 04/20/21 15:17 VBG pH 7.382 (7.320-7.420) 04/20/21 08:54 Sodium 130 mmol/L (137-145) L 05/01/21 09:31 Potassium 4.1 mmol/L (3.6-5.0) 05/01/21 09:31 Chloride 98.9 mmol/L (98-107) 05/01/21 09:31 Carbon Dioxide 20 mmol/L (22-30) L 05/01/21 09:31 Anion Gap 15 mmol/L 05/01/21 09:31 BUN 29 mg/dL (7-17) H 05/01/21 09:31 Creatinine 0.7 mg/dL (0.6-1.2) 05/01/21 09:31 Estimated GFR > 60 ml/min 05/01/21 09:31 BUN/Creatinine Ratio 41 % 05/01/21 09:31 Glucose 186 mg/dL (65-100) H 05/01/21 09:31 POC Glucose 208 mg/dL (70-105) H 05/01/21 22:10 Lactic Acid 2.60 mmol/L (0.7-2.0) H* 04/20/21 15:17 Calcium 8.5 mg/dL (8.4-10.2) 05/01/21 09:31 Phosphorus 3.40 mg/dL (2.5-4.5) D 04/28/21 15:11 Magnesium 2.70 mg/dL (1.7-2.3) H 04/22/21 16:44 Ferritin 508.5 ng/mL (10.0-200.0) H 04/20/21 15:17 Total Bilirubin 0.40 mg/dL (0.1-1.2) 04/20/21 08:54 AST 12 units/L (5-40) 04/20/21 08:54 ALT 9 units/L (7-56) 04/20/21 08:54 Alkaline Phosphatase 61 units/L (35-129) 04/20/21 08:54 Lactate Dehydrogenase 189 units/L (91-180) H 04/20/21 15:17 C-Reactive Protein 19.10 mg/dL (0.00-1.30) H 04/20/21 15:17 Total Protein 8.5 g/dL (6.3-8.2) H 04/20/21 08:54 Albumin 3.4 g/dL (3.9-5) L 04/20/21 08:54 Albumin/Globulin Ratio 0.7 % 04/20/21 08:54 Procalcitonin 2.70 ng/mL (<0.15) 04/20/21 15:17 PTH Intact 20.03 pg/mL (15-65) 04/22/21 16:44 Urine Color Yellow (Yellow) 04/20/21 14:29 Urine Turbidity Turbid (Clear) 04/20/21 14:29 Urine pH 5.0 (5.0-7.0) 04/20/21 14:29 Ur Specific Donalds 1.017 (1.003-1.030) 04/20/21 14:29 Urine Protein 100 mg/dl mg/dL (Negative) 04/20/21 14:29 Urine Glucose (UA) Neg mg/dL (Negative) 04/20/21 14:29 Urine Ketones Neg mg/dL (Negative) 04/20/21 14:29 Urine Blood Mod (Negative) 04/20/21 14:29 Urine Nitrite Neg (Negative) 04/20/21 14:29 Urine Bilirubin Neg (Negative) 04/20/21 14:29 Urine Urobilinogen < 2.0 mg/dL (<2.0) 04/20/21 14:29 Ur Leukocyte Esterase Lg (Negative) 04/20/21 14:29 Urine WBC (Auto) > 182.0 /HPF (0.0-6.0) H 04/20/21 14:29 Urine RBC (Auto) > 182.0 /HPF (0.0-6.0) 04/20/21 14:29 U Epithel Cells (Auto) 2.0 /HPF (0-13.0) 04/20/21 14:29 Urine WBC Clumps 2+ /HPF 04/20/21 14:29 Nasal Screen MRSA (PCR) Positive (Negative) 04/21/21 Unknown Coronavirus (PCR) Negative (Negative) 04/20/21 09:30 Nuno/IV: Voiding Method External Female Catheter Active Medications - Current Medications Current Medications: Generic Name Dose Route Start Last Admin Trade Name Freq PRN Reason Stop Dose Admin Acetaminophen 650 mg 04/20/21 15:30 Acetaminophen 325 Mg Tab PO Q4H PRN Pain MILD(1-3)/Fever >100.5/WEST Albuterol 2.5 mg 04/20/21 14:09 Albuterol 2.5 Mg/3 Ml Nebu IH Q4HRT PRN Shortness Of Breath Lipase/Protease/Amylase 1 each 04/23/21 08:37 Lipase 10,500/Protease 25,000/Amylase 43,750 (Units) Dr Yates FEEDTUBE PRN PRN For Clogged Feeding Tube Ascorbic Acid 500 mg 04/20/21 22:00 05/01/21 21:05 Ascorbic Acid 500 Mg Tab PO 500 mg BID WENDY Administration Cholecalciferol 1,000 unit 04/21/21 10:00 05/01/21 12:13 Cholecalciferol (Vit D3) 1000 Unit (25 Mcg) Tab PO 1,000 unit DAILY WENDY Administration Heparin Sodium (Porcine) 5,000 unit 04/20/21 22:00 05/01/21 21:05 Heparin 5,000 Unit/1 Ml Vial SUB-Q 5,000 unit Q12HR WENDY Administration Hydromorphone HCl 0.5 mg 04/20/21 14:09 05/01/21 19:15 Hydromorphone 1 Mg/1 Ml Inj IV 0.5 mg Q3H PRN Administration Pain , Severe (7-10) Cefepime HCl 2 gm in 100 mls @ 200 mls/hr 04/26/21 22:00 05/01/21 21:04 Cefepime/Ns 2 Gm/100 Ml IV 200 mls/hr Q12HR WENDY Administration Protocol Insulin Glargine 25 units 04/29/21 22:00 05/01/21 21:05 Insulin Glargine 100 Units/Ml SUB-Q 25 units QHS WENDY Administration Insulin Human Lispro 0 unit 04/22/21 11:00 05/02/21 07:22 Insulin Lispro 100 Unit/Ml SUB-Q Not Given Q6H [facility] Protocol Ondansetron HCl 4 mg 04/20/21 14:09 Ondansetron 4 Mg/2 Ml Inj IV Q8H PRN Nausea And Vomiting Ondansetron HCl 4 mg 04/30/21 15:47 Ondansetron 4 Mg/2 Ml Inj IV ONCE PRN Nausea And Vomiting Oxycodone/Acetaminophen 1 tab 04/20/21 14:09 05/01/21 16:15 Oxycodone /Acetaminophen 5-325mg Tab PO 1 tab Q12H PRN Administration Pain, Moderate (4-6) Simple Syrup 15 ml 04/23/21 08:37 Simple Syrup 15 Ml FEEDTUBE PRN PRN Hypoglycemia Simple Syrup 30 ml 04/23/21 08:37 Simple Syrup 15 Ml FEEDTUBE PRN PRN Hypoglycemia Sodium Bicarbonate 325 mg 04/23/21 08:37 Sodium Bicarbonate 325 Mg Tab FEEDTUBE PRN PRN For Clogged Feeding Tube Sodium Bicarbonate 1,300 mg 04/30/21 22:47 05/01/21 21:05 Sodium Bicarbonate 650 Mg Tab PO 1,300 mg TID WENDY Administration Sodium Chloride 10 ml 04/20/21 22:00 05/01/21 21:06 Sodium Chloride 0.9% 10 Ml Flush Syringe IV 10 ml BID WENDY Administration Sodium Chloride 10 ml 04/20/21 14:09 Sodium Chloride 0.9% 10 Ml Flush Syringe IV PRN PRN LINE FLUSH Sodium Hypochlorite 1 applic 05/01/21 22:00 05/02/21 05:29 Sodium Hypochlorite, Dakin's 1/2 Strength (0.25%) 473 Ml Topical Soln TP Not Given BID WENDY Zinc Sulfate 220 mg 04/20/21 22:00 05/01/21 21:08 Zinc Sulfate 220 Mg Cap PO 220 mg BID WENDY Administration Nutrition/Malnutrition Assess - Dietary Evaluation Nutrition/Malnutrition Findings: Nutrition Notes Start: 04/21/21 13:58 Freq: Status: Active Protocol: Document 04/27/21 12:43 (Rec: 04/27/21 12:46 [email or web address]) Nutrition Notes Initial or Follow up Reassessment Current Diagnosis Acute Kidney Injury,Decubitus( Pressure Ulcer),Diabetes, Sepsis,Hypertension,Heart Failure,Respiratory Failure Other Pertinent Diagnosis PNA, r/o Covid19, dementia, dysphagia Current Diet Glucerna 1.2 at 50 ml/hr Labs/Tests Na 132 POC BG 212-373 Pertinent Medications Insulin Height 5 ft 5 in Weight 57 kg [place] Body Weight (kg) 56.81 BMI 20.9 Subjective/Other Information TF at goal rate and pt is tolerating. 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 No Is Patient Ambulatory and/or Out of Bed No REE-([facility]-confined to bed) 1363.228 Calculation Used for Recommendations [facility] Additional Notes protein needs:71 - 85g (1.25 - 1.5g/kgBW) fluid needs: 1 ml/kcal Nutrition Intervention Change Diet Order: continue Nutrition Support: Glucerna 1.2 at 50 ml/hr Flush 100 ml q4h. Kcal 1,440 Protein (gm) 72 Fluid (mL) 966 Goal #1 Meet at least 80% of protein and kcal needs via TF Goal #2 Wound healing Anticipated Discharge Needs: Glucerna 1.2 at 50 ml/hr. Flush 100 ml q4h Follow-Up By: 05/02/21 Additional Comments F/u: stable TF
--- NOTE | 2021-05-02 09:26 | XRay Report ---
CHEST 1 VIEW INDICATION / CLINICAL INFORMATION: Follow-up pneumothorax FINDINGS: SUPPORT DEVICES: No significant change in position. HEART / MEDIASTINUM: The cardiomediastinal silhouette has not significantly changed in the interim. LUNGS / PLEURA: No significant pneumothorax is appreciated, unchanged from 04/30/2021 Signer Name: Michael Alford MD Signed: 05/02/2021 9:22 AM Workstation Name: [email or web address]
--- NOTE | 2021-05-02 11:27 | Event Note ---
Date: 05/02/21 CXR OK with lung up, OK to clamp CT with CXR in am, if OK we can remove CT.
--- NOTE | 2021-05-02 11:54 | Gastroenterology Progress Note ---
Assessment and Plan oropharyngeal dysphagia - will plan for egd/peg tube placement tomorrow. noted plans for eventual home hospice. Subjective Date of service: 05/02/21 Principal diagnosis: oropharyngeal dysphagia Interval history: gi called back for egd/peg tube placement - noted events during hospitalization. oxygen requirement has gone down, chest tube being managed by surgery. not a candidate for vats procedure. Objective - Constitutional Vitals: Temp Pulse Resp BP Pulse Ox 97.4 F L 108 H 18 148/85 99 05/01/21 20:55 05/01/21 20:55 05/01/21 20:55 05/01/21 20:55 05/02/21 11:33 General appearance: no acute distress, other (confused) - Respiratory Respiratory effort: normal Respiratory: bilateral: CTA - Cardiovascular Rhythm: regular Heart Sounds: Present: S1 & S2 - Gastrointestinal General gastrointestinal: Present: soft, non-tender - Labs CBC & Chem 7: 04/23/21 14:47 05/01/21 09:31 Labs: Laboratory Results - last 24 hr 05/01/21 05/01/21 05/01/21 12:23 18:16 22:10 POC Glucose 197 H 221 H 208 H
--- NOTE | 2021-05-02 12:14 | Progress Note ---
Assessment and Plan 1. Acute kidney injury: Vasomotor ODILON in the setting of volume depletion +/- hypotension. Monitor renal function. Creatinine level is better. Avoid nephrotoxic agents. Meds dosage based on GFR. 2. FEN: Hyponatremia, on Sod bicarb, monitor. May need Salt tablets. Hyperchloremic metabolic acidosis, Sod bicarb, monitor. Hyperkalemia, improved, monitor. Monitor lytes and volume status. 3. Bilateral Pneumonia, POA: Covid test negative. On Abx. 4. L Pneumothorax, POA: S/p chest tube re-inserted 04/23. 5. Acute hypoxemic respiratory failure, POA: 2/2 PNA and pneumothorax. Supplemental oxygen. Monitor. 6. DM type 2, uncontrolled: Improving. Lantus and SSI. Monitor. 7. Sacral decub S/p debridement. 8. Anemia, not POA: Monitor. 9. Hypertension. Follow BP. 10. Dementia. Subjective: Patient was seen and examined at the bedside. Examination: General appearance: well-developed, appears stated age, emaciated, not in distress, appears chronically ill, NG tube HEENT: atraumatic, SHAR Neck: trachea midline Respiratory: bilateral decreased breath sounds, L chest tube noted Heart: S1S2, regular, no murmur Abdomen: soft, bowel sounds heard, NT Integumentary: no obvious rash Neurologic: lethargic, not following any command Ext: no edema Subjective Date of service: 05/02/21 Principal diagnosis: oropharyngeal dysphagia Objective - Vital Signs Vital signs: Vital Signs - 12hr 05/02/21 11:33 O2 Sat by Pulse 99 Oximetry - Lab 04/23/21 14:47 05/01/21 09:31 Most recent lab results Calcium 8.5 mg/dL (8.4-10.2) 05/01/21 09:31 Phosphorus 3.40 mg/dL (2.5-4.5) D 04/28/21 15:11 Magnesium 2.70 mg/dL (1.7-2.3) H 04/22/21 16:44 Medications & Allergies - Medications Allergies/Adverse Reactions: Allergies Penicillins Allergy (Verified 12/03/18 20:53) Hives meperidine [From Demerol] Adverse Reaction (Verified 12/03/18 20:53) Anaphylaxis morphine Adverse Reaction (Verified 12/03/18 20:53) Unknown Home Medications: Home Medications Medication Instructions Recorded Confirmed Last Taken Type DOXYCYCLINE Hyclate [Vibramycin 100 mg PO Q12HR #14 capsule 12/03/18 04/23/21 Unknown Rx CAP] Active Medications: Generic Name Dose Route Start Last Admin Trade Name Freq PRN Reason Stop Dose Admin Acetaminophen 650 mg 04/20/21 15:30 Acetaminophen 325 Mg Tab PO Q4H PRN Pain MILD(1-3)/Fever >100.5/WEST Albuterol 2.5 mg 04/20/21 14:09 Albuterol 2.5 Mg/3 Ml Nebu IH Q4HRT PRN Shortness Of Breath Lipase/Protease/Amylase 1 each 04/23/21 08:37 Lipase 10,500/Protease 25,000/Amylase 43,750 (Units) Dr Yates FEEDTUBE PRN PRN For Clogged Feeding Tube Ascorbic Acid 500 mg 04/20/21 22:00 05/01/21 21:05 Ascorbic Acid 500 Mg Tab PO 500 mg BID WENDY Administration Cholecalciferol 1,000 unit 04/21/21 10:00 05/01/21 12:13 Cholecalciferol (Vit D3) 1000 Unit (25 Mcg) Tab PO 1,000 unit DAILY WENDY Administration Heparin Sodium (Porcine) 5,000 unit 04/20/21 22:00 05/01/21 21:05 Heparin 5,000 Unit/1 Ml Vial SUB-Q 5,000 unit Q12HR WENDY Administration Hydromorphone HCl 0.5 mg 04/20/21 14:09 05/01/21 19:15 Hydromorphone 1 Mg/1 Ml Inj IV 0.5 mg Q3H PRN Administration Pain , Severe (7-10) Cefepime HCl 2 gm in 100 mls @ 200 mls/hr 04/26/21 22:00 05/01/21 21:04 Cefepime/Ns 2 Gm/100 Ml IV 200 mls/hr Q12HR WENDY Administration Protocol Insulin Glargine 25 units 04/29/21 22:00 05/01/21 21:05 Insulin Glargine 100 Units/Ml SUB-Q 25 units QHS WENDY Administration Insulin Human Lispro 0 unit 04/22/21 11:00 05/02/21 07:22 Insulin Lispro 100 Unit/Ml SUB-Q Not Given Q6H [facility] Protocol Ondansetron HCl 4 mg 04/20/21 14:09 Ondansetron 4 Mg/2 Ml Inj IV Q8H PRN Nausea And Vomiting Ondansetron HCl 4 mg 04/30/21 15:47 Ondansetron 4 Mg/2 Ml Inj IV ONCE PRN Nausea And Vomiting Oxycodone/Acetaminophen 1 tab 04/20/21 14:09 05/01/21 16:15 Oxycodone /Acetaminophen 5-325mg Tab PO 1 tab Q12H PRN Administration Pain, Moderate (4-6) Simple Syrup 15 ml 04/23/21 08:37 Simple Syrup 15 Ml FEEDTUBE PRN PRN Hypoglycemia Simple Syrup 30 ml 04/23/21 08:37 Simple Syrup 15 Ml FEEDTUBE PRN PRN Hypoglycemia Sodium Bicarbonate 325 mg 04/23/21 08:37 Sodium Bicarbonate 325 Mg Tab FEEDTUBE PRN PRN For Clogged Feeding Tube Sodium Bicarbonate 1,300 mg 04/30/21 22:47 05/01/21 21:05 Sodium Bicarbonate 650 Mg Tab PO 1,300 mg TID WENDY Administration Sodium Chloride 10 ml 04/20/21 22:00 05/01/21 21:06 Sodium Chloride 0.9% 10 Ml Flush Syringe IV 10 ml BID WENDY Administration Sodium Chloride 10 ml 04/20/21 14:09 Sodium Chloride 0.9% 10 Ml Flush Syringe IV PRN PRN LINE FLUSH Sodium Hypochlorite 1 applic 05/01/21 22:00 05/02/21 05:29 Sodium Hypochlorite, Dakin's 1/2 Strength (0.25%) 473 Ml Topical Soln TP Not Given BID WENDY Zinc Sulfate 220 mg 04/20/21 22:00 05/01/21 21:08 Zinc Sulfate 220 Mg Cap PO 220 mg BID WENDY Administration
[2021-05-02] MEDS: CEFEPIME/NS 2 GM/100 ML 2 GM/100 ML BAG IV SCH ×2 (13:15→23:39)
[2021-05-02] MEDS: ASCORBIC ACID 500 MG TAB PO SCH ×2 (13:15→23:40)
[2021-05-02] MEDS: ZINC SULFATE 220 MG CAP PO SCH ×2 (13:15→23:40)
[2021-05-02] MEDS: SODIUM BICARBONATE 650 MG TAB PO SCH ×3 (13:15→23:40)
[2021-05-02] MEDS: HEPARIN 5,000 UNIT/1 ML VIAL SUB-Q SCH ×2 (13:16→23:40)
[2021-05-02] MEDS: CHOLECALCIFEROL (VIT D3) 1000 UNIT (25 mcg) TAB PO SCH (13:16)
[2021-05-02] MEDS: INSULIN GLARGINE 100 UNITS/ML SUB-Q SCH (23:41)
[2021-05-03] MEDS: INSULIN LISPRO 100 UNIT/ML SUB-Q SCH ×4 (05:53→23:33)
[2021-05-03] MEDS: SODIUM BICARBONATE 650 MG TAB PO SCH ×3 (08:00→23:35)
[2021-05-03] MEDS ORDERED: propofoL 200 MG/20 ML VIAL IV ONE ×2 (09:56→09:57)
[2021-05-03] MEDS: SODIUM HYPOCHLORITE, DAKIN'S 1/2 STRENGTH (0.25%) 473 ML TOPICAL SOLN TP SCH ×2 (10:00→23:32)
[2021-05-03] MEDS ORDERED: LIDOCAINE MPF (2%) 20 MG/1 ML VIAL 5 ML ONE (10:00)
[2021-05-03] MEDS ORDERED: SODIUM CHLORIDE 0.9% 1000 ML 1,000 ML ONE (10:03)
--- NOTE | 2021-05-03 10:05 | Progress Note ---
Assessment and Plan 1. Acute kidney injury: Vasomotor ODILON in the setting of volume depletion +/- hypotension. Monitor renal function. Creatinine level is better. Avoid nephrotoxic agents. Meds dosage based on GFR. No labs for the past 2 days. 2. FEN: Hyponatremia, on Sod bicarb, monitor. May need Salt tablets. Hyperchloremic metabolic acidosis, Sod bicarb, monitor. Hyperkalemia, improved, monitor. Monitor lytes and volume status. 3. Bilateral Pneumonia, POA: Covid test negative. On Abx. 4. L Pneumothorax, POA: S/p chest tube re-inserted 04/23. 5. Acute hypoxemic respiratory failure, POA: 2/2 PNA and pneumothorax. Supplemental oxygen. Monitor. 6. DM type 2, uncontrolled: Improving. Lantus and SSI. Monitor. 7. Sacral decub S/p debridement. 8. Anemia, not POA: Monitor. 9. Hypertension. Follow BP. 10. Dementia. Subjective: Patient was seen and examined at the bedside. Examination: General appearance: well-developed, emaciated, not in distress, appears chronically ill, NG tube HEENT: atraumatic, SHAR Neck: trachea midline Respiratory: bilateral decreased breath sounds, L chest tube noted Heart: S1S2, regular, no murmur Abdomen: soft, bowel sounds heard, NT Integumentary: no obvious rash Neurologic: lethargic, not following any command Ext: no edema Subjective Date of service: 05/03/21 Principal diagnosis: oropharyngeal dysphagia Objective - Vital Signs Vital signs: Vital Signs - 12hr 05/02/21 05/03/21 22:42 04:38 Temperature 98.9 F Pulse Rate 111 H Respiratory 18 Rate Blood Pressure 145/85 O2 Sat by Pulse 98 100 Oximetry - Lab 04/23/21 14:47 05/01/21 09:31 Most recent lab results Calcium 8.5 mg/dL (8.4-10.2) 05/01/21 09:31 Phosphorus 3.40 mg/dL (2.5-4.5) D 04/28/21 15:11 Magnesium 2.70 mg/dL (1.7-2.3) H 04/22/21 16:44 Medications & Allergies - Medications Allergies/Adverse Reactions: Allergies Penicillins Allergy (Verified 12/03/18 20:53) Hives meperidine [From Demerol] Adverse Reaction (Verified 12/03/18 20:53) Anaphylaxis morphine Adverse Reaction (Verified 12/03/18 20:53) Unknown Home Medications: Home Medications Medication Instructions Recorded Confirmed Last Taken Type DOXYCYCLINE Hyclate [Vibramycin 100 mg PO Q12HR #14 capsule 12/03/18 04/23/21 Unknown Rx CAP] Active Medications: Generic Name Dose Route Start Last Admin Trade Name Freq PRN Reason Stop Dose Admin Acetaminophen 650 mg 04/20/21 15:30 Acetaminophen 325 Mg Tab PO Q4H PRN Pain MILD(1-3)/Fever >100.5/WEST Albuterol 2.5 mg 04/20/21 14:09 Albuterol 2.5 Mg/3 Ml Nebu IH Q4HRT PRN Shortness Of Breath Lipase/Protease/Amylase 1 each 04/23/21 08:37 Lipase 10,500/Protease 25,000/Amylase 43,750 (Units) Dr Yates FEEDTUBE PRN PRN For Clogged Feeding Tube Ascorbic Acid 500 mg 04/20/21 22:00 05/02/21 23:40 Ascorbic Acid 500 Mg Tab PO 500 mg BID WENDY Administration Cholecalciferol 1,000 unit 04/21/21 10:00 05/02/21 13:16 Cholecalciferol (Vit D3) 1000 Unit (25 Mcg) Tab PO 1,000 unit DAILY WENDY Administration Heparin Sodium (Porcine) 5,000 unit 04/20/21 22:00 05/02/21 23:40 Heparin 5,000 Unit/1 Ml Vial SUB-Q 5,000 unit Q12HR WENDY Administration Hydromorphone HCl 0.5 mg 04/20/21 14:09 05/01/21 19:15 Hydromorphone 1 Mg/1 Ml Inj IV 0.5 mg Q3H PRN Administration Pain , Severe (7-10) Cefepime HCl 2 gm in 100 mls @ 200 mls/hr 04/26/21 22:00 05/02/21 23:39 Cefepime/Ns 2 Gm/100 Ml IV 05/05/21 21:59 200 mls/hr Q12HR WENDY Administration Protocol Insulin Glargine 25 units 04/29/21 22:00 05/02/21 23:41 Insulin Glargine 100 Units/Ml SUB-Q 25 units QHS WENDY Administration Insulin Human Lispro 0 unit 08/08/21 11:00 05/03/21 05:53 Insulin Lispro 100 Unit/Ml SUB-Q Not Given Q6H [facility] Protocol Ondansetron HCl 4 mg 04/20/21 14:09 Ondansetron 4 Mg/2 Ml Inj IV Q8H PRN Nausea And Vomiting Ondansetron HCl 4 mg 04/30/21 15:47 Ondansetron 4 Mg/2 Ml Inj IV ONCE PRN Nausea And Vomiting Oxycodone/Acetaminophen 1 tab 04/20/21 14:09 05/01/21 16:15 Oxycodone /Acetaminophen 5-325mg Tab PO 1 tab Q12H PRN Administration Pain, Moderate (4-6) Simple Syrup 15 ml 04/23/21 08:37 Simple Syrup 15 Ml FEEDTUBE PRN PRN Hypoglycemia Simple Syrup 30 ml 04/23/21 08:37 Simple Syrup 15 Ml FEEDTUBE PRN PRN Hypoglycemia Sodium Bicarbonate 325 mg 04/23/21 08:37 Sodium Bicarbonate 325 Mg Tab FEEDTUBE PRN PRN For Clogged Feeding Tube Sodium Bicarbonate 1,300 mg 04/30/21 22:47 05/02/21 23:40 Sodium Bicarbonate 650 Mg Tab PO 1,300 mg TID WENDY Administration Sodium Chloride 10 ml 04/20/21 22:00 05/02/21 23:41 Sodium Chloride 0.9% 10 Ml Flush Syringe IV 10 ml BID WENDY Administration Sodium Chloride 10 ml 04/20/21 14:09 Sodium Chloride 0.9% 10 Ml Flush Syringe IV PRN PRN LINE FLUSH Sodium Hypochlorite 1 applic 05/01/21 22:00 05/02/21 22:00 Sodium Hypochlorite, Dakin's 1/2 Strength (0.25%) 473 Ml Topical Soln TP 1 bottle BID WENDY Administration Zinc Sulfate 220 mg 04/20/21 22:00 05/02/21 23:40 Zinc Sulfate 220 Mg Cap PO 220 mg BID WENDY Administration
[2021-05-03] MEDS ORDERED: ceFAZolin/Water 2 GM/20 ML 2 GM/20 ML SYRINGE IV ONE (10:25)
--- NOTE | 2021-05-03 10:41 | Operative Report ---
Operative Report Operative Report: Esophagogastroduodenoscopy Procedure Note with PEG tube placement Date of procedure: 05/03/2021 Endoscopist: Matthieu Huber Pre-op diagnosis/indication: Oropharyngeal dysphagia Post-op diagnosis: Same, successful peg tube placement MEDICATIONS: MAC, ancef 2 grams COMPLICATIONS: No immediate complications ESTIMATED BLOOD LOSS: Minimal DESCRIPTION OF PROCEDURE: After consent was obtained from the patient's daughter over the phone, the patient was placed in the supine position. The olympus en doscope was inserted into the patient's mouth under direct vision and advanced to the 2nd portion of the duodenum without difficulty. The patient tolerated the procedure well. The views of the mucosa were good. The patient's vital signs were monitored continuously throughout the procedure. The stomach was transilluminated and an optimal position for the PEG tube was identified using the single poke method. The skin was infiltrated with local lidocaine, followed by a small incision. The needle and sheath were inserted through the abdomen into the stomach under direct visualization. The needle was removed and a guidewire was inserted through the sheath. The guidewire was grasped from above with a snare. It was removed completely and the 20 Fr PEG tube was secured to the guidewire. The guidewire and PEG tube were then pulled through the mouth and esophagus and snug to the abdominal wall. The endoscope was re-inserted which showed good positioning of the internal bumper. FINDINGS: Hiatal hernia, otherwise unremarkable upper endoscopy. Successful peg tube placement as above with external bumper at 2-3 cm. IMPRESSION: 1. Successful PEG tube placement 2. Otherwise, unremarkable upper endoscopy RECOMMENDATIONS: -post PEG care daily, can use peg tube for medications after 2 hours and for tube feedings after 6 hours if no new symptoms -consult nutrition regarding tube feed recommendations -will follow-up tomorrow
--- NOTE | 2021-05-03 12:20 | XRay Report ---
CHEST 1 VIEW, 05/03/2021 11:12 AM CLINICAL INFORMATION/INDICATION: Chest tube placement. Pneumothorax. COMPARISON: Chest radiograph, 05/02/2021 at 8:21 AM FINDINGS: SUPPORT DEVICES: The esophagogastric tube has been removed. Left-sided pleural drain projects in elinor lar position. HEART: The cardiac silhouette is normal in size. LUNGS/PLEURA: The lungs are clear of focal airspace disease or large pleural effusion. No pneumothora x is clearly visualized. ADDITIONAL FINDINGS: No additional acute findings. IMPRESSION: 1. Stable appearance of the chest. Signer Name: Emilia Almendarez MD Signed: 05/03/2021 12:16 PM Workstation Name: [id number]
--- NOTE | 2021-05-03 12:33 | Anesthesia Day of Surgery ---
Anesthesia Day of Surgery - Day of Surgery Patient Examined: Yes Patient H&P Reviewed: Yes Patient is NPO: Yes
--- NOTE | 2021-05-03 12:33 | Post Anesthesia Evaluation ---
- Post Anesthesia Evaluation Patient Participated: No Airway Patent: Yes Stable Respiratory Function: Yes Nausea/Vomiting: No Temp > 96.8F: Yes Pain Manageable: Yes Adequeate Hydration: Yes Anesthesia Complications: No
[2021-05-03] MEDS: ASCORBIC ACID 500 MG TAB PO SCH ×2 (13:00→23:31)
[2021-05-03] MEDS: CHOLECALCIFEROL (VIT D3) 1000 UNIT (25 mcg) TAB PO SCH (13:00)
[2021-05-03] MEDS: CEFEPIME/NS 2 GM/100 ML 2 GM/100 ML BAG IV SCH ×2 (13:00→23:30)
[2021-05-03] MEDS: HEPARIN 5,000 UNIT/1 ML VIAL SUB-Q SCH ×2 (13:00→23:32)
[2021-05-03] MEDS: ZINC SULFATE 220 MG CAP PO SCH ×2 (13:00→23:31)
--- NOTE | 2021-05-03 15:15 | Progress Note ---
Assessment and Plan 60 y/o female with Recurrent PTX this admission, admitted with PTX s/p chest tube now times 2 and hypoxic respiratory secondary to PTX 05/03/21: If tube is truly clamped and lung is up in no distress, will remove today. Continue supplemental oxygen therapy. 05/02/21: Discussed with surgery on Friday about PTX. Given patient history, I do not feel that transfer to Tertiary care center is warranted or reasonable for VATS. I agree with Thoracic here that she is not a candidate for any invasive thoracic procedures, even minimally invasive. Will repeat CXR today and if lung remains up with no or air leak, consider clamping tube to prepare for removal. Other option, pending on the hospice this patient came from, if inpatient maybe she could go with the chest tube in place, however I doubt this is an option. Surgery did not want to place heimlich valve. very very poor prognosis. 04/29/21: Continue supplemental oxygen to help resorb PTX 04/27/21: Asked nursing to keep patient on oxygen therapy despite good sats as she has a small residual peripheral PTX. 04/26/21: Follow up CXR read. Possible osteo on CT, rads recommending MRI. Will continue to follow with you. 04/25/21: No new recs. Please see below. 1. Chest tube per surgery 2. Would continue supplemental oxygen and should be discharged to home on this if she does not have it already. Subjective Date of service: 05/03/21 Principal diagnosis: oropharyngeal dysphagia Interval history: Peg placed today. Appears that patient had a cxr today with chest tube clamped that shows no PTX Objective Vital Signs - 12hr 05/03/21 05/03/21 05/03/21 04:38 10:04 10:45 Temperature 98.9 F 98.4 F 98.6 F Pulse Rate 111 H 111 H 109 H Respiratory 18 14 17 Rate Blood Pressure 145/85 148/83 127/78 O2 Sat by Pulse 100 100 100 Oximetry 05/03/21 05/03/21 10:55 11:05 Temperature Pulse Rate 115 H 116 H Respiratory 16 16 Rate Blood Pressure 140/83 147/82 O2 Sat by Pulse 100 100 Oximetry Constitutional: no acute distress Eyes: non-icteric ENT: oropharynx moist Neck: supple Effort: normal Ascultation: Bilateral: diminished breath sounds Cardiovascular: regular rate and rhythm Gastrointestinal: normoactive bowel sounds, soft, non-tender CBC and BMP: 04/23/21 14:47 05/01/21 09:31 ABG, PT/INR, D-dimer: PT/INR, D-dimer PT 15.6 Sec. (12.2-14.9) H 04/20/21 08:54 INR 1.19 (0.87-1.13) H 04/20/21 08:54 D-Dimer 840.47 ng/mlDDU (0-234) H 04/20/21 15:17 Abnormal lab findings: Abnormal Labs 04/20/21 04/20/21 04/20/21 08:54 08:54 08:54 RBC Hgb Hct MCV MCH 25 L RDW 18.2 H Lymph % (Auto) Lymph # (Auto) Seg Neutrophils % Seg Neuts % (Manual) 81.0 H Lymphocytes % (Manual) 12.0 L Lymphocytes # (Manual) 0.8 L PT 15.6 H INR 1.19 H D-Dimer Sodium 163 H* Potassium 2.8 L* Chloride 118.6 H Carbon Dioxide BUN 152 H Creatinine 2.0 H Glucose 147 H POC Glucose Lactic Acid Calcium 10.8 H Phosphorus Magnesium Ferritin Lactate Dehydrogenase C-Reactive Protein Total Protein 8.5 H Albumin 3.4 L Urine WBC (Auto) 04/20/21 04/20/21 04/20/21 08:54 14:29 15:17 RBC Hgb Hct MCV MCH RDW Lymph % (Auto) Lymph # (Auto) Seg Neutrophils % Seg Neuts % (Manual) Lymphocytes % (Manual) Lymphocytes # (Manual) PT INR D-Dimer Sodium Potassium Chloride Carbon Dioxide BUN Creatinine Glucose POC Glucose Lactic Acid 2.60 H* 2.60 H* Calcium Phosphorus Magnesium Ferritin Lactate Dehydrogenase C-Reactive Protein Total Protein Albumin Urine WBC (Auto) > 182.0 H 04/20/21 04/20/21 04/20/21 15:17 15:17 15:17 RBC Hgb Hct MCV MCH RDW Lymph % (Auto) Lymph # (Auto) Seg Neutrophils % Seg Neuts % (Manual) Lymphocytes % (Manual) Lymphocytes # (Manual) PT INR D-Dimer 840.47 H Sodium Potassium Chloride Carbon Dioxide BUN Creatinine Glucose 135 H POC Glucose Lactic Acid Calcium Phosphorus Magnesium Ferritin 508.5 H Lactate Dehydrogenase 189 H C-Reactive Protein 19.10 H Total Protein Albumin Urine WBC (Auto) 04/21/21 04/21/21 04/21/21 06:12 07:51 10:34 RBC 3.59 L Hgb 9.0 L Hct 29.1 L MCV MCH 25 L RDW 18.6 H Lymph % (Auto) Lymph # (Auto) Seg Neutrophils % 75.9 H Seg Neuts % (Manual) Lymphocytes % (Manual) Lymphocytes # (Manual) PT INR D-Dimer Sodium 161 H* Potassium 3.4 L D Chloride 124.9 H Carbon Dioxide 21 L BUN 123 H Creatinine 1.4 H Glucose 194 H POC Glucose 166 H Lactic Acid Calcium Phosphorus Magnesium Ferritin Lactate Dehydrogenase C-Reactive Protein Total Protein Albumin Urine WBC (Auto) 04/21/21 04/21/21 04/21/21 12:32 14:57 16:25 RBC Hgb Hct MCV MCH RDW Lymph % (Auto) Lymph # (Auto) Seg Neutrophils % Seg Neuts % (Manual) Lymphocytes % (Manual) Lymphocytes # (Manual) PT INR D-Dimer Sodium 160 H Potassium 3.0 L Chloride 127.1 H Carbon Dioxide 18 L BUN 121 H Creatinine 1.6 H Glucose 199 H POC Glucose 178 H 187 H Lactic Acid Calcium Phosphorus Magnesium Ferritin Lactate Dehydrogenase C-Reactive Protein Total Protein Albumin Urine WBC (Auto) 04/21/21 04/21/21 04/22/21 19:35 22:17 08:33 RBC Hgb Hct MCV MCH RDW Lymph % (Auto) Lymph # (Auto) Seg Neutrophils % Seg Neuts % (Manual) Lymphocytes % (Manual) Lymphocytes # (Manual) PT INR D-Dimer Sodium 157 H Potassium 5.3 H D Chloride 127.2 H Carbon Dioxide 15 L BUN 121 H Creatinine 1.5 H Glucose 221 H POC Glucose 205 H 312 H Lactic Acid Calcium Phosphorus Magnesium Ferritin Lactate Dehydrogenase C-Reactive Protein Total Protein Albumin Urine WBC (Auto) 04/22/21 04/22/21 04/22/21 13:26 16:44 16:44 RBC Hgb Hct MCV MCH RDW Lymph % (Auto) Lymph # (Auto) Seg Neutrophils % Seg Neuts % (Manual) Lymphocytes % (Manual) Lymphocytes # (Manual) PT INR D-Dimer Sodium 158 H Potassium Chloride 126.9 H Carbon Dioxide 19 L BUN 112 H Creatinine 1.4 H Glucose 317 H POC Glucose 315 H Lactic Acid Calcium Phosphorus Magnesium 2.70 H Ferritin Lactate Dehydrogenase C-Reactive Protein Total Protein Albumin Urine WBC (Auto) 04/22/21 04/22/21 04/23/21 18:05 22:14 06:35 RBC Hgb Hct MCV MCH RDW Lymph % (Auto) Lymph # (Auto) Seg Neutrophils % Seg Neuts % (Manual) Lymphocytes % (Manual) Lymphocytes # (Manual) PT INR D-Dimer Sodium Potassium Chloride Carbon Dioxide BUN Creatinine Glucose POC Glucose 236 H 153 H 170 H Lactic Acid Calcium Phosphorus Magnesium Ferritin Lactate Dehydrogenase C-Reactive Protein Total Protein Albumin Urine WBC (Auto) 04/23/21 04/23/21 04/23/21 12:26 14:47 14:47 RBC 3.47 L Hgb 8.6 L Hct 27.1 L MCV 78 L MCH 25 L RDW 18.7 H Lymph % (Auto) 10.0 L Lymph # (Auto) 0.7 L Seg Neutrophils % 86.3 H Seg Neuts % (Manual) Lymphocytes % (Manual) Lymphocytes # (Manual) PT INR D-Dimer Sodium 154 H Potassium 3.5 L Chloride 122.5 H Carbon Dioxide 20 L BUN 81 H Creatinine Glucose 241 H POC Glucose 179 H Lactic Acid Calcium Phosphorus Magnesium Ferritin Lactate Dehydrogenase C-Reactive Protein Total Protein Albumin Urine WBC (Auto) 04/23/21 04/23/21 04/24/21 18:28 23:34 06:13 RBC Hgb Hct MCV MCH RDW Lymph % (Auto) Lymph # (Auto) Seg Neutrophils % Seg Neuts % (Manual) Lymphocytes % (Manual) Lymphocytes # (Manual) PT INR D-Dimer Sodium Potassium Chloride Carbon Dioxide BUN Creatinine Glucose POC Glucose 222 H 257 H 252 H Lactic Acid Calcium Phosphorus Magnesium Ferritin Lactate Dehydrogenase C-Reactive Protein Total Protein Albumin Urine WBC (Auto) 04/24/21 04/24/21 04/24/21 13:12 18:10 23:29 RBC Hgb Hct MCV MCH RDW Lymph % (Auto) Lymph # (Auto) Seg Neutrophils % Seg Neuts % (Manual) Lymphocytes % (Manual) Lymphocytes # (Manual) PT INR D-Dimer Sodium 154 H Potassium 5.2 H D Chloride 123.9 H Carbon Dioxide 21 L BUN 59 H Creatinine Glucose 320 H POC Glucose 300 H 212 H Lactic Acid Calcium Phosphorus Magnesium Ferritin Lactate Dehydrogenase C-Reactive Protein Total Protein Albumin Urine WBC (Auto) 04/24/21 04/25/21 04/25/21 23:29 05:48 05:50 RBC Hgb Hct MCV MCH RDW Lymph % (Auto) Lymph # (Auto) Seg Neutrophils % Seg Neuts % (Manual) Lymphocytes % (Manual) Lymphocytes # (Manual) PT INR D-Dimer Sodium 149 H Potassium 5.1 H Chloride 118.1 H Carbon Dioxide BUN 55 H Creatinine Glucose 347 H POC Glucose 301 H 311 H Lactic Acid Calcium Phosphorus 1.90 L Magnesium Ferritin Lactate Dehydrogenase C-Reactive Protein Total Protein Albumin Urine WBC (Auto) 04/25/21 04/25/21 04/25/21 13:16 17:16 23:40 RBC Hgb Hct MCV MCH RDW Lymph % (Auto) Lymph # (Auto) Seg Neutrophils % Seg Neuts % (Manual) Lymphocytes % (Manual) Lymphocytes # (Manual) PT INR D-Dimer Sodium Potassium Chloride Carbon Dioxide BUN Creatinine Glucose POC Glucose 270 H 183 H 242 H Lactic Acid Calcium Phosphorus Magnesium Ferritin Lactate Dehydrogenase C-Reactive Protein Total Protein Albumin Urine WBC (Auto) 04/26/21 04/26/21 04/26/21 06:15 07:44 11:09 RBC Hgb Hct MCV MCH RDW Lymph % (Auto) Lymph # (Auto) Seg Neutrophils % Seg Neuts % (Manual) Lymphocytes % (Manual) Lymphocytes # (Manual) PT INR D-Dimer Sodium Potassium 5.7 H Chloride 108.7 H Carbon Dioxide 18 L BUN 47 H Creatinine Glucose 305 H POC Glucose 269 H 338 H Lactic Acid Calcium Phosphorus 2.20 L Magnesium Ferritin Lactate Dehydrogenase C-Reactive Protein Total Protein Albumin Urine WBC (Auto) 04/26/21 04/26/21 04/27/21 17:13 23:59 05:31 RBC Hgb Hct MCV MCH RDW Lymph % (Auto) Lymph # (Auto) Seg Neutrophils % Seg Neuts % (Manual) Lymphocytes % (Manual) Lymphocytes # (Manual) PT INR D-Dimer Sodium Potassium Chloride Carbon Dioxide BUN Creatinine Glucose POC Glucose 373 H 280 H 244 H Lactic Acid Calcium Phosphorus Magnesium Ferritin Lactate Dehydrogenase C-Reactive Protein Total Protein Albumin Urine WBC (Auto) 04/27/21 04/27/21 04/27/21 06:10 10:55 16:56 RBC Hgb Hct MCV MCH RDW Lymph % (Auto) Lymph # (Auto) Seg Neutrophils % Seg Neuts % (Manual) Lymphocytes % (Manual) Lymphocytes # (Manual) PT INR D-Dimer Sodium 132 L D Potassium Chloride Carbon Dioxide 20 L BUN 38 H Creatinine Glucose 258 H POC Glucose 212 H 154 H Lactic Acid Calcium Phosphorus 1.80 L Magnesium Ferritin Lactate Dehydrogenase C-Reactive Protein Total Protein Albumin Urine WBC (Auto) 04/27/21 04/28/21 04/28/21 22:20 05:16 15:11 RBC Hgb Hct MCV MCH RDW Lymph % (Auto) Lymph # (Auto) Seg Neutrophils % Seg Neuts % (Manual) Lymphocytes % (Manual) Lymphocytes # (Manual) PT INR D-Dimer Sodium 135 L Potassium Chloride Carbon Dioxide BUN 33 H Creatinine Glucose 105 H POC Glucose 139 H 58 L Lactic Acid Calcium Phosphorus Magnesium Ferritin Lactate Dehydrogenase C-Reactive Protein Total Protein Albumin Urine WBC (Auto) 04/28/21 04/28/21 04/29/21 16:17 21:09 00:03 RBC Hgb Hct MCV MCH RDW Lymph % (Auto) Lymph # (Auto) Seg Neutrophils % Seg Neuts % (Manual) Lymphocytes % (Manual) Lymphocytes # (Manual) PT INR D-Dimer Sodium Potassium Chloride Carbon Dioxide BUN Creatinine Glucose POC Glucose 109 H 120 H 139 H Lactic Acid Calcium Phosphorus Magnesium Ferritin Lactate Dehydrogenase C-Reactive Protein Total Protein Albumin Urine WBC (Auto) 04/29/21 04/30/21 04/30/21 23:08 05:46 08:29 RBC Hgb Hct MCV MCH RDW Lymph % (Auto) Lymph # (Auto) Seg Neutrophils % Seg Neuts % (Manual) Lymphocytes % (Manual) Lymphocytes # (Manual) PT INR D-Dimer Sodium 130 L Potassium Chloride Carbon Dioxide 19 L BUN 30 H Creatinine Glucose 157 H POC Glucose 115 H 148 H Lactic Acid Calcium Phosphorus Magnesium Ferritin Lactate Dehydrogenase C-Reactive Protein Total Protein Albumin Urine WBC (Auto) 04/30/21 04/30/21 05/01/21 16:20 22:48 05:44 RBC Hgb Hct MCV MCH RDW Lymph % (Auto) Lymph # (Auto) Seg Neutrophils % Seg Neuts % (Manual) Lymphocytes % (Manual) Lymphocytes # (Manual) PT INR D-Dimer Sodium Potassium Chloride Carbon Dioxide BUN Creatinine Glucose POC Glucose 122 H 146 H 209 H Lactic Acid Calcium Phosphorus Magnesium Ferritin Lactate Dehydrogenase C-Reactive Protein Total Protein Albumin Urine WBC (Auto) 05/01/21 05/01/21 05/01/21 09:31 12:23 18:16 RBC Hgb Hct MCV MCH RDW Lymph % (Auto) Lymph # (Auto) Seg Neutrophils % Seg Neuts % (Manual) Lymphocytes % (Manual) Lymphocytes # (Manual) PT INR D-Dimer Sodium 130 L Potassium Chloride Carbon Dioxide 20 L BUN 29 H Creatinine Glucose 186 H POC Glucose 197 H 221 H Lactic Acid Calcium Phosphorus Magnesium Ferritin Lactate Dehydrogenase C-Reactive Protein Total Protein Albumin Urine WBC (Auto) 05/01/21 05/02/21 05/03/21 22:10 22:24 05:31 RBC Hgb Hct MCV MCH RDW Lymph % (Auto) Lymph # (Auto) Seg Neutrophils % Seg Neuts % (Manual) Lymphocytes % (Manual) Lymphocytes # (Manual) PT INR D-Dimer Sodium Potassium Chloride Carbon Dioxide BUN Creatinine Glucose POC Glucose 208 H 137 H 145 H Lactic Acid Calcium Phosphorus Magnesium Ferritin Lactate Dehydrogenase C-Reactive Protein Total Protein Albumin Urine WBC (Auto) 05/03/21 12:25 RBC Hgb Hct MCV MCH RDW Lymph % (Auto) Lymph # (Auto) Seg Neutrophils % Seg Neuts % (Manual) Lymphocytes % (Manual) Lymphocytes # (Manual) PT INR D-Dimer Sodium Potassium Chloride Carbon Dioxide BUN Creatinine Glucose POC Glucose 110 H Lactic Acid Calcium Phosphorus Magnesium Ferritin Lactate Dehydrogenase C-Reactive Protein Total Protein Albumin Urine WBC (Auto)
--- NOTE | 2021-05-03 17:26 | Progress Note ---
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 Patient is confused and lethargic the time my evaluation and is unable to provide history. Patient also has diminished cognition which is her baseline. Patient is unable to provide history. Patient history provided by EMS staff, ED staff, as well as the patient's daughter who was contacted via telephone for interview. As per daughter the patient is currently a patient receiving hospice care from [facility]. Patient daughter elects to revoke hospice benefit and seek aggressive medical therapy. [facility] notified and acknowledge patient revocation. Patient daughter reports that patient experience fever 103 F today, and has experienced decreased oral intake and decreased responsiveness over the past 2 days with progressively worsening symptoms over the same time frame. EMS was notified and upon arrival the patient was found to be in distress with a pulse oximetry of 65% on room air. The patient was placed on submental oxygen and transported to [facility] for further care and evaluation of the aforementioned symptoms. The patient was seen and evaluated in the emergency department. All lab and imaging studies reviewed. The patient was found to have a pulse oximetry of 82% on submental oxygen which is consistent with acute hypoxemic respiratory failure. Chest x-ray revealed pneumonia as well as left pneumothorax. The patient was also found to have acute kidney injury, systemic inflammatory response syndrome, hypokalemia. The patient underwent chest tube placement in the emergency department with improvement in symptoms. Surgery team consulted in ED. Patient admitted to medical floor due to increased risk of worsening symptoms. Patient initiated on pneumonia protocol as well as coronavirus protocol. The patient has diminished cognition but has a positive gag reflex and is able to protect her airway without difficulty at this time. No reported history of chest pain, palpitation, productive cough, skin rash, recent ill contacts, or known exposure to COVID-19. No prior admission for review. No medication listed at time of admission for reconciliation. Advanced care planning conducted in ED. CT HEAD: Negative CT chest: Chest tube in place, noted opacities 04/21: Patient lethargic, chest tube remains in place, Wound care consult, asp iration precautions. Wean as tolerated. Await COVID 19. Monitor Sodium level, awaiting labs, check q8hr. 04/22: Chest tube still positive air leak. Patient still hypoxic, while sodium level is improving metabolic acidosis has been noted. Patient's Covid test was negative. We will continue current management and adjust insulin for better blood sugar management. May require some Kayexalate due to hyper kalemia but considering severe hypokalemia just the day before we will monitor closely. Renal function showing some improvement continue management pulmonary and nephrology input noted. Urine culture positive for fungal Judith will monitor closely. 04/23: Penumonthorax appears to have resolved, patient down to 3 liters of Oxygen via NC, tolerating. she is still very lethargic, failed swallow eval. awaiting to hear from family if to progress with PEG placement. Patient was recently on Hospice but that was rescinded. Overall poor prognosis. Continue monitoring Hypernatremia. Surgeon re-evaluating Chest tube today 04/24 -Patient is on chest tube for pnuemothorax. Surgery is following. Sacral decubitus ulcer. Patient was evaluated by GI for PEG tube placement and will place PEG tube once patient is stable. Wants to be reconsulted once stable. Patient was on 2 L of oxygen. 04/25; patient is being followed by surgery for chest tube. Sacral decubitus ulcer followed by surgery for possible debridement. Patient is on OG tube feeding, evaluated by GI for PEG tube placement and recommend to be reconsulted after patient is stable. 04/26; patient was seen by general surgery and chest x-ray ordered for follow-up of her pneumothorax status post chest tube. CT pelvis was done and reading is pending, general surgery is evaluating for debridement. Patient is on OG tube feeding and will increase free water intake for hyperkalemia. Discussed with GI yesterday and they state reconsult once chest tube is taken out for PEG tube placement. Prognosis this is guarded. 04/27; left-sided chest tube in place, Small pneumothorax on the left. MRI showed osteomyelitis of the sacral area and will have debridement on Friday. Will follow up with case management about hospice care which the daughter requests. I called patient's daughter Ms Corado at [phone], she said she want PEG tube, debridement and she wants the patient be continued full code. He told me that is patient's request. 04/28; on chest tube for pneumothorax, continue with oxygen. Will have debridement on Friday. Management plan discussed with her daughter and she wants everything to be done including PEG tube. GI said we will do PEG tube once this tube was removed. Patient is full code. 04/29 patient is awake, nonverbal, does not follow commands. She has wrist restraints to prevent chest tube displacement. Apparently she pulled out her chest tube and had to be reinserted. She is on Dobbhoff tube feedings. Lab results reviewed. Pulmonary and nephrology notes reviewed 04/30: Still remains in place chest x-ray reordered today. Family has opted for patient to go back to hospice but awaiting removal of chest tube and possible PEG placement. She remains on 3 L of oxygen at this time from respiratory standpoint she is stable. Plan discussed with case management. 05/01: Patient seen clinically all stable although critically ill. Still on chest tube although not noted on chest x-ray there is no pneumothorax noted. Surgical debridement of decubitus ulcer noted. Discussed with rat poisoner. To evaluate for possible PEG placement Renal function mostly resolved 05/02: Input from surgeon and pulmonary reviewed patient not a candidate for VATS procedure. A chest x-ray has been ordered today and possible clamping and subsequently removal of the chest tube if no recurrent pneumothorax is noted. Discussed with GI patient will be evaluated today for possible PEG placement in anticipation for hospice per family request. 05/03: CXR shows no residual Pneumothorax, Discussed with Pulmonary, Chest tube to be removed today. Patient also obtained PEG placement without incident, Account Development Executive consulted for Tube feeds. Considering gravity of diagnosis and poor prognosis, Family has told for hospice and patient will be discharged with home hospice in a.m. (1) pneumothorax-spontaneous Current Visit: Yes Status: Acute Plan to address problem: Status post chest tube placement Pulmonary note reviewed and appreciated (2) Pneumonia?? Current Visit: Yes Status: Acute Plan to address problem: Chest x-ray reviewed No acute infiltrate Pulmonary following Patient is on cefepime Tested negative for COVID-19 (3) Acute kidney injury (ODILON) with acute tubular necrosis (ATN) Current Visit: Yes Status: Acute Plan to address problem: Nephrology consulted and note reviewed Lab results reviewed Improved (4) Hypokalemia Current Visit: Yes Status: Acute Plan to address problem: Improved (5) Vascular dementia Current Visit: Yes Status: Acute Qualifiers: Dementia behavioral disturbance: without behavioral disturbance Qualified Code(s): F01.50 - Vascular dementia without behavioral disturbance Plan to address problem: Verbal prompting, verbal redirection, benzodiazepine therapy as clinically indicated (6) Cerebral atherosclerosis Current Visit: Yes Status: Acute Plan to address problem: Antiplatelet therapy, supportive care, risk factor reduction. (7) decubitus pressure ulcer (8) hyponatremia (9) dysphagia as late effect of cerebrovascular accident (CVA) Current Visit: Yes Status: Acute Plan to address problem: Pured diet, assistance with meals, supportive care. History Interval history: Patient seen and examined, still lethargic, NO NEW COMPLAINTS Remains on oxygen, very deconditioned, Chest tube is still in place Hospitalist Physical - Physical exam Narrative exam: General appearance: Present: mild distress, chronically illl appearing, on NC, Dobhoff for feeding - EENT Eyes: Present: PERRL ENT: clear oral mucosa, hearing decreased - Neck Neck: Present: supple - Respiratory Respiratory effort: labored, accessory muscle use- Respiratory: bilateral: diminished, rhonchi Chest tube in place- LEFT - Cardiovascular Heart Sounds: Present: S1 & S2. Absent: rub, click - Extremities Extremities: abnormal (Sacral decubitus ulcer) Peripheral Pulses: within normal limits - Abdominal General gastrointestinal: Present: soft, non-tender, non-distended, normal bowel sounds Female genitourinary: Present: normal - Integumentary Integumentary: Present: dry, clammy, decreased turgor - Musculoskeletal Musculoskeletal: generalized weakness - Psychiatric Psychiatric: no appropriate mood/affect, no intact judgment & insight, no memory intact - Neurologic Neurologic: CNII-XII intact, focal deficits, no moves all extremities, no gait sita - Constitutional Vitals: Temp Pulse Resp BP Pulse Ox 98.6 F 116 H 16 147/82 100 05/03/21 10:45 05/03/21 11:05 05/03/21 11:05 05/03/21 11:05 05/03/21 11:05 General appearance: Present: mild distress, cachectic Results - Labs CBC & Chem 7: 04/23/21 14:47 05/01/21 09:31 Labs: Laboratory Last Values WBC 7.4 K/mm3 (4.5-11.0) 04/23/21 14:47 RBC 3.47 M/mm3 (3.65-5.03) L 04/23/21 14:47 Hgb 8.6 gm/dl (10.1-14.3) L 04/23/21 14:47 Hct 27.1 % (30.3-42.9) L 04/23/21 14:47 MCV 78 fl (79-97) L 04/23/21 14:47 MCH 25 pg (28-32) L 04/23/21 14:47 MCHC 32 % (30-34) 04/23/21 14:47 RDW 18.7 % (13.2-15.2) H 04/23/21 14:47 Plt Count 251 K/mm3 (140-440) 04/23/21 14:47 Lymph % (Auto) 10.0 % (13.4-35.0) L 04/23/21 14:47 Cochran % (Auto) 2.7 % (0.0-7.3) 04/23/21 14:47 Eos % (Auto) 0.1 % (0.0-4.3) 04/23/21 14:47 Baso % (Auto) 0.9 % (0.0-1.8) 04/23/21 14:47 Lymph # (Auto) 0.7 K/mm3 (1.2-5.4) L 04/23/21 14:47 Cochran # (Auto) 0.2 K/mm3 (0.0-0.8) 04/23/21 14:47 Eos # (Auto) 0.0 K/mm3 (0.0-0.4) 04/23/21 14:47 Baso # (Auto) 0.1 K/mm3 (0.0-0.1) 04/23/21 14:47 Add Manual Diff Complete 04/20/21 08:54 Total Counted 100 04/20/21 08:54 Seg Neutrophils % 86.3 % (40.0-70.0) H 04/23/21 14:47 Seg Neuts % (Manual) 81.0 % (40.0-70.0) H 04/20/21 08:54 Band Neutrophils % 2.0 % 04/20/21 08:54 Lymphocytes % (Manual) 12.0 % (13.4-35.0) L 04/20/21 08:54 Monocytes % (Manual) 5.0 % (0.0-7.3) 04/20/21 08:54 Nucleated RBC % Not Reportable 04/20/21 08:54 Seg Neutrophils # 6.4 K/mm3 (1.8-7.7) 04/23/21 14:47 Seg Neutrophils # Man 5.3 K/mm3 (1.8-7.7) 04/20/21 08:54 Band Neutrophils # 0.1 K/mm3 04/20/21 08:54 Lymphocytes # (Manual) 0.8 K/mm3 (1.2-5.4) L 04/20/21 08:54 Abs React Lymphs (Man) 0.0 K/mm3 04/20/21 08:54 Monocytes # (Manual) 0.3 K/mm3 (0.0-0.8) 04/20/21 08:54 Eosinophils # (Manual) 0.0 K/mm3 (0.0-0.4) 04/20/21 08:54 Basophils # (Manual) 0.0 K/mm3 (0.0-0.1) 04/20/21 08:54 Metamyelocytes # 0.0 K/mm3 04/20/21 08:54 Myelocytes # 0.0 K/mm3 04/20/21 08:54 Promyelocytes # 0.0 K/mm3 04/20/21 08:54 Blast Cells # 0.0 K/mm3 04/20/21 08:54 WBC Morphology Not Reportable 04/20/21 08:54 Hypersegmented Neuts Not Reportable 04/20/21 08:54 Hyposegmented Neuts Not Reportable 04/20/21 08:54 Hypogranular Neuts Not Reportable 04/20/21 08:54 Smudge Cells Not Reportable 04/20/21 08:54 Toxic Granulation Not Reportable 04/20/21 08:54 Toxic Vacuolation Not Reportable 04/20/21 08:54 Dohle Bodies Not Reportable 04/20/21 08:54 Pelger-Huet Anomaly Not Reportable 04/20/21 08:54 Gabe Rods Not Reportable 04/20/21 08:54 Platelet Estimate Consistent w auto 04/20/21 08:54 Clumped Platelets Not Reportable 04/20/21 08:54 Plt Clumps, EDTA Not Reportable 04/20/21 08:54 Large Platelets Not Reportable 04/20/21 08:54 Giant Platelets Not Reportable 04/20/21 08:54 Platelet Satelliting Not Reportable 04/20/21 08:54 Plt Morphology Comment Not Reportable 04/20/21 08:54 RBC Morphology Not Reportable 04/20/21 08:54 Dimorphic RBCs Not Reportable 04/20/21 08:54 Polychromasia Not Reportable 04/20/21 08:54 Hypochromasia 1+ 04/20/21 08:54 Poikilocytosis Not Reportable 04/20/21 08:54 Anisocytosis 1+ 04/20/21 08:54 Microcytosis Not Reportable 04/20/21 08:54 Macrocytosis Not Reportable 04/20/21 08:54 Spherocytes Not Reportable 04/20/21 08:54 Pappenheimer Bodies Not Reportable 04/20/21 08:54 Sickle Cells Not Reportable 04/20/21 08:54 Target Cells Not Reportable 04/20/21 08:54 Tear Drop Cells Not Reportable 04/20/21 08:54 Ovalocytes Not Reportable 04/20/21 08:54 Helmet Cells Not Reportable 04/20/21 08:54 [place] Bodies Not Reportable 04/20/21 08:54 [place] Rings Not Reportable 04/20/21 08:54 [place] Cells Not Reportable 04/20/21 08:54 Bite Cells Not Reportable 04/20/21 08:54 Crenated Cell Not Reportable 04/20/21 08:54 Elliptocytes Not Reportable 04/20/21 08:54 Acanthocytes (Spur) Not Reportable 04/20/21 08:54 Rouleaux Not Reportable 04/20/21 08:54 Hemoglobin C Crystals Not Reportable 04/20/21 08:54 Schistocytes Not Reportable 04/20/21 08:54 Malaria parasites Not Reportable 04/20/21 08:54 Chris Bodies Not Reportable 04/20/21 08:54 Hem Pathologist Commnt No 04/20/21 08:54 PT 15.6 Sec. (12.2-14.9) H 04/20/21 08:54 INR 1.19 (0.87-1.13) H 04/20/21 08:54 D-Dimer 840.47 ng/mlDDU (0-234) H 04/20/21 15:17 VBG pH 7.382 (7.320-7.420) 04/20/21 08:54 Sodium 130 mmol/L (137-145) L 05/01/21 09:31 Potassium 4.1 mmol/L (3.6-5.0) 05/01/21 09:31 Chloride 98.9 mmol/L (98-107) 05/01/21 09:31 Carbon Dioxide 20 mmol/L (22-30) L 05/01/21 09:31 Anion Gap 15 mmol/L 05/01/21 09:31 BUN 29 mg/dL (7-17) H 05/01/21 09:31 Creatinine 0.7 mg/dL (0.6-1.2) 05/01/21 09:31 Estimated GFR > 60 ml/min 05/01/21 09:31 BUN/Creatinine Ratio 41 % 05/01/21 09:31 Glucose 186 mg/dL (65-100) H 05/01/21 09:31 POC Glucose 113 mg/dL (70-105) H 05/03/21 16:01 Lactic Acid 2.60 mmol/L (0.7-2.0) H* 04/20/21 15:17 Calcium 8.5 mg/dL (8.4-10.2) 05/01/21 09:31 Phosphorus 3.40 mg/dL (2.5-4.5) D 04/28/21 15:11 Magnesium 2.70 mg/dL (1.7-2.3) H 04/22/21 16:44 Ferritin 508.5 ng/mL (10.0-200.0) H 04/20/21 15:17 Total Bilirubin 0.40 mg/dL (0.1-1.2) 04/20/21 08:54 AST 12 units/L (5-40) 04/20/21 08:54 ALT 9 units/L (7-56) 04/20/21 08:54 Alkaline Phosphatase 61 units/L (35-129) 04/20/21 08:54 Lactate Dehydrogenase 189 units/L (91-180) H 04/20/21 15:17 C-Reactive Protein 19.10 mg/dL (0.00-1.30) H 04/20/21 15:17 Total Protein 8.5 g/dL (6.3-8.2) H 04/20/21 08:54 Albumin 3.4 g/dL (3.9-5) L 04/20/21 08:54 Albumin/Globulin Ratio 0.7 % 04/20/21 08:54 Procalcitonin 2.70 ng/mL (<0.15) 04/20/21 15:17 PTH Intact 20.03 pg/mL (15-65) 04/22/21 16:44 Urine Color Yellow (Yellow) 04/20/21 14:29 Urine Turbidity Turbid (Clear) 04/20/21 14:29 Urine pH 5.0 (5.0-7.0) 04/20/21 14:29 Ur Specific [place] 1.017 (1.003-1.030) 04/20/21 14:29 Urine Protein 100 mg/dl mg/dL (Negative) 04/20/21 14:29 Urine Glucose (UA) Neg mg/dL (Negative) 04/20/21 14:29 Urine Ketones Neg mg/dL (Negative) 04/20/21 14:29 Urine Blood Mod (Negative) 04/20/21 14:29 Urine Nitrite Neg (Negative) 04/20/21 14:29 Urine Bilirubin Neg (Negative) 04/20/21 14:29 Urine Urobilinogen < 2.0 mg/dL (<2.0) 04/20/21 14:29 Ur Leukocyte Esterase Lg (Negative) 04/20/21 14:29 Urine WBC (Auto) > 182.0 /HPF (0.0-6.0) H 04/20/21 14:29 Urine RBC (Auto) > 182.0 /HPF (0.0-6.0) 04/20/21 14:29 U Epithel Cells (Auto) 2.0 /HPF (0-13.0) 04/20/21 14:29 Urine WBC Clumps 2+ /HPF 04/20/21 14:29 Nasal Screen MRSA (PCR) Positive (Negative) 04/21/21 Unknown Coronavirus (PCR) Negative (Negative) 05/02/21 Unknown Nuno/IV: Voiding Method External Female Catheter Active Medications - Current Medications Current Medications: Generic Name Dose Route Start Last Admin Trade Name Freq PRN Reason Stop Dose Admin Acetaminophen 650 mg 04/20/21 15:30 Acetaminophen 325 Mg Tab PO Q4H PRN Pain MILD(1-3)/Fever >100.5/WEST Albuterol 2.5 mg 04/20/21 14:09 Albuterol 2.5 Mg/3 Ml Nebu IH Q4HRT PRN Shortness Of Breath Lipase/Protease/Amylase 1 each 04/23/21 08:37 Lipase 10,500/Protease 25,000/Amylase 43,750 (Units) Dr Yates FEEDTUBE PRN PRN For Clogged Feeding Tube Ascorbic Acid 500 mg 04/20/21 22:00 05/02/21 23:40 Ascorbic Acid 500 Mg Tab PO 500 mg BID WENDY Administration Cholecalciferol 1,000 unit 04/21/21 10:00 05/02/21 13:16 Cholecalciferol (Vit D3) 1000 Unit (25 Mcg) Tab PO 1,000 unit DAILY WENDY Administration Heparin Sodium (Porcine) 5,000 unit 04/20/21 22:00 05/02/21 23:40 Heparin 5,000 Unit/1 Ml Vial SUB-Q 5,000 unit Q12HR WENDY Administration Hydromorphone HCl 0.5 mg 04/20/21 14:09 05/01/21 19:15 Hydromorphone 1 Mg/1 Ml Inj IV 0.5 mg Q3H PRN Administration Pain , Severe (7-10) Cefepime HCl 2 gm in 100 mls @ 200 mls/hr 04/26/21 22:00 05/02/21 23:39 Cefepime/Ns 2 Gm/100 Ml IV 05/05/21 21:59 200 mls/hr Q12HR WENDY Administration Protocol Insulin Glargine 25 units 04/29/21 22:00 05/02/21 23:41 Insulin Glargine 100 Units/Ml SUB-Q 25 units QHS WENDY Administration Insulin Human Lispro 0 unit 04/22/21 11:00 05/03/21 05:53 Insulin Lispro 100 Unit/Ml SUB-Q Not Given Q6H [facility] Protocol Ondansetron HCl 4 mg 04/20/21 14:09 Ondansetron 4 Mg/2 Ml Inj IV Q8H PRN Nausea And Vomiting Ondansetron HCl 4 mg 04/30/21 15:47 Ondansetron 4 Mg/2 Ml Inj IV ONCE PRN Nausea And Vomiting Oxycodone/Acetaminophen 1 tab 04/20/21 14:09 05/01/21 16:15 Oxycodone /Acetaminophen 5-325mg Tab PO 1 tab Q12H PRN Administration Pain, Moderate (4-6) Simple Syrup 15 ml 04/23/21 08:37 Simple Syrup 15 Ml FEEDTUBE PRN PRN Hypoglycemia Simple Syrup 30 ml 04/23/21 08:37 Simple Syrup 15 Ml FEEDTUBE PRN PRN Hypoglycemia Sodium Bicarbonate 325 mg 04/23/21 08:37 Sodium Bicarbonate 325 Mg Tab FEEDTUBE PRN PRN For Clogged Feeding Tube Sodium Bicarbonate 1,300 mg 04/30/21 22:47 05/02/21 23:40 Sodium Bicarbonate 650 Mg Tab PO 1,300 mg TID WENDY Administration Sodium Chloride 10 ml 04/20/21 22:00 05/02/21 23:41 Sodium Chloride 0.9% 10 Ml Flush Syringe IV 10 ml BID WENDY Administration Sodium Chloride 10 ml 04/20/21 14:09 Sodium Chloride 0.9% 10 Ml Flush Syringe IV PRN PRN LINE FLUSH Sodium Hypochlorite 1 applic 05/01/21 22:00 05/02/21 22:00 Sodium Hypochlorite, Dakin's 1/2 Strength (0.25%) 473 Ml Topical Soln TP 1 bottle BID WENDY Administration Zinc Sulfate 220 mg 04/20/21 22:00 05/02/21 23:40 Zinc Sulfate 220 Mg Cap PO 220 mg BID WENDY Administration Nutrition/Malnutrition Assess - Dietary Evaluation Nutrition/Malnutrition Findings: Nutrition Notes Start: 04/21/21 13:58 Freq: Status: Active Protocol: Document 05/02/21 15:10 EB (Rec: 05/02/21 15:17 EB [id number]) Nutrition Notes Initial or Follow up Brief Note Current Diagnosis Acute Kidney Injury,Decubitus( Pressure Ulcer),Diabetes, Sepsis,Hypertension,Heart Failure,Respiratory Failure Other Pertinent Diagnosis PNA, r/o Covid19, dementia, dysphagia Current Diet Glucerna 1.2 at 50 ml/hr Labs/Tests Na 130 Glu 186 Pertinent Medications Insulin Vit. D and Vit. C Height 5 ft 4.96 in Weight 60 kg [place] Body Weight (kg) 56.72 BMI 22.0 Subjective/Other Information Unable to reach pt or nurse after 2 attempts. Per nurse notes in I/O, pt tolerating TF at goal rate yesterday at 2 pm. Pressure ulcer persists. Percent of energy/protein needs met: 100%/100% Burn Absent Trauma Absent GI Symptoms None Current % PO Negligible #2 Nutrition Diagnosis Increased nutrient needs ( specify in comment below) Diagnosis Progress(for reassessment Continues documentation) #1 Nutrition Diagnosis Inadequate oral intake Diagnosis Progress(for reassessment Continues documentation) Nutrition Intervention Follow-Up By: 05/04/21 Additional Comments F/u: TF tolerance
[2021-05-03] MEDS: INSULIN GLARGINE 100 UNITS/ML SUB-Q SCH (23:30)
[2021-05-04] MEDS: INSULIN LISPRO 100 UNIT/ML SUB-Q SCH ×4 (05:33→22:30)
[2021-05-04 06:42] LABS: BUN/Creatinine Ratio 33; Blood Urea Nitrogen 26 mg/dL (7-17); Calcium 8.9 mg/dL (8.4-10.2); Hemolysis Index 12
--- NOTE | 2021-05-04 06:47 | Progress Note ---
Assessment and Plan 60 y/o female with Recurrent PTX this admission, admitted with PTX s/p chest tube now times 2 and hypoxic respiratory secondary to PTX 05/04/21: Placed CT to water seal this am. Ordered repeat film. If up, then will pull CT. 05/03/21: If tube is truly clamped and lung is up in no distress, will remove today. Continue supplemental oxygen therapy. 05/02/21: Discussed with surgery on Friday about PTX. Given patient history, I do not feel that transfer to Tertiary care center is warranted or reasonable for VATS. I agree with Thoracic here that she is not a candidate for any invasive thoracic procedures, even minimally invasive. Will repeat CXR today and if lung remains up with no or air leak, consider clamping tube to prepare for removal. Other option, pending on the hospice this patient came from, if inpatient maybe she could go with the chest tube in place, however I doubt this is an option. Surgery did not want to place heimlich valve. very very poor prognosis. 04/29/21: Continue supplemental oxygen to help resorb PTX 04/27/21: Asked nursing to keep patient on oxygen therapy despite good sats as she has a small residual peripheral PTX. 04/26/21: Follow up CXR read. Possible osteo on CT, rads recommending MRI. Will continue to follow with you. 04/25/21: No new recs. Please see below. 1. Chest tube per surgery 2. Would continue supplemental oxygen and should be discharged to home on this if she does not have it already. Subjective Date of service: 05/04/21 Principal diagnosis: oropharyngeal dysphagia Interval history: Chest tube was not clamped. Still on suction. Patient awake. Talkative. Objective Vital Signs - 12hr 05/03/21 05/03/21 22:00 22:02 Temperature 97.9 F Pulse Rate 118 H Respiratory 18 18 Rate Blood Pressure 137/79 O2 Sat by Pulse 100 100 Oximetry Constitutional: no acute distress Eyes: non-icteric ENT: oropharynx moist Neck: supple Effort: normal Ascultation: Bilateral: diminished breath sounds Cardiovascular: regular rate and rhythm Gastrointestinal: normoactive bowel sounds, soft, non-tender CBC and BMP: 04/23/21 14:47 05/04/21 05:45 ABG, PT/INR, D-dimer: PT/INR, D-dimer PT 15.6 Sec. (12.2-14.9) H 04/20/21 08:54 INR 1.19 (0.87-1.13) H 04/20/21 08:54 D-Dimer 840.47 ng/mlDDU (0-234) H 04/20/21 15:17 Abnormal lab findings: Abnormal Labs 04/20/21 04/20/21 04/20/21 08:54 08:54 08:54 RBC Hgb Hct MCV MCH 25 L RDW 18.2 H Lymph % (Auto) Lymph # (Auto) Seg Neutrophils % Seg Neuts % (Manual) 81.0 H Lymphocytes % (Manual) 12.0 L Lymphocytes # (Manual) 0.8 L PT 15.6 H INR 1.19 H D-Dimer Sodium 163 H* Potassium 2.8 L* Chloride 118.6 H Carbon Dioxide BUN 152 H Creatinine 2.0 H Glucose 147 H POC Glucose Lactic Acid Calcium 10.8 H Phosphorus Magnesium Ferritin Lactate Dehydrogenase C-Reactive Protein Total Protein 8.5 H Albumin 3.4 L Urine WBC (Auto) 04/20/21 04/20/21 04/20/21 08:54 14:29 15:17 RBC Hgb Hct MCV MCH RDW Lymph % (Auto) Lymph # (Auto) Seg Neutrophils % Seg Neuts % (Manual) Lymphocytes % (Manual) Lymphocytes # (Manual) PT INR D-Dimer Sodium Potassium Chloride Carbon Dioxide BUN Creatinine Glucose POC Glucose Lactic Acid 2.60 H* 2.60 H* Calcium Phosphorus Magnesium Ferritin Lactate Dehydrogenase C-Reactive Protein Total Protein Albumin Urine WBC (Auto) > 182.0 H 04/20/21 04/20/21 04/20/21 15:17 15:17 15:17 RBC Hgb Hct MCV MCH RDW Lymph % (Auto) Lymph # (Auto) Seg Neutrophils % Seg Neuts % (Manual) Lymphocytes % (Manual) Lymphocytes # (Manual) PT INR D-Dimer 840.47 H Sodium Potassium Chloride Carbon Dioxide BUN Creatinine Glucose 135 H POC Glucose Lactic Acid Calcium Phosphorus Magnesium Ferritin 508.5 H Lactate Dehydrogenase 189 H C-Reactive Protein 19.10 H Total Protein Albumin Urine WBC (Auto) 04/21/21 04/21/21 04/21/21 06:12 07:51 10:34 RBC 3.59 L Hgb 9.0 L Hct 29.1 L MCV MCH 25 L RDW 18.6 H Lymph % (Auto) Lymph # (Auto) Seg Neutrophils % 75.9 H Seg Neuts % (Manual) Lymphocytes % (Manual) Lymphocytes # (Manual) PT INR D-Dimer Sodium 161 H* Potassium 3.4 L D Chloride 124.9 H Carbon Dioxide 21 L BUN 123 H Creatinine 1.4 H Glucose 194 H POC Glucose 166 H Lactic Acid Calcium Phosphorus Magnesium Ferritin Lactate Dehydrogenase C-Reactive Protein Total Protein Albumin Urine WBC (Auto) 04/21/21 04/21/21 04/21/21 12:32 14:57 16:25 RBC Hgb Hct MCV MCH RDW Lymph % (Auto) Lymph # (Auto) Seg Neutrophils % Seg Neuts % (Manual) Lymphocytes % (Manual) Lymphocytes # (Manual) PT INR D-Dimer Sodium 160 H Potassium 3.0 L Chloride 127.1 H Carbon Dioxide 18 L BUN 121 H Creatinine 1.6 H Glucose 199 H POC Glucose 178 H 187 H Lactic Acid Calcium Phosphorus Magnesium Ferritin Lactate Dehydrogenase C-Reactive Protein Total Protein Albumin Urine WBC (Auto) 04/21/21 04/21/21 04/22/21 19:35 22:17 08:33 RBC Hgb Hct MCV MCH RDW Lymph % (Auto) Lymph # (Auto) Seg Neutrophils % Seg Neuts % (Manual) Lymphocytes % (Manual) Lymphocytes # (Manual) PT INR D-Dimer Sodium 157 H Potassium 5.3 H D Chloride 127.2 H Carbon Dioxide 15 L BUN 121 H Creatinine 1.5 H Glucose 221 H POC Glucose 205 H 312 H Lactic Acid Calcium Phosphorus Magnesium Ferritin Lactate Dehydrogenase C-Reactive Protein Total Protein Albumin Urine WBC (Auto) 04/22/21 04/22/21 04/22/21 13:26 16:44 16:44 RBC Hgb Hct MCV MCH RDW Lymph % (Auto) Lymph # (Auto) Seg Neutrophils % Seg Neuts % (Manual) Lymphocytes % (Manual) Lymphocytes # (Manual) PT INR D-Dimer Sodium 158 H Potassium Chloride 126.9 H Carbon Dioxide 19 L BUN 112 H Creatinine 1.4 H Glucose 317 H POC Glucose 315 H Lactic Acid Calcium Phosphorus Magnesium 2.70 H Ferritin Lactate Dehydrogenase C-Reactive Protein Total Protein Albumin Urine WBC (Auto) 04/22/21 04/22/21 04/23/21 18:05 22:14 06:35 RBC Hgb Hct MCV MCH RDW Lymph % (Auto) Lymph # (Auto) Seg Neutrophils % Seg Neuts % (Manual) Lymphocytes % (Manual) Lymphocytes # (Manual) PT INR D-Dimer Sodium Potassium Chloride Carbon Dioxide BUN Creatinine Glucose POC Glucose 236 H 153 H 170 H Lactic Acid Calcium Phosphorus Magnesium Ferritin Lactate Dehydrogenase C-Reactive Protein Total Protein Albumin Urine WBC (Auto) 04/23/21 04/23/21 04/23/21 12:26 14:47 14:47 RBC 3.47 L Hgb 8.6 L Hct 27.1 L MCV 78 L MCH 25 L RDW 18.7 H Lymph % (Auto) 10.0 L Lymph # (Auto) 0.7 L Seg Neutrophils % 86.3 H Seg Neuts % (Manual) Lymphocytes % (Manual) Lymphocytes # (Manual) PT INR D-Dimer Sodium 154 H Potassium 3.5 L Chloride 122.5 H Carbon Dioxide 20 L BUN 81 H Creatinine Glucose 241 H POC Glucose 179 H Lactic Acid Calcium Phosphorus Magnesium Ferritin Lactate Dehydrogenase C-Reactive Protein Total Protein Albumin Urine WBC (Auto) 04/23/21 04/23/21 04/24/21 18:28 23:34 06:13 RBC Hgb Hct MCV MCH RDW Lymph % (Auto) Lymph # (Auto) Seg Neutrophils % Seg Neuts % (Manual) Lymphocytes % (Manual) Lymphocytes # (Manual) PT INR D-Dimer Sodium Potassium Chloride Carbon Dioxide BUN Creatinine Glucose POC Glucose 222 H 257 H 252 H Lactic Acid Calcium Phosphorus Magnesium Ferritin Lactate Dehydrogenase C-Reactive Protein Total Protein Albumin Urine WBC (Auto) 04/24/21 04/24/21 04/24/21 13:12 18:10 23:29 RBC Hgb Hct MCV MCH RDW Lymph % (Auto) Lymph # (Auto) Seg Neutrophils % Seg Neuts % (Manual) Lymphocytes % (Manual) Lymphocytes # (Manual) PT INR D-Dimer Sodium 154 H Potassium 5.2 H D Chloride 123.9 H Carbon Dioxide 21 L BUN 59 H Creatinine Glucose 320 H POC Glucose 300 H 212 H Lactic Acid Calcium Phosphorus Magnesium Ferritin Lactate Dehydrogenase C-Reactive Protein Total Protein Albumin Urine WBC (Auto) 04/24/21 04/25/21 04/25/21 23:29 05:48 05:50 RBC Hgb Hct MCV MCH RDW Lymph % (Auto) Lymph # (Auto) Seg Neutrophils % Seg Neuts % (Manual) Lymphocytes % (Manual) Lymphocytes # (Manual) PT INR D-Dimer Sodium 149 H Potassium 5.1 H Chloride 118.1 H Carbon Dioxide BUN 55 H Creatinine Glucose 347 H POC Glucose 301 H 311 H Lactic Acid Calcium Phosphorus 1.90 L Magnesium Ferritin Lactate Dehydrogenase C-Reactive Protein Total Protein Albumin Urine WBC (Auto) 04/25/21 04/25/21 04/25/21 13:16 17:16 23:40 RBC Hgb Hct MCV MCH RDW Lymph % (Auto) Lymph # (Auto) Seg Neutrophils % Seg Neuts % (Manual) Lymphocytes % (Manual) Lymphocytes # (Manual) PT INR D-Dimer Sodium Potassium Chloride Carbon Dioxide BUN Creatinine Glucose POC Glucose 270 H 183 H 242 H Lactic Acid Calcium Phosphorus Magnesium Ferritin Lactate Dehydrogenase C-Reactive Protein Total Protein Albumin Urine WBC (Auto) 04/26/21 04/26/21 04/26/21 06:15 07:44 11:09 RBC Hgb Hct MCV MCH RDW Lymph % (Auto) Lymph # (Auto) Seg Neutrophils % Seg Neuts % (Manual) Lymphocytes % (Manual) Lymphocytes # (Manual) PT INR D-Dimer Sodium Potassium 5.7 H Chloride 108.7 H Carbon Dioxide 18 L BUN 47 H Creatinine Glucose 305 H POC Glucose 269 H 338 H Lactic Acid Calcium Phosphorus 2.20 L Magnesium Ferritin Lactate Dehydrogenase C-Reactive Protein Total Protein Albumin Urine WBC (Auto) 04/26/21 04/26/21 04/27/21 17:13 23:59 05:31 RBC Hgb Hct MCV MCH RDW Lymph % (Auto) Lymph # (Auto) Seg Neutrophils % Seg Neuts % (Manual) Lymphocytes % (Manual) Lymphocytes # (Manual) PT INR D-Dimer Sodium Potassium Chloride Carbon Dioxide BUN Creatinine Glucose POC Glucose 373 H 280 H 244 H Lactic Acid Calcium Phosphorus Magnesium Ferritin Lactate Dehydrogenase C-Reactive Protein Total Protein Albumin Urine WBC (Auto) 04/27/21 04/27/21 04/27/21 06:10 10:55 16:56 RBC Hgb Hct MCV MCH RDW Lymph % (Auto) Lymph # (Auto) Seg Neutrophils % Seg Neuts % (Manual) Lymphocytes % (Manual) Lymphocytes # (Manual) PT INR D-Dimer Sodium 132 L D Potassium Chloride Carbon Dioxide 20 L BUN 38 H Creatinine Glucose 258 H POC Glucose 212 H 154 H Lactic Acid Calcium Phosphorus 1.80 L Magnesium Ferritin Lactate Dehydrogenase C-Reactive Protein Total Protein Albumin Urine WBC (Auto) 04/27/21 04/28/2104/28/21 22:20 05:16 15:11 RBC Hgb Hct MCV MCH RDW Lymph % (Auto) Lymph # (Auto) Seg Neutrophils % Seg Neuts % (Manual) Lymphocytes % (Manual) Lymphocytes # (Manual) PT INR D-Dimer Sodium 135 L Potassium Chloride Carbon Dioxide BUN 33 H Creatinine Glucose 105 H POC Glucose 139 H 58 L Lactic Acid Calcium Phosphorus Magnesium Ferritin Lactate Dehydrogenase C-Reactive Protein Total Protein Albumin Urine WBC (Auto) 04/28/21 04/28/21 04/29/21 16:17 21:09 00:03 RBC Hgb Hct MCV MCH RDW Lymph % (Auto) Lymph # (Auto) Seg Neutrophils % Seg Neuts % (Manual) Lymphocytes % (Manual) Lymphocytes # (Manual) PT INR D-Dimer Sodium Potassium Chloride Carbon Dioxide BUN Creatinine Glucose POC Glucose 109 H 120 H 139 H Lactic Acid Calcium Phosphorus Magnesium Ferritin Lactate Dehydrogenase C-Reactive Protein Total Protein Albumin Urine WBC (Auto) 04/29/21 04/30/21 04/30/21 23:08 05:46 08:29 RBC Hgb Hct MCV MCH RDW Lymph % (Auto) Lymph # (Auto) Seg Neutrophils % Seg Neuts % (Manual) Lymphocytes % (Manual) Lymphocytes # (Manual) PT INR D-Dimer Sodium 130 L Potassium Chloride Carbon Dioxide 19 L BUN 30 H Creatinine Glucose 157 H POC Glucose 115 H 148 H Lactic Acid Calcium Phosphorus Magnesium Ferritin Lactate Dehydrogenase C-Reactive Protein Total Protein Albumin Urine WBC (Auto) 04/30/21 04/30/21 05/01/21 16:20 22:48 05:44 RBC Hgb Hct MCV MCH RDW Lymph % (Auto) Lymph # (Auto) Seg Neutrophils % Seg Neuts % (Manual) Lymphocytes % (Manual) Lymphocytes # (Manual) PT INR D-Dimer Sodium Potassium Chloride Carbon Dioxide BUN Creatinine Glucose POC Glucose 122 H 146 H 209 H Lactic Acid Calcium Phosphorus Magnesium Ferritin Lactate Dehydrogenase C-Reactive Protein Total Protein Albumin Urine WBC (Auto) 05/01/21 05/01/21 05/01/21 09:31 12:23 18:16 RBC Hgb Hct MCV MCH RDW Lymph % (Auto) Lymph # (Auto) Seg Neutrophils % Seg Neuts % (Manual) Lymphocytes % (Manual) Lymphocytes # (Manual) PT INR D-Dimer Sodium 130 L Potassium Chloride Carbon Dioxide 20 L BUN 29 H Creatinine Glucose 186 H POC Glucose 197 H 221 H Lactic Acid Calcium Phosphorus Magnesium Ferritin Lactate Dehydrogenase C-Reactive Protein Total Protein Albumin Urine WBC (Auto) 05/01/21 05/02/21 05/03/21 22:10 22:24 05:31 RBC Hgb Hct MCV MCH RDW Lymph % (Auto) Lymph # (Auto) Seg Neutrophils % Seg Neuts % (Manual) Lymphocytes % (Manual) Lymphocytes # (Manual) PT INR D-Dimer Sodium Potassium Chloride Carbon Dioxide BUN Creatinine Glucose POC Glucose 208 H 137 H 145 H Lactic Acid Calcium Phosphorus Magnesium Ferritin Lactate Dehydrogenase C-Reactive Protein Total Protein Albumin Urine WBC (Auto) 05/03/21 05/03/21 05/03/21 12:25 16:01 21:58 RBC Hgb Hct MCV MCH RDW Lymph % (Auto) Lymph # (Auto) Seg Neutrophils % Seg Neuts % (Manual) Lymphocytes % (Manual) Lymphocytes # (Manual) PT INR D-Dimer Sodium Potassium Chloride Carbon Dioxide BUN Creatinine Glucose POC Glucose 110 H 113 H 165 H Lactic Acid Calcium Phosphorus Magnesium Ferritin Lactate Dehydrogenase C-Reactive Protein Total Protein Albumin Urine WBC (Auto) 05/04/21 05/04/21 05:13 05:45 RBC Hgb Hct MCV MCH RDW Lymph % (Auto) Lymph # (Auto) Seg Neutrophils % Seg Neuts % (Manual) Lymphocytes % (Manual) Lymphocytes # (Manual) PT INR D-Dimer Sodium 135 L Potassium Chloride Carbon Dioxide BUN 26 H Creatinine Glucose 194 H POC Glucose 179 H Lactic Acid Calcium Phosphorus Magnesium Ferritin Lactate Dehydrogenase C-Reactive Protein Total Protein Albumin Urine WBC (Auto)
[2021-05-04] MEDS: SODIUM BICARBONATE 650 MG TAB PO SCH ×3 (08:00→22:10)
--- NOTE | 2021-05-04 08:47 | XRay Report ---
CHEST - 1 VIEW 0728 hours INDICATION: Chest tube to water seal, eval for PTX COMPARISON: Yesterday FINDINGS: Support devices: Stable positioning of the small caliber left chest tube Heart: Within normal limits. CABG changes are noted. Lungs/pleura: The lungs remain generally clear with no evidence for pneumothorax. Additional findings: None. IMPRESSION: Unchanged exam. Signer Name: Jose Dorman Jr, MD Signed: 05/04/2021 8:43 AM Workstation Name: [id number]
--- NOTE | 2021-05-04 08:47 | Event Note ---
Date: 05/04/21 CXR OK on water seal, no air leak in CT, minimal drainage, CT d/elli. Check CXR.
[2021-05-04] MEDS: CEFEPIME/NS 2 GM/100 ML 2 GM/100 ML BAG IV SCH ×2 (09:30→22:09)
[2021-05-04] MEDS: HEPARIN 5,000 UNIT/1 ML VIAL SUB-Q SCH ×2 (09:31→22:12)
[2021-05-04] MEDS: CHOLECALCIFEROL (VIT D3) 1000 UNIT (25 mcg) TAB PO SCH (09:31)
[2021-05-04] MEDS: ASCORBIC ACID 500 MG TAB PO SCH ×2 (09:31→22:11)
[2021-05-04] MEDS: ZINC SULFATE 220 MG CAP PO SCH ×2 (09:31→22:11)
[2021-05-04] MEDS: SODIUM HYPOCHLORITE, DAKIN'S 1/2 STRENGTH (0.25%) 473 ML TOPICAL SOLN TP SCH (09:33)
--- NOTE | 2021-05-04 09:45 | XRay Report ---
XR chest 1V ap INDICATION / CLINICAL INFORMATION: CT removal. COMPARISON: 05/04/2021 and 7:28 AM FINDINGS: SUPPORT DEVICES: Left chest tube has been removed. HEART /PULMONARY VASCULATURE: Unchanged. LUNGS / PLEURA: No new or increasing airspace consolidation. No sizable pleural effusion. No evidence pneumothorax. IMPRESSION: Interval removal of left chest tube without pneumothorax. Signer Name: King Cruz MD Signed: 05/04/2021 9:40 AM Workstation Name: [email or web address]
--- NOTE | 2021-05-04 10:07 | Progress Note ---
Assessment and Plan 1. Acute kidney injury: Vasomotor ODILON in the setting of volume depletion +/- hypotension. Monitor renal function. Creatinine level is better. Avoid nephrotoxic agents. Meds dosage based on GFR. No labs for the past 2 days. 2. FEN: Hyponatremia, Sodium level is better, monitor. Hyperchloremic metabolic acidosis, improved, monitor. Hyperkalemia, improved, monitor. Monitor lytes and volume status. 3. Bilateral Pneumonia, POA: Covid test negative. On Abx. 4. L Pneumothorax, POA: Chest tube re-inserted 04/23. Chest tube removed 05/04. 5. Acute hypoxemic respiratory failure, POA: 2/2 PNA and pneumothorax. Supplemental oxygen. Monitor. 6. DM type 2, uncontrolled: Lantus and SSI. Monitor. 7. Sacral decub S/p debridement. 8. Anemia, not POA: Monitor. 9. Hypertension. Follow BP. 10. Dementia. Will sign off. Subjective: Patient was seen and examined at the bedside. Examination: General appearance: well-developed, emaciated, not in distress, appears chronically ill HEENT: atraumatic, SHAR Neck: trachea midline Respiratory: bilateral decreased breath sounds Heart: S1S2, regular, no murmur Abdomen: soft, bowel sounds heard, NT Integumentary: no obvious rash Neurologic: lethargic, not following any command Ext: no edema Subjective Date of service: 05/04/21 Principal diagnosis: oropharyngeal dysphagia Objective - Lab 04/23/21 14:47 05/04/21 05:45 Most recent lab results Calcium 8.9 mg/dL (8.4-10.2) 05/04/21 05:45 Phosphorus 3.40 mg/dL (2.5-4.5) D 04/28/21 15:11 Magnesium 2.70 mg/dL (1.7-2.3) H 04/22/21 16:44 Medications & Allergies - Medications Allergies/Adverse Reactions: Allergies Penicillins Allergy (Verified 12/03/18 20:53) Hives meperidine [From Demerol] Adverse Reaction (Verified 12/03/18 20:53) Anaphylaxis morphine Adverse Reaction (Verified 12/03/18 20:53) Unknown Home Medications: Home Medications Medication Instructions Recorded Confirmed Last Taken Type Insulin Glargine [Lantus VIAL] 25 units SUB-Q QHS #10 ml 05/04/21 Unknown Rx Lipase/Protease/Amylase [Pancreaze 1 each FEEDTUBE PRN PRN capsule 05/04/21 Unknown Rx 10,500 Unit] Sodium Bicarbonate 1,300 mg PO TID #30 tablet 05/04/21 Unknown Rx Sodium Hypochlorite [Dakin's Half 1 applic TP BID #1 bottle 05/04/21 Unknown Rx Strength] oxyCODONE /ACETAMINOPHEN [Percocet 1 tab PO Q12H PRN #14 tablet 05/04/21 Unknown Rx 5/325 mg] Active Medications: Generic Name Dose Route Start Last Admin Trade Name Freq PRN Reason Stop Dose Admin Acetaminophen 650 mg 04/20/21 15:30 Acetaminophen 325 Mg Tab PO Q4H PRN Pain MILD(1-3)/Fever >100.5/WEST Albuterol 2.5 mg 04/20/21 14:09 Albuterol 2.5 Mg/3 Ml Nebu IH Q4HRT PRN Shortness Of Breath Lipase/Protease/Amylase 1 each 04/23/21 08:37 Lipase 10,500/Protease 25,000/Amylase 43,750 (Units) Dr Yates FEEDTUBE PRN PRN For Clogged Feeding Tube Ascorbic Acid 500 mg 04/20/21 22:00 05/04/21 09:31 Ascorbic Acid 500 Mg Tab PO 500 mg BID WENDY Administration Cholecalciferol 1,000 unit 04/21/21 10:00 05/04/21 09:31 Cholecalciferol (Vit D3) 1000 Unit (25 Mcg) Tab PO 1,000 unit DAILY WENDY Administration Heparin Sodium (Porcine) 5,000 unit 04/20/21 22:00 05/04/21 09:31 Heparin 5,000 Unit/1 Ml Vial SUB-Q 5,000 unit Q12HR WENDY Administration Hydromorphone HCl 0.5 mg 04/20/21 14:09 05/01/21 19:15 Hydromorphone 1 Mg/1 Ml Inj IV 0.5 mg Q3H PRN Administration Pain , Severe (7-10) Cefepime HCl 2 gm in 100 mls @ 200 mls/hr 04/26/21 22:00 05/04/21 09:30 Cefepime/Ns 2 Gm/100 Ml IV 05/05/21 21:59 200 mls/hr Q12HR WENDY Administration Protocol Insulin Glargine 25 units 04/29/21 22:00 05/03/21 23:30 Insulin Glargine 100 Units/Ml SUB-Q 25 units QHS WENDY Administration Insulin Human Lispro 0 unit 04/22/21 11:00 05/04/21 05:33 Insulin Lispro 100 Unit/Ml SUB-Q 3 unit Q6H WENDY Administration Protocol Ondansetron HCl 4 mg 04/20/21 14:09 Ondansetron 4 Mg/2 Ml Inj IV Q8H PRN Nausea And Vomiting Ondansetron HCl 4 mg 04/30/21 15:47 Ondansetron 4 Mg/2 Ml Inj IV ONCE PRN Nausea And Vomiting Oxycodone/Acetaminophen 1 tab 04/20/21 14:09 05/01/21 16:15 Oxycodone /Acetaminophen 5-325mg Tab PO 1 tab Q12H PRN Administration Pain, Moderate (4-6) Simple Syrup 15 ml 04/23/21 08:37 Simple Syrup 15 Ml FEEDTUBE PRN PRN Hypoglycemia Simple Syrup 30 ml 04/23/21 08:37 Simple Syrup 15 Ml FEEDTUBE PRN PRN Hypoglycemia Sodium Bicarbonate 325 mg 04/23/21 08:37 Sodium Bicarbonate 325 Mg Tab FEEDTUBE PRN PRN For Clogged Feeding Tube Sodium Bicarbonate 1,300 mg 04/30/21 22:47 05/04/21 08:00 Sodium Bicarbonate 650 Mg Tab PO 1,300 mg TID WENDY Administration Sodium Chloride 10 ml 04/20/21 22:00 05/04/21 09:31 Sodium Chloride 0.9% 10 Ml Flush Syringe IV 10 ml BID WENDY Administration Sodium Chloride 10 ml 04/20/21 14:09 Sodium Chloride 0.9% 10 Ml Flush Syringe IV PRN PRN LINE FLUSH Sodium Hypochlorite 1 applic 05/01/21 22:00 05/04/21 09:33 Sodium Hypochlorite, Dakin's 1/2 Strength (0.25%) 473 Ml Topical Soln TP 1 bottle BID WENDY Administration Zinc Sulfate 220 mg 04/20/21 22:00 05/04/21 09:31 Zinc Sulfate 220 Mg Cap PO 220 mg BID WENDY Administration
--- NOTE | 2021-05-04 10:33 | Discharge Summary ---
Providers - Providers Date of Admission: 04/20/21 14:09 Attending physician: CLARA HARO MD 04/20/21 13:07 Consult to Physician [CONS] Stat Comment: Consulting Provider: TYLER VALENZUELA Physician Instructions: Reason For Exam: pneumothoraX 04/20/21 14:29 Consult to Wound/ET Nurse [CONS] Routine Reason For Exam: wound eval 04/21/21 03:17 Speech Therapy Evaluation and Treat [CONS] Routine Reason For Exam: Poor appetite. 04/21/21 03:50 Consult to Dietitian/Nutrition [CONS] Routine Physician Instructions: Reason For Exam: Reason for Consult: Poor oral intake 04/21/21 08:00 Consult to Physician [CONS] Routine Comment: Consulting Provider: PAMELA COLLAZO Physician Instructions: Reason For Exam: hypoxic respiratory failure 04/21/21 11:50 Speech Therapy Evaluation and Treat [CONS] Stat Reason For Exam: swallow evaluation 04/21/21 12:34 Consult to Physician [CONS] Routine Comment: Consulting Provider: RUDY ALBERTO Physician Instructions: Reason For Exam: hyperntremia 04/22/21 10:19 Consult to Dietitian/Nutrition [CONS] Routine Physician Instructions: Reason For Exam: Reason for Consult: Write/Manage Tube Feeding 04/22/21 14:32 Midline [Consult to PICC Line RN] [CONS] Urgent Reason For Exam: unable to gain peripheral access site Type Line:: Midline 04/23/21 12:38 Consult to Dietitian/Nutrition [CONS] Routine Physician Instructions: Reason For Exam: Reason for Consult: Write/Manage Tube Feeding 04/23/21 13:31 Consult to Physician [CONS] Routine Comment: Consulting Provider: ISRAEL MENCHACA Physician Instructions: Reason For Exam: PEG PLACEMENT PER FAMILY REQUEST 04/23/21 15:59 Consult to Physician [CONS] Routine Comment: Consulting Provider: TYLER VALENZUELA Physician Instructions: Reason For Exam: evaluate the sacral wound 04/27/21 15:23 Consult to Physician [CONS] Routine Comment: Consulting Provider: PILY LIU Physician Instructions: Reason For Exam: Sacral osteomyelitis 05/03/21 17:27 Consult to Dietitian/Nutrition [CONS] Routine Physician Instructions: Reason For Exam: Reason for Consult: Write/Manage Tube Feeding Primary care physician: REVENUE INVESTIGATOR Hospitalization Reason for admission: Pneumothorax Condition: Fair Hospital course: 60 YO Female with 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 Patient is confused and lethargic the time my evaluation and is unable to provide history. Patient also has diminished cognition which is her baseline. Patient is unable to provide history. Patient history provided by EMS staff, ED staff, as well as the patient's daughter who was contacted via telephone for interview. As per daughter the patient is currently a patient receiving hospice care from [facility]. Patient daughter elects to revoke hospice benefit and seek aggressive medical therapy. [facility] notified and acknowledge patient revocation. Patient daughter reports that patient experience fever 103 F today, and has experienced decreased oral intake and decreased responsiveness over the past 2 days with progressively worsening symptoms over the same timeframe. EMS was notified and upon arrival the patient was found to be in distress with a pulse oximetry of 65% on room air. The patient was placed on submental oxygen and transported to [facility] for further care and evaluation of the aforementioned symptoms. The patient was seen and evaluated in the emergency department. All lab and imaging studies reviewed. The patient was found to have a pulse oximetry of 82% on submental oxygen which is consistent with acute hypoxemic respiratory failure. Chest x-ray revealed pneumonia as well as left pneumothorax. The patient was also found to have acute kidney injury, systemic inflammatory response syndrome, hypokalemia. The patient underwent chest tube placement in the emergency department with improvement in symptoms. Surgery team consulted in ED. Patient admitted to medical floor due to increased risk of worsening symptoms. Patient initiated on pneumonia protocol as well as coronavirus protocol. The patient has diminished cognition but has a positive gag reflex and is able to protect her airway without difficulty at this time. No reported history of chest pain, palpitation, productive cough, skin rash, recent ill contacts, or known exposure to COVID-19. No prior admission for review. No medication listed at time of admission for reconciliation. Advanced care planning conducted in ED. CT HEAD: Negative CT chest: Chest tube in place, noted opacities 04/21: Patient lethargic, chest tube remains in place, Wound care consult, aspiration precautions. Wean as tolerated. Await COVID 19. Monitor Sodium level, awaiting labs, check q8hr. 04/22: Chest tube still positive air leak. Patient still hypoxic, while sodium level is improving metabolic acidosis has been noted. Patient's Covid test was negative. We will continue current management and adjust insulin for better blood sugar management. May require some Kayexalate due to hyper kalemia but considering severe hypokalemia just the day before we will monitor closely. Renal function showing some improvement continue management pulmonary and nephrology input noted. Urine culture positive for fungal Judith will monitor closely. 04/23: Penumonthorax appears to have resolved, patient down to 3 liters of Oxygen via NC, tolerating. she is still very lethargic, failed swallow eval. awaiting to hear from family if to progress with PEG placement. Patient was recently on Hospice but that was rescinded. Overall poor prognosis. Continue monitoring Hypernatremia. Surgeon re-evaluating Chest tube today 04/24 -Patient is on chest tube for pnuemothorax. Surgery is following. Sacral decubitus ulcer. Patient was evaluated by GI for PEG tube placement and will place PEG tube once patient is stable. Wants to be reconsulted once stable. Patient was on 2 L of oxygen. 04/25; patient is being followed by surgery for chest tube. Sacral decubitus ulcer followed by surgery for possible debridement. Patient is on OG tube feeding, evaluated by GI for PEG tube placement and recommend to be reconsulted after patient is stable. 04/26; patient was seen by general surgery and chest x-ray ordered for follow-up of her pneumothorax status post chest tube. CT pelvis was done and reading is pending, general surgery is evaluating for debridement. Patient is on OG tube feeding and will increase free water intake for hyperkalemia. Discussed with GI yesterday and they state reconsult once chest tube is taken out for PEG tube placement. Prognosis this is guarded. 04/27; left-sided chest tube in place, Small pneumothorax on the left. MRI showed osteomyelitis of the sacral area and will have debridement on Friday. Will follow up with case management about hospice care which the daughter requests. I called patient's daughter Ms Corado at [phone], she said she want PEG tube, debridement and she wants the patient be continued full code. He told me that is patient's request. 04/28; on chest tube for pneumothorax, continue with oxygen. Will have debridement on Friday. Management plan discussed with her daughter and she wants everything to be done including PEG tube. GI said we will do PEG tube once this tube was removed. Patient is full code. 04/29 patient is awake, nonverbal, does not follow commands. She has wrist restraints to prevent chest tube displacement. Apparently she pulled out her chest tube and had to be reinserted. She is on Dobbhoff tube feedings. Lab results reviewed. Pulmonary and nephrology notes reviewed 04/30: Still remains in place chest x-ray reordered today. Family has opted for patient to go back to hospice but awaiting removal of chest tube and possible PEG placement. She remains on 3 L of oxygen at this time from respiratory standpoint she is stable. Plan discussed with case management. 05/01: Patient seen clinically all stable although critically ill. Still on chest tube although not noted on chest x-ray there is no pneumothorax noted. Surgical debridement of decubitus ulcer noted. Discussed with rrts. To evaluate for possible PEG placement Renal function mostly resolved 05/02: Input from surgeon and pulmonary reviewed patient not a candidate for VATS procedure. A chest x-ray has been ordered today and possible clamping and subsequently removal of the chest tube if no recurrent pneumothorax is noted. Discussed with GI patient will be evaluated today for possible PEG placement in anticipation for hospice per family request. 05/03: CXR shows no residual Pneumothorax, Discussed with Pulmonary, Chest tube to be removed today. Patient also obtained PEG placement without incident, Gas Engineer consulted for Tube feeds. Considering gravity of diagnosis and poor prognosis, Family has told for hospice and patient will be discharged with home hospice in a.m. 05/04: Chest tube was removed today repeat chest x-ray did not show any further pneumothorax. Had extensive discussion with the daughter she understood diagnosis and the procedure to make her mother DNR for hospice. Patient being discharged to hospice today we will continue to feeding per her choice. While emotional she told me she does not want her mother to suffer or be in any pain. (1) pneumothorax-spontaneous Current Visit: Yes Status: Acute Plan to address problem: Status post chest tube placement Pulmonary note reviewed and appreciated (2) Pneumonia?? Current Visit: Yes Status: Acute Plan to address problem: Chest x-ray reviewed No acute infiltrate Pulmonary following Patient is on cefepime Tested negative for COVID-19 (3) Acute kidney injury (ODILON) with acute tubular necrosis (ATN) Current Visit: Yes Status: Acute Plan to address problem: Nephrology consulted and note reviewed Lab results reviewed Improved (4) Hypokalemia Current Visit: Yes Status: Acute Plan to address problem: Improved (5) Vascular dementia Current Visit: Yes Status: Acute Qualifiers: Dementia behavioral disturbance: without behavioral disturbance Qualified Code(s): F01.50 - Vascular dementia without behavioral disturbance Plan to address problem: Verbal prompting, verbal redirection, benzodiazepine therapy as clinically indicated (6) Cerebral atherosclerosis Current Visit: Yes Status: Acute Plan to address problem: Antiplatelet therapy, supportive care, risk factor reduction. (7) decubitus pressure ulcer (8) hyponatremia (9) dysphagia as late effect of cerebrovascular accident (CVA) Current Visit: Yes Status: Acute Plan to address problem: Pured diet, assistance with meals, supportive care. Disposition: [facility] Final Discharge Diagnosis (Prints w/discharge instructions): Pneumothorax Time spent for discharge: 35 mins Core Measure Documentation - Palliative Care Palliative Care/ Comfort Measures: Hospice Care - Core Measures Any of the following diagnoses?: none Exam - Physical Exam Narrative exam: General appearance: Present: mild distress, chronically illl appearing, on NC, - EENT Eyes: Present: PERRL ENT: clear oral mucosa, hearing decreased - Neck Neck: Present: supple - Respiratory Respiratory effort: labored, accessory muscle use- Respiratory: bilateral: diminished, rhonchi Chest tube in place- LEFT - Cardiovascular Heart Sounds: Present: S1 & S2. Absent: rub, click - Extremities Extremities: abnormal (Sacral decubitus ulcer) Peripheral Pulses: within normal limits - Abdominal General gastrointestinal: Present: PEG tube in place soft, non-tender, non-distended, normal bowel sounds Female genitourinary: Present: normal - Integumentary Integumentary: Present: dry, clammy, decreased turgor - Musculoskeletal Musculoskeletal: generalized weakness - Psychiatric Psychiatric: no appropriate mood/affect, no intact judgment & insight, no memory intact - Neurologic Neurologic: CNII-XII intact, focal deficits, no moves all extremities, no gait sita - Constitutional Vitals: Temp Pulse Resp BP Pulse Ox 97.9 F 118 H 18 137/79 100 05/03/21 22:02 05/03/21 22:02 05/03/21 22:02 05/03/21 22:02 05/03/21 22:02 Plan Activity: advance as tolerated, fall precautions Diet: per dietitian instruction Follow up with: HÉCTOR VALENTE MD [Primary Care Provider] - 7 Days RUDY ALBERTO MD [Staff Physician] - 7 Days Prescriptions: Insulin Glargine [Lantus VIAL] 25 units SUB-Q QHS #10 ml Sodium Hypochlorite [Dakin's Half Strength] 1 applic TP BID #1 bottle oxyCODONE /ACETAMINOPHEN [Percocet 5/325 mg] 1 tab PO Q12H PRN #14 tablet PRN Reason: Pain, Moderate (4-6) Sodium Bicarbonate 1,300 mg PO TID #30 tablet
--- NOTE | 2021-05-04 12:31 | Event Note ---
Date: 05/04/[address] removal , no pneumothorax. I will sign off. Discharge plans noted.
--- NOTE | 2021-05-04 13:08 | Gastroenterology Progress Note ---
Assessment and Plan oropharyngeal dysphagia - s/p egd with peg tube plaecment 05/03, cont post peg care daily, tube feedings per nutrition recommendations. will sign off, please call as needed. Subjective Date of service: 05/04/21 Principal diagnosis: oropharyngeal dysphagia Interval history: tolerating tube feeds via peg tube. no events overnight Objective - Exam Narrative Exam: gen: minimally verbal abd: soft, peg tube site c/d/i - external bumper loosened - Constitutional Vitals: Temp Pulse Resp BP Pulse Ox 97.9 F 118 H 18 137/79 96 05/03/21 22:02 05/03/21 22:02 05/03/21 22:02 05/03/21 22:02 05/04/21 10:00 - Labs CBC & Chem 7: 04/23/21 14:47 05/04/21 05:45 Labs: Laboratory Results - last 24 hr 05/03/21 05/03/21 05/04/21 16:01 21:58 05:13 Sodium Potassium Chloride Carbon Dioxide Anion Gap BUN Creatinine Estimated GFR BUN/Creatinine Ratio Glucose POC Glucose 113 H 165 H 179 H Calcium 05/04/21 05/04/21 05/04/21 05:45 07:36 11:24 Sodium 135 L Potassium 4.1 Chloride 103.3 Carbon Dioxide 24 Anion Gap 12 BUN 26 H Creatinine 0.8 Estimated GFR > 60 BUN/Creatinine Ratio 33 Glucose 194 H POC Glucose 161 H 144 H Calcium 8.9
[2021-05-04] MEDS: INSULIN GLARGINE 100 UNITS/ML SUB-Q SCH (22:11)
[2021-05-05] MEDS: SODIUM HYPOCHLORITE, DAKIN'S 1/2 STRENGTH (0.25%) 473 ML TOPICAL SOLN TP SCH ×2 (01:31→10:00)
[2021-05-05] MEDS ORDERED: DEXTROSE 50% IN WATER (25GM) 50 ML SYRINGE IV ONE (05:20)
[2021-05-05] MEDS: INSULIN LISPRO 100 UNIT/ML SUB-Q SCH ×3 (05:25→17:48)
[2021-05-05] MEDS: SODIUM BICARBONATE 650 MG TAB PO SCH ×2 (08:00→15:27)
[2021-05-05] MEDS: CEFEPIME/NS 2 GM/100 ML 2 GM/100 ML BAG IV SCH (11:05)
[2021-05-05] MEDS: CHOLECALCIFEROL (VIT D3) 1000 UNIT (25 mcg) TAB PO SCH (11:07)
[2021-05-05] MEDS: HEPARIN 5,000 UNIT/1 ML VIAL SUB-Q SCH (11:07)
[2021-05-05] MEDS: ASCORBIC ACID 500 MG TAB PO SCH (11:07)
[2021-05-05] MEDS: ZINC SULFATE 220 MG CAP PO SCH (11:07)
--- NOTE | 2021-05-05 11:57 | Progress Note ---
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 Patient is confused and lethargic the time my evaluation and is unable to provide history. Patient also has diminished cognition which is her baseline. Patient is unable to provide history. Patient history provided by EMS staff, ED staff, as well as the patient's daughter who was contacted via telephone for interview. As per daughter the patient is currently a patient receiving hospice care from [facility]. Patient daughter elects to revoke hospice benefit and seek aggressive medical therapy. [facility] notified and acknowledge patient revocation. Patient daughter reports that patient experience fever 103 F today, and has experienced decreased oral intake and decreased responsiveness over the past 2 days with progressively worsening symptoms over the same time frame. EMS was notified and upon arrival the patient was found to be in distress with a pulse oximetry of 65% on room air. The patient was placed on submental oxygen and transported to [facility] for further care and evaluation of the aforementioned symptoms. The patient was seen and evaluated in the emergency department. All lab and imaging studies reviewed. The patient was found to have a pulse oximetry of 82% on submental oxygen which is consistent with acute hypoxemic respiratory failure. Chest x-ray revealed pneumonia as well as left pneumothorax. The patient was also found to have acute kidney injury, systemic inflammatory response syndrome, hypokalemia. The patient underwent chest tube placement in the emergency department with improvement in symptoms. Surgery team consulted in ED. Patient admitted to medical floor due to increased risk of worsening symptoms. Patient initiated on pneumonia protocol as well as coronavirus protocol. The patient has diminished cognition but has a positive gag reflex and is able to protect her airway without difficulty at this time. No reported history of chest pain, palpitation, productive cough, skin rash, recent ill contacts, or known exposure to COVID-19. No prior admission for review. No medication listed at time of admission for reconciliation. Advanced care planning conducted in ED. CT HEAD: Negative CT chest: Chest tube in place, noted opacities 04/21: Patient lethargic, chest tube remains in place, Wound care consult, asp iration precautions. Wean as tolerated. Await COVID 19. Monitor Sodium level, awaiting labs, check q8hr. 04/22: Chest tube still positive air leak. Patient still hypoxic, while sodium level is improving metabolic acidosis has been noted. Patient's Covid test was negative. We will continue current management and adjust insulin for better blood sugar management. May require some Kayexalate due to hyper kalemia but considering severe hypokalemia just the day before we will monitor closely. Renal function showing some improvement continue management pulmonary and nephrology input noted. Urine culture positive for fungal Judith will monitor closely. 04/23: Penumonthorax appears to have resolved, patient down to 3 liters of Oxygen via NC, tolerating. she is still very lethargic, failed swallow eval. awaiting to hear from family if to progress with PEG placement. Patient was recently on Hospice but that was rescinded. Overall poor prognosis. Continue monitoring Hypernatremia. Surgeon re-evaluating Chest tube today 04/24 -Patient is on chest tube for pnuemothorax. Surgery is following. Sacral decubitus ulcer. Patient was evaluated by GI for PEG tube placement and will place PEG tube once patient is stable. Wants to be reconsulted once stable. Patient was on 2 L of oxygen. 04/25; patient is being followed by surgery for chest tube. Sacral decubitus ulcer followed by surgery for possible debridement. Patient is on OG tube feeding, evaluated by GI for PEG tube placement and recommend to be reconsulted after patient is stable. 04/26; patient was seen by general surgery and chest x-ray ordered for follow-up of her pneumothorax status post chest tube. CT pelvis was done and reading is pending, general surgery is evaluating for debridement. Patient is on OG tube feeding and will increase free water intake for hyperkalemia. Discussed with GI yesterday and they state reconsult once chest tube is taken out for PEG tube placement. Prognosis this is guarded. 04/27; left-sided chest tube in place, Small pneumothorax on the left. MRI showed osteomyelitis of the sacral area and will have debridement on Friday. Will follow up with case management about hospice care which the daughter requests. I called patient's daughter Ms Corado at [phone], she said she want PEG tube, debridement and she wants the patient be continued full code. He told me that is patient's request. 04/28; on chest tube for pneumothorax, continue with oxygen. Will have debridement on Friday. Management plan discussed with her daughter and she wants everything to be done including PEG tube. GI said we will do PEG tube once this tube was removed. Patient is full code. 04/29 patient is awake, nonverbal, does not follow commands. She has wrist restraints to prevent chest tube displacement. Apparently she pulled out her chest tube and had to be reinserted. She is on Dobbhoff tube feedings. Lab results reviewed. Pulmonary and nephrology notes reviewed 04/30: Still remains in place chest x-ray reordered today. Family has opted for patient to go back to hospice but awaiting removal of chest tube and possible PEG placement. She remains on 3 L of oxygen at this time from respiratory standpoint she is stable. Plan discussed with case management. 05/01: Patient seen clinically all stable although critically ill. Still on chest tube although not noted on chest x-ray there is no pneumothorax noted. Surgical debridement of decubitus ulcer noted. Discussed with engineering illustrator. To evaluate for possible PEG placement Renal function mostly resolved 05/02: Input from surgeon and pulmonary reviewed patient not a candidate for VATS procedure. A chest x-ray has been ordered today and possible clamping and subsequently removal of the chest tube if no recurrent pneumothorax is noted. Discussed with GI patient will be evaluated today for possible PEG placement in anticipation for hospice per family request. 05/03: CXR shows no residual Pneumothorax, Discussed with Pulmonary, Chest tube to be removed today. Patient also obtained PEG placement without incident, Mixing Tank Operator consulted for Tube feeds. Considering gravity of diagnosis and poor prognosis, Family has told for hospice and patient will be discharged with home hospice in a.m. 05/04: Chest tube was removed today repeat chest x-ray did not show any further pneumothorax. Had extensive discussion with the daughter she understood diagnosis and the procedure to make her mother DNR for hospice. Patient being discharged to hospice today we will continue to feeding per her choice. While emotional she told me she does not want her mother to suffer or be in any pain. 05/05: No new complaints, continue aspiration precautions, awaiting hospice placement (1) pneumothorax-spontaneous Current Visit: Yes Status: Acute Plan to address problem: Status post chest tube placement Pulmonary note reviewed and appreciated (2) Pneumonia?? Current Visit: Yes Status: Acute Plan to address problem: Chest x-ray reviewed No acute infiltrate Pulmonary following Patient is on cefepime Tested negative for COVID-19 (3) Acute kidney injury (ODILON) with acute tubular necrosis (ATN) Current Visit: Yes Status: Acute Plan to address problem: Nephrology consulted and note reviewed Lab results reviewed Improved (4) Hypokalemia Current Visit: Yes Status: Acute Plan to address problem: Improved (5) Vascular dementia Current Visit: Yes Status: Acute Qualifiers: Dementia behavioral disturbance: without behavioral disturbance Qualified Code(s): F01.50 - Vascular dementia without behavioral disturbance Plan to address problem: Verbal prompting, verbal redirection, benzodiazepine therapy as clinically indicated (6) Cerebral atherosclerosis Current Visit: Yes Status: Acute Plan to address problem: Antiplatelet therapy, supportive care, risk factor reduction. (7) decubitus pressure ulcer (8) hyponatremia (9) dysphagia as late effect of cerebrovascular accident (CVA) Current Visit: Yes Status: Acute Plan to address problem: Pured diet, assistance with meals, supportive care. History Interval history: Patient seen and examined, still lethargic, AWAITING PLACEMENT FOR HOSPICE Hospitalist Physical - Physical exam Narrative exam: General appearance: Present: mild distress, chronically illl appearing, on NC, - EENT Eyes: Present: PERRL ENT: clear oral mucosa, hearing decreased - Neck Neck: Present: supple - Respiratory Respiratory effort: no distress Respiratory: bilateral: diminished, rhonchi - Cardiovascular Heart Sounds: Present: S1 & S2. Absent: rub, click - Extremities Extremities: abnormal (Sacral decubitus ulcer) Peripheral Pulses: within normal limits - Abdominal General gastrointestinal: Present: PEG tube in place soft, non-tender, non- distended, normal bowel sounds Female genitourinary: Present: normal - Integumentary Integumentary: Present: dry, clammy, decreased turgor - Musculoskeletal Musculoskeletal: generalized weakness - Psychiatric Psychiatric: no appropriate mood/affect, no intact judgment & insight, no memory intact - Neurologic Neurologic: CNII-XII intact, focal deficits, no moves all extremities, - Constitutional Vitals: Temp Pulse Resp BP Pulse Ox 98.9 F 111 H 18 126/70 100 05/05/21 05:14 05/05/21 05:14 05/05/21 05:14 05/05/21 05:14 05/05/21 05:14 General appearance: Present: mild distress, cachectic Results - Labs CBC & Chem 7: 08/09/21 14:47 05/04/21 05:45 Labs: Laboratory Last Values WBC 7.4 K/mm3 (4.5-11.0) 04/23/21 14:47 RBC 3.47 M/mm3 (3.65-5.03) L 04/23/21 14:47 Hgb 8.6 gm/dl (10.1-14.3) L 04/23/21 14:47 Hct 27.1 % (30.3-42.9) L 04/23/21 14:47 MCV 78 fl (79-97) L 04/23/21 14:47 MCH 25 pg (28-32) L 04/23/21 14:47 MCHC 32 % (30-34) 04/23/21 14:47 RDW 18.7 % (13.2-15.2) H 04/23/21 14:47 Plt Count 251 K/mm3 (140-440) 04/23/21 14:47 Lymph % (Auto) 10.0 % (13.4-35.0) L 04/23/21 14:47 [place] % (Auto) 2.7 % (0.0-7.3) 04/23/21 14:47 Eos % (Auto) 0.1 % (0.0-4.3) 04/23/21 14:47 Baso % (Auto) 0.9 % (0.0-1.8) 04/23/21 14:47 Lymph # (Auto) 0.7 K/mm3 (1.2-5.4) L 04/23/21 14:47 [place] # (Auto) 0.2 K/mm3 (0.0-0.8) 04/23/21 14:47 Eos # (Auto) 0.0 K/mm3 (0.0-0.4) 04/23/21 14:47 Baso # (Auto) 0.1 K/mm3 (0.0-0.1) 04/23/21 14:47 Add Manual Diff Complete 04/20/21 08:54 Total Counted 100 04/20/21 08:54 Seg Neutrophils % 86.3 % (40.0-70.0) H 04/23/21 14:47 Seg Neuts % (Manual) 81.0 % (40.0-70.0) H 04/20/21 08:54 Band Neutrophils % 2.0 % 04/20/21 08:54 Lymphocytes % (Manual) 12.0 % (13.4-35.0) L 04/20/21 08:54 Monocytes % (Manual) 5.0 % (0.0-7.3) 04/20/21 08:54 Nucleated RBC % Not Reportable 04/20/21 08:54 Seg Neutrophils # 6.4 K/mm3 (1.8-7.7) 04/23/21 14:47 Seg Neutrophils # Man 5.3 K/mm3 (1.8-7.7) 04/20/21 08:54 Band Neutrophils # 0.1 K/mm3 04/20/21 08:54 Lymphocytes # (Manual) 0.8 K/mm3 (1.2-5.4) L 04/20/21 08:54 Abs React Lymphs (Man) 0.0 K/mm3 04/20/21 08:54 Monocytes # (Manual) 0.3 K/mm3 (0.0-0.8) 04/20/21 08:54 Eosinophils # (Manual) 0.0 K/mm3 (0.0-0.4) 04/20/21 08:54 Basophils # (Manual) 0.0 K/mm3 (0.0-0.1) 04/20/21 08:54 Metamyelocytes # 0.0 K/mm3 04/20/21 08:54 Myelocytes # 0.0 K/mm3 04/20/21 08:54 Promyelocytes # 0.0 K/mm3 04/20/21 08:54 Blast Cells # 0.0 K/mm3 04/20/21 08:54 WBC Morphology Not Reportable 04/20/21 08:54 Hypersegmented Neuts Not Reportable 04/20/21 08:54 Hyposegmented Neuts Not Reportable 04/20/21 08:54 Hypogranular Neuts Not Reportable 04/20/21 08:54 Smudge Cells Not Reportable 04/20/21 08:54 Toxic Granulation Not Reportable 04/20/21 08:54 Toxic Vacuolation Not Reportable 04/20/21 08:54 Dohle Bodies Not Reportable 04/20/21 08:54 Pelger-Huet Anomaly Not Reportable 04/20/21 08:54 Gabe Rods Not Reportable 04/20/21 08:54 Platelet Estimate Consistent w auto 04/20/21 08:54 Clumped Platelets Not Reportable 04/20/21 08:54 Plt Clumps, EDTA Not Reportable 04/20/21 08:54 Large Platelets Not Reportable 04/20/21 08:54 Giant Platelets Not Reportable 04/20/21 08:54 Platelet Satelliting Not Reportable 04/20/21 08:54 Plt Morphology Comment Not Reportable 04/20/21 08:54 RBC Morphology Not Reportable 04/20/21 08:54 Dimorphic RBCs Not Reportable 04/20/21 08:54 Polychromasia Not Reportable 04/20/21 08:54 Hypochromasia 1+ 04/20/21 08:54 Poikilocytosis Not Reportable 04/20/21 08:54 Anisocytosis 1+ 04/20/21 08:54 Microcytosis Not Reportable 04/20/21 08:54 Macrocytosis Not Reportable 04/20/21 08:54 Spherocytes Not Reportable 04/20/21 08:54 Pappenheimer Bodies Not Reportable 04/20/21 08:54 Sickle Cells Not Reportable 04/20/21 08:54 Target Cells Not Reportable 04/20/21 08:54 Tear Drop Cells Not Reportable 04/20/21 08:54 Ovalocytes Not Reportable 04/20/21 08:54 Helmet Cells Not Reportable 04/20/21 08:54 [place] Bodies Not Reportable 04/20/21 08:54 Desdemona Rings Not Reportable 04/20/21 08:54 Duran Cells Not Reportable 04/20/21 08:54 Bite Cells Not Reportable 04/20/21 08:54 Crenated Cell Not Reportable 04/20/21 08:54 Elliptocytes Not Reportable 04/20/21 08:54 Acanthocytes (Spur) Not Reportable 04/20/21 08:54 Rouleaux Not Reportable 04/20/21 08:54 Hemoglobin C Crystals Not Reportable 04/20/21 08:54 Schistocytes Not Reportable 04/20/21 08:54 Malaria parasites Not Reportable 04/20/21 08:54 Chris Bodies Not Reportable 04/20/21 08:54 Hem Pathologist Commnt No 04/20/21 08:54 PT 15.6 Sec. (12.2-14.9) H 04/20/21 08:54 INR 1.19 (0.87-1.13) H 04/20/21 08:54 D-Dimer 840.47 ng/mlDDU (0-234) H 04/20/21 15:17 VBG pH 7.382 (7.320-7.420) 04/20/21 08:54 Sodium 135 mmol/L (137-145) L 05/04/21 05:45 Potassium 4.1 mmol/L (3.6-5.0) 05/04/21 05:45 Chloride 103.3 mmol/L (98-107) 05/04/21 05:45 Carbon Dioxide 24 mmol/L (22-30) 05/04/21 05:45 Anion Gap 12 mmol/L 05/04/21 05:45 BUN 26 mg/dL (7-17) H 05/04/21 05:45 Creatinine 0.8 mg/dL (0.6-1.2) 05/04/21 05:45 Estimated GFR > 60 ml/min 05/04/21 05:45 BUN/Creatinine Ratio 33 % 05/04/21 05:45 Glucose 194 mg/dL (65-100) H 05/04/21 05:45 POC Glucose 110 mg/dL (70-105) H 05/05/21 05:54 Lactic Acid 2.60 mmol/L (0.7-2.0) H* 04/20/21 15:17 Calcium 8.9 mg/dL (8.4-10.2) 05/04/21 05:45 Phosphorus 3.40 mg/dL (2.5-4.5) D 04/28/21 15:11 Magnesium 2.70 mg/dL (1.7-2.3) H 04/22/21 16:44 Ferritin 508.5 ng/mL (10.0-200.0) H 04/20/21 15:17 Total Bilirubin 0.40 mg/dL (0.1-1.2) 04/20/21 08:54 AST 12 units/L (5-40) 04/20/21 08:54 ALT 9 units/L (7-56) 04/20/21 08:54 Alkaline Phosphatase 61 units/L (35-129) 04/20/21 08:54 Lactate Dehydrogenase 189 units/L (91-180) H 04/20/21 15:17 C-Reactive Protein 19.10 mg/dL (0.00-1.30) H 04/20/21 15:17 Total Protein 8.5 g/dL (6.3-8.2) H 04/20/21 08:54 Albumin 3.4 g/dL (3.9-5) L 04/20/21 08:54 Albumin/Globulin Ratio 0.7 % 04/20/21 08:54 Procalcitonin 2.70 ng/mL (<0.15) 04/20/21 15:17 PTH Intact 20.03 pg/mL (15-65) 04/22/21 16:44 Urine Color Yellow (Yellow) 04/20/21 14:29 Urine Turbidity Turbid (Clear) 04/20/21 14:29 Urine pH 5.0 (5.0-7.0) 04/20/21 14:29 Ur Specific [place] 1.017 (1.003-1.030) 04/20/21 14:29 Urine Protein 100 mg/dl mg/dL (Negative) 04/20/21 14:29 Urine Glucose (UA) Neg mg/dL (Negative) 04/20/21 14:29 Urine Ketones Neg mg/dL (Negative) 04/20/21 14:29 Urine Blood Mod (Negative) 04/20/21 14:29 Urine Nitrite Neg (Negative) 04/20/21 14:29 Urine Bilirubin Neg (Negative) 04/20/21 14:29 Urine Urobilinogen < 2.0 mg/dL (<2.0) 04/20/21 14:29 Ur Leukocyte Esterase Lg (Negative) 04/20/21 14:29 Urine WBC (Auto) > 182.0 /HPF (0.0-6.0) H 04/20/21 14:29 Urine RBC (Auto) > 182.0 /HPF (0.0-6.0) 04/20/21 14:29 U Epithel Cells (Auto) 2.0 /HPF (0-13.0) 04/20/21 14:29 Urine WBC Clumps 2+ /HPF 04/20/21 14:29 Nasal Screen MRSA (PCR) Positive (Negative) 04/21/21 Unknown Coronavirus (PCR) Negative (Negative) 05/02/21 Unknown Nuno/IV: Voiding Method Incontinent Active Medications - Current Medications Current Medications: Generic Name Dose Route Start Last Admin Trade Name Freq PRN Reason Stop Dose Admin Acetaminophen 650 mg 04/20/21 15:30 Acetaminophen 325 Mg Tab PO Q4H PRN Pain MILD(1-3)/Fever >100.5/WEST Albuterol 2.5 mg 04/20/21 14:09 Albuterol 2.5 Mg/3 Ml Nebu IH Q4HRT PRN Shortness Of Breath Lipase/Protease/Amylase 1 each 04/23/21 08:37 Lipase 10,500/Protease 25,000/Amylase 43,750 (Units) Dr Yates FEEDTUBE PRN PRN For Clogged Feeding Tube Ascorbic Acid 500 mg 04/20/21 22:00 05/05/21 11:07 Ascorbic Acid 500 Mg Tab PO 500 mg BID WENDY Administration Cholecalciferol 1,000 unit 04/21/21 10:00 05/05/21 11:07 Cholecalciferol (Vit D3) 1000 Unit (25 Mcg) Tab PO 1,000 unit DAILY WENDY Administration Heparin Sodium (Porcine) 5,000 unit 04/20/21 22:00 05/05/21 11:07 Heparin 5,000 Unit/1 Ml Vial SUB-Q 5,000 unit Q12HR WENDY Administration Hydromorphone HCl 0.5 mg 04/20/21 14:09 05/01/21 19:15 Hydromorphone 1 Mg/1 Ml Inj IV 0.5 mg Q3H PRN Administration Pain , Severe (7-10) Cefepime HCl 2 gm in 100 mls @ 200 mls/hr 04/26/21 22:00 05/05/21 11:05 Cefepime/Ns 2 Gm/100 Ml IV 05/05/21 21:59 200 mls/hr Q12HR WENDY Administration Protocol Insulin Glargine 25 units 04/29/21 22:00 05/04/21 22:11 Insulin Glargine 100 Units/Ml SUB-Q 25 units QHS WENDY Administration Insulin Human Lispro 0 unit 04/22/21 11:00 05/05/21 05:25 Insulin Lispro 100 Unit/Ml SUB-Q Not Given Q6H [facility] Protocol Ondansetron HCl 4 mg 04/20/21 14:09 Ondansetron 4 Mg/2 Ml Inj IV Q8H PRN Nausea And Vomiting Oxycodone/Acetaminophen 1 tab 04/20/21 14:09 05/01/21 16:15 Oxycodone /Acetaminophen 5-325mg Tab PO 1 tab Q12H PRN Administration Pain, Moderate (4-6) Simple Syrup 15 ml 04/23/21 08:37 Simple Syrup 15 Ml FEEDTUBE PRN PRN Hypoglycemia Simple Syrup 30 ml 04/23/21 08:37 Simple Syrup 15 Ml FEEDTUBE PRN PRN Hypoglycemia Sodium Bicarbonate 325 mg 04/23/21 08:37 Sodium Bicarbonate 325 Mg Tab FEEDTUBE PRN PRN For Clogged Feeding Tube Sodium Bicarbonate 1,300 mg 04/30/21 22:47 05/05/21 08:00 Sodium Bicarbonate 650 Mg Tab PO 1,300 mg TID WENDY Administration Sodium Chloride 10 ml 04/20/21 22:00 05/05/21 11:08 Sodium Chloride 0.9% 10 Ml Flush Syringe IV 10 ml BID WENDY Administration Sodium Chloride 10 ml 04/20/21 14:09 Sodium Chloride 0.9% 10 Ml Flush Syringe IV PRN PRN LINE FLUSH Sodium Hypochlorite 1 applic 05/01/21 22:00 05/05/21 01:31 Sodium Hypochlorite, Dakin's 1/2 Strength (0.25%) 473 Ml Topical Soln TP 1 bottle BID WENDY Administration Zinc Sulfate 220 mg 04/20/21 22:00 05/05/21 11:07 Zinc Sulfate 220 Mg Cap PO 220 mg BID WENDY Administration Nutrition/Malnutrition Assess - Dietary Evaluation Nutrition/Malnutrition Findings: Nutrition Notes Start: 04/21/21 13:58 Freq: Status: Active Protocol: Document 05/04/21 12:10 EB (Rec: 05/04/21 12:16 EB [id number]) Nutrition Notes Initial or Follow up Reassessment Current Diagnosis Acute Kidney Injury,Decubitus( Pressure Ulcer),Diabetes, Sepsis,Hypertension,Heart Failure,Respiratory Failure Other Pertinent Diagnosis PNA, r/o Covid19, dementia, dysphagia Current Diet NPO Labs/Tests Na 135 BUN 26 Glu 194 Pertinent Medications Insulin Vit. D and Vit. C Height 5 ft 4.96 in Weight 60 kg [place] Body Weight (kg) 56.72 BMI 22.0 Subjective/Other Information Per RN notes, pt tolerating TF at goal rate as of 0736 this am. Diet order changed to NPO last night. Percent of energy/protein needs met: 100%/100% Burn Absent Trauma Absent Skin Integrity/Comment unstagable pressure wound present Current % PO Negligible #2 Nutrition Diagnosis Increased nutrient needs ( specify in comment below) Diagnosis Progress(for reassessment Continues documentation) #1 Nutrition Diagnosis Inadequate oral intake Diagnosis Progress(for reassessment Continues documentation) Is patient on ventilator? No Is Patient Ambulatory and/or Out of Bed No REE-([place]-St. Jeor-confined to bed) 1403.436 Calculation [facility] for [facility]ations [facility] Additional Notes protein needs:71 - 85g (1.25 - 1.5g/kgBW) fluid needs: 1 ml/kcal Nutrition Intervention Change Diet Order: continue Nutrition Support: Glucerna 1.2 at 50 ml/hr Flush 100 ml q4h. Kcal 1,440 Protein (gm) 72 Fluid (mL) 966 Goal #1 Meet at least 80% of protein and kcal needs via TF Goal #2 Wound healing Anticipated Discharge Needs: Glucerna 1.2 at 50 ml/hr. Flush 100 ml q4h Follow-Up By: 05/08/21 Additional Comments F/u: TF tolerance
--- NOTE | 2021-05-05 15:04 | Event Note ---
Date: 05/05/21 Chest tube out. Off O2. Note plans for d/c to hospice. Will sign off.
[2021-05-06] MEDS: SODIUM BICARBONATE 650 MG TAB PO SCH (00:24)
[2021-05-06] MEDS: HEPARIN 5,000 UNIT/1 ML VIAL SUB-Q SCH ×2 (00:25→12:56)
[2021-05-06] MEDS: INSULIN GLARGINE 100 UNITS/ML SUB-Q SCH (00:25)
[2021-05-06] MEDS: ASCORBIC ACID 500 MG TAB PO SCH ×2 (00:26→12:55)
[2021-05-06] MEDS: ZINC SULFATE 220 MG CAP PO SCH ×2 (00:26→12:55)
[2021-05-06] MEDS: INSULIN LISPRO 100 UNIT/ML SUB-Q SCH (00:27)
[2021-05-06] MEDS: SODIUM HYPOCHLORITE, DAKIN'S 1/2 STRENGTH (0.25%) 473 ML TOPICAL SOLN TP SCH ×2 (00:29→12:56)
[2021-05-06] MEDS: CHOLECALCIFEROL (VIT D3) 1000 UNIT (25 mcg) TAB PO SCH (12:55)
[2021-05-06 15:18] VITALS: BP 142/84
--- NOTE | 2021-06-01 07:44 | Operative Report ---
DATE OF SURGERY: 04/30/2021 PREOPERATIVE DIAGNOSIS: Sacral decubitus. POSTOPERATIVE DIAGNOSIS: Stage 3 sacral decubitus. OPERATIVE FINDINGS: Compatible with stage 3 sacral decubitus. The debridement of the sacral decubitus went down to the underlying fascia. ANESTHESIA: Procedure done under general. BLOOD LOSS: Minimal. SURGEON: Dr. Adrian Sutton. CONDITION: Stable. SPECIMEN: There was no specimen. DISPOSITION: To floor. DESCRIPTION OF PROCEDURE: After informed consent, the patient was brought to the operating room, positioned in a right lateral decubitus position on a pineda bag and then after being sedated under general anesthesia with laryngeal mask, received IV antibiotics preoperatively and a compression stocking in place, wound was sterilely prepped and draped. Basically, I debrided the essentially eschar over the sacral prominence about 3 x 5 cm defect. I sharply dissected to the underlying tissue and removed the tissue entirely, it extended down to the level of the fascia around the sacral prominences. This was sharply debrided, which took about 25-30 minutes. I established hemostasis with point application of the Bovie with pickups, washed out the wound with dilute normal saline until clear. I examined for bleeding, there was none present. All the obvious tissue was completely debrided back to viable tissue. A Kerlix-soaked Betadine roll was packed into the wound and a sterile dressing was applied. The sponge and needle count was correct x2 at the completion of the procedure. The patient tolerated the procedure well. EB
== END 2021-05-06 13:45 | disposition hospice, inpatient (51) | DRG 853 ==
LOC: ED 07:37 → 3A 14:09
PROVIDERS: ADMIT Internal Medicine; ATTEND Hospitalist
PROC: 0W9B30Z Drainage of Left Pleural Cavity with Drainage Device, Percutaneous Approach (ICD-10-PCS; 2021-04-20)
PROC: 05H733Z Insertion of Infusion Device into Right Axillary Vein, Percutaneous Approach (ICD-10-PCS; 2021-04-22)
PROC: 0W9B30Z Drainage of Left Pleural Cavity with Drainage Device, Percutaneous Approach (ICD-10-PCS; 2021-04-23)
PROC: 0JB70ZZ Excision of Back Subcutaneous Tissue and Fascia, Open Approach (ICD-10-PCS; principal; 2021-04-30)
PROC: 0DH63UZ Insertion of Feeding Device into Stomach, Percutaneous Approach (ICD-10-PCS; 2021-05-03)
DX: A41.9 Sepsis, unspecified organism (principal); J18.9 Pneumonia, unspecified organism; J96.01 Acute respiratory failure with hypoxia; N17.0 Acute kidney failure with tubular necrosis; L89.153 Pressure ulcer of sacral region, stage 3; G93.40 Encephalopathy, unspecified; I67.2 Cerebral atherosclerosis; J93.83 Other pneumothorax; Z51.5 Encounter for palliative care; E87.6 Hypokalemia; F01.50 Vascular dementia, unspecified severity, without behavioral disturbance, psychotic disturbance, mood disturbance, and anxiety; Z20.822 Contact with and (suspected) exposure to COVID-19; Z79.4 Long term (current) use of insulin; D64.9 Anemia, unspecified; E87.1 Hypo-osmolality and hyponatremia; E87.8 Other disorders of electrolyte and fluid balance, not elsewhere classified; B37.9 Candidiasis, unspecified; E11.9 Type 2 diabetes mellitus without complications; I25.10 Atherosclerotic heart disease of native coronary artery without angina pectoris; Z95.5 Presence of coronary angioplasty implant and graft; I69.391 Dysphagia following cerebral infarction; Z88.5 Allergy status to narcotic agent; Z88.0 Allergy status to penicillin; Z88.8 Allergy status to other drugs, medicaments and biological substances; E87.0 Hyperosmolality and hypernatremia; R13.12 Dysphagia, oropharyngeal phase
CPT/HCPCS: 36415; 70450; 71045; 72192; 72197; 80048; 80053; 81001; 82140; 82728; 82805; 82947; 82962; 83615; 83735; 83970; 84100; 84132; 84145; 85007; 85025; 85027; 85379; 85610; 86140; 87040; 87086; 87641; 93005; 94760; 96374; G0378; A6260; A9575; J0456; J0690; J0692; J1100; J1170; J1644; J1815; J2370; J2704; J2920; J3370; J3480; J7030; J7040; J7070; J7120; U0003